=== PATIENT | male | born 1960 | race Caucasian/White ===

== ENCOUNTER → 2023-10-16 14:24 | Outpatient (REF) | payer MEDICARE, OTHER, SELFPAY ==
[2023-10-16 11:37] LABS: ALT (SGPT) 17 U/L (0-50); AST (SGOT) 19 U/L (17-59); Albumin 3.6 g/dl (3.5-5.0); Alkaline Phosphatase 103 U/L (38-126); Blood Urea Nitrogen 18 mg/dl (9-20); Calcium 9.1 mg/dl (8.4-10.2); Carbon Dioxide 21 mmol/L (22-30); Chloride 103 mmol/L (98-107); Glucose 325 mg/dl (70-99); Potassium 4.4 mmol/L (3.5-5.1); Sodium 135 mmol/L (135-145); Total Bilirubin 0.4 mg/dl (0.2-1.3); eGFR > 60.00
[2023-10-18 13:04] LABS: Beta-2-Microglobulin 4.6 mg/L (<=3.0)
[2023-10-19 18:59] LABS: Albumin 3.22 g/dL (3.75-5.01); Alpha 1 Globulin 0.31 g/dL (0.19-0.46); Alpha 2 Globulin 0.69 g/dL (0.48-1.05); Free Kappa Light Chains,Quant 7.86 mg/L (3.30-19.40); Free Lambda Light Chains,Quant 218.52 mg/L (5.71-26.30); IgA 5552 mg/dL (68-408); IgG 192 mg/dL (768-1632); IgM <10 mg/dL (35-263); Immunofixation Electrophoresis IFE Done; Kappa/Lambda Fr Light Ratio 0.04 (0.26-1.65); Monoclonal Protein 4.84 g/dL; Total Protein-Electrophoresis 9.7 g/dL (6.3-8.2)
== END ==
LOC: OIDL 14:24
PROVIDERS: ATTENDING PHYSICIAN Nurse Practitioner Adult Health
DX: C90.00 Multiple myeloma not having achieved remission (principal); N18.30 Chronic kidney disease, stage 3 unspecified
CPT/HCPCS: 80053; 82232; 82784; 83521; 84155; 84165; 86334

== ENCOUNTER → 2023-10-22 16:19 | Outpatient (REF) | payer MEDICARE, OTHER, SELFPAY ==
[2023-10-22 14:20] LABS: % Basophils 0.4 % (0-2); % Eosinophils 3.2 % (0-6); % Immature Granulocytes 0.1 % (0-0.5); % Lymphocytes 25.8 % (20.5-51.1); % Monocytes 8.5 % (1.7-9.3); Absolute Eosinophils 0.2 10^3/uL (0-0.7); Absolute Lymphocytes 1.9 10^3/uL (1.2-3.4); Absolute Monocytes 0.6 10^3/uL (0.1-0.6); Absolute Neutrophils 4.6 10^3/uL (1.4-6.5); Hematocrit 31.5 % (39.0-52.0); Mean Corp Hgb Conc. 31.7 g/dL (33.0-37.0); Mean Corpuscular Volume 84.9 fL (80.0-94.0); Mean Platelet Volume 9.9 fL (7.4-10.4); Platelet Count 250 10^3/uL (130-400); Red Blood Cell Count 3.71 10^6/uL (4.70-6.10); Red Cell Dist. Width 20.4 % (11.5-14.5); White Blood Cell Count 7.4 10^3/uL (4.8-10.8)
[2023-10-22 14:49] LABS: ALT (SGPT) 16 U/L (0-50); AST (SGOT) 19 U/L (17-59); Albumin 3.7 g/dl (3.5-5.0); Alkaline Phosphatase 97 U/L (38-126); Blood Urea Nitrogen 15 mg/dl (9-20); Calcium 9.5 mg/dl (8.4-10.2); Carbon Dioxide 23 mmol/L (22-30); Chloride 105 mmol/L (98-107); Glucose 195 mg/dl (70-99); Potassium 4.3 mmol/L (3.5-5.1); Sodium 137 mmol/L (135-145); Total Bilirubin 0.4 mg/dl (0.2-1.3); eGFR > 60.00
[2023-10-22 16:31] LABS: LDH 159 U/L (120-246)
== END ==
LOC: OIDL 16:19
PROVIDERS: ATTENDING PHYSICIAN Internal Medicine Hematology & Oncology
DX: C90.00 Multiple myeloma not having achieved remission (principal)
CPT/HCPCS: 80053; 83615; 85025

== ENCOUNTER → 2024-02-05 10:33 | Outpatient (REF) | payer MEDICARE, OTHER, SELFPAY | LOC: RAD 10:33 | PROVIDERS: ATTENDING PHYSICIAN Internal Medicine Hematology & Oncology; FAMILY PHYSICIAN Physician Assistant Medical | DX: C90.00 Multiple myeloma not having achieved remission (principal); M79.661 Pain in right lower leg | CPT/HCPCS: 93971 ==

== ENCOUNTER 2024-03-03 00:54 | Emergency (ER) | payer MEDICARE, OTHER, SELFPAY ==
[2024-03-03 00:56] VITALS: BP 139/81
[2024-03-03 00:58] VITALS: BP 139/81; BMI 36.5
[2024-03-03 01:20] LABS: Hematocrit 30.5 % (39.0-52.0); Hemoglobin 10.2 g/dL (13.0-18.0); Mean Corp Hgb Conc. 33.4 g/dL (33.0-37.0); Mean Corpuscular Hgb 29.7 pg (27.0-31.0); Mean Corpuscular Volume 88.9 fL (80.0-94.0); Mean Platelet Volume 11.4 fL (7.4-10.4); Platelet Count 163 10^3/uL (130-400); Red Blood Cell Count 3.43 10^6/uL (4.70-6.10); Red Cell Dist. Width 18.5 % (11.5-14.5); White Blood Cell Count 6.4 10^3/uL (4.8-10.8)
[2024-03-03 01:37] LABS: ALT (SGPT) 19 U/L (0-50); AST (SGOT) 17 U/L (17-59); Albumin 3.7 g/dl (3.5-5.0); Alkaline Phosphatase 125 U/L (38-126); Blood Urea Nitrogen 19 mg/dl (9-20); Carbon Dioxide 26 mmol/L (22-30); Chloride 101 mmol/L (98-107); Estimated Creatinine Clearance > 125 ml/min; Glucose 233 mg/dl (70-99); Potassium 3.9 mmol/L (3.5-5.1); Sodium 138 mmol/L (135-145); Total Bilirubin 0.4 mg/dl (0.2-1.3); Total Protein 7.4 g/dl (6.3-8.2); eGFR > 60.00
[2024-03-03 02:00] VITALS: BP 122/75
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
[2024-03-03 02:20] LABS: Absolute Neutrophils -Man Diff 3.9 10^3/uL (1.4-6.5); Atypical Lymphocytes 2 %; Band Neutrophils 4 % (0-3); Eosinophils 12 % (0-6); Lymphocytes 17 % (20-51); Monocytes 8 % (2-9); Platelets Checked Yes; Segmented Neutrophils 57 % (42-75)
[2024-03-03 02:23] LABS: Nucleated Red Blood Cells 1 (-)
[2024-03-03 02:24] LABS: Anisocytosis 1+; Microcytosis 1+; Normal RBC Morphology No
[2024-03-03 02:25] LABS: Rouleaux 1+; Total Cells Counted 100
[2024-03-03] MEDS: ROXICODONE 10 MG PO (02:47)
[2024-03-03] MEDS: OFIRMEV 100 IV (02:47)
[2024-03-03 03:00] VITALS: BP 118/69
== END 2024-03-03 05:21 ==
LOC: EMR 00:54
PROVIDERS: EMERGENCY PHYSICIAN Emergency Medicine; FAMILY PHYSICIAN Hospitalist
DX: I89.0 Lymphedema, not elsewhere classified (principal); G89.29 Other chronic pain; M79.604 Pain in right leg; M79.605 Pain in left leg; C90.00 Multiple myeloma not having achieved remission; D64.9 Anemia, unspecified; E11.9 Type 2 diabetes mellitus without complications; F11.20 Opioid dependence, uncomplicated; Z79.82 Long term (current) use of aspirin; Z79.899 Other long term (current) drug therapy; Z87.820 Personal history of traumatic brain injury; Z99.3 Dependence on wheelchair
CPT/HCPCS: 99284; 96374; 80053; 85025; 87040; 93970

== ENCOUNTER → 2024-07-21 12:56 | Outpatient (REF) | payer MEDICARE, OTHER, SELFPAY | LOC: OIDL 12:56 | PROVIDERS: ATTENDING PHYSICIAN Internal Medicine Hematology & Oncology | DX: C90.00 Multiple myeloma not having achieved remission (principal); N18.30 Chronic kidney disease, stage 3 unspecified; I89.0 Lymphedema, not elsewhere classified | CPT/HCPCS: 36415; 86850; 86870; 86900; 86901 ==

== ENCOUNTER 2024-07-25 03:01 | Inpatient (IN) | payer MEDICARE, OTHER, SELFPAY ==
[2024-07-24 23:30] VITALS: BP 136/54; BMI 41.1
[2024-07-24 23:32] VITALS: BP 136/54
--- NOTE | 2024-07-24 23:42 | ED.GENMED ---
History of Present Illness
General
Chief Complaint: Swelling
Source: patient
Exam Limitations: none
Time Seen by Provider: 07/24/24 23:29
History of Present Illness
History of Present Illness:
This is a 63 year old male that comes in by ambulance with c/o swelling. States that he had a blood transfusion on Thursday. States that he then started to swell. States that both legs are swollen and red, and the swelling is coming up into his abd.
States that he noticed this on Thursday. States that he has had chest discomfort, SOB, abd pain, and some dizziness. Denies any fever, chills, nausea, vomiting, diarrhea, headache, urinary burning.
Past History
Past History
ED Past Medical History: Cancer (Myelodysplastic Syndrome (MDS)), IDDM, Psychiatric (anxiety, Depression) and Other (TBI, Shingles)
ED Past Surgical History: Orthopedic (Right leg surgery, Left great toe and second toe amputation. Right great toe amputation, Back surgery, )
Social History
Tobacco: Former smoker
Alcohol: None
Personal:
Living: detention
Review of Systems
Review of Systems
All Other Systems: ROS reviewed and negative except as documented in HPI and ROS
Constitutional: Reports no symptoms; Denies fever or chills
EENT: Reports no symptoms
Respiratory: Reports trouble breathing; Denies cough
Cardiac: Reports chest pain
ABD/GI: Reports abdominal pain; Denies nausea, vomiting or diarrhea
: Reports no symptoms; Denies dysuria, frequency or urgency
Musculoskeletal: Reports edema (Both legs and abd)
Skin: Reports other (Redness of the lower legs)
Neurological: Reports dizzy; Denies headache
Psychiatric: Reports no symptoms
Phy Exam
General Physical Exam
General Presentation: mild distress
General age: appears stated age
General Skin: warm and dry
General Habitus: obese
General Mental: alert
General Hydration: dry mucous membranes
ENT Exam
ENT Exam: TM's normal, pharynx normal and neck supple
Eye Exam
Eye Exam: EOMI
Cardiovascular Exam
Cardiovascular Exam: normal peripheral pulses and tachycardia
Pulmonary Exam
Pulmonary Exam: lungs clear, no respiratory distress, no rales, chest non tender, no crackles, no rhonchi, no wheezing and no cough
Gastrointestinal Exam
Gastrointestinal Exam: normal bowel sounds, no pulsatile mass, tender (generalized tenderness all over with palpation. ) and other (abd is distended and tight with fluid, stool brown Hem negative)
Musculoskeletal Exam
Musculoskeletal Exam: edema (+2 pitting edema of the feet, legs into the thighs with +1 into the abd and skin is very tight. )
Skin Exam
Skin Exam: normal color, warm/dry and redness (Redness of the right lower leg with increased warmth. Left slightly red with increased warmth. )
Psychiatric Exam
Psychiatric Exam: normal mood/affect
Scores
Heart Failure Risk
Heart Failure Risk Score: Yes
History of Stroke or TIA: No
History of intubation for respiratory distress: No
Heart rate on ED arrival >/= 110: No
SaO2 <90% on arrival on room air: No
HR >/=110 during 3min walk test (or too ill to perform test): Yes
ECG has acute ischemic changes: No
Urea >/=12mmol/L (BUN 33.6mg/dL): No
Serum CO2>/=35mmol/L: No
Troponin I or T elevated to MS Level (0.4mg/dL): No
NT-proBNP >/=5,000ng/L (5,000pg/ml): No
HF Risk Score: 2
Admission Status: MEDIUM RISK 9.2% Consider observation or discharge to home with homecare & f/u visit to PCP/Recruiting Coordinator, or SNF for treatment
Course
Orders/Labs/Results
Orders:
Orders
07/24/24 23:41
Complete Blood Count/With Diff Urgent
Comprehensive Metabolic Panel Urgent
NT-proBNP Urgent
Troponin I Urgent
07/24/24 23:53
Electrocardiogram (*1) Urgent
Reason for Study: Shortness of Breath
EKG- Treatment ONCE
07/25/24 00:05
CR Chest - 2 Views Urgent
Reason For Exam: SOB, chest pain
07/25/24 00:28
Lactic Acid Urgent
07/25/24 01:07
Furosemide [Lasix] 80 mg IV NOW STA
07/25/24 01:14
Type And Crossmatch Urgent
07/25/24 01:30
Piperacillin/Tazo 3.375 Gram [Zosyn] 3.375 gram in 50 ml IV NOW
Abnormal Lab Results
07/25/24
00:28
WBC 4.0 L 10^3/uL
(4.8-10.8)
RBC 2.36 L 10^6/uL
(4.70-6.10)
Hgb 7.2 L g/dL
(13.0-18.0)
Hct 22.4 L %
(39.0-52.0)
MCV 94.9 H fL
(80.0-94.0)
MCHC 32.1 L g/dL
(33.0-37.0)
RDW 18.5 H %
(11.5-14.5)
MPV 11.4 H fL
(7.4-10.4)
Absolute Lymphs (auto) 0.8 L 10^3/uL
(1.2-3.4)
Absolute Monos (auto) 0.7 H 10^3/uL
(0.1-0.6)
Immature Gran % 0.7 H %
(0-0.5)
Lymphocytes % 19.8 L %
(20.5-51.1)
Monocytes % 16.3 H %
(1.7-9.3)
Eosinophils % 10.4 H %
(0-6)
Glucose 257 H mg/dl
(70-99)
Albumin 3.4 L g/dl
(3.5-5.0)
07/25/24 00:28
07/25/24 00:28
Leukopenia, H/H low, Hyperglycemia, Albumin slightly low. Troponin <0.012, Pro-BNP 266
Vital Signs
Initial and Last Documented VS:
Initial Vital Signs
Temp Pulse Resp BP Pulse Ox
97.8 F 104 18 136/54 97
07/24/24 23:30 07/24/24 23:30 07/24/24 23:30 07/24/24 23:30 07/24/24 23:30
Last Documented Vital Signs
Temp Pulse Resp BP Pulse Ox
97.8 F 102 19 129/61 91
07/24/24 23:30 07/25/24 01:15 07/25/24 01:15 07/25/24 01:14 07/25/24 00:53
MDM/Problems Addressed
Differential Diagnosis Includes:
CHF, Renal failure, Cellulitis
MDM/Problems Addressed:
This is a 63 year old male that comes in with c/o swelling in both legs and into his abd. States that he had a transfusion on Thursday and Thursday he started to swell.
will check labs, chest x-ray
Back into see patient. Explained that he has increased fluid also in the lungs. Also his Hgb is low at 7.2. Patient does not have any recent blood here to compare as he just had a Transfusion on Thursday. Blood consent signed and will Type and
Crossmatch. Patient to be admitted. Hospitalist notified.
Chronic conditions affecting care: Cancer
Acute Exacerbation and/or Progression of Chronic Illness: Cancer
*Radiology
Radiology exam reviewed: preliminary read by ED provider (Chest- increased vascular congestion, CHF)
*Pulse Oximetry
Patient hypoxic: no
*EKG
Interpreted by ED Provider?: Yes
Heart Rate: 99
Rate: normal
Rhythm: sinus
[place]: normal axis
Interval: normal interval
QRS Pattern: normal QRS
Ischemia: non-specific ST changes (V3, V4, Checked by Dr. Barry)
*[employer]er Interpretation
Rate: tachycardiac
Heart Rate: 107
Rhythm: sinus tachycardia
*Critical Care Note
Total Time (30-74mins, 75-104mins- exclusive of procedures): Not Applicable
ED Attending Note
-
Portions of this chart may have been created with voice recognition software.� Occasional wrong word or��sound alike� substitutions may have occurred due to the inherent limitations of voice recognition software.
Discharge Plan
Departure
Patient Disposition: Admit
Date of Disposition: 07/25/24
Time of Disposition: 01:33
Admit to: Telemetry
Presentation/result/management discussed w/ accepting MD/DO: Hospitalist
Patient with high blood pressure during this ER visit?: No
Condition: Good
Covid-19: Not Applicable
Discharge Problem:
Cellulitis of lower extremity, Increased vascular congestion, Bilateral edema of lower extremity, Low hemoglobin
Prescriptions:
No Action
atorvastatin [Lipitor] 40 mg Tablet
40 mg PO HS
acetaminophen [Tylenol] 325 mg Tablet
650 mg PO Q4HPRN PRN (Reason: mild pain)
amitriptyline 50 mg Tablet
50 mg PO HS
ferrous sulfate 325 mg (65 mg iron) Tablet
325 mg PO MOWEFR
Fleet Enema 19-7 gram/118 mL Enema
118 ml SC DAILYPRN PRN (Reason: if no bm aftr dulcolax)
fluticasone propionate 50 mcg/actuation [place],Suspension
2 spray INTRANASAL DAILY
bupropion HCl 300 mg Tablet Extended Release 24 Hr
150 mg PO DAILY
polyethylene glycol 3350 [Miralax] 17 gram Powder In Packet
17 g PO DAILY PRN (Reason: Constipation)
sennosides-docusate sodium [Senna Plus] 8.6-50 mg Tablet
2 tab-cap PO DAILY PRN (Reason: Constipation)
therapeutic multivitamin Tablet
1 tab PO DAILY
magnesium hydroxide 400 mg/5 mL Suspension
2,400 mg PO [id number] PRN (Reason: constipation)
olopatadine 0.1 % Drops
2 drp BOTH EYES BID
calcium carbonate [Tums] 200 mg calcium (500 mg) Tablet,Chewable
400 mg PO Q4HPRN PRN (Reason: gerd)
loratadine 10 mg Tablet
10 mg PO DAILY
venlafaxine 225 mg Tablet Extended Release 24hr
225 mg PO DAILY
furosemide [Lasix] 40 mg Tablet
40 mg PO DAILY
metformin 500 mg Tablet
1,000 mg PO BID
acyclovir 400 mg Tablet
400 mg PO .Q12H ON FRIDAYS
alprazolam 0.25 mg Tablet
0.25 mg PO HS
lorazepam [Ativan] 0.5 mg Tablet
0.5 mg PO .Q12H PRN (Reason: anxiety)
bisacodyl 10 mg Suppository
10 mg SC .Q24H PRN (Reason: constipation)
docusate sodium [Colace] 100 mg Capsule
100 mg PO DAILY
montelukast [Singulair] 10 mg Tablet
10 mg PO HS
Ventolin 90 mcg/actuation Aerosol
108 mcg INHALATION .Q4H PRN (Reason: shortness of breath)
lenalidomide 25 mg Capsule
25 mg PO HS
insulin glargine [Basaglar KwikPen U-100 Insulin] 100 unit/mL (3 mL) Insulin Pen
60 unit SC .Q12
insulin glargine [Basaglar KwikPen U-100 Insulin] 100 unit/mL (3 mL) Insulin Pen
66 unit SC .BID ON FRIDAYS
diclofenac sodium [Voltaren Arthritis Pain] 1 % Gel
1 ea TOPICAL .Q6H PRN (Reason: pain)
oxycodone 10 mg Tablet
10 mg PO .Q4H PRN (Reason: pain)
dapagliflozin propanediol [Farxiga] 10 mg Tablet
10 mg PO DAILY
aspirin 81 mg Capsule
81 mg PO DAILY
Ozempic 0.25 mg or 0.5 mg (2 mg/3 mL) Pen Injector
0.25 mg SC .
Robitussin Cold and Cough
10 ml PO .Q4H PRN (Reason: cough)
sodium chloride
1,000 mg PO TID
morphine [MS Contin] 15 mg tablet extended release
30 mg PO 12
insulin lispro 100 unit/mL insulin pen
47 unit SC AC
pregabalin [Lyrica] 200 mg capsule
200 mg PO .Q8
loperamide [Imodium A-D] 2 mg Tablet
2 mg PO Q6H PRN (Reason: Reduction Of Transepidermal Water Loss)
Referrals:
Daisy Gordon DO [Family Provider] -
Interventions
Interventions:
*Risk Screen - Suicide Last Done: 07/24/24 23:30
*General Assessment Last Done: 07/24/24 23:30
*Neglect/Abuse Screening Last Done: 07/24/24 23:30
ED- Fall Risk Assessment Last Done: 07/24/24 23:30
*ED COVID-19 Vaccine History Last Done: 07/24/24 23:30
ED- Cardiac Assessment Last Done: 07/24/24 23:42
ED- Pulmonary Assessment Last Done: 07/24/24 23:42
ED-Skin Assessment Last Done: 07/24/24 23:43
Discharge Date and Time
Print Language: KAZAKH
[2024-07-25] VITALS (12 sets, daily range): BP systolic 117–137; BP diastolic 55–86; PULSE 88–91; O2SAT 96; BMI 39.3
[2024-07-25 00:47] LABS: % Eosinophils 10.4 % (0-6); % Immature Granulocytes 0.7 % (0-0.5); % Lymphocytes 19.8 % (20.5-51.1); % Monocytes 16.3 % (1.7-9.3); % Neutrophils 51.8 % (42.2-75.2); Absolute Eosinophils 0.4 10^3/uL (0-0.7); Absolute Lymphocytes 0.8 10^3/uL (1.2-3.4); Absolute Monocytes 0.7 10^3/uL (0.1-0.6); Absolute Neutrophils 2.1 10^3/uL (1.4-6.5); Hematocrit 22.4 % (39.0-52.0); Hemoglobin 7.2 g/dL (13.0-18.0); Mean Corp Hgb Conc. 32.1 g/dL (33.0-37.0); Mean Corpuscular Hgb 30.5 pg (27.0-31.0); Mean Corpuscular Volume 94.9 fL (80.0-94.0); Mean Platelet Volume 11.4 fL (7.4-10.4); Nucleated Red Blood Cells % 0 % (-); Platelet Count 166 10^3/uL (130-400); Red Blood Cell Count 2.36 10^6/uL (4.70-6.10); Red Cell Dist. Width 18.5 % (11.5-14.5)
[2024-07-25 01:04] LABS: ALT (SGPT) 22 U/L (0-50); AST (SGOT) 20 U/L (17-59); Albumin 3.4 g/dl (3.5-5.0); Alkaline Phosphatase 103 U/L (38-126); Blood Urea Nitrogen 18 mg/dl (9-20); Calcium 8.8 mg/dl (8.4-10.2); Carbon Dioxide 24 mmol/L (22-30); Chloride 101 mmol/L (98-107); Estimated Creatinine Clearance 109 ml/min; Glucose 257 mg/dl (70-99); NT-proBNP 266 pg/ml; Potassium 3.8 mmol/L (3.5-5.1); Sodium 140 mmol/L (135-145); Total Bilirubin 0.2 mg/dl (0.2-1.3); Total Protein 7.4 g/dl (6.3-8.2); eGFR > 60.00
[2024-07-25 01:13] LABS: Troponin I < 0.012 ng/ml
[2024-07-25] MEDS: LASIX 80 MG IV (01:14)
[2024-07-25 01:20] LABS: Lactic Acid 1.5 mmol/L (0.7-2.0)
[2024-07-25] MEDS: ZOSYN 50 IV (01:33)
--- NOTE | 2024-07-25 02:52 | HPS.HSE ---
Family Physician
-
Family Physician: Daisy Gordon,
Chief Complaint
-
Swelling
History of Present Illness
Patient is a 63y M with PMH significant for HTN, DM-II, remote TBI and multiple myeloma who presents to ED complaining of swelling. Patient states that he had labs done on which showed low Hgb (he cannot recall the value). He received
a single unit [facility]. Patient states that he noted significant swelling on Thursday AM that has rapidly increased since that time.
Patient notes chronic swelling in the RLE - but he has also developed LLE swelling and edema now extending into the lower abdominal wall.
Patient notes discomfort due to swelling. He reports some sense of dyspnea.
He denies any chest pain. No fevers / chills. No cough, N/V/D, urinary complaints, etc.
Patient denies any new medications. No changes other than recent transfusion as noted.
Medical History
Past Medical History
Past Medical History: Reports Other
Additional Past Medical History:
Multiple Myeloma
Hypertension
Hyperlipidemia
Diabetes Mellitus, Type II - Insulin Dependent
Diabetic Neuropathy
Chronic Pain with Opioid Dependence secondary to Charcot Foot
Traumatic Brain Injury
Anxiety/Depression
Morbid Obesity
Past Surgical History: Reports Other
Additional Past Surgical History:
Bilateral Great Toe Amputations
Back Surgery
Right Leg Surgery
Social History
Tobacco: Former Smoker (Quit in April 2023)
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
Living: Detention
Family History
Family History: Other
Allergies / Home Medications
Allergies reflects when Allergies were last updated in [facility].
Home Medications with original date entered in [facility]
Allergy/Medication List:
Allergies
Allergy/AdvReac Type Severity Reaction Status Date / Time
buspirone [From BuSpar] Allergy Itching Verified 07/24/24 23:43
tramadol Allergy Unknown Verified 07/24/24 23:43
Home Medications
acetaminophen 325 mg tablet (Tylenol) 650 mg PO Q4HPRN PRN mild pain 08/30/23
amitriptyline 50 mg tablet 50 mg PO HS Depression 08/30/23
atorvastatin 40 mg tablet (Lipitor) 40 mg PO HS High Cholesterol 08/30/23
bupropion HCl 300 mg 24 hr tablet, extended release 150 mg PO DAILY Depression 08/30/23
calcium carbonate (Tums) 400 mg PO Q4HPRN PRN gerd 08/30/23
ferrous sulfate 325 mg (65 mg iron) tablet 325 mg PO MOWEFR Supplement 08/30/23
fluticasone propionate 50 mcg/actuation nasal spray,suspension 2 spray intranasal DAILY Congestion 08/30/23
loratadine 10 mg tablet 10 mg PO DAILY Allergies 08/30/23
magnesium hydroxide 400 mg/5 mL oral suspension 2,400 mg PO [id number] PRN constipation 08/30/23
olopatadine 0.1 % eye drops 2 drp BOTH EYES BID Eye Condition 08/30/23
polyethylene glycol 3350 17 gram oral powder packet (Miralax) 17 g PO DAILY PRN Constipation 08/30/23
sennosides 8.6 mg-docusate sodium 50 mg tablet (Senna Plus) 2 tab-cap PO DAILY PRN Constipation 08/30/23
sodium phosphates 19 gram-7 gram/118 mL enema (Fleet Enema) 118 ml MA DAILYPRN PRN if no bm aftr dulcolax 08/30/23
therapeutic multivitamin 1 tab PO DAILY Supplement 08/30/23
venlafaxine 225 mg tablet,extended release 24 hr 225 mg PO DAILY Depression 08/30/23
Robitussin Cold and Cough 10 ml PO .Q4H PRN cough 07/22/24
acyclovir 400 mg tablet 400 mg PO .Q12H ON Fridays07/22/24
albuterol 90 mcg/actuation aerosol inhaler 108 mcg inhalation .Q4H PRN shortness of breath 07/22/24
alprazolam 0.25 mg tablet 0.25 mg PO HS 07/22/24
aspirin 81 mg capsule 81 mg PO DAILY 07/22/24
bisacodyl 10 mg rectal suppository 10 mg MA .Q24H PRN constipation 07/22/24
dapagliflozin propanediol 10 mg tablet (Farxiga) 10 mg PO DAILY 07/22/24
diclofenac sodium 1 % topical gel (Voltaren Arthritis Pain) 1 ea topical .Q6H PRN pain 07/22/24
docusate sodium 100 mg capsule (Colace) 100 mg PO DAILY 07/22/24
furosemide 40 mg tablet (Lasix) 40 mg PO DAILY 07/22/24
insulin glargine 100 unit/mL (3 mL) subcutaneous pen (Basaglar KwikPen U-100 Insulin) 60 unit SC .Q12 07/22/24
insulin glargine 100 unit/mL (3 mL) subcutaneous pen (Basaglar KwikPen U-100 Insulin) 66 unit SC .BID ON Fridays07/22/24
insulin lispro 100 unit/mL subcutaneous pen 47 unit SC AC Diabetes 07/22/24
lenalidomide 25 mg capsule 25 mg PO HS 07/22/24
lorazepam 0.5 mg tablet (Ativan) 0.5 mg PO .Q12H PRN anxiety 07/22/24
metformin 500 mg tablet 1,000 mg PO BID 07/22/24
montelukast 10 mg tablet (Singulair) 10 mg PO HS 07/22/24
morphine 15 mg tablet,extended release (MS Contin) 30 mg PO 12 Pain 07/22/24
oxycodone 10 mg tablet 10 mg PO .Q4H PRN pain 07/22/24
pregabalin 200 mg capsule (Lyrica) 200 mg PO .Q8 Pain 07/22/24
semaglutide 0.25 mg or 0.5 mg (2 mg/3 mL) subcutaneous pen injector (Ozempic) 0.25 mg SC .QT07/22/24
sodium chloride 1,000 mg PO TID 07/22/24
loperamide 2 mg tablet (Imodium A-D) 2 mg PO Q6H PRN Reduction Of Transepidermal Water Loss 07/25/24
Review of Systems
-
History Source: Patient
A 12 point ROS was completed and negative except as noted: Yes
Constitutional: Reports Weight Gain and Fatigue; Denies Fever or Chills
EENT: Denies Sore Throat
Respiratory: Reports Trouble Breathing; Denies Cough
Cardiac: Denies Chest Pain or Palpitations
Abdomen/GI: Reports Abdominal Pain; Denies Nausea, Vomiting, Diarrhea, Constipated, Bloody Stools, Black Stools or Anorexia
: Denies Dysuria, Frequency or Flank Pain
Musculoskeletal: Reports Joint Pain, Joint Swelling and Edema
Neurological: Denies Dizzy or Headache
Psych: Denies Depression or Anxiety
Physical Exam
Vital Signs
Vital Signs
Temp Pulse Resp BP Pulse Ox
97.8 F 107 20 132/66 91
07/24/24 23:30 07/25/24 02:30 07/25/24 02:30 07/25/24 02:00 07/25/24 00:53
Physical Exam
General: Other (Morbidly obese 63y M in no acute distress.)
HEENT: Moist mucous membranes, PERRLA and Other (Thick neck.)
Respiratory: Other (Decreased at bases - otherwise clear.)
Cardiac: S1/S2 and Regular Rhythm; No Murmur
GI: Other (Obese, pos abdominal wall edema at least 1/2 up. No erythema / increased warmth / fluctuance / etc.)
Musculoskeletal: Other (Absent digits both feet s/p amputations. 4+ pitting edema bilaterally extending to the abdomen as noted above.)
Neuro: AO x 3
Laboratory Results
-
07/25/24 00:28
07/25/24 00:28
Laboratory Results
Lactic Acid 1.5 mmol/L (0.7-2.0) 07/25/24 00:28
Total Bilirubin 0.2 mg/dl (0.2-1.3) 07/25/24 00:28
AST 20 U/L (17-59) 07/25/24 00:28
ALT 22 U/L (0-50) 07/25/24 00:28
Alkaline Phosphatase 103 U/L (38-126) 07/25/24 00:28
Troponin I < 0.012 ng/ml 07/25/24 00:28
Impression/Plan
-
A/P: Patient is a 63y M with PMH significant for HTN, DM-II and multiple myeloma who presents to ED complaining of significant swelling over the past 48 hours.
Anasarca
- Admit for further evaluation and treatment.
- Symptoms began s/p PRBC transfusion on 07/22/24 - but seems unlikely that this degree of volume is wholly responsible.
- Prior h/o symptomatic anemia resulting in edema / CHF exacerbation in 08/2023.
- IV Lasix BID for now and follow for effective diuresis.
- Monitor for any evidence of renal impairment.
- Follow I/Os, daily weights, etc.
- Hold further PO salt supplementation for now.
- Update Echo - last done in 08/2023 was essentially unremarkable.
Multiple Myeloma
Acute on Chronic Anemia secondary to the above
- Patient is on lenalidomide for myeloma - last dose is scheduled for today before one week off. Will hold for now.
- s/p PRBCs x 1 unit on 07/22 as noted.
- Hematology evaluation for additional recommendations.
- Follow for changes in cell counts - Hgb may increase somewhat following effective diuresis.
DM-II
- Stable. Marked insulin resistance with high-doses of insulin.
- Continue basal : bolus insulin. Will decreases doses for now and adjust as needed for adequate glycemic control.
- Update A1C.
- Continue Farxiga. Hold other PO medications and Ozempic.
Benign Hypertension
- Stable. Patient is not currently on any antihypertensive medications.
- Follow for BP control.
Chronic Pain Syndrome
Chronic Opioid Dependence
Charcot Foot
- Stable. Continue current pain control med regimen without changes.
- Follow-up with Pain Management after discharge.
- PT / OT evaluations for mobility during stay.
- Patient notes that he has been wheelchair bound for > 1 year.
History of TBI
- No new neurologic complaints.
Morbid Obesity due to excess calories
- Affects all aspects of care.
- Encourage healthy diet. Patient extremely limited in mobility and suspect that significant weight reduction will not be feasible.
DVT Prophylaxis: Lovenox
Code Status: Full
[2024-07-25] MEDS: ROXICODONE 10 MG PO ×4 (03:30→21:49)
[2024-07-25] MEDS: LYRICA 200 MG PO ×3 (06:12→21:48)
[2024-07-25 07:43] LABS: Glucose - Point of Care 374 mg/dl (70-99)
[2024-07-25] MEDS: FARXIGA 10 MG PO (07:56)
[2024-07-25] MEDS: COLACE 100 MG PO ×2 (07:56→21:49)
[2024-07-25] MEDS: EFFEXOR XR 225 MG PO (07:56)
[2024-07-25] MEDS: LOW STRENGTH ASPIRIN 81 MG PO (07:57)
[2024-07-25] MEDS: NOVOLOG FLEXPEN 20 UNITS SC ×3 (08:00→16:37)
[2024-07-25] MEDS: NOVOLOG FLEXPEN-HIGH RESISTANCE 12 UNITS SC (08:01)
[2024-07-25] MEDS: LASIX 40 MG IV ×2 (08:02→15:37)
[2024-07-25] MEDS: LANTUS 0.4 UNITS SC (08:17)
[2024-07-25 09:00] LABS: Hematocrit 24.7 % (39.0-52.0); Hemoglobin 7.9 g/dL (13.0-18.0); Mean Corpuscular Hgb 31.3 pg (27.0-31.0); Mean Platelet Volume 11.9 fL (7.4-10.4); Platelet Count 160 10^3/uL (130-400); Red Blood Cell Count 2.52 10^6/uL (4.70-6.10); Red Cell Dist. Width 18.3 % (11.5-14.5); White Blood Cell Count 4.2 10^3/uL (4.8-10.8)
[2024-07-25] MEDS: WELLBUTRIN XL (24 hour extended release) 150 MG PO (09:01)
[2024-07-25 09:31] LABS: Glycohemoglobin (HgbA1c) 10.1 % (4.0-5.6)
--- NOTE | 2024-07-25 10:00 | CARDSERVLU ---
Echocardiogram with [facility] completed after protocol screening completed. Allergies verified.
Patent IV site: _R hand____
IV site flushed with 0.9% NaCl pre and post administration.
Diluted bolus method utilized to enhance visualization of ventricular ledezma.
Total volume given: __2.5__ mL
Patient tolerated all procedures well without complications.
[2024-07-25 10:16] LABS: Iron 73 ug/dl (49-181)
[2024-07-25 10:22] LABS: Blood Urea Nitrogen 20 mg/dl (9-20); Calcium 8.7 mg/dl (8.4-10.2); Carbon Dioxide 27 mmol/L (22-30); Chloride 98 mmol/L (98-107); Estimated Creatinine Clearance 97 ml/min; Glucose 238 mg/dl (70-99); Potassium 3.6 mmol/L (3.5-5.1); Sodium 141 mmol/L (135-145); eGFR > 60.00
[2024-07-25 10:25] LABS: Percent Saturation 25 % (20-50); Total Iron Binding Capacity 287 ug/dl (261-462)
[2024-07-25] MEDS: MS CONTIN (EXTENDED RELEASE) 30 MG PO (11:16)
[2024-07-25 11:19] LABS: Folate > 20.0 ng/ml (2.76-20); Vitamin B12 643 pg/ml (239-931)
[2024-07-25 12:29] LABS: Glucose - Point of Care 179 mg/dl (70-99)
--- NOTE | 2024-07-25 13:36 | W.PN.UPDATE ---
Update Note
Progress Note Update
Seen and examined independent of overnight physician. Nonbillable note. States of worsening of edema and abdominal distention. States recently received blood transfusion.
General: morbidly obese, in no acute distress
HEENT: Moist mucous membranes, and Other (Thick neck.)
Respiratory: dec bs
Cardiac: S1/S2 and Regular Rhythm; No Murmur
GI: Other (Obese, pos abdominal wall edema at least 1/2 up. No erythema / increased warmth / fluctuance / etc.)
Musculoskeletal: Other (Absent digits both feet s/p amputations. 4+ pitting edema bilaterally extending to the abdomen as noted above.)
Neuro: AO x 3
A/P: Patient is a 63y M with PMH significant for HTN, DM-II and multiple myeloma who presents to ED complaining of significant swelling over the past 48 hours.
Anasarca ? Worsened due to salt tablets
Pulmonary edema
- Symptoms began s/p PRBC transfusion on 07/22/24 - but seems unlikely that this degree of volume is wholly responsible.
- Prior h/o symptomatic anemia resulting in edema / CHF exacerbation in 08/2023.
- IV Lasix 40 BID for now and follow for effective diuresis.
- Monitor for any evidence of renal impairment.
- Follow I/Os, daily weights, etc.
- Hold further PO salt supplementation for now.
- Echo with normal left ventricular chamber size. Normal left ventricular systolic function. Normal regional wall motion. Ejection fraction 60 to 65%. No significant valvular disease.
Multiple Myeloma
Acute on Chronic Anemia secondary to the above
- Patient is on lenalidomide for myeloma - last dose is scheduled for today before one week off. Will hold for now.
- s/p PRBCs x 1 unit on 07/22 as noted.
- Hematology evaluation for additional recommendations.
- Follow for changes in cell counts - Hgb may increase somewhat following effective diuresis.
DM-II
- Stable. Marked insulin resistance with high-doses of insulin.
- Continue basal : bolus insulin. Will decreases doses for now and adjust as needed for adequate glycemic control.
- Update A1C.
- Continue Farxiga. Hold other PO medications and Ozempic.
Benign Hypertension
- Stable. Patient is not currently on any antihypertensive medications.
- Follow for BP control.
Chronic Pain Syndrome
Chronic Opioid Dependence
Charcot Foot
- Stable. Continue current pain control med regimen without changes.
- Follow-up with Pain Management after discharge.
- PT / OT evaluations for mobility during stay.
- Patient notes that he has been wheelchair bound for > 1 year.
History of TBI
- No new neurologic complaints.
Morbid Obesity due to excess calories
- Affects all aspects of care.
- Encourage healthy diet. Patient extremely limited in mobility and suspect that significant weight reduction will not be feasible.
DVT Prophylaxis: Lovenox
Code Status: Full
[2024-07-25] MEDS: NOVOLOG FLEXPEN-HIGH RESISTANCE 2 UNITS SC (13:57)
--- NOTE | 2024-07-25 15:16 | CM ---
Reviewed the chart notes and spoke with the patient at the bedside. Patient is a terminal carman resident of [facility]. [employer] confirmed half-way status. The patient self propels and requires some assistance with ADLs. CM
continues to be available to patient/family and is monitoring medical plan for needs at discharge.
Plan: Discharge back to [facility] when medically stable.
[2024-07-25 16:22] LABS: Glucose - Point of Care 262 mg/dl (70-99)
[2024-07-25] MEDS: NOVOLOG FLEXPEN-HIGH RESISTANCE 7 UNITS SC (16:38)
[2024-07-25] MEDS: LOVENOX 40 MG SC (17:12)
--- NOTE | 2024-07-25 20:25 | CON.ONC ---
Impression
Impression
Anasarca
Multiple myeloma, responding to current regimen
Traumatic brain injury
Anemia, recently progressive
Plan
Plan
Differential for anasarca includes increased salt intake and high output cardiac failure in setting of progressive anemia.
Unclear why patient's hemoglobin is so low when renal insufficiency is mild with creatinine of 1.14 as of July 18, and myeloma appears to be under good control.
He does not appear iron deficient with ferritin 323 and iron sat 19% as of July 18. His medication doses are unchanged.
Suggest aggressive diuresis.
Anemia workup ordered.
Await abd U/S, eval for ascites amenable to diagnostic/therapeutic tap.
Hold Revlimid during hospitalization.
Thank you for consult, will follow along with you.
Patient History
History of Present Illness
63 yo man well known to our group for history of myeloma, currently on treatment with Velcade, Darzalex, Revlimid 25 mg and weekly dexamethasone 40 mg. His last myeloma panel from 06/01/24 showed stable partial response. He is also on Aranesp,
currently on monthly schedule. His weights have been variable in our office, mostly in 290's. Since 07/01 his weight has increased from 297 to now 314. Pt came to ED with increased lower extremity swelling and increased abdominal girth. He was
transfused 1U PRBC's 07/21 but also reports that he has been taking two salt tablets per day for a few weeks now. ECHO performed today shows normal EF with mild concentric LVH. Albumin most recently 3.4 and lower extremity Dopplers are without
evidence of DVT. Pt appears uncomfortable, states belly has never been so big. U/A 1+ albumin.
Past-Medical/Surgical History
PMHx:
Multiple myeloma
Chronic renal insufficiency, stage III
Lymphedema
Type 2 diabetes
Hypertension
Hyperlipidemia
Charcot foot
Traumatic brain injury
Chronic pain with opioid dependence
History of alcohol abuse
Morbid obesity
PSHx:
Bilateral Great Toe Amputations
Back Surgery
Right Leg Surgery
Social History:
Tobacco: Former Smoker (Quit in April 2023)
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
Living: Alf
Family History:
Denies family history of cancer or blood disorders
Patient Medication
�Medication �Instructions �Recorded �Confirmed �Last Taken �Type
acetaminophen 325 mg tablet 650 mg PO Q4HPRN PRN mild pain 08/30/23 07/25/24 Unknown History
(Tylenol)
amitriptyline 50 mg tablet 50 mg PO HS Depression 08/30/23 07/25/24 07/21/24 History
atorvastatin 40 mg tablet (Lipitor) 40 mg PO HS High Cholesterol 08/30/23 07/25/24 07/21/24 History
bupropion HCl 300 mg 24 hr tablet, 150 mg PO DAILY Depression 08/30/23 07/25/24 07/22/24 History
extended release
calcium carbonate (Tums) 400 mg PO Q4HPRN PRN gerd 08/30/23 07/25/24 Unknown History
ferrous sulfate 325 mg (65 mg 325 mg PO MOWEFR Supplement 08/30/23 07/25/24 07/22/24 History
iron) tablet
fluticasone propionate 50 2 spray intranasal DAILY Congestion 08/30/23 07/25/24 07/22/24 History
mcg/actuation nasal
spray,suspension
loratadine 10 mg tablet 10 mg PO DAILY Allergies 08/30/23 07/25/24 07/22/24 History
magnesium hydroxide 400 mg/5 mL 2,400 mg PO [id number] PRN 08/30/23 07/25/24 Unknown History
oral suspension constipation
olopatadine 0.1 % eye drops 2 drp BOTH EYES BID Eye Condition 08/30/23 07/25/24 07/22/24 History
polyethylene glycol 3350 17 gram 17 g PO DAILY PRN Constipation 08/30/23 07/25/24 Unknown History
oral powder packet (Miralax)
sennosides 8.6 mg-docusate sodium 2 tab-cap PO DAILY PRN Constipation 08/30/23 07/25/24 07/22/24 History
50 mg tablet (Senna Plus)
sodium phosphates 19 gram-7 118 ml TN DAILYPRN PRN if no bm 08/30/23 07/25/24 Unknown History
gram/118 mL enema (Fleet Enema) aftr dulcolax
therapeutic multivitamin 1 tab PO DAILY Supplement 08/30/23 07/25/24 07/22/24 History
venlafaxine 225 mg tablet,extended 225 mg PO DAILY Depression 08/30/23 07/25/24 07/22/24 History
release 24 hr
Robitussin Cold and Cough 10 ml PO .Q4H PRN cough 07/22/24 07/25/24 Unknown History
acyclovir 400 mg tablet 400 mg PO .Q12H ON Fridays07/22/24 07/25/24 07/22/24 History
albuterol 90 mcg/actuation aerosol 108 mcg inhalation .Q4H PRN 07/22/24 07/25/24 Unknown History
inhaler shortness of breath
alprazolam 0.25 mg tablet 0.25 mg PO HS 07/22/24 07/25/24 07/21/24 History
aspirin 81 mg capsule 81 mg PO DAILY 07/22/24 07/25/24 07/22/24 History
bisacodyl 10 mg rectal suppository 10 mg TN .Q24H PRN constipation 07/22/24 07/25/24 Unknown History
dapagliflozin propanediol 10 mg 10 mg PO DAILY 07/22/24 07/25/24 07/22/24 History
tablet (Farxiga)
diclofenac sodium 1 % topical gel 1 ea topical .Q6H PRN pain 07/22/24 07/25/24 Unknown History
(Voltaren Arthritis Pain)
docusate sodium 100 mg capsule 100 mg PO DAILY 07/22/24 07/25/24 07/22/24 History
(Colace)
furosemide 40 mg tablet (Lasix) 40 mg PO DAILY 07/22/24 07/25/24 07/22/24 History
insulin glargine 100 unit/mL (3 60 unit SC .Q12 07/22/24 07/25/24 07/22/24 History
mL) subcutaneous pen (Basaglar
KwikPen U-100 Insulin)
insulin glargine 100 unit/mL (3 66 unit SC .BID ON Fridays07/22/24 07/25/24 07/22/24 History
mL) subcutaneous pen (Basaglar
KwikPen U-100 Insulin)
insulin lispro 100 unit/mL 47 unit SC AC Diabetes 07/22/24 07/25/24 07/22/24 History
subcutaneous pen
lenalidomide 25 mg capsule 25 mg PO HS 07/22/24 07/25/24 07/21/24 History
lorazepam 0.5 mg tablet (Ativan) 0.5 mg PO .Q12H PRN anxiety 07/22/24 07/25/24 Unknown History
metformin 500 mg tablet 1,000 mg PO BID 07/22/24 07/25/24 07/22/24 History
montelukast 10 mg tablet 10 mg PO HS 07/22/24 07/25/24 07/21/24 History
(Singulair)
morphine 15 mg tablet,extended 30 mg PO 12 Pain 07/22/24 07/25/24 07/21/24 History
release (MS Contin)
oxycodone 10 mg tablet 10 mg PO .Q4H PRN pain 07/22/24 07/25/24 Unknown History
pregabalin 200 mg capsule (Lyrica) 200 mg PO .Q8 Pain 07/22/24 07/25/24 07/22/24 History
semaglutide 0.25 mg or 0.5 mg (2 0.25 mg SC .QT07/22/24 07/25/24 07/19/24 History
mg/3 mL) subcutaneous pen injector
(Ozempic)
sodium chloride 1,000 mg PO TID 07/22/24 07/25/24 07/22/24 History
loperamide 2 mg tablet (Imodium 2 mg PO Q6H PRN Reduction Of 07/25/24 07/25/24 Unknown History
A-D) Transepidermal Water Loss
Active Medications
Generic Name Dose Route Start Last Admin
Trade Name Freq PRN Reason Stop Dose Admin
Acetaminophen 650 mg 07/25/24 03:50
Acetaminophen 325 Mg Tablet PO 08/22/24 03:49
Q4HPRN PRN
Mild Pain / Temp > 101
Acyclovir Sodium 400 mg 07/25/24 08:00
Acyclovir Sodium 200 Mg Capsule PO 08/04/24 07:59
.Q12H ON FRIDAYS TERESA
Albuterol Sulfate 2.5 mg 07/25/24 03:50
Albuterol Nebs 2.5 Mg/3 Ml Ampul INH
R Q4HPRN PRN
SOB
Protocol
Amitriptyline HCl 50 mg 07/25/24 22:00
Amitriptyline 50 Mg Tablet PO 08/22/24 21:59
HS TERESA
Aspirin 81 mg 07/25/24 08:00 07/25/24 07:57
Aspirin 81 Mg Chewable Tablet PO 08/22/24 07:59 81 mg
DAILY TERESA Administration
Atorvastatin Calcium 40 mg 07/25/24 22:00
Atorvastatin (Lipitor) 40 Mg Tablet PO 08/22/24 21:59
HS TERESA
Bupropion HCl 150 mg 07/25/24 08:00 07/25/24 09:01
Bupropion (24hr) Extended Release 150 Mg Tablet PO 08/22/24 07:59 150 mg
DAILY TERESA Administration
Dapagliflozin 10 mg 07/25/24 08:00 07/25/24 07:56
Dapagliflozin (Farxiga) 10 Mg Tablet PO 08/22/24 07:59 10 mg
DAILY TERESA Administration
Dextrose 12.5 grams 07/25/24 03:50
Dextrose 50% (0.5 Grams/Ml) 50 Ml Syringe IV 08/22/24 03:49
[id number] PRN
hypoglycemia
Protocol
Docusate Sodium 100 mg 07/25/24 08:00 07/25/24 07:56
Docusate Sodium 100 Mg Capsule PO 08/22/24 07:59 100 mg
BID TERESA Administration
Enoxaparin Sodium 40 mg 07/25/24 18:00 07/25/24 17:12
Enoxaparin Sodium 40 Mg/0.4 Ml Syringe SC 08/22/24 17:59 40 mg
QPM TERESA Administration
Furosemide 40 mg 07/25/24 08:00 07/25/24 15:37
Furosemide 40 Mg (10 Mg/Ml) 4 Ml Vial IV 08/22/24 07:59 40 mg
BID AT 0800,1600 TERESA Administration
Glucagon 1 mg 07/25/24 03:50
Glucagon 1 Mg Vial IM 08/22/24 03:49
PRN PRN
hypoglycemia
Protocol
Insulin Glargine 40 units/ 0.4 mls @ 0 mls/hr 07/25/24 08:00 07/25/24 08:17
Device SC 08/22/24 07:59 0.4 mls
Q12 TERESA Administration
As Directed
Insulin Aspart 20 units 07/25/24 07:30 07/25/24 16:37
Insulin Aspart (100 Units/Ml) 3 Ml Flexpen SC 08/22/24 07:29 20 units
AC TERESA Administration
Insulin Aspart 0 units 07/25/24 07:30 07/25/24 16:38
Insulin Aspart High Resistance 300 Units/3 Ml Pen.Injctr SC 08/22/24 07:29 7 units
AC TERESA Administration
Protocol
Lorazepam 0.5 mg 07/25/24 03:50
Lorazepam 0.5 Mg Tablet PO 08/22/24 03:49
.Q12H PRN
anxiety
Montelukast Sodium 10 mg 07/25/24 22:00
Montelukast Sodium 10 Mg Tablet PO 08/22/24 21:59
HS TERESA
Morphine Sulfate 30 mg 07/25/24 12:00 07/25/24 11:16
Morphine 15 Mg Extended Release Tablet PO 08/08/24 11:59 30 mg
12 TERESA Administration
Oxycodone HCl 10 mg 07/25/24 03:19 07/25/24 17:13
Oxycodone 10 Mg Regular Release Tablet PO 08/08/24 03:18 10 mg
.Q4H PRN Administration
severe pain
Polyethylene Glycol 17 grams 07/25/24 03:50
Polyethylene Glycol Powder 17 Grams Packet PO 08/22/24 03:49
DAILY PRN
Constipation
Pregabalin 200 mg 07/25/24 06:00 07/25/24 14:00
Pregabalin 100 Mg Capsule PO 08/22/24 05:59 200 mg
Q8H TERESA Administration
Sennosides 17.2 mg 07/25/24 22:00
Sennosides (Senokot) 8.6 Mg Tablet PO 08/22/24 21:59
HS TERESA
Sodium Chloride 0 flush 07/25/24 04:00
Sodium Chloride 0.9% (Flush) Syringe IV 08/22/24 03:59
PER PROTOCOL TERESA
Sodium Chloride 0 flush 07/25/24 05:00
Sodium Chloride 0.9% (Flush) Syringe IV 08/22/24 04:59
PER PROTOCOL TERESA
Venlafaxine HCl 225 mg 07/25/24 08:00 07/25/24 07:56
Venlafaxine 75 Mg Extended Release Capsule PO 08/22/24 07:59 225 mg
DAILY TERESA Administration
Review of Systems
-
History Source: Patient and Records
All Other Systems: Reviewed and Negative
Constitutional: Reports No Symptoms
EENT: Reports No Symptoms
Respiratory: Reports No Symptoms
Cardiac: Reports No Symptoms
GI: Reports No Symptoms
Breast: Reports No Symptoms
: Reports No Symptoms
Musculoskeletal: Reports Edema
Skin: Reports No Symptoms
Neuro: Reports No Symptoms
Endocrine: Reports No Symptoms
Hematologic/Lymphatic: Reports No Symptoms
Allergy / Immunology: Reports No Symptoms
Psych: Reports No Symptoms
Physical Exam
-
General: Well Developed, Well Nourished and No Apparent Distress
HEENT: Moist Mucous Membranes; Negative Jaundice
Cardiology: Normal Sinus Rhythm, S1 and S2
Pulmonary: Clear; Negative Wheezes or Rales
GI: Soft and Normal Bowel Sounds
Musculoskeletal: Edema, Right Lower Extrem, Edema, Left Lower Extrem and Other (Seated in wheelchair)
Extremities: Edema
Neurology: Non Focal
Skin: Warm and Dry
Hematologic / Lymphatic: No Petechiae
Psych: Calm and Intact Judgement/Insight
Labs
Lab Results
WBC 4.2 10^3/uL (4.8-10.8) L 07/25/24 08:42
RBC 2.52 10^6/uL (4.70-6.10) L 07/25/24 08:42
Hgb 7.9 g/dL (13.0-18.0) L 07/25/24 08:42
Hct 24.7 % (39.0-52.0) L 07/25/24 08:42
MCV 98.0 fL (80.0-94.0) H 07/25/24 08:42
MCH 31.3 pg (27.0-31.0) H 07/25/24 08:42
MCHC 32.0 g/dL (33.0-37.0) L 07/25/24 08:42
RDW 18.3 % (11.5-14.5) H 07/25/24 08:42
Plt Count 160 10^3/uL (130-400) 07/25/24 08:42
MPV 11.9 fL (7.4-10.4) H 07/25/24 08:42
Abs Immat Gran (auto) 0.0 10^3/uL (0-0.05) 07/25/24 00:28
Absolute Neuts (auto) 2.1 10^3/uL (1.4-6.5) 07/25/24 00:28
Absolute Lymphs (auto) 0.8 10^3/uL (1.2-3.4) L 07/25/24 00:28
Absolute Monos (auto) 0.7 10^3/uL (0.1-0.6) H 07/25/24 00:28
Absolute Eos (auto) 0.4 10^3/uL (0-0.7) 07/25/24 00:28
Absolute Basos (auto) 0.0 10^3/uL (0-0.2) 07/25/24 00:28
Immature Gran % 0.7 % (0-0.5) H 07/25/24 00:28
Neutrophils % 51.8 % (42.2-75.2) 07/25/24 00:28
Lymphocytes % 19.8 % (20.5-51.1) L 07/25/24 00:28
Monocytes % 16.3 % (1.7-9.3) H 07/25/24 00:28
Eosinophils % 10.4 % (0-6) H 07/25/24 00:28
Basophils % 1.0 % (0-2) 07/25/24 00:28
Creatinine 1.2 mg/dL (0.7-1.3) 07/25/24 08:42
Vital Signs
Vital Signs
Temp Pulse Resp BP Pulse Ox
97.9 F 93 18 129/86 97
07/25/24 19:00 07/25/24 19:00 07/25/24 19:00 07/25/24 19:00 07/25/24 19:00
[2024-07-25 21:15] LABS: Glucose - Point of Care 86 mg/dl (70-99)
[2024-07-25] MEDS: LIPITOR 40 MG PO (21:48)
[2024-07-25] MEDS: LANTUS SC (21:49)
[2024-07-25] MEDS: SENOKOT 17.2 MG PO (21:49)
[2024-07-25] MEDS: ELAVIL 50 MG PO (21:50)
[2024-07-25] MEDS: LANTUS 0.2 UNITS SC (21:50)
[2024-07-25] MEDS: SINGULAIR 10 MG PO (21:50)
[2024-07-26] MEDS: ROXICODONE 10 MG PO ×5 (02:04→21:26)
[2024-07-26 02:56] LABS: Glucose - Point of Care 98 mg/dl (70-99)
[2024-07-26 03:01] VITALS: BP 128/56
--- NOTE | 2024-07-26 03:01 | PTCARENOTE ---
Pt's HS accuchek 86, due for 40 units Lantus. D/w covering DOOR CLOSER, Lantus dose of 40 units placed on hold, 20 units of Lantus ordered and recheck accuchek due for 0300. Repeat accuchek 96.
[2024-07-26 06:00] VITALS: BMI 38.2
[2024-07-26] MEDS: LYRICA 200 MG PO ×3 (06:37→21:25)
[2024-07-26 07:15] VITALS: BP 129/57
[2024-07-26 07:22] LABS: Glucose - Point of Care 153 mg/dl (70-99)
[2024-07-26] MEDS: NOVOLOG FLEXPEN 20 UNITS SC ×3 (08:38→16:43)
[2024-07-26] MEDS: NOVOLOG FLEXPEN-HIGH RESISTANCE 2 UNITS SC (08:40)
[2024-07-26] MEDS: LOW STRENGTH ASPIRIN 81 MG PO (08:41)
[2024-07-26] MEDS: COLACE 100 MG PO ×2 (08:41→20:21)
[2024-07-26] MEDS: WELLBUTRIN XL (24 hour extended release) 150 MG PO (08:41)
[2024-07-26] MEDS: EFFEXOR XR 225 MG PO (08:41)
[2024-07-26] MEDS: LASIX 40 MG IV ×2 (08:42→16:42)
[2024-07-26] MEDS: FARXIGA 10 MG PO (08:42)
[2024-07-26 09:02] LABS: Hematocrit 24.7 % (39.0-52.0); Hemoglobin 7.8 g/dL (13.0-18.0); Mean Corp Hgb Conc. 31.6 g/dL (33.0-37.0); Mean Corpuscular Hgb 30.6 pg (27.0-31.0); Mean Corpuscular Volume 96.9 fL (80.0-94.0); Platelet Count 150 10^3/uL (130-400); Red Blood Cell Count 2.55 10^6/uL (4.70-6.10); White Blood Cell Count 3.3 10^3/uL (4.8-10.8)
[2024-07-26 09:27] LABS: Blood Urea Nitrogen 19 mg/dl (9-20); Calcium 8.8 mg/dl (8.4-10.2); Carbon Dioxide 30 mmol/L (22-30); Chloride 100 mmol/L (98-107); Estimated Creatinine Clearance 115 ml/min; Glucose 184 mg/dl (70-99); Potassium 3.6 mmol/L (3.5-5.1); Sodium 141 mmol/L (135-145); eGFR > 60.00
--- NOTE | 2024-07-26 10:14 | W.PN.HOSP.TC ---
Today's Communication/Plan
-
IV lasix
monitor Cr
Trend cbc
Assessment / Plan
Assessment / Plan
General: morbidly obese, in no acute distress
HEENT: Moist mucous membranes, and Other (Thick neck.)
Respiratory: dec bs
Cardiac: S1/S2 and Regular Rhythm; No Murmur
GI: Other (Obese, pos abdominal wall edema at least 1/2 up. No erythema / increased warmth / fluctuance / etc.)
Musculoskeletal: Other (Absent digits both feet s/p amputations. 4+ pitting edema bilaterally extending to the abdomen as noted above.)
Neuro: AO x 3
A/P: Patient is a 63y M with PMH significant for HTN, DM-II and multiple myeloma who presents to ED complaining of significant swelling over the past 48 hours.
Anasarca ? Worsened due to salt tablets
Pulmonary edema
- Symptoms began s/p PRBC transfusion on 07/22/24 -
- Prior h/o symptomatic anemia resulting in edema / CHF exacerbation in 08/2023.
- IV Lasix 40 BID for now and follow for effective diuresis. Losing weight. If wt accurate-lost 4kg
- Monitor for any evidence of renal impairment.
- Follow I/Os, daily weights, etc.
- DC further PO salt supplementation for now as Na stable.
- Check LE venous doppler -If negative start compression therapy with ALEM wraps
- Echo with normal left ventricular chamber size. Normal left ventricular systolic function. Normal regional wall motion. Ejection fraction 60 to 65%. No significant valvular disease.
Multiple Myeloma
Acute on Chronic Anemia secondary to the above
- Patient is on lenalidomide for myeloma - last dose is scheduled for today before one week off. Will hold for now.
- s/p PRBCs x 1 unit on 07/22 as noted.
- Hematology evaluation for additional recommendations.
- States next dose of chemo this thursday.
DM-II
- Stable. Marked insulin resistance with high-doses of insulin.
- Continue basal : bolus insulin. Will decreases doses for now and adjust as needed for adequate glycemic control.
- Update A1C at 10.1
- Continue Farxiga. Hold other PO medications and Ozempic. POC AM 153
Benign Hypertension
- Stable. Patient is not currently on any antihypertensive medications.
- Follow for BP control.
Chronic Pain Syndrome
Chronic Opioid Dependence
Charcot Foot
- Stable. Continue current pain control med regimen without changes.
- Follow-up with Pain Management after discharge.
- PT / OT evaluations for mobility during stay.
- Patient notes that he has been wheelchair bound for > 1 year.
History of TBI
- No new neurologic complaints.
Morbid Obesity due to excess calories
- Affects all aspects of care.
- Encourage healthy diet. Patient extremely limited in mobility and suspect that significant weight reduction will not be feasible.
DVT Prophylaxis: Lovenox
Code Status: Full
Anticipated Discharge: 24 - 48 hours
Subjective/Interval History
-
Date of Service: July 26, 2024
states improvement in Le edema
Objective Data
-
Labs:
Laboratory Results
07/26/24
08:38
WBC 3.3 L
Hgb 7.8 L
Hct 24.7 L
Plt Count 150
Sodium 141
Potassium 3.6
Chloride 100
Carbon Dioxide 30
BUN 19
Creatinine 1.0
Glucose 184 H
Calcium 8.8
Vital Signs:
Vital Signs
Temp Pulse Resp BP Pulse Ox
97.4 F 80 16 129/57 98
07/26/24 07:15 07/26/24 08:42 07/26/24 07:15 07/26/24 08:42 07/26/24 07:15
I&O
07/25/24 07/26/24 07/27/24
06:59 06:59 06:59
Intake Total 1380 / 1380
Output Total 190 / 1900
Balance -1900 / -1900 1380 / 1380
Data Reviewed
-
Total Time Spent with Patient (in minutes): 55
[2024-07-26 10:31] LABS: % Basophils 1.2 % (0-2); % Eosinophils 10.5 % (0-6); % Immature Granulocytes 0.3 % (0-0.5); % Lymphocytes 18.9 % (20.5-51.1); % Monocytes 13.8 % (1.7-9.3); % Neutrophils 55.3 % (42.2-75.2); Absolute Eosinophils 0.4 10^3/uL (0-0.7); Absolute Lymphocytes 0.6 10^3/uL (1.2-3.4); Absolute Monocytes 0.5 10^3/uL (0.1-0.6); Absolute Neutrophils 1.8 10^3/uL (1.4-6.5); Nucleated Red Blood Cells % 0 % (-)
[2024-07-26 11:10] VITALS: BP 116/61
--- NOTE | 2024-07-26 12:13 | W.PN.ONC ---
Today's Communication / Plan
-
Diuresis per primary team, salt tabs d/c'd
Will update myeloma studies, though normal total protein and recent myeloma labs looked good
Abdominal US reviewed, no significant ascites
Hold Revlimid during hospitalization.
Has outpatient appt w/ Dr. Hilliard on 07/28, if discharged tomorrow
Impression
Impression
Anasarca
Multiple myeloma, responding to current regimen
Traumatic brain injury
Anemia, recently progressive
Plan
Plan
Diuresis per primary team
Will update myeloma studies, though normal total protein and recent myeloma labs looked good
Abdominal US reviewed, no significant ascites
Hold Revlimid during hospitalization.
Has outpatient appt w/ Dr. Hilliard on 07/28, if discharged tomorrow
Subjective/Objective
Subjective/Objective
no complaints
Vital Signs:
Vital Signs
Temp Pulse Resp BP Pulse Ox
97.3 F 86 16 116/61 96
07/26/24 11:10 07/26/24 11:10 07/26/24 11:10 07/26/24 11:10 07/26/24 11:46
Lab Results:
Laboratory Data
WBC 3.3 10^3/uL (4.8-10.8) L 07/26/24 08:38
Hgb 7.8 g/dL (13.0-18.0) L 07/26/24 08:38
Plt Count 150 10^3/uL (130-400) 07/26/24 08:38
eGFR > 60.00 07/26/24 08:38
Orders
Orders
Orders From Last 24 Hours
07/26/24 12:06
Add On- LAB Routine
07/27/24 06:00
ANDREA/Immunoglobulins/FLC [Monoclonal Protein Qnt,IMM,FLC] [S] IN AM
[place]/Lambda FLC Quant [S] IN AM
[2024-07-26 12:24] LABS: Glucose - Point of Care 265 mg/dl (70-99)
[2024-07-26] MEDS: MS CONTIN (EXTENDED RELEASE) 30 MG PO (12:53)
--- NOTE | 2024-07-26 12:53 | CM ---
Reviewed the chart notes and spoke with admissions liaison Jemima at [facility]. Referral sent via [facility] for return to SNF. CM continues to be available to patient/family and is monitoring medical plan for needs at discharge.
Plan: Discharge back to [facility] SNF when medically stable.
Call report to: [phone] [facility]
Fax report to : [phone]
[2024-07-26] MEDS: NOVOLOG FLEXPEN-HIGH RESISTANCE 7 UNITS SC (12:55)
[2024-07-26 16:30] VITALS: BP 118/71
[2024-07-26 16:31] LABS: Glucose - Point of Care 200 mg/dl (70-99)
[2024-07-26] MEDS: NOVOLOG FLEXPEN-HIGH RESISTANCE 4 UNITS SC (16:44)
[2024-07-26] MEDS: LOVENOX 40 MG SC (17:02)
[2024-07-26 19:46] VITALS: BP 127/71
[2024-07-26] MEDS: MIRALAX 17 GRAMS PO (20:20)
[2024-07-26 21:23] LABS: Glucose - Point of Care 153 mg/dl (70-99)
[2024-07-26] MEDS: SINGULAIR 10 MG PO (21:25)
[2024-07-26] MEDS: SENOKOT 17.2 MG PO (21:26)
[2024-07-26] MEDS: LIPITOR 40 MG PO (21:27)
[2024-07-26] MEDS: ELAVIL 50 MG PO (21:27)
[2024-07-26] MEDS: ATIVAN 0.5 MG PO (21:50)
[2024-07-26 23:15] VITALS: BP 121/58
[2024-07-27] MEDS: ROXICODONE 10 MG PO ×4 (02:38→21:07)
[2024-07-27 03:23] VITALS: BP 123/58
[2024-07-27] MEDS: LYRICA 200 MG PO ×3 (06:05→21:06)
[2024-07-27 06:10] VITALS: BMI 37.8
[2024-07-27 07:20] VITALS: BP 121/57
[2024-07-27 07:32] LABS: Glucose - Point of Care 229 mg/dl (70-99)
[2024-07-27] MEDS: LANTUS 0.4 UNITS SC ×2 (08:08→21:17)
[2024-07-27] MEDS: NOVOLOG FLEXPEN-HIGH RESISTANCE 7 UNITS SC (08:08)
[2024-07-27] MEDS: LASIX 40 MG IV ×2 (08:12→16:59)
[2024-07-27] MEDS: WELLBUTRIN XL (24 hour extended release) 150 MG PO (08:12)
[2024-07-27] MEDS: FARXIGA 10 MG PO (08:13)
[2024-07-27] MEDS: COLACE 100 MG PO ×2 (08:13→20:53)
[2024-07-27] MEDS: EFFEXOR XR 225 MG PO (08:13)
[2024-07-27] MEDS: LOW STRENGTH ASPIRIN 81 MG PO (08:13)
[2024-07-27] MEDS: NOVOLOG FLEXPEN SC (08:14)
[2024-07-27] MEDS: NOVOLOG FLEXPEN 20 UNITS SC ×3 (08:27→16:29)
--- NOTE | 2024-07-27 10:42 | W.PN.HOSP.TC ---
Today's Communication/Plan
-
Zaroxyln
IV lasix
losing weight
onc recs
Assessment / Plan
Assessment / Plan
General: morbidly obese, in no acute distress
HEENT: Moist mucous membranes, and Other (Thick neck.)
Respiratory: dec bs
Cardiac: S1/S2 and Regular Rhythm; No Murmur
GI: Other (Obese, pos abdominal wall edema at least 1/2 up. No erythema / increased warmth / fluctuance / etc.)
Musculoskeletal: Other (Absent digits both feet s/p amputations. 4+ pitting edema bilaterally extending to the abdomen as noted above.-improved since admission
Neuro: AO x 3
A/P: Patient is a 63y M with PMH significant for HTN, DM-II and multiple myeloma who presents to ED complaining of significant swelling over the past 48 hours.
Anasarca ? Worsened due to salt tablets
Pulmonary edema
- Symptoms began s/p PRBC transfusion on 07/22/24 -
- Prior h/o symptomatic anemia resulting in edema / CHF exacerbation in 08/2023.
- IV Lasix 40 BID for now and follow for effective diuresis. Losing weight. one time dose of zaroxlyn 1530..
- Monitor for any evidence of renal impairment.
- Follow I/Os, daily weights, etc.
- DC further PO salt supplementation for now as Na stable.
- Check LE venous doppler -Negative. Compression wraps
- Echo with normal left ventricular chamber size. Normal left ventricular systolic function. Normal regional wall motion. Ejection fraction 60 to 65%. No significant valvular disease.
Multiple Myeloma
Acute on Chronic Anemia secondary to the above
- Patient is on lenalidomide for myeloma - last dose is scheduled for today before one week off. Will hold for now.
- s/p PRBCs x 1 unit on 07/22 as noted.
- Hematology evaluation for additional recommendations.
- States next dose of chemo this thursday.
DM-II
- Stable. Marked insulin resistance with high-doses of insulin.
- Continue basal : bolus insulin. Will decreases doses for now and adjust as needed for adequate glycemic control.
- Update A1C at 10.1
- Continue Farxiga. Hold other PO medications and Ozempic. POC AM 153
Benign Hypertension
- Stable. Patient is not currently on any antihypertensive medications.
- Follow for BP control.
Chronic Pain Syndrome
Chronic Opioid Dependence
Charcot Foot
- Stable. Continue current pain control med regimen without changes.
- Follow-up with Pain Management after discharge.
- PT / OT evaluations for mobility during stay.
- Patient notes that he has been wheelchair bound for > 1 year.
History of TBI
- No new neurologic complaints.
Morbid Obesity due to excess calories
- Affects all aspects of care.
- Encourage healthy diet. Patient extremely limited in mobility and suspect that significant weight reduction will not be feasible.
DVT Prophylaxis: Lovenox
Code Status: Full
Anticipated Discharge: 24 - 48 hours
Subjective/Interval History
-
Date of Service: July 27, 2024
improvement in edema
require straight cath x 1 earlier this morning
Objective Data
-
Labs:
Laboratory Results
07/27/24
10:34
WBC Pending
Hgb Pending
Hct Pending
Plt Count Pending
Sodium Pending
Potassium Pending
Chloride Pending
Carbon Dioxide Pending
BUN Pending
Creatinine Pending
Glucose Pending
Calcium Pending
Vital Signs:
Vital Signs
Temp Pulse Resp BP Pulse Ox
97.5 F 79 16 121/57 99
07/27/24 07:20 07/27/24 08:12 07/27/24 07:20 07/27/24 08:12 07/27/24 07:20
I&O
07/26/24 07/27/24 07/28/24
06:59 06:59 06:59
Intake Total 1380 / 1380 800 / 800
Output Total 500 / 500
Balance 1380 / 1380 300 / 300
Data Reviewed
-
Total Time Spent with Patient (in minutes): 52
[2024-07-27 11:09] LABS: Hematocrit 23.5 % (39.0-52.0); Hemoglobin 7.6 g/dL (13.0-18.0); Mean Corp Hgb Conc. 32.3 g/dL (33.0-37.0); Mean Corpuscular Hgb 31.8 pg (27.0-31.0); Mean Corpuscular Volume 98.3 fL (80.0-94.0); Mean Platelet Volume 11.4 fL (7.4-10.4); Platelet Count 128 10^3/uL (130-400); Red Blood Cell Count 2.39 10^6/uL (4.70-6.10); Red Cell Dist. Width 17.9 % (11.5-14.5); White Blood Cell Count 3.4 10^3/uL (4.8-10.8)
[2024-07-27 11:15] VITALS: BP 130/74
[2024-07-27 11:31] LABS: Glucose - Point of Care 245 mg/dl (70-99)
[2024-07-27 11:32] LABS: % Basophils 1.5 % (0-2); % Eosinophils 10.7 % (0-6); % Immature Granulocytes 0.3 % (0-0.5); % Lymphocytes 23.7 % (20.5-51.1); % Monocytes 11.5 % (1.7-9.3); % Neutrophils 52.3 % (42.2-75.2); Absolute Basophils 0.1 10^3/uL (0-0.2); Absolute Eosinophils 0.4 10^3/uL (0-0.7); Absolute Lymphocytes 0.8 10^3/uL (1.2-3.4); Absolute Monocytes 0.4 10^3/uL (0.1-0.6); Absolute Neutrophils 1.8 10^3/uL (1.4-6.5); Nucleated Red Blood Cells % 0 % (-)
--- NOTE | 2024-07-27 11:47 | PN.CDI ---
CDI
- -
CDI:
Physician Documentation Request
Admit Date: 07/25/24 03:01
Dear Doctor Tanya,
Progress note states 'Pulmonary edema, Symptoms began s/p PRBC transfusion on 07/22/24. Prior h/o symptomatic anemia resulting in edema / CHF exacerbation in 08/2023.IV Lasix 40 BID for now and follow for effective diuresis. Losing weight. one time
dose of zaroxlyn...'
08/30/2023 BNP 162 07/25/2024 BNP 266
Patient takes Lasix as outpatient.
07/25 Echo conclusion 'Left ventricular ejection fraction is 60-65%'
Could you please clarify the diagnosis :
Pulmonary edema - Please indicate acuity
Congestive heart failure - please indicate type and acuity
Other
Use of terms such as suspected, likely, concern for, or probable (associated with a specific diagnosis that is being evaluated, monitored, or treated as if it exists) are acceptable and can be coded in the inpatient setting, when documented at the
time of discharge.
Thank you,
Jackie Olivo RN, BSN
CDI Specialist
tiger text
Please use your independent medical judgment in providing your response.
[2024-07-27] MEDS: NOVOLOG FLEXPEN-HIGH RESISTANCE 4 UNITS SC (11:57)
[2024-07-27] MEDS: MS CONTIN (EXTENDED RELEASE) 30 MG PO (11:58)
[2024-07-27 12:20] LABS: Blood Urea Nitrogen 18 mg/dl (9-20); Calcium 8.7 mg/dl (8.4-10.2); Carbon Dioxide 29 mmol/L (22-30); Chloride 96 mmol/L (98-107); Estimated Creatinine Clearance 95 ml/min; Glucose 274 mg/dl (70-99); Potassium 3.3 mmol/L (3.5-5.1); Sodium 139 mmol/L (135-145); eGFR > 60.00
[2024-07-27] MEDS: KCL 40 MEQ PO (13:19)
--- NOTE | 2024-07-27 13:45 | CM ---
Patient seen at bedside.
IV Lasix
Patient is from [facility]
PLAN: Discharge when stable to [facility]
Call report to: [phone] [facility]
Fax report to : [phone]
[2024-07-27 15:20] VITALS: BP 133/72
[2024-07-27] MEDS: ZAROXOLYN 2.5 MG PO (15:59)
[2024-07-27 16:26] LABS: Glucose - Point of Care 185 mg/dl (70-99)
[2024-07-27] MEDS: NOVOLOG FLEXPEN-HIGH RESISTANCE 2 UNITS SC (16:29)
[2024-07-27] MEDS: KCL 20 MEQ PO (16:59)
[2024-07-27] MEDS: LOVENOX 40 MG SC (17:00)
[2024-07-27 19:12] VITALS: BP 107/70
[2024-07-27] MEDS: ELAVIL 50 MG PO (20:53)
[2024-07-27] MEDS: SINGULAIR 10 MG PO (20:53)
[2024-07-27] MEDS: LIPITOR 40 MG PO (20:54)
[2024-07-27] MEDS: SENOKOT 17.2 MG PO (20:54)
[2024-07-27] MEDS: ATIVAN 0.5 MG PO (21:07)
[2024-07-27 21:18] LABS: Glucose - Point of Care 223 mg/dl (70-99)
[2024-07-27 23:34] VITALS: BP 144/71
[2024-07-28] MEDS: ROXICODONE 10 MG PO ×4 (02:22→21:26)
[2024-07-28 04:45] VITALS: BMI 36.9
[2024-07-28] MEDS: LYRICA 200 MG PO ×3 (05:42→21:25)
[2024-07-28 07:20] VITALS: BP 136/64
[2024-07-28 07:28] LABS: Blood Urea Nitrogen 18 mg/dl (9-20); Carbon Dioxide 28 mmol/L (22-30); Chloride 96 mmol/L (98-107); Estimated Creatinine Clearance 94 ml/min; Glucose 254 mg/dl (70-99); Potassium 3.9 mmol/L (3.5-5.1); Sodium 139 mmol/L (135-145); eGFR > 60.00
[2024-07-28 07:34] LABS: Glucose - Point of Care 242 mg/dl (70-99)
[2024-07-28] MEDS: LANTUS 0.4 UNITS SC ×2 (07:40→21:26)
[2024-07-28] MEDS: LASIX 40 MG IV ×2 (07:43→16:22)
[2024-07-28] MEDS: LOW STRENGTH ASPIRIN 81 MG PO (07:44)
[2024-07-28] MEDS: FARXIGA 10 MG PO (07:44)
[2024-07-28] MEDS: COLACE 100 MG PO ×2 (07:44→21:25)
[2024-07-28] MEDS: KCL 20 MEQ PO ×2 (07:44→16:18)
[2024-07-28] MEDS: WELLBUTRIN XL (24 hour extended release) 150 MG PO (07:44)
[2024-07-28] MEDS: EFFEXOR XR 225 MG PO (07:45)
[2024-07-28] MEDS: NOVOLOG FLEXPEN 20 UNITS SC (07:46)
[2024-07-28] MEDS: NOVOLOG FLEXPEN-HIGH RESISTANCE 4 UNITS SC ×2 (07:46→12:23)
[2024-07-28 08:34] LABS: % Basophils 1.5 % (0-2); % Eosinophils 11.4 % (0-6); % Immature Granulocytes 0.3 % (0-0.5); % Lymphocytes 28.8 % (20.5-51.1); % Monocytes 10.2 % (1.7-9.3); % Neutrophils 47.8 % (42.2-75.2); Absolute Basophils 0.1 10^3/uL (0-0.2); Absolute Eosinophils 0.4 10^3/uL (0-0.7); Absolute Monocytes 0.3 10^3/uL (0.1-0.6); Absolute Neutrophils 1.6 10^3/uL (1.4-6.5); Hemoglobin 8.4 g/dL (13.0-18.0); Mean Corp Hgb Conc. 32.3 g/dL (33.0-37.0); Mean Corpuscular Hgb 31.6 pg (27.0-31.0); Mean Corpuscular Volume 97.7 fL (80.0-94.0); Mean Platelet Volume 11.3 fL (7.4-10.4); Nucleated Red Blood Cells % 0 % (-); Platelet Count 133 10^3/uL (130-400); Red Blood Cell Count 2.66 10^6/uL (4.70-6.10); Red Cell Dist. Width 17.6 % (11.5-14.5); White Blood Cell Count 3.3 10^3/uL (4.8-10.8)
--- NOTE | 2024-07-28 10:40 | W.PN.ONC ---
Today's Communication / Plan
-
K/L light chain ratio maximally suppressed
M protein pending
Free lambda continues to respond to 218.52
Anemia and leukopenia stable to improved hemoglobin 8.4 g/dL
Continue to hold Revlimid and diuresis
Impression
Impression
Anasarca
Multiple myeloma, responding to current regimen
Traumatic brain injury
Anemia, recently progressive
Severe hypogammaglobulinemia
Plan
Plan
Diuresis per primary team
Will update myeloma studies, though normal total protein and recent myeloma labs looked good
Abdominal US reviewed, no significant ascites
Hold Revlimid during hospitalization.
Has outpatient appt w/ Dr. Hilliard on 07/28, if discharged tomorrow
Subjective/Objective
Subjective/Objective
Patient sitting at the side of the bed without new complaints.
Vital Signs:
Vital Signs
Temp Pulse Resp BP Pulse Ox
97.9 F 86 16 136/64 99
07/28/24 07:20 07/28/24 07:43 07/28/24 07:20 07/28/24 07:43 07/28/24 07:20
Physical exam unchanged
Lab Results:
Laboratory Data
WBC 3.3 10^3/uL (4.8-10.8) L 07/28/24 06:51
Hgb 8.4 g/dL (13.0-18.0) L 07/28/24 06:51
Plt Count 133 10^3/uL (130-400) 07/28/24 06:51
eGFR > 60.00 07/28/24 06:51
--- NOTE | 2024-07-28 11:03 | W.PN.HOSP.TC ---
Today's Communication/Plan
-
IV lasix for 1 more day
Cr holding
losing weight
start dispo
Assessment / Plan
Assessment / Plan
General: morbidly obese, in no acute distress
HEENT: Moist mucous membranes, and Other (Thick neck.)
Respiratory: dec bs
Cardiac: S1/S2 and Regular Rhythm; No Murmur
GI: Other (Obese, pos abdominal wall edema at least 1/2 up. No erythema / increased warmth / fluctuance / etc.)
Musculoskeletal: Other (Absent digits both feet s/p amputations. 4+ pitting edema bilaterally extending to the abdomen as noted above.-improved since admission
Neuro: AO x 3
A/P: Patient is a 63y M with PMH significant for HTN, DM-II and multiple myeloma who presents to ED complaining of significant swelling over the past 48 hours.
Anasarca ? Worsened due to salt tablets
Acute Pulmonary edema
- Symptoms began s/p PRBC transfusion on 07/22/24 -
- Prior h/o symptomatic anemia resulting in edema / CHF exacerbation in 08/2023.
- IV Lasix 40 BID for now and follow for effective diuresis. Losing weight. s/p one time dose of zaroxlyn.
- Monitor for any evidence of renal impairment. If weight are accurate-lost significant amount.
- Follow I/Os, daily weights, etc.
- DC further PO salt supplementation for now as Na stable.
- Check LE venous doppler -Negative. Compression wraps
- Echo with normal left ventricular chamber size. Normal left ventricular systolic function. Normal regional wall motion. Ejection fraction 60 to 65%. No significant valvular disease.
Multiple Myeloma
Acute on Chronic Anemia secondary to the above
- Patient is on lenalidomide for myeloma - last dose is scheduled for today before one week off. Will hold for now.
- s/p PRBCs x 1 unit on 07/22 as noted.
- Hematology evaluation for additional recommendations.
- States next dose of chemo this thursday.
DM-II
- Stable. Marked insulin resistance with high-doses of insulin.
- Continue basal : bolus insulin. Increase bolus dose.
- Update A1C at 10.1
- Continue Farxiga. Hold other PO medications and Ozempic. POC AM 242
Benign Hypertension
- Stable. Patient is not currently on any antihypertensive medications.
- Follow for BP control.
Chronic Pain Syndrome
Chronic Opioid Dependence
Charcot Foot
- Stable. Continue current pain control med regimen without changes.
- Follow-up with Pain Management after discharge.
- PT / OT evaluations for mobility during stay.
- Patient notes that he has been wheelchair bound for > 1 year.
History of TBI
- No new neurologic complaints.
Morbid Obesity due to excess calories
- Affects all aspects of care.
- Encourage healthy diet. Patient extremely limited in mobility and suspect that significant weight reduction will not be feasible.
DVT Prophylaxis: Lovenox
Code Status: Full
Anticipated Discharge: Within 24 hours
Subjective/Interval History
-
Date of Service: July 28, 2024
States chemotherapy has been post poned
improvement in edema
Objective Data
-
Labs:
Laboratory Results
07/28/24
06:51
WBC 3.3 L
Hgb 8.4 L
Hct 26.0 L
Plt Count 133
Sodium 139
Potassium 3.9
Chloride 96 L
Carbon Dioxide 28
BUN 18
Creatinine 1.2
Glucose 254 H
Calcium 9.0
Vital Signs:
Vital Signs
Temp Pulse Resp BP Pulse Ox
97.9 F 86 16 136/64 99
07/28/24 07:20 07/28/24 07:43 07/28/24 07:20 07/28/24 07:43 07/28/24 10:42
I&O
07/27/24 07/28/24 07/29/24
06:59 06:59 06:59
Intake Total 800 / 800 1560 / 1560
Output Total 500 / 500 800 / 800
Balance 300 / 300 760 / 760
Data Reviewed
-
Total Time Spent with Patient (in minutes): 52
[2024-07-28 11:10] VITALS: BP 133/63
--- NOTE | 2024-07-28 11:21 | CM ---
Patient seen at bedside.
Called Jackie at [facility]. ([phone])
PLAN: [facility]
Transportation forms on chart
Sergey Lama
Report #: [phone]
Fax #: [phone]
[2024-07-28 11:28] LABS: Glucose - Point of Care 206 mg/dl (70-99)
[2024-07-28] MEDS: NOVOLOG FLEXPEN 24 UNITS SC ×2 (12:21→16:19)
[2024-07-28] MEDS: MS CONTIN (EXTENDED RELEASE) 30 MG PO (12:30)
[2024-07-28 15:20] VITALS: BP 141/75
[2024-07-28 16:21] LABS: Glucose - Point of Care 259 mg/dl (70-99)
[2024-07-28] MEDS: NOVOLOG FLEXPEN-HIGH RESISTANCE 7 UNITS SC (16:21)
[2024-07-28] MEDS: LOVENOX 40 MG SC (16:56)
[2024-07-28 21:09] LABS: Glucose - Point of Care 246 mg/dl (70-99)
[2024-07-28] MEDS: ELAVIL 50 MG PO (21:24)
[2024-07-28] MEDS: SENOKOT 17.2 MG PO (21:24)
[2024-07-28] MEDS: SINGULAIR 10 MG PO (21:24)
[2024-07-28] MEDS: LIPITOR 40 MG PO (21:25)
[2024-07-28] MEDS: ATIVAN 0.5 MG PO (22:35)
[2024-07-28 22:57] VITALS: BP 151/78
[2024-07-29] MEDS: ROXICODONE 10 MG PO ×3 (04:51→12:00)
[2024-07-29 05:13] VITALS: BMI 35.5
[2024-07-29] MEDS: LYRICA 200 MG PO (06:08)
[2024-07-29 07:23] LABS: Glucose - Point of Care 349 mg/dl (70-99)
[2024-07-29 07:30] VITALS: BP 158/64
[2024-07-29 07:35] LABS: Blood Urea Nitrogen 25 mg/dl (9-20); Calcium 9.2 mg/dl (8.4-10.2); Carbon Dioxide 26 mmol/L (22-30); Chloride 95 mmol/L (98-107); Estimated Creatinine Clearance 79 ml/min; Glucose 328 mg/dl (70-99); Sodium 139 mmol/L (135-145); eGFR 56.83
[2024-07-29] MEDS: KCL 20 MEQ PO (07:56)
[2024-07-29] MEDS: LOW STRENGTH ASPIRIN 81 MG PO (07:56)
[2024-07-29] MEDS: WELLBUTRIN XL (24 hour extended release) 150 MG PO (07:56)
[2024-07-29] MEDS: COLACE 100 MG PO (07:56)
[2024-07-29] MEDS: FARXIGA 10 MG PO (07:56)
[2024-07-29] MEDS: LASIX 40 MG IV (07:57)
[2024-07-29] MEDS: EFFEXOR XR 225 MG PO (07:57)
[2024-07-29] MEDS: NOVOLOG FLEXPEN 24 UNITS SC (07:59)
[2024-07-29] MEDS: NOVOLOG FLEXPEN-HIGH RESISTANCE 10 UNITS SC (08:00)
[2024-07-29] MEDS: LANTUS 0.4 UNITS SC (08:00)
--- NOTE | 2024-07-29 11:17 | W.PN.HOSP.TC ---
Today's Communication/Plan
-
dc back to [facility]
Assessment / Plan
Assessment / Plan
General: morbidly obese, in no acute distress
HEENT: Moist mucous membranes, and Other (Thick neck.)
Respiratory: dec bs
Cardiac: S1/S2 and Regular Rhythm; No Murmur
GI: obese, +bs, non tender
Musculoskeletal: Other (Absent digits both feet s/p amputations. significant improvement in LE edema/thigh since admission
Neuro: AO x 3
A/P: Patient is a 63y M with PMH significant for HTN, DM-II and multiple myeloma who presents to ED complaining of significant swelling over the past 48 hours.
Anasarca ? Worsened due to salt tablets
Acute Pulmonary edema
- Symptoms began s/p PRBC transfusion on 07/22/24 -
- Prior h/o symptomatic anemia resulting in edema / CHF exacerbation in 08/2023.
- s/p IV Lasix 40 BID. Losing weight. s/p one time dose of zaroxlyn. Switch back to po lasix.
- Monitor for any evidence of renal impairment. If weight are accurate-lost significant amount.
- Follow I/Os, daily weights, etc.
- DC further PO salt supplementation for now as Na stable.
- Check LE venous doppler -Negative. Compression wraps
- Echo with normal left ventricular chamber size. Normal left ventricular systolic function. Normal regional wall motion. Ejection fraction 60 to 65%. No significant valvular disease.
Elevated Cr likely 2/2 over diuresis
-stop IV lasix.
-hold po lasix
-OP repeat bmp.
Multiple Myeloma
Acute on Chronic Anemia secondary to the above
- Patient is on lenalidomide for myeloma -Per onc cont to hold.
- s/p PRBCs x 1 unit on 07/22 as noted.
- Hematology evaluation for additional recommendations.
- Free light chain and ANDREA pending-f/u with Dr. Hilliard as outpatient. Has op next week.
DM-II uncontrolled
- Stable. Marked insulin resistance with high-doses of insulin.
- Continue basal : bolus insulin. Increase bolus dose.
- Update A1C at 10.1
- Continue Farxiga. Hold other PO medications and Ozempic. POC AM 242
Benign Hypertension
- Stable. Patient is not currently on any antihypertensive medications.
- Follow for BP control.
Chronic Pain Syndrome
Chronic Opioid Dependence
Charcot Foot
- Stable. Continue current pain control med regimen without changes.
- Follow-up with Pain Management after discharge.
- PT / OT evaluations for mobility during stay.
- Patient notes that he has been wheelchair bound for > 1 year.
History of TBI
- No new neurologic complaints.
Morbid Obesity due to excess calories
- Affects all aspects of care.
- Encourage healthy diet. Patient extremely limited in mobility and suspect that significant weight reduction will not be feasible.
DVT Prophylaxis: Lovenox
Code Status: Full
More than 30 minutes spent in discharge including
Final examination of the patient
Summarizing hospital stay
Instructions for continuing care to all relevant caregivers
Preparation of discharge records, prescriptions, and referral forms
Total time spent (in minutes): 45
Anticipated Discharge: Today
Subjective/Interval History
-
Date of Service: July 29, 2024
States improvement in edema
Objective Data
-
Labs:
Laboratory Results
07/29/24
07:07
Sodium 139
Potassium 4.0
Chloride 95 L
Carbon Dioxide 26
BUN 25 H
Creatinine 1.4 H
Glucose 328 H
Calcium 9.2
Vital Signs:
Vital Signs
Temp Pulse Resp BP Pulse Ox
97.2 F 89 16 158/64 99
07/29/24 07:30 07/29/24 07:30 07/29/24 07:30 07/29/24 07:30 07/29/24 07:39
I&O
07/28/24 07/29/24 07/30/24
06:59 06:59 06:59
Intake Total 1560 / 1560 1440 / 1440
Output Total 800 / 800
Balance 760 / 760 1440 / 1440
--- NOTE | 2024-07-29 11:30 | W.DCSUMMARY ---
Discharge Summary
Discharge Data
Date of Admission: 07/25/24
Date of Discharge: 07/29/24
-
Pending Results: No
Hospital Course
63y M with PMH significant for HTN, DM-II, mood obesity to excess calories, chronic opiate dependent on daily basis, chronic lower extremity edema and multiple myeloma who presents to ED complaining of significant swelling over the past 48 hours.
It was found that patient was on sodium chloride tablet 1 g 3 times daily. Patient also received blood transfusion early on in the month. Patient was started on Lasix 40 mg twice daily. Patient continued to lose weight with diuresis. Lower
extremity venous ultrasound was negative for DVT. Underwent echocardiogram with normal left ventricular chamber size. Normal left ventricular systolic function. Normal regional wall motion. Ejection fraction 60 to 65%. No significant valvular
disease. Patient with significant weight loss and improvement in edema. IV Lasix discontinued with restart p.o. Lasix. Patient insulin regimen was also adjusted. Patient creatinine up trended and IV Lasix was discontinued. Recommend to hold
p.o. Lasix over the weekend and repeat BMP at halfway. Fluid restriction and discontinuation of sodium tablets should help with edema. Patient was also evaluated by oncology who recommended to continue to hold Revlimid and additonal blood
work was ordered. Patient will be followed up next week with his primary oncologist and we will further discuss next course of chemotherapy.
Discharge Plan
-
Patient Disposition: Prison/SNF
Discharge Diagnosis/Procedures: Anasarca likely secondary to sodium chloride tablets
Acute pulmonary edema
Elevated creatinine
Condition: Fair
Diet: 2 Gram Sodium, Diabetic, Carb Controlled and Restrict fluids to 48 oz
Activity: With assistance and As tolerated
Driving Restrictions: As prior to admission
Blood Work: BMP in 3-4 days via primary doctor.
Other Services: VN
Referrals:
Daisy Gordon, [Family Provider] - in less than 1 week
Keagan Hilliard MD [Active] - None
Prescriptions:
Continued
atorvastatin [Lipitor] 40 mg Tablet
40 mg PO HS
acetaminophen [Tylenol] 325 mg Tablet
650 mg PO Q4HPRN PRN (Reason: mild pain)
amitriptyline 50 mg Tablet
50 mg PO HS
ferrous sulfate 325 mg (65 mg iron) Tablet
325 mg PO MOWEFR
Fleet Enema 19-7 gram/118 mL Enema
118 ml SC DAILYPRN PRN (Reason: if no bm aftr dulcolax)
fluticasone propionate 50 mcg/actuation [place],Suspension
2 spray INTRANASAL DAILY
bupropion HCl 300 mg Tablet Extended Release 24 Hr
150 mg PO DAILY
polyethylene glycol 3350 [Miralax] 17 gram Powder In Packet
17 g PO DAILY PRN (Reason: Constipation)
sennosides-docusate sodium [Senna Plus] 8.6-50 mg Tablet
2 tab-cap PO DAILY PRN (Reason: Constipation)
therapeutic multivitamin Tablet
1 tab PO DAILY
magnesium hydroxide 400 mg/5 mL Suspension
2,400 mg PO [id number] PRN (Reason: constipation)
olopatadine 0.1 % Drops
2 drp BOTH EYES BID
calcium carbonate [Tums] 200 mg calcium (500 mg) Tablet,Chewable
400 mg PO Q4HPRN PRN (Reason: gerd)
loratadine 10 mg Tablet
10 mg PO DAILY
venlafaxine 225 mg Tablet Extended Release 24hr
225 mg PO DAILY
metformin 500 mg Tablet
1,000 mg PO BID
acyclovir 400 mg Tablet
400 mg PO .Q12H ON FRIDAYS
alprazolam 0.25 mg Tablet
0.25 mg PO HS
lorazepam [Ativan] 0.5 mg Tablet
0.5 mg PO .Q12H PRN (Reason: anxiety)
bisacodyl 10 mg Suppository
10 mg SC .Q24H PRN (Reason: constipation)
docusate sodium [Colace] 100 mg Capsule
100 mg PO DAILY
montelukast [Singulair] 10 mg Tablet
10 mg PO HS
albuterol 90 mcg/actuation Aerosol
108 mcg INHALATION .Q4H PRN (Reason: shortness of breath)
diclofenac sodium [Voltaren Arthritis Pain] 1 % Gel
1 ea TOPICAL .Q6H PRN (Reason: pain)
oxycodone 10 mg Tablet
10 mg PO .Q4H PRN (Reason: pain)
dapagliflozin propanediol [Farxiga] 10 mg Tablet
10 mg PO DAILY
aspirin 81 mg Capsule
81 mg PO DAILY
Ozempic 0.25 mg or 0.5 mg (2 mg/3 mL) Pen Injector
0.25 mg SC .QT
morphine [MS Contin] 15 mg tablet extended release
30 mg PO 12
pregabalin [Lyrica] 200 mg capsule
200 mg PO .Q8
loperamide [Imodium A-D] 2 mg Tablet
2 mg PO Q6H PRN (Reason: Reduction Of Transepidermal Water Loss)
Changed
insulin lispro 100 unit/mL insulin pen
30 unit SC AC Qty: 0 0RF
insulin glargine [Basaglar KwikPen U-100 Insulin] 100 unit/mL (3 mL) Insulin Pen
50 unit SC .Q12 Qty: 0 0RF
Held
furosemide [Lasix] 40 mg Tablet
40 mg PO DAILY
Hold Instructions: Resume on 08/01/24.
lenalidomide 25 mg Capsule
25 mg PO HS
Hold Instructions: Resume on 08/05/24. Hold till seen by your Oncologist.
Discontinued
insulin glargine [Basaglar KwikPen U-100 Insulin] 100 unit/mL (3 mL) Insulin Pen
66 unit SC .BID ON FRIDAYS
Robitussin Cold and Cough
10 ml PO .Q4H PRN (Reason: cough)
sodium chloride
1,000 mg PO TID
Discharge Orders:
Discharge Patient (As Directed); Ordered 07/29/24
Ordered By: Easton Martínez
Discharge Date and Time
Discharge Date/Time: 07/29/24 13:59
Print Language: ROMANIAN
[2024-07-29 11:37] LABS: Glucose - Point of Care 271 mg/dl (70-99)
--- NOTE | 2024-07-29 11:56 | CM ---
Addendum entered by Triny Burroughs 07/29/24 12:19:
2:30pm transport today to [facility]
Original Note:
Patient seen at bedside.
Resident of [facility]
Notified Jackie admissions that patient discharged back today.
She request after 2pm return to facility
PLAN: [facility]
Ambulance forms on chart-time TBD
[facility]
Call report to: [phone] [place] [address]
Fax report to : [phone]
[2024-07-29] MEDS: NOVOLOG FLEXPEN 30 UNITS SC (11:59)
[2024-07-29] MEDS: NOVOLOG FLEXPEN-HIGH RESISTANCE 7 UNITS SC (11:59)
[2024-07-29 12:00] VITALS: BP 141/78
[2024-07-29] MEDS: MS CONTIN (EXTENDED RELEASE) 30 MG PO (12:00)
--- NOTE | 2024-07-29 12:52 | PTCARENOTE ---
Report called to [facility], no RN able to answer phone, instructed to call back for report at ex. [phone] if need be.
[2024-07-30 10:16] LABS: Albumin 2.99 g/dL (3.75-5.01); Alpha 1 Globulin 0.36 g/dL (0.19-0.46); Alpha 2 Globulin 0.75 g/dL (0.48-1.05); Free Kappa Light Chains,Quant 12.63 mg/L (3.30-19.40); Free Lambda Light Chains,Quant 175.01 mg/L (5.71-26.30); IgA 2765 mg/dL (68-408); IgG 288 mg/dL (768-1632); IgM <10 mg/dL (35-263); Immunofixation Electrophoresis IFE Done; Kappa/Lambda Fr Light Ratio 0.07 (0.26-1.65); Monoclonal Protein 2.58 g/dL (<=0.00); Total Protein-Electrophoresis 7.6 g/dL (6.3-8.2)
== END 2024-07-29 13:59 | DRG 189 ==
LOC: 2 NORTH 03:01
PROVIDERS: Clinical Nurse Specialist Family Health; Internal Medicine Hematology & Oncology; ADMITTING PHYSICIAN Hospitalist; ATTENDING PHYSICIAN Hospitalist; EMERGENCY PHYSICIAN Emergency Medicine; FAMILY PHYSICIAN Hospitalist; OTHER PHYSICIAN Internal Medicine Hematology & Oncology
DX: J81.0 Acute pulmonary edema (principal); C90.00 Multiple myeloma not having achieved remission; F11.20 Opioid dependence, uncomplicated; D80.1 Nonfamilial hypogammaglobulinemia; M79.89 Other specified soft tissue disorders; E11.40 Type 2 diabetes mellitus with diabetic neuropathy, unspecified; F32.A Depression, unspecified; E11.65 Type 2 diabetes mellitus with hyperglycemia; F41.9 Anxiety disorder, unspecified; D46.9 Myelodysplastic syndrome, unspecified; E88.819 Insulin resistance, unspecified; E66.01 Morbid (severe) obesity due to excess calories; G89.4 Chronic pain syndrome; E11.610 Type 2 diabetes mellitus with diabetic neuropathic arthropathy; F10.21 Alcohol dependence, in remission; Z60.2 Problems related to living alone; Z87.820 Personal history of traumatic brain injury; Z87.891 Personal history of nicotine dependence; Z79.84 Long term (current) use of oral hypoglycemic drugs; Z79.4 Long term (current) use of insulin; Z88.5 Allergy status to narcotic agent; Z99.3 Dependence on wheelchair; Z68.35 Body mass index [BMI] 35.0-35.9, adult
CPT/HCPCS: 36430; 71046; 76705; 80048; 80053; 82607; 82728; 82746; 82784; 82962; 83036; 83521; 83540; 83550; 83605; 83880; 84155; 84165; 84484; 85025; 85027; 86334; 86850; 86870; 86900; 86901; 86920; 86922; 87070; 87147; 93005; 93306; 93970; 96365; 96375; 97116; 97163; 97167; 97530; 99285; 99406; P9058; Q9950

== ENCOUNTER 2024-08-09 06:31 | Inpatient (IN) | payer MEDICARE, OTHER, SELFPAY ==
[2024-08-09] VITALS (17 sets, daily range): BP systolic 112–147; BP diastolic 54–79; PULSE 68; BMI 39.6; BMI 37.7
[2024-08-09 01:41] LABS: % Basophils 1.2 % (0-2); % Eosinophils 8.4 % (0-6); % Immature Granulocytes 1.7 % (0-0.5); % Lymphocytes 30.5 % (20.5-51.1); % Monocytes 9.9 % (1.7-9.3); % Neutrophils 48.3 % (42.2-75.2); Absolute Eosinophils 0.3 10^3/uL (0-0.7); Absolute Immature Granulocytes 0.1 10^3/uL (0-0.05); Absolute Lymphocytes 1.1 10^3/uL (1.2-3.4); Absolute Monocytes 0.3 10^3/uL (0.1-0.6); Absolute Neutrophils 1.7 10^3/uL (1.4-6.5); Hematocrit 22.3 % (39.0-52.0); Hemoglobin 6.6 g/dL (13.0-18.0); Mean Corp Hgb Conc. 29.6 g/dL (33.0-37.0); Mean Corpuscular Hgb 30.4 pg (27.0-31.0); Mean Corpuscular Volume 102.8 fL (80.0-94.0); Mean Platelet Volume 11.2 fL (7.4-10.4); Nucleated Red Blood Cells % 0 % (-); Platelet Count 200 10^3/uL (130-400); Red Blood Cell Count 2.17 10^6/uL (4.70-6.10); Red Cell Dist. Width 19.1 % (11.5-14.5); White Blood Cell Count 3.4 10^3/uL (4.8-10.8)
--- NOTE | 2024-08-09 03:32 | ED.GENMED ---
History of Present Illness
General
Chief Complaint: Abnormal Lab Value
Source: patient, ambulance crew and [facility]
Exam Limitations: none
Time Seen by Provider: 08/09/24 01:31
Nursing documentation reviewed up to this point in time: agreed with
History of Present Illness
History of Present Illness:
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 Patient does report increased shortness of
breath with exertion recently. Denies chest pain. Denies fever or chills. Denies vomiting or diarrhea. Denies dizziness. Denies weakness.
Past History
Past History
ED Past Medical History: Cancer (Myelodysplastic Syndrome (MDS)), IDDM, Psychiatric (anxiety, Depression) and Other (TBI, Shingles)
ED Past Surgical History: Orthopedic (Right leg surgery, Left great toe and second toe amputation. Right great toe amputation, Back surgery, )
Social History
Tobacco: Former smoker
Alcohol: None
Personal:
Living: [facility]
Review of Systems
Review of Systems
Allergies reviewed?: Yes
All Other Systems: ROS reviewed and negative except as documented in HPI and ROS
Constitutional: Reports no symptoms
EENT: Reports no symptoms
Respiratory: Reports trouble breathing; Denies cough
Cardiac: Reports no symptoms
ABD/GI: Reports no symptoms
Musculoskeletal: Reports no symptoms
Skin: Reports no symptoms
Neurological: Reports no symptoms
Phy Exam
Physical Exam
Physical Exam:
Physical Exam
General: mild distress, not acutely ill. overweight. afebrile.
Head: nc/at. eomi
Neck: supple. normal range of motion.
Heart: s1/s2 regular rate and rhythm, no murmur. equal radial pulses.
Lungs: no acute respiratory distress. diminished breath sounds bilaterally
Abdomen: normal bowel sounds. not tender.
Neuro: alert and oriented. no focal neurological deficits
Skin: no rash
Psychiatric: well kept. interactive and cooperative
Extremities: LE b/l, pitting edema with erythema.
Course
Orders/Labs/Results
Orders:
Orders
08/09/24 01:11
Type+Screen Urgent
BBK Wristband Number:
Complete Blood Count/With Diff Urgent
NT-proBNP Urgent
Comment: ADD ON
08/09/24 03:19
Add On- LAB Urgent
Tests Added?: ProBNP
* Blood Bank Products Urgent
Blood Bank Products: *Packed RBC Leuko(PRBC's)
Quantity: 1
Transfuse Today: Yes
Reason: Anemia
IV Insert/Care/Rem.- Treatment PRN
08/09/24 03:20
CR Chest - 2 Views Urgent
Comment:
Reason For Exam: sob
08/09/24 05:32
Acetaminophen [Tylenol] 650 mg PO NOW STA
08/09/24 05:37
Oxycodone [Roxicodone] 10 mg PO NOW STA
08/09/24 Breakfast
2000 calorie (17 carb) Diabetic
At Your Request: Full Participation
Does patient need a safe tray?: No
Fluid Restriction: 1440 mL/day (48 oz)
08/09/24 06:18
Admit/Transfer Patient As Directed
Co-Sign Provider:
Level of Care: Inpatient admission
Assign to:: Telemetry
Physician / Group: Carlos
Diagnosis: Symptomatic Anemia, CHF
Reason for Telemetry: Acute Heart Failure
Date to Stop Telemetry: 08/12/24
Time to Stop Telemetry: 11:00
Reason for Hospitalization: Symptomatic Anemia, CHF
Expected length of stay greater than two midnights?: Yes
ELOS- Estimated Length of Stay in days: 3
I certify the patient meets the requirements for IP care: Yes
PRN Pain Medication Management As Directed
May give lesser potent ordered pain med per pt: Yes
preference::
Protocol:: Medication orders for pain may be administered in a
manner that supports deferring to patient preference
when the pt is:
- Requesting an ordered lesser potent pain medication.
Least to most potent pain medications are defined
as: acetaminophen < NSAID < tramadol < opioids
(morphine, oxycodone, hydromorphone).
- Requesting a lesser dose of the same medication IF
ORDERED.
- Requesting a less intrusive route of administration
if both routes are prescribed by the provider (PO <
IV).
08/09/24 06:21
Code Status As Directed
Resuscitation Status: Full Code
08/09/24 08:26
Dextrose 50%-Water [Dextrose 50% Syringe] 12.5 grams IV [id number] PRN
Docusate W/Senna [Senokot-S] 2 tablet PO [id number] PRN
Glucagon [GlucaGen] 1 mg IM PRN PRN
Insulin Aspart High Resistance [Novolog Flexpen-High Resistance] See Protocol SC AC
Lorazepam [Ativan] 0.5 mg PO [id number] PRN
Oxycodone [Roxicodone] 10 mg PO Q4HPRN PRN
Polyethylene Glycol Powder [Miralax] 17 grams PO DAILYPRN PRN
insulin glargine [Basaglar KwikPen U-100 Insulin] 50 unit SC .Q12
insulin lispro 30 unit SC AC
08/09/24 08:26
WOUND/OSTOMY CONSULT Routine
Reason for Consult: Foot / Toe Wounds
Activity As Directed
Activity Level: Ambulate
With Assistance
Bedside Glucose Monitoring As Directed
Frequency: AC&HS
Additional Instructions:: Change to q6h if pt on TPN, tube feeding or not eating
Bladder Scan As Directed
Follow Bladder Retention/Intermittent Cath Algorithm?: Yes
PRN if no void in __ hours: 6
Frequency: Per Retention Algorithm
If Bladder Scan Result >: 400
then:: Straight cath
I/O [Intake/ Output] As Directed
Frequency: Per unit guidelines
Pneumatic Compression Sleeves As Directed
Type: Knee high
Straight Cath As Directed
Frequency: Per Retention Algorithm
Additional Instructions: straight cath as needed per acute urinary retention algorithm for 24 hrs
Additional Instructions: for bladder scan greater than 400 mL
Vital Signs As Directed
Frequency: Per unit guidelines
Weight As Directed
Frequency: Daily
Oxygen Therapy [O2 Therapy] [RESP] Routine
Titrate/Wean O2 to maintain O2 sat greater than (%): 94
Ot Eval And Treat Routine
PT Consult [Pt Eval And Treat] Routine
Activity Level: Ambulate
With Assistance
DX Deep Vein Thrombosis Video Routine
08/09/24 08:30
Furosemide [Lasix] 40 mg IV BID AT 0800,1600
08/09/24 09:30
Acetaminophen [Tylenol] 650 mg PO Q4HPRN PRN
Aspirin Low Dose EC [Aspir Low (Enteric Coated)] 81 mg PO DAILY
Pregabalin [Lyrica] 200 mg PO Q8
08/09/24 10:00
Morphine Sulfate Extended Rel. [Ms Contin (Extended Release)] 30 mg PO Q12
08/09/24 10:30
Dapagliflozin [Farxiga] 10 mg PO DAILY
08/09/24 20:00
Ketotifen Fumarate [Zaditor] See Dose Instructions BOTH EYES BID PRN
08/09/24 22:00
Alprazolam [Xanax] 0.25 mg PO HS
Amitriptyline [Elavil] 50 mg PO HS
Atorvastatin [Lipitor] 40 mg PO HS
Montelukast Sodium [Singulair] 10 mg PO HS
Venlafaxine Extended Release [Effexor Xr] 150 mg PO HS
08/12/24 11:00
DC Protocol for Telemetry ONCE
Abnormal Lab Results
08/09/24
01:11
WBC 3.4 L 10^3/uL
(4.8-10.8)
RBC 2.17 L 10^6/uL
(4.70-6.10)
Hgb 6.6 L* g/dL
(13.0-18.0)
Hct 22.3 L %
(39.0-52.0)
MCV 102.8 H fL
(80.0-94.0)
MCHC 29.6 L g/dL
(33.0-37.0)
RDW 19.1 H %
(11.5-14.5)
MPV 11.2 H fL
(7.4-10.4)
Abs Immat Gran (auto) 0.1 H 10^3/uL
(0-0.05)
Absolute Lymphs (auto) 1.1 L 10^3/uL
(1.2-3.4)
Immature Gran % 1.7 H %
(0-0.5)
Monocytes % 9.9 H %
(1.7-9.3)
Eosinophils % 8.4 H %
(0-6)
Antibody Screen Positive A
(Negative)
MTS Gel Crossmatch See Detail
08/09/24 01:11
08/09/24 01:40
Vital Signs
Initial and Last Documented VS:
Initial Vital Signs
Temp
97.6 F
08/09/24 01:00
Last Documented Vital Signs
Temp Pulse Resp BP Pulse Ox
98.2 F 84 16 130/76 100
08/10/24 11:36 08/10/24 11:36 08/10/24 11:36 08/10/24 11:36 08/10/24 11:36
MDM/Problems Addressed
MDM/Problems Addressed:
H&H noted. In addition, patient with significant weight gain since being discharged from the hospital 2 weeks ago.
Blood transfusion consent on the chart. Will transfuse 1 unit PRBC. Patient will require IV diuresis during hospitalization.
*Critical Care Note
Total Time (30-74mins, 75-104mins- exclusive of procedures): Not Applicable
ED Attending Note
-
Portions of this chart may have been created with voice recognition software.� Occasional wrong word or��sound alike� substitutions may have occurred due to the inherent limitations of voice recognition software.
Discharge Plan
Departure
Patient Disposition: Admit
Date of Disposition: 08/09/24
Time of Disposition: 04:08
Admit to: Telemetry
Presentation/result/management discussed w/ accepting MD/DO: Hospitalist
Discharge Problem:
Anemia, Fluid overload
Interventions
Interventions:
*Risk Screen - Suicide Last Done: 08/09/24 01:00
*General Assessment Last Done: 08/09/24 01:00
*Neglect/Abuse Screening Last Done: 08/09/24 01:00
ED- Fall Risk Assessment Last Done: 08/09/24 15:55
*ED COVID-19 Vaccine History Last Done: 08/09/24 01:00
*Nursing Disposition Last Done: 08/09/24 15:55
Discharge Date and Time
Discharge Date/Time: 08/09/24 15:55
[2024-08-09 04:04] LABS: NT-proBNP 236 pg/ml
[2024-08-09] MEDS: ROXICODONE 10 MG PO ×4 (05:39→23:22)
--- NOTE | 2024-08-09 06:24 | HPS.HSE ---
Family Physician
-
Family Physician: Daisy Gordon DO
Chief Complaint
-
Abnormal Lab
History of Present Illness
Patient is a 63y M with PMH significant for HTN, DM-II, remote TBI and multiple myeloma who presents to ED for evaluation of abnormal labs. Patient has multiple myeloma / chronic anemia and states that he had labs done Thursday. His facility
was notified this evening that his Hgb was 6.1 g/dL and patient was sent to the ED for further evaluation and treatment. Patient complains of 'pain all over' which is chronic for him. He reports recent increase in fatigue and swelling.
Patient was admitted here 07/25 - 07/29 for anasarca / CHF. He was diuresed during that stay and discharged with weight of 128 kg.
His weight today is 142 kg and patient reports increased swelling in the legs and abdomen.
Medical History
Past Medical History
Past Medical History: Reports Other
Additional Past Medical History:
Multiple Myeloma
Hypertension
Hyperlipidemia
Diabetes Mellitus, Type II - Insulin Dependent
Diabetic Neuropathy
Chronic Pain with Opioid Dependence secondary to Charcot Foot
Traumatic Brain Injury
Anxiety/Depression
Morbid Obesity
Past Surgical History: Reports Other
Additional Past Surgical History:
Bilateral Great Toe Amputations
Back Surgery
Right Leg Surgery
Social History
Tobacco: Former Smoker (Quit in April 2023)
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
Living: [facility]
Family History
Family History: Other
Allergies / Home Medications
Allergies reflects when Allergies were last updated in [facility].
Home Medications with original date entered in [facility]
Allergy/Medication List:
Allergies
Allergy/AdvReac Type Severity Reaction Status Date / Time
buspirone [From BuSpar] Allergy Itching Verified 08/09/24 00:59
tramadol Allergy Unknown Verified 08/09/24 00:59
Home Medications
acetaminophen 325 mg tablet (Tylenol) 650 mg PO Q4HPRN PRN mild pain 08/30/23
amitriptyline 50 mg tablet 50 mg PO HS Depression 08/30/23
atorvastatin 40 mg tablet (Lipitor) 40 mg PO HS High Cholesterol 08/30/23
calcium carbonate (Tums) 400 mg PO Q4HPRN PRN gerd 08/30/23
fluticasone propionate 50 mcg/actuation nasal spray,suspension 2 spray intranasal DAILY Congestion 08/30/23
loratadine 10 mg tablet 10 mg PO DAILY Allergies 08/30/23
magnesium hydroxide 400 mg/5 mL oral suspension 2,400 mg PO [id number] PRN constipation 08/30/23
olopatadine 0.1 % eye drops 2 drp BOTH EYES BID Eye Condition 08/30/23
polyethylene glycol 3350 17 gram oral powder packet (Miralax) 17 g PO DAILY PRN Constipation 08/30/23
sennosides 8.6 mg-docusate sodium 50 mg tablet (Senna Plus) 2 tab-cap PO DAILY PRN Constipation 08/30/23
sodium phosphates 19 gram-7 gram/118 mL enema (Fleet Enema) 118 ml NE DAILYPRN PRN if no bm aftr dulcolax 08/30/23
therapeutic multivitamin 1 tab PO DAILY Supplement 08/30/23
venlafaxine 225 mg tablet,extended release 24 hr 225 mg PO HS Depression 08/30/23
acyclovir 400 mg tablet 400 mg PO .Q12H ON FRIDAYS ANTIVIRAL 07/22/24
albuterol 90 mcg/actuation aerosol inhaler 108 mcg inhalation .Q4H PRN shortness of breath 07/22/24
alprazolam 0.25 mg tablet 0.25 mg PO HS Mental Health/Anxiety 07/22/24
aspirin 81 mg capsule 81 mg PO DAILY Blood Clot Prevention/Tx 07/22/24
bisacodyl 10 mg rectal suppository 10 mg NE .Q24H PRN constipation 07/22/24
dapagliflozin propanediol 10 mg tablet (Farxiga) 10 mg PO DAILY Diabetes 07/22/24
docusate sodium 100 mg capsule (Colace) 100 mg PO DAILY STOOL SOFTENER 07/22/24
furosemide 40 mg tablet (Lasix) 40 mg PO DAILY Fluid Retention/Swelling 07/22/24
lenalidomide 25 mg capsule 25 mg PO HS Antineoplastic Agent 07/22/24
lorazepam 0.5 mg tablet (Ativan) 0.5 mg PO .Q12H PRN anxiety 07/22/24
metformin 500 mg tablet 1,000 mg PO BID Diabetes 07/22/24
montelukast 10 mg tablet (Singulair) 10 mg PO HS ASTHMA 07/22/24
morphine 15 mg tablet,extended release (MS Contin) 30 mg PO 12 Pain 07/22/24
oxycodone 10 mg tablet 10 mg PO .Q4H PRN pain 07/22/24
pregabalin 200 mg capsule (Lyrica) 200 mg PO .Q8 Pain 07/22/24
semaglutide 0.25 mg or 0.5 mg (2 mg/3 mL) subcutaneous pen injector (Ozempic) 0.25 mg SC .QMONDAY Diabetes 07/22/24
loperamide 2 mg tablet (Imodium A-D) 2 mg PO Q6H PRN Reduction Of Transepidermal Water Loss 07/25/24
insulin glargine 100 unit/mL (3 mL) subcutaneous pen (Basaglar KwikPen U-100 Insulin) 60 unit SC .Q12 Diabetes 08/09/24
insulin lispro 100 unit/mL subcutaneous pen 47 unit SC AC Diabetes 08/09/24
Review of Systems
-
History Source: Patient
A 12 point ROS was completed and negative except as noted: Yes
Constitutional: Reports Weight Gain and Fatigue; Denies Fever or Chills
EENT: Denies Sore Throat
Respiratory: Reports Trouble Breathing; Denies Cough
Cardiac: Denies Chest Pain or Palpitations
Abdomen/GI: Reports Abdominal Pain; Denies Nausea, Vomiting, Diarrhea, Constipated, Bloody Stools, Black Stools or Anorexia
: Denies Dysuria, Frequency or Flank Pain
Musculoskeletal: Reports Joint Pain, Joint Swelling and Edema
Neurological: Denies Dizzy or Headache
Psych: Denies Depression or Anxiety
Physical Exam
Vital Signs
Vital Signs
Temp Pulse Resp BP Pulse Ox
97.5 F 92 20 130/74 94
08/09/24 05:27 08/09/24 05:27 08/09/24 05:27 08/09/24 06:00 08/09/24 05:52
Physical Exam
General: Other (Morbidly obese 63y M in no acute distress.)
HEENT: Moist mucous membranes, PERRLA and Other (Thick neck.)
Respiratory: Other (Decreased at bases - otherwise clear.)
Cardiac: S1/S2 and Regular Rhythm; No Murmur
GI: Other (Obese, pos abdominal wall edema at least 1/2 up. No erythema / increased warmth / fluctuance / etc.)
Musculoskeletal: Other (Absent digits both feet s/p amputations. 3+ pitting edema bilaterally extending to the abdomen as noted above.)
Neuro: AO x 3
Laboratory Results
-
08/09/24 01:11
08/09/24 01:40
Laboratory Results
Total Bilirubin Cancelled 08/09/24 01:40
AST Cancelled 08/09/24 01:40
ALT Cancelled 08/09/24 01:40
Alkaline Phosphatase Cancelled 08/09/24 01:40
Impression/Plan
-
A/P: Patient is a 63y M with PMH significant for HTN, DM-II and multiple myeloma who presents to ED complaining of significant swelling over the past 48 hours.
Acute on Chronic Anemia
Multiple Myeloma
- Admit for further evaluation and treatment.
- PRBCs being transfuse in the ED.
- Follow H&H for improvement and transfuse additional units if needed.
- Suspect that Hgb will also improve with effective diuresis.
Anasarca
Acute on Chronic HFpEF
- Patient has regained much of the weight that was lost during his prior visit.
- Prior h/o symptomatic anemia resulting in edema / CHF exacerbation in 08/2023.
- IV Lasix BID for now and follow for effective diuresis.
- Monitor for any evidence of renal impairment.
- Follow I/Os, daily weights, etc.
- Echo done during recent admission and was unremarkable.
DM-II
- Stable. Marked insulin resistance with high-doses of insulin.
- Continue basal : bolus insulin.
- Update A1C.
- Continue Farxiga. Hold other PO medications and Ozempic.
Chronic Pain Syndrome
Chronic Opioid Dependence
Charcot Foot
- Stable. Continue current pain control med regimen without changes.
- Follow-up with Pain Management after discharge.
- Patient notes that he has been wheelchair bound for > 1 year.
History of TBI
- No new neurologic complaints.
Morbid Obesity due to excess calories
- Affects all aspects of care.
- Encourage healthy diet. Patient extremely limited in mobility and suspect that significant weight reduction will not be feasible.
DVT Prophylaxis: SCDs
Code Status: Full
[2024-08-09 09:09] LABS: Glucose - Point of Care 182 mg/dl (70-99)
[2024-08-09 09:15] LABS: Blood Urea Nitrogen 16 mg/dl (9-20); Calcium 8.8 mg/dl (8.4-10.2); Carbon Dioxide 26 mmol/L (22-30); Chloride 104 mmol/L (98-107); Estimated Creatinine Clearance > 125 ml/min; Glucose 176 mg/dl (70-99); Potassium 4.2 mmol/L (3.5-5.1); Sodium 142 mmol/L (135-145); eGFR > 60.00
[2024-08-09] MEDS: NOVOLOG FLEXPEN-HIGH RESISTANCE 2 UNITS SC (09:22)
[2024-08-09] MEDS: MS CONTIN (EXTENDED RELEASE) 30 MG PO ×2 (09:42→21:04)
[2024-08-09] MEDS: LYRICA 200 MG PO ×3 (09:42→23:23)
[2024-08-09] MEDS: ASPIR LOW (ENTERIC COATED) 81 MG PO (09:42)
--- NOTE | 2024-08-09 10:28 | CM ---
Patient is from [facility]. Per Jackie at [facility], patient is fairly non compliant. He has a BIPAP, 02, wheelchair and walker. He uses the walker and wheelchair, depending on how he feels. He is 1 assist. He is on fluid restrictions at
M.O., but is non compliant. No +SDOHs. Has an active PCP and pharmacy with [facility].
He is here for anemia and CHF. He is on Palliative care at [facility], but has been non compliant with visits.
ANTICIPATED DISCHARGE PLAN: Return to [facility] when medically cleared.
[2024-08-09] MEDS: TYLENOL 650 MG PO (11:27)
[2024-08-09] MEDS: WELLBUTRIN SR (12 hour sustained release) 150 MG PO (11:28)
[2024-08-09] MEDS: FARXIGA 10 MG PO (11:30)
[2024-08-09] MEDS: LASIX 40 MG IV ×2 (11:31→16:39)
--- NOTE | 2024-08-09 12:49 | W.PN.UPDATE ---
Update Note
Progress Note Update
Seen and examined independent of overnight physician. Received PRBC earlier. Patient states of lower extremity edema. States edema is uptrending to his thighs. States feeling fatigued. States that chemotherapy is on hold.
General: morbidly obese, in no acute distress
HEENT: Moist mucous membranes, and Other (Thick neck.)
Respiratory: dec bs
Cardiac: S1/S2 and Regular Rhythm; No Murmur
GI: obese, +bs, non tender
Musculoskeletal: Other (Absent digits both feet s/p amputations. Bilateral lower extremity edema with erythema.
Neuro: AO x 3
A/P: Patient is a 63y M with PMH significant for HTN, DM-II and multiple myeloma who presents to ED complaining of significant swelling over the past 48 hours.
Acute on Chronic Anemia
Multiple Myeloma
Acute on Chronic Anemia secondary to the above
- Patient is on lenalidomide for myeloma -hold with severe nameia
- PRBCs being transfuse in the ED. Ordered repeat h/h.
- Follow H&H for improvement and transfuse additional units if needed.
- Suspect that Hgb will also improve with effective diuresis.
Anasarca
Acute on Chronic HFpEF
- Patient has regained much of the weight that was lost during his prior visit.
- Prior h/o symptomatic anemia resulting in edema / CHF exacerbation in 08/2023.
- 40mg IV Lasix BID for now and follow for effective diuresis.
- Monitor for any evidence of renal impairment.
- Follow I/Os, daily weights, etc.
- Abd US negative for ascites
- Echo on 07/25 with normal left ventricular chamber size. Normal left ventricular systolic function. Normal regional wall motion. Ejection fraction 60 to 65%. No significant valvular disease.
- Will ask Cards for input
DM-II
- Stable. Marked insulin resistance with high-doses of insulin.
- Continue basal : bolus insulin. Will uptitrate insulin prn
- Update A1C.
- Continue Farxiga. Hold other PO medications and Ozempic.
Chronic Pain Syndrome
Chronic Opioid Dependence
Charcot Foot
- Stable. Continue current pain control med regimen without changes. Continue with MS Contin 30 every 12. Oxycodone 10 every 4hprn
- Follow-up with Pain Management after discharge.
- Patient notes that he has been wheelchair bound for > 1 year.
History of TBI
- No new neurologic complaints.
Morbid Obesity due to excess calories
- Affects all aspects of care.
- Encourage healthy diet. Patient extremely limited in mobility and suspect that significant weight reduction will not be feasible.
DVT Prophylaxis: SCDs
Code Status: Full
[2024-08-09 13:18] LABS: Glucose - Point of Care 263 mg/dl (70-99)
[2024-08-09] MEDS: NOVOLOG FLEXPEN-HIGH RESISTANCE 7 UNITS SC (13:20)
[2024-08-09] MEDS: NOVOLOG FLEXPEN 25 UNITS SC ×2 (13:21→18:21)
[2024-08-09 13:39] LABS: Hematocrit 23.5 % (39.0-52.0); Hemoglobin 7.3 g/dL (13.0-18.0)
--- NOTE | 2024-08-09 15:08 | PHANOTE ---
Contacted [facility] nursing [facility] to verify that patient is currently on the lenalidomide regimen. RN at facility stated that patient is receiving lenalidomide 25mg from 08/05 thru 08/19/24 and that medication supply is present at the
SNF. MD informed that medication is not currently prescribed and MD responded that lenalidomide is on hold due to severe anemia. Later in the day, RN dropped medication off at [facility]. Medication was identified, counted and inventoried
by pharmacist. Medication will be stroed in pharmacy until ordered or patient discharged.
--- NOTE | 2024-08-09 16:35 | CON.CAR ---
Addendum entered and electronically signed by Nilo Benson MD 08/09/24 18:16:
I saw and examined the patient.
The B2B Sales Manager's note was reviewed and I agree with the note.
Comment: Briefly, 63-year-old man past medical history of multiple myeloma and chronic anemia as well as hypertension and type 2 diabetes who presents with worsening peripheral edema and abdominal distention. Cardiology is consulted with concern
for decompensated heart failure.
Patient recently admitted earlier this month with edema and anasarca. Underwent IV diuresis with improvement in his volume status.
Echo at that time with normal biventricular function and no significant valvular pathology.
On this admission BNP was checked and again was within normal limits, 236
Despite abdominal distention, abdominal ultrasound here was unremarkable ascites
Consider checking hepatic function and urine protein/creatinine ratio as low oncotic pressure such as with cirrhosis or nephrotic syndrome could be the cause of his edema
Agree with gentle IV diuresis
Continue SGLT2
Recommend salt restriction - salt tablets were discontinued previously
Leg elevation and compression
No need to repeat echo at this time
Original Note:
Consultation
Consultation Request
Date/Time Consultation Requested: 08/09/2024
Date/Time Consultation Performed: 08/09/2024
Requesting Provider: Dr. Martínez
Performing Provider: Kacie Haskins PA-C for Dr. Benson
Reason for Consultation: Edema
Medical History
-
History of Present Illness:
Patient is a 63-year-old male with past medical history significant for hypertension, type 2 diabetes, morbid obesity, remote TBI, chronic pain with opioid dependence, multiple myeloma on Revlimid with chronic anemia and has received blood
transfusions in the past. Patient was recently admitted from 07/25/2024 to 07/29/2024 for concerns of edema/anasarca and shortness of breath. Patient reports he had been using salt tablets in the past and was never taken off his med list at the
correction. During that admission patient had an echocardiogram which showed normal ejection fraction with no significant valvular disease. He underwent significant weight loss and improvement of edema with IV diuresis. It was recommended he
discontinue salt tablets. He had outpatient blood work 08/08/2024 that showed hemoglobin of 6.1 g/dl and was referred to emergency department for evaluation and treatment. Patient reports to me that over the last 2 weeks he has gained back most of
the weight he had lost previously. He has had worsening shortness of breath, orthopnea and PND. He has some lower extremity edema which is worse on the right lower extremity than left.
Patient reports he is very sedentary. He has chronic pain syndrome and it hurts to do minimal activity. He reports he primarily gets around the correction in a wheelchair.
PMH:
Multiple Myeloma on Revlimid
Hypertension
Hyperlipidemia
Diabetes Mellitus, Type II - Insulin Dependent
Diabetic Neuropathy
Chronic Pain with Opioid Dependence secondary to Charcot Foot
Traumatic Brain Injury
Anxiety/Depression
Morbid Obesity
Past Medical History
Past Medical History: Other (See HPI)
Past Surgical History: Orthopedic (Multiple lumbar back surgeries, bilateral great toe amputation, right leg surgery)
Social History
Tobacco: Former Smoker (Quit April 2023)
Alcohol: Former
Drug: Narcotics (Opioid dependent for chronic pain)
Living: Intermediate
Family History
Family History: Cancer (Reports both patients of cancer)
Allergies / Home Medications
Allergy/AdvReac Type Severity Reaction Status Date / Time
buspirone [From BuSpar] Allergy Itching Verified 08/09/24 00:59
tramadol Allergy Unknown Verified 08/09/24 00:59
�Medication �Instructions �Recorded �Confirmed �Type
acetaminophen 325 mg tablet 650 mg PO Q4HPRN PRN mild 08/30/23 08/09/24 History
(Tylenol) pain/fever
amitriptyline 50 mg tablet 50 mg PO HS Depression 08/30/23 08/09/24 History
atorvastatin 40 mg tablet (Lipitor) 40 mg PO HS High Cholesterol 08/30/23 08/09/24 History
calcium carbonate (Tums) 400 mg PO Q4HPRN PRN indigestion 08/30/23 08/09/24 History
fluticasone propionate 50 2 spray intranasal DAILY allergies 08/30/23 08/09/24 History
mcg/actuation nasal
spray,suspension
loratadine 10 mg tablet 10 mg PO DAILY Allergies 08/30/23 08/09/24 History
magnesium hydroxide 400 mg/5 mL 2,400 mg PO [id number] PRN 08/30/23 08/09/24 History
oral suspension constipation
olopatadine 0.1 % eye drops 1 drp BOTH EYES BID Eye Condition 08/30/23 08/09/24 History
polyethylene glycol 3350 17 gram 17 g PO DAILY PRN Constipation 08/30/23 08/09/24 History
oral powder packet (Miralax)
sennosides 8.6 mg-docusate sodium 2 tab-cap PO [id number] PRN 08/30/23 08/09/24 History
50 mg tablet (Senna Plus) Constipation
sodium phosphates 19 gram-7 118 ml MI DAILYPRN PRN if no bm 08/30/23 08/09/24 History
gram/118 mL enema (Fleet Enema) aftr dulcolax
therapeutic multivitamin 1 tab PO DAILY Supplement 08/30/23 08/09/24 History
venlafaxine 225 mg tablet,extended 225 mg PO HS Depression 08/30/23 08/09/24 History
release 24 hr
acyclovir 400 mg tablet 400 mg PO FR@0800,1700 infection 07/22/24 08/09/24 History
prophylaxis
alprazolam 0.25 mg tablet 0.25 mg PO HS anxiety 07/22/24 08/09/24 History
bisacodyl 10 mg rectal suppository 10 mg MI DAILYPRN PRN if no bm 07/22/24 08/09/24 History
after MOM
dapagliflozin propanediol 10 mg 10 mg PO DAILY Diabetes 07/22/24 08/09/24 History
tablet (Farxiga)
docusate sodium 100 mg capsule 100 mg PO DAILY constipation 07/22/24 08/09/24 History
(Colace)
lorazepam 0.5 mg tablet (Ativan) 0.5 mg PO [id number] PRN anxiety 07/22/24 08/09/24 History
metformin 500 mg tablet 1,000 mg PO BID Diabetes 07/22/24 08/09/24 History
montelukast 10 mg tablet 10 mg PO THFRSA@2200 07/22/24 08/09/24 History
(Singulair) Lung/Breathing Issues
oxycodone 10 mg tablet 10 mg PO Q4H pain 07/22/24 08/09/24 History
pregabalin 200 mg capsule (Lyrica) 200 mg PO Q8H Pain 07/22/24 08/09/24 History
semaglutide 0.25 mg or 0.5 mg (2 0.25 mg SC MO Diabetes 07/22/24 08/09/24 History
mg/3 mL) subcutaneous pen injector
(Ozempic)
loperamide 2 mg tablet (Imodium 2 mg PO Q6H PRN diarrhea 07/25/24 08/09/24 History
A-D)
albuterol sulfate 90 mcg/actuation 2 puff inhalation R Q4HPRN PRN 08/09/24 08/09/24 History
aerosol inhaler (Ventolin HFA) wheezing/sob
aspirin 81 mg tablet,delayed 81 mg PO DAILY Blood Clot 08/09/24 08/09/24 History
release Prevention/Tx
bupropion HCl 150 mg tablet,12 hr 150 mg PO DAILY depression/anxiety 08/09/24 08/09/24 History
sustained-release (Wellbutrin SR)
furosemide 40 mg tablet 40 mg PO DAILY Fluid 08/09/24 08/09/24 History
Retention/Swelling
insulin glargine 100 unit/mL (3 60 unit SC SUMOTUWETHSA@08,17 08/09/24 08/09/24 History
mL) subcutaneous pen (Basaglar Diabetes
KwikPen U-100 Insulin)
insulin glargine 100 unit/mL (3 66 unit SC FR@0800,1700 Diabetes 08/09/24 08/09/24 History
mL) subcutaneous pen (Basaglar
KwikPen U-100 Insulin)
insulin lispro 100 unit/mL 47 unit SC AC Diabetes 08/09/24 08/09/24 History
subcutaneous pen
lenalidomide 25 mg capsule 25 mg PO Q14D@2200 Cancer 08/09/24 08/09/24 History
morphine 30 mg tablet,extended 30 mg PO Q12H pain 08/09/24 08/09/24 History
release
povidone-iodine 10 % topical 1 applic topical DAILY Skin Issues 08/09/24 08/09/24 History
liquid packet
povidone-iodine 10 % topical 1 applic topical DAILYPRN PRN 08/09/24 08/09/24 History
liquid packet 2nd,4th toe on right foot
Review of Systems
-
History Source: Patient
All other systems: Negative unless noted
Physical Exam
Vital Signs
Temp Pulse Resp BP Pulse Ox
97.8 F 93 20 123/69 95
08/09/24 16:12 08/09/24 16:12 08/09/24 16:12 08/09/24 16:12 08/09/24 16:12
GEN: No distress, awake, Ox3, morbidly obese
HEENT: supple, anicteric, mmm
LUNGS: Mildly decreased breath sound at bases otherwise CTA, no wheezes/rales
CV: Reg, S1/S2, no murmur, rub or gallop
ABD: Obese, firm, distended, nontender, BS+
EXT: +2 bilateral lower extremity edema, right greater than left; skin changes consistent with chronic venous stasis; right lower extremity with redness
NEURO: Gross non-focal
SKIN: No rash, warm, dry, pink
Lab Results
08/09/24 13:27
08/09/24 08:52
Fab-J-Dbbjdsftllx Pept 236 pg/ml 08/09/24 01:11
Impression / Plan
-
Family Physician: Daisy Gordon,
Global Climate Change Analyst: None prior to admission, initial consultation Dr. Benson
Impression:
Presents 08/09/2024 with abnormal outpatient labs, hemoglobin 6.1
Acute on chronic anemia
Status post 1 unit packed RBCs 10/09/2023
Orthopnea, PND
Lower extremity edema
Anasarca
Multiple Myeloma on Revlimid
Hypertension
Hyperlipidemia
Diabetes Mellitus, Type II - Insulin Dependent
Diabetic Neuropathy
Chronic Pain with Opioid Dependence secondary to Charcot Foot
Traumatic Brain Injury
Anxiety/Depression
Morbid Obesity
Echo 07/25/2024 (TDS, Lumason used): EF 60 to 65%. Normal LV size and function. No significant valvular disease.
Plan:
Presents 08/09/2024 with abnormal outpatient labs, hemoglobin 6.1, 6.6 in DH
-Acute on chronic anemia with multiple myeloma on Revlimid which is currently on hold
-Initial hemoglobin 6.6, status post 1 unit packed RBCs 10/09/2023 improved to 7.3
-Continue to monitor and trend hemoglobin
Concern for acute heart failure.
-Chest x-ray suggestive of pulmonary edema/heart failure. However proBNP only 236. proBNP could be low secondary to patient's morbid obesity.
-Patient is morbidly obese and is very sedentary with very large abdomen which could be accounting for his shortness of breath. Suspect multifactorial shortness of breath.
-Patient's weight is up at least 17 pounds compared to prior discharge. Suspect noncompliance with sodium at correction multiple weights with 10 pound discrepancy. Would obtain standing scale weights daily given they are most accurate
-Patient given 80 mg IV Lasix in emergency department. Continue to monitor and assess response. Agree with ongoing diuresis with IV Lasix 40 mg twice daily. Would give additional dose of Lasix posttransfusion if patient requires additional blood
transfusion.
-Monitor and trend renal function and electrolyte
-Abdominal ultrasound this admission without ascites
-Patient has preserved ejection fraction with no significant valvular disease on echo 07/25/2024. No need to repeat
-Patient had lower extremity venous Doppler 07/26/2024 which showed no evidence of DVT bilaterally. There was bilateral lower extremity subcutaneous edema more extensive on right. No need to repeat
-Check total protein, albumin, urine analysis with urine protein to creatinine ratio
HPI 08/09/2024:
Patient is a 63-year-old male with past medical history significant for hypertension, type 2 diabetes, morbid obesity, remote TBI, chronic pain with opioid dependence, multiple myeloma on Revlimid with chronic anemia and has received blood
transfusions in the past. Patient was recently admitted from 07/25/2024 to 07/29/2024 for concerns of edema/anasarca and shortness of breath. Patient reports he had been using salt tablets in the past and was never taken off his med list at the
correction. During that admission patient had an echocardiogram which showed normal ejection fraction with no significant valvular disease. He underwent significant weight loss and improvement of edema with IV diuresis. It was recommended he
discontinue salt tablets. He had outpatient blood work 08/08/2024 that showed hemoglobin of 6.1 g/dl and was referred to emergency department for evaluation and treatment. Patient reports to me that over the last 2 weeks he has gained back most of
the weight he had lost previously. He has had worsening shortness of breath, orthopnea and PND. He has some lower extremity edema which is worse on the right lower extremity than left.
Patient reports he is very sedentary. He has chronic pain syndrome and it hurts to do minimal activity. He reports he primarily gets around the correction in a wheelchair.
Data Reviewed
-
Radiology: Report Reviewed by me, Discussed with Physician, Discussed with Nurse and Discussed with Patient
Ultrasound: Report Reviewed by me, Discussed with Physician, Discussed with Nurse and Discussed with Patient
Labs: Labs Reviewed by me, Discussed with Physician, Discussed with Nurse and Discussed with Patient
Old Records: Reviewed
[2024-08-09 16:46] LABS: Albumin 3.3 g/dl (3.5-5.0)
[2024-08-09 17:44] LABS: Glucose - Point of Care 100 mg/dl (70-99)
[2024-08-09] MEDS: NOVOLOG FLEXPEN-HIGH RESISTANCE 1 UNITS SC (18:21)
[2024-08-09] MEDS: LOVENOX 40 MG SC (18:22)
[2024-08-09] MEDS: ELAVIL 50 MG PO (21:06)
[2024-08-09] MEDS: XANAX 0.25 MG PO (21:06)
[2024-08-09] MEDS: LIPITOR 40 MG PO (21:06)
[2024-08-09] MEDS: LANTUS 0.4 UNITS SC (21:07)
[2024-08-09] MEDS: EFFEXOR XR 150 MG PO (21:07)
[2024-08-09] MEDS: EFFEXOR XR 75 MG PO (21:07)
[2024-08-09 21:09] LABS: Glucose - Point of Care 110 mg/dl (70-99)
[2024-08-09 23:06] LABS: Urine Albumin Negative (Neg - Trace); Urine Bilirubin Negative (Negative); Urine Character Clear (Clear); Urine Color Straw; Urine Glucose 3+ (Negative); Urine Ketone Negative (Negative); Urine Leukocyte Negative (Negative); Urine Nitrite Negative (Negative); Urine Occult Blood Negative (Negative); Urine Specific Gravity 1.015 (<1.030); Urine Urobilinogen Negative (Neg - 1+)
[2024-08-09 23:26] LABS: Protein/creatinine Ratio 0.5; Urine Protein 23 mg/dl
[2024-08-10] MEDS: ROXICODONE 10 MG PO ×5 (03:28→22:47)
[2024-08-10 03:46] VITALS: BP 127/74
[2024-08-10 06:00] VITALS: BMI 36.9
[2024-08-10 06:27] LABS: % Basophils 1.5 % (0-2); % Eosinophils 8.1 % (0-6); % Immature Granulocytes 1.2 % (0-0.5); % Lymphocytes 30.3 % (20.5-51.1); % Monocytes 9.3 % (1.7-9.3); % Neutrophils 49.6 % (42.2-75.2); Absolute Basophils 0.1 10^3/uL (0-0.2); Absolute Eosinophils 0.3 10^3/uL (0-0.7); Absolute Monocytes 0.3 10^3/uL (0.1-0.6); Absolute Neutrophils 1.7 10^3/uL (1.4-6.5); Hematocrit 23.9 % (39.0-52.0); Hemoglobin 7.2 g/dL (13.0-18.0); Mean Corp Hgb Conc. 30.1 g/dL (33.0-37.0); Mean Corpuscular Hgb 30.5 pg (27.0-31.0); Mean Corpuscular Volume 101.3 fL (80.0-94.0); Mean Platelet Volume 10.8 fL (7.4-10.4); Nucleated Red Blood Cells % 0 % (-); Platelet Count 186 10^3/uL (130-400); Red Blood Cell Count 2.36 10^6/uL (4.70-6.10); Red Cell Dist. Width 19.2 % (11.5-14.5); White Blood Cell Count 3.3 10^3/uL (4.8-10.8)
[2024-08-10 06:48] LABS: Blood Urea Nitrogen 18 mg/dl (9-20); Calcium 8.8 mg/dl (8.4-10.2); Carbon Dioxide 26 mmol/L (22-30); Chloride 102 mmol/L (98-107); Estimated Creatinine Clearance 114 ml/min; Glucose 207 mg/dl (70-99); Potassium 4.1 mmol/L (3.5-5.1); Sodium 143 mmol/L (135-145); eGFR > 60.00
[2024-08-10] MEDS: WELLBUTRIN SR (12 hour sustained release) 150 MG PO (07:36)
[2024-08-10] MEDS: COLACE 100 MG PO (07:36)
[2024-08-10] MEDS: ASPIR LOW (ENTERIC COATED) 81 MG PO (07:36)
[2024-08-10] MEDS: CLARITIN 10 MG PO (07:36)
[2024-08-10] MEDS: LYRICA 200 MG PO ×2 (07:36→17:18)
[2024-08-10] MEDS: MS CONTIN (EXTENDED RELEASE) 30 MG PO ×2 (07:36→20:07)
[2024-08-10] MEDS: LASIX 40 MG IV ×2 (07:38→15:03)
[2024-08-10 07:39] VITALS: BP 128/69
[2024-08-10 08:04] LABS: Glucose - Point of Care 268 mg/dl (70-99)
[2024-08-10] MEDS: NOVOLOG FLEXPEN-HIGH RESISTANCE 7 UNITS SC (09:01)
[2024-08-10] MEDS: NOVOLOG FLEXPEN 25 UNITS SC ×3 (09:02→17:35)
[2024-08-10] MEDS: LANTUS 0.4 UNITS SC (09:12)
[2024-08-10] MEDS: FARXIGA 10 MG PO (10:10)
[2024-08-10 11:16] LABS: Glucose - Point of Care 197 mg/dl (70-99)
--- NOTE | 2024-08-10 11:34 | W.PN.HOSP.TC ---
Today's Communication/Plan
-
IV lasix
losing weight
trend cr
strict I&O.
Trend poc
Assessment / Plan
Assessment / Plan
General: morbidly obese, in no acute distress
HEENT: Moist mucous membranes, and Other (Thick neck.)
Respiratory: dec bs
Cardiac: S1/S2 and Regular Rhythm; No Murmur
GI: obese, +bs, non tender, non tender
Musculoskeletal: Other (Absent digits both feet s/p amputations with pressure wound. Bilateral lower extremity edema with erythema)
Neuro: AO x 3
A/P: Patient is a 63y M with PMH significant for HTN, DM-II and multiple myeloma who presents to ED complaining of significant swelling over the past 48 hours.
Acute on Chronic Anemia
Multiple Myeloma
Acute on Chronic Anemia secondary to the above
- Patient is on lenalidomide for myeloma -hold with severe anemia
- s/p 1u of PRBC so far. Hgb at 7.2
- Follow H&H for improvement and transfuse additional units if needed.
Anasarca
Acute on Chronic HFpEF
- Patient has regained much of the weight that was lost during his prior visit.
- Prior h/o symptomatic anemia resulting in edema / CHF exacerbation in 08/2023.
- 40mg IV Lasix BID for now and follow for effective diuresis.
- Monitor for any evidence of renal impairment.
- Follow I/Os, daily weights, etc. Losing weight
- Abd US negative for ascites
- Echo on 07/25 with normal left ventricular chamber size. Normal left ventricular systolic function. Normal regional wall motion. Ejection fraction 60 to 65%. No significant valvular disease.
- cards input
DM-II
- Stable. Marked insulin resistance with high-doses of insulin.
- Continue basal : bolus insulin. Will uptitrate insulin prn
- Update A1C at 10.1
- Continue Farxiga. Hold other PO medications and Ozempic.
Chronic Pain Syndrome
Chronic Opioid Dependence
Charcot Foot
- Stable. Continue current pain control med regimen without changes. Continue with MS Contin 30 every 12. Oxycodone 10 every 4hprn
- Follow-up with Pain Management after discharge.
- Patient notes that he has been wheelchair bound for > 1 year.
History of TBI
- No new neurologic complaints.
Morbid Obesity due to excess calories
- Affects all aspects of care.
- Encourage healthy diet. Patient extremely limited in mobility and suspect that significant weight reduction will not be feasible.
DVT Prophylaxis: lovenox
Code Status: Full
Anticipated Discharge: > 48 hours
Subjective/Interval History
-
Date of Service: August 10, 2024
Mild improvement in edema
states passing increasing amount of urine
Objective Data
-
Labs:
Laboratory Results
08/10/24
05:43
WBC 3.3 L
Hgb 7.2 L
Hct 23.9 L
Plt Count 186
Sodium 143
Potassium 4.1
Chloride 102
Carbon Dioxide 26
BUN 18
Creatinine 1.0
Glucose 207 H
Calcium 8.8
Vital Signs:
Vital Signs
Temp Pulse Resp BP Pulse Ox
98.1 F 80 18 128/69 100
08/10/24 07:39 08/10/24 07:39 08/10/24 07:39 08/10/24 07:39 08/10/24 07:39
I&O
08/09/24 08/10/24 08/11/24
06:59 06:59 06:59
Intake Total 0 / 0 730 / 730
Output Total 3000 / 3000
Balance 0 / 0 -2270 / -2270
Data Reviewed
-
Total Time Spent with Patient (in minutes): 51
[2024-08-10 11:36] VITALS: BP 130/76
[2024-08-10] MEDS: NOVOLOG FLEXPEN-HIGH RESISTANCE 2 UNITS SC (13:17)
--- NOTE | 2024-08-10 13:22 | WOUNDNOTE ---
RIGHT GREAT AMPUTATED TOE
--- NOTE | 2024-08-10 13:22 | WOUNDNOTE ---
RIGHT SECOND TOE
--- NOTE | 2024-08-10 13:24 | WOUNDNOTE ---
LEFT SECOND TOE
--- NOTE | 2024-08-10 13:31 | WOUNDNOTE ---
[facility] RN note: Patient admitted with abnormal labs
See H&P for complete history.
PMH: CHF, multiple myeloma, DM-2
Wound Location and type/assessment: Patient admitted with right toe amputation site, right and left second toe scabbed areas. Patient reports toe amputation in 2020. He follows with Licensing Representative at correction. Patient found to be wearing Tubi-acquisition associate
around ankles. Patient has dry legs with some scratches and venous stasis changes. + Audible pedal pulses with doppler. Heels are dry and a left heal fissure was noted during assessment. Sacrum is intact. Patient demonstrated ability to turn in
bed.
Appetite: Good
Pressure redistribution devices in place: Centrella Max Air, heels off-loaded with pillows or air cushion under calves.
Plan: Toe wounds cleaned and Betadine applied. Patient stated that Betadine has been his Licensing Representative plan of care and is appropriate at this time. TT Hospitalist to confirm order for compression and wound care. Size G tubi-acquisition associate applied from foot to
below knee bilaterally and patient stated comfort with compression. Applied no-sting barrier and adhesvie foam to heels. RN Robbie given update. Updated care plan and will follow as needed.
--- NOTE | 2024-08-10 14:19 | CM ---
Patient seen at bedside. Patient confirmed he is a LTC patient at [facility]. Patient plan is to return to SNF when medically appropriate. CM will continue to follow for discharge planning needs.
Plan; return to SNF
[2024-08-10] MEDS: MIRALAX 17 GRAMS PO (14:26)
[2024-08-10 15:29] VITALS: BP 127/72
--- NOTE | 2024-08-10 16:21 | W.PN.CARDCBS ---
Addendum entered and electronically signed by Reji Jewell DO 08/10/24 18:02:
I saw and examined the patient.
The Database Report Writer's note was reviewed and I agree with the note.
Comment:
Plan:
Cont IV diuresis as he continues to lose wt. Still 15 lbs up from recent discharge wt.
Evaluation ongoing for other sources of increased edema/volume
abd u/s without ascites
Cont to monitor H/H with hx of multiple myeloma s/p transfusion
Revlimid is on hold
Original Note:
Today's Communication / Plan
-
Added LFTs and urine protein/creatinine ratio labs
Impression / Plan
-
Family Physician: Daisy Gordon, DO
Bath Mix Operator: None prior to admission, initial consultation Dr. Benson
Impression:
Presents 08/09/2024 with abnormal outpatient labs, hemoglobin 6.1
Acute on chronic anemia
Status post 1 unit packed RBCs 10/09/2023
Orthopnea, PND
Lower extremity edema
Anasarca
Multiple Myeloma on Revlimid
Hypertension
Hyperlipidemia
Diabetes Mellitus, Type II - Insulin Dependent
Diabetic Neuropathy
Chronic Pain with Opioid Dependence secondary to Charcot Foot
Traumatic Brain Injury
Anxiety/Depression
Morbid Obesity
Echo 07/25/2024 (TDS, Lumason used): EF 60 to 65%. Normal LV size and function. No significant valvular disease.
Plan:
-Weight down 7 lbs overnight with Lasix 40 mg IV BID. Patient weighed 283 lbs on last d/c 07/29/24 and weight is 298 lbs on 08/10/24.
-Patient is being managed as acute HFpEF, but pro-BNP only 236. Albumin 3.3. EF 60-65%.
-Cont Lasix 40 mg IV BID. Patient was taking Lasix 40 mg PO daily prior to admission.
-Add on LFTs and check urine protein/creatinine ratio as low oncotic pressure such as with cirrhosis or nephrotic syndrome could be the cause of his edema
-Abdominal ultrasound this admission without ascites
-Acute on chronic anemia with multiple myeloma on Revlimid which is currently on hold. Initial hemoglobin 6.6, s/p 1 unit PRBCs and now improved and stable at 7.2
HPI 08/09/2024:
Patient is a 63-year-old male with past medical history significant for hypertension, type 2 diabetes, morbid obesity, remote TBI, chronic pain with opioid dependence, multiple myeloma on Revlimid with chronic anemia and has received blood
transfusions in the past. Patient was recently admitted from 07/25/2024 to 07/29/2024 for concerns of edema/anasarca and shortness of breath. Patient reports he had been using salt tablets in the past and was never taken off his med list at the
snf. During that admission patient had an echocardiogram which showed normal ejection fraction with no significant valvular disease. He underwent significant weight loss and improvement of edema with IV diuresis. It was recommended he
discontinue salt tablets. He had outpatient blood work 08/08/2024 that showed hemoglobin of 6.1 g/dl and was referred to emergency department for evaluation and treatment. Patient reports to me that over the last 2 weeks he has gained back most of
the weight he had lost previously. He has had worsening shortness of breath, orthopnea and PND. He has some lower extremity edema which is worse on the right lower extremity than left.
Patient reports he is very sedentary. He has chronic pain syndrome and it hurts to do minimal activity. He reports he primarily gets around the snf in a wheelchair.
Progress Note - Bath Mix Operator
Subjective
Date of Service: August 10, 2024
No chest pain
Objective
Labs:
08/10/24 05:43
08/10/24 05:43
Labs
Hgb 7.2 g/dL (13.0-18.0) L 08/10/24 05:43
Hct 23.9 % (39.0-52.0) L 08/10/24 05:43
Plt Count 186 10^3/uL (130-400) 08/10/24 05:43
Sodium 143 mmol/L (135-145) 08/10/24 05:43
Potassium 4.1 mmol/L (3.5-5.1) 08/10/24 05:43
BUN 18 mg/dl (9-20) 08/10/24 05:43
Creatinine 1.0 mg/dL (0.7-1.3) 08/10/24 05:43
Glucose 207 mg/dl (70-99) H 08/10/24 05:43
Vital Signs and I&O:
Vital Signs
Temp Pulse Resp BP Pulse Ox
98.3 F 84 16 127/72 99
08/10/24 15:29 08/10/24 15:29 08/10/24 15:29 08/10/24 15:29 08/10/24 15:29
Vital Signs
Temp Pulse Resp BP Pulse Ox
98.3 F 84 16 127/72 99
08/10/24 15:29 08/10/24 15:29 08/10/24 15:29 08/10/24 15:29 08/10/24 15:29
Intake & Output
08/08/24 08/09/24 08/10/24 08/11/24
06:59 06:59 06:59 06:59
Intake Total 0 / 0 730 / 730
Output Total 3000 / 3000
Balance 0 / 0 -2270 / -2270
Physical Exam
Physical Exam
GEN: AAO x3
HEENT: mmm
LUNGS: No audible wheeze
CV: SR on tele
ABD: ND
EXT: +2 B/L LE edema
NEURO: Gross non-focal
SKIN: No rashk
[2024-08-10 16:48] LABS: Glucose - Point of Care 113 mg/dl (70-99)
[2024-08-10 17:20] LABS: ALT (SGPT) 16 U/L (0-50); AST (SGOT) 19 U/L (17-59); Albumin 3.5 g/dl (3.5-5.0); Alkaline Phosphatase 116 U/L (38-126); Direct Bilirubin 0.1 mg/dl (0.0-0.4); Total Bilirubin 0.2 mg/dl (0.2-1.3); Total Protein 8.5 g/dl (6.3-8.2)
[2024-08-10] MEDS: NOVOLOG FLEXPEN-HIGH RESISTANCE 1 UNITS SC (17:35)
[2024-08-10] MEDS: LOVENOX 40 MG SC (17:35)
[2024-08-10 19:47] VITALS: BP 137/74
[2024-08-10] MEDS: LANTUS 0.45 UNITS SC (20:08)
[2024-08-10] MEDS: EFFEXOR XR 150 MG PO (21:29)
[2024-08-10] MEDS: XANAX 0.25 MG PO (21:29)
[2024-08-10] MEDS: LIPITOR 40 MG PO (21:29)
[2024-08-10] MEDS: EFFEXOR XR 75 MG PO (21:29)
[2024-08-10] MEDS: ELAVIL 50 MG PO (21:29)
[2024-08-10 21:32] LABS: Glucose - Point of Care 115 mg/dl (70-99)
[2024-08-10 23:17] VITALS: BP 110/64
[2024-08-11] MEDS: LYRICA 200 MG PO ×3 (00:04→15:39)
[2024-08-11] MEDS: ROXICODONE 10 MG PO ×4 (03:19→21:15)
[2024-08-11 03:45] VITALS: BP 137/82
[2024-08-11 05:39] LABS: % Basophils 1.1 % (0-2); % Eosinophils 7.4 % (0-6); % Immature Granulocytes 0.8 % (0-0.5); % Lymphocytes 29.2 % (20.5-51.1); % Monocytes 8.5 % (1.7-9.3); Absolute Eosinophils 0.3 10^3/uL (0-0.7); Absolute Lymphocytes 1.1 10^3/uL (1.2-3.4); Absolute Monocytes 0.3 10^3/uL (0.1-0.6); Absolute Neutrophils 1.9 10^3/uL (1.4-6.5); Hematocrit 24.2 % (39.0-52.0); Hemoglobin 7.4 g/dL (13.0-18.0); Mean Corp Hgb Conc. 30.6 g/dL (33.0-37.0); Mean Corpuscular Volume 101.3 fL (80.0-94.0); Mean Platelet Volume 11.2 fL (7.4-10.4); Nucleated Red Blood Cells % 0 % (-); Platelet Count 203 10^3/uL (130-400); Red Blood Cell Count 2.39 10^6/uL (4.70-6.10); Red Cell Dist. Width 18.9 % (11.5-14.5); White Blood Cell Count 3.7 10^3/uL (4.8-10.8)
[2024-08-11 06:00] VITALS: BMI 36.5
[2024-08-11 06:53] LABS: Blood Urea Nitrogen 20 mg/dl (9-20); Calcium 8.8 mg/dl (8.4-10.2); Carbon Dioxide 27 mmol/L (22-30); Chloride 100 mmol/L (98-107); Estimated Creatinine Clearance 104 ml/min; Glucose 169 mg/dl (70-99); Potassium 4.2 mmol/L (3.5-5.1); Sodium 143 mmol/L (135-145); eGFR > 60.00
[2024-08-11 07:16] VITALS: BP 136/65
[2024-08-11 07:52] LABS: Glucose - Point of Care 202 mg/dl (70-99)
[2024-08-11] MEDS: CLARITIN 10 MG PO (09:03)
[2024-08-11] MEDS: MS CONTIN (EXTENDED RELEASE) 30 MG PO ×2 (09:04→20:02)
[2024-08-11] MEDS: WELLBUTRIN SR (12 hour sustained release) 150 MG PO (09:04)
[2024-08-11] MEDS: ASPIR LOW (ENTERIC COATED) 81 MG PO (09:05)
[2024-08-11] MEDS: FARXIGA 10 MG PO (09:05)
--- NOTE | 2024-08-11 09:06 | W.PN.CARDCBS ---
Addendum entered and electronically signed by Nilo Benson MD 08/11/24 14:50:
I saw and examined the patient.
The Product Consultant's note was reviewed and I agree with the note.
Comment: Briefly, 63-year-old man past medical history of multiple myeloma, hypertension, hyperlipidemia, diabetes type 2 and TBI with recent admission for peripheral edema/anasarca who presents with anemia and was found to have severe peripheral
edema on exam. Cardiology is consulted for suspected heart failure.
Transthoracic echocardiogram from earlier this month was unremarkable, normal biventricular systolic function and no significant valvular pathology
proBNP has been consistently within normal limits here
Suspect heart failure with preserved ejection fraction given no clear alternative cause of his edema
Still appears significantly volume overloaded on exam continue IV Lasix twice daily and trial metolazone x 1 today
Continue daily weights and monitor renal function/electrolytes
Reviewed with patient salt and fluid restriction
Will need higher dose of Lasix at time of discharge, could also consider Bumex or torsemide
Rest per Jamigianni White
Original Note:
Today's Communication / Plan
-
Metolazone 2.5 mg with this afternoon's dose of Lasix 40 mg IV BID
51 min face to face and chart prep to review last admission, med list etc.
Impression / Plan
-
Family Physician: Daisy Gordon,
Special Forces Officer: None prior to admission, initial consultation Dr. Benson
Impression:
Presents 08/09/2024 with abnormal outpatient labs, hemoglobin 6.1
Acute on chronic anemia
s/p 1 unit packed RBCs 10/09/2023
Orthopnea, PND
Lower extremity edema
Anasarca
Multiple Myeloma on Revlimid
Hypertension
Hyperlipidemia
Diabetes Mellitus, Type II - Insulin Dependent
Diabetic Neuropathy
Chronic Pain with Opioid Dependence secondary to Charcot Foot
Traumatic Brain Injury
Anxiety/Depression
Morbid Obesity
Echo 07/25/2024 (TDS, Lumason used): EF 60 to 65%. Normal LV size and function. No significant valvular disease.
Plan:
-Weight is down another 2 lbs overnight for a total of 19 lbs diuresed so far this admission. Dry weight 283 lbs on last d/c 07/29/24 and weight is 296 lbs on 08/10/24.
-Details of last hospitalization for edema earlier this month reviewed by me on 08/11/24. Patient was given a dose of metolazone 2.5 mg x1 that admission and had tremendous diuresis without developing TITI or hypokalemia. Will try another dose of
metolazone 08/11/24 evening.
-Cont Lasix 40 mg IV BID.
-Patient is being managed as acute HFpEF, but pro-BNP only 236. Albumin 3.3. EF 60-65%. Abdominal ultrasound this admission without ascites
-Acute on chronic anemia with multiple myeloma on Revlimid which is currently on hold. Initial hemoglobin 6.6, s/p 1 unit PRBCs and now improved and stable at 7.2. Recommend maintaining a Hgb greater than at least 8 to optimize HF status
-Patient is a long-term resident of [facility] and there are no plans for him to return to living independently.
HPI 08/09/2024: Patient is a 63-year-old male with past medical history significant for hypertension, type 2 diabetes, morbid obesity, remote TBI, chronic pain with opioid dependence, multiple myeloma on Revlimid with chronic anemia and has received
blood transfusions in the past. Patient was recently admitted from 07/25/2024 to 07/29/2024 for concerns of edema/anasarca and shortness of breath. Patient reports he had been using salt tablets in the past and was never taken off his med list at
the [facility]. During that admission patient had an echocardiogram which showed normal ejection fraction with no significant valvular disease. He underwent significant weight loss and improvement of edema with IV diuresis. It was recommended
he discontinue salt tablets. He had outpatient blood work 08/08/2024 that showed hemoglobin of 6.1 g/dl and was referred to emergency department for evaluation and treatment. Patient reports to me that over the last 2 weeks he has gained back most
of the weight he had lost previously. He has had worsening shortness of breath, orthopnea and PND. He has some lower extremity edema which is worse on the right lower extremity than left.
Patient reports he is very sedentary. He has chronic pain syndrome and it hurts to do minimal activity. He reports he primarily gets around the [facility] in a wheelchair.
Progress Note - [employer] Officer
Subjective
Date of Service: August 11, 2024
Feeling better, but ongoing edema is distressing
Objective
Labs:
08/11/24 05:23
08/11/24 05:23
Labs
Hgb 7.4 g/dL (13.0-18.0) L 08/11/24 05:23
Hct 24.2 % (39.0-52.0) L 08/11/24 05:23
Plt Count 203 10^3/uL (130-400) 08/11/24 05:23
Sodium 143 mmol/L (135-145) 08/11/24 05:23
Potassium 4.2 mmol/L (3.5-5.1) 08/11/24 05:23
BUN 20 mg/dl (9-20) 08/11/24 05:23
Creatinine 1.1 mg/dL (0.7-1.3) 08/11/24 05:23
Glucose 169 mg/dl (70-99) H 08/11/24 05:23
Vital Signs and I&O:
Vital Signs
Temp Pulse Resp BP Pulse Ox
97.7 F 82 16 136/65 98
08/11/24 07:16 08/11/24 07:16 08/11/24 07:16 08/11/24 07:16 08/11/24 07:16
Vital Signs
Temp Pulse Resp BP Pulse Ox
97.7 F 82 16 136/65 98
08/11/24 07:16 08/11/24 07:16 08/11/24 07:16 08/11/24 07:16 08/11/24 07:16
Intake & Output
08/09/24 08/10/24 08/11/24 08/12/24
06:59 06:59 06:59 06:59
Intake Total 0 / 0 730 / 730 1700 / 1700
Output Total 3000 / 3000 1200 / 1200
Balance 0 / 0 -2270 / -2270 500 / 500
Physical Exam
Physical Exam
GEN: AAO x3
HEENT: mmm
LUNGS: No audible wheeze
CV: SR on tele
ABD: ND
EXT: +2-3 hard B/L LE edema
NEURO: Gross non-focal
SKIN: No rashk
[2024-08-11] MEDS: COLACE 100 MG PO (09:07)
[2024-08-11] MEDS: NOVOLOG FLEXPEN-HIGH RESISTANCE 4 UNITS SC (09:08)
[2024-08-11] MEDS: NOVOLOG FLEXPEN 25 UNITS SC ×3 (09:09→17:05)
[2024-08-11] MEDS: LASIX 40 MG IV ×2 (09:12→15:41)
[2024-08-11] MEDS: LANTUS 0.45 UNITS SC ×2 (09:22→20:02)
[2024-08-11 11:16] VITALS: BP 118/65
--- NOTE | 2024-08-11 11:32 | W.PN.HOSP.TC ---
Today's Communication/Plan
-
IV lasix
zaroxlyn
Trend cbc
OOB
Assessment / Plan
Assessment / Plan
General: morbidly obese, in no acute distress
HEENT: Moist mucous membranes, and Other (Thick neck.)
Respiratory: dec bs
Cardiac: S1/S2 and Regular Rhythm; No Murmur
GI: obese, +bs, non tender, non tender
Musculoskeletal: Other (Absent digits both feet s/p amputations with pressure wound. Bilateral lower extremity edema with erythema-mild improvement)
Neuro: AO x 3
A/P: Patient is a 63y M with PMH significant for HTN, DM-II and multiple myeloma who presents to ED complaining of significant swelling over the past 48 hours.
Acute on Chronic Anemia
Multiple Myeloma
Acute on Chronic Anemia secondary to the above
- Patient is on lenalidomide for myeloma -hold with severe anemia
- s/p 1u of PRBC so far. Hgb at 7.4. lenalidomide held with severe anemia and wait for clarification from onc. Pt with multiple questions regarding his chemotherapy too. Onc consulted. Follows with Dr. Hilliard
- Follow H&H for improvement and transfuse additional units if needed.
Anasarca
Acute on Chronic HFpEF
- Patient has regained much of the weight that was lost during his prior visit.
- Prior h/o symptomatic anemia resulting in edema / CHF exacerbation in 08/2023.
- 40mg IV Lasix BID for now and follow for effective diuresis. Agree with dose of zaroxlyn today.
- Monitor for any evidence of renal impairment.
- Follow I/Os, daily weights, etc. Losing weight
- Abd US negative for ascites
- Echo on 07/25 with normal left ventricular chamber size. Normal left ventricular systolic function. Normal regional wall motion. Ejection fraction 60 to 65%. No significant valvular disease.
- cards input
DM-II
- Stable. Marked insulin resistance with high-doses of insulin.
- Continue basal : bolus insulin. Will uptitrate insulin prn
- Update A1C at 10.1
- Continue Farxiga. Hold other PO medications and Ozempic.
Chronic Pain Syndrome
Chronic Opioid Dependence
Charcot Foot
- Stable. Continue current pain control med regimen without changes. Continue with MS Contin 30 every 12. Oxycodone 10 every 4hprn
- Follow-up with Pain Management after discharge.
- Patient notes that he has been wheelchair bound for > 1 year.
History of TBI
- No new neurologic complaints.
Morbid Obesity due to excess calories
- Affects all aspects of care.
- Encourage healthy diet. Patient extremely limited in mobility and suspect that significant weight reduction will not be feasible.
DVT Prophylaxis: lovenox
Code Status: Full
Anticipated Discharge: > 48 hours
Subjective/Interval History
-
Date of Service: August 11, 2024
states losing weight but also gaining all back
improvement in edema
Objective Data
-
Labs:
Laboratory Results
08/11/24
05:23
WBC 3.7 L
Hgb 7.4 L
Hct 24.2 L
Plt Count 203
Sodium 143
Potassium 4.2
Chloride 100
Carbon Dioxide 27
BUN 20
Creatinine 1.1
Glucose 169 H
Calcium 8.8
Vital Signs:
Vital Signs
Temp Pulse Resp BP Pulse Ox
97.7 F 86 16 118/65 95
08/11/24 11:16 08/11/24 11:16 08/11/24 11:16 08/11/24 11:16 08/11/24 11:16
I&O
08/10/24 08/11/24 08/12/24
06:59 06:59 06:59
Intake Total 730 / 730 1700 / 1700
Output Total 3000 / 3000 1200 / 1200
Balance -2270 / -2270 500 / 500
Data Reviewed
-
Total Time Spent with Patient (in minutes): 51
[2024-08-11 11:38] LABS: Protein/creatinine Ratio 0.9; Urine Protein 28 mg/dl
[2024-08-11 11:47] LABS: Glucose - Point of Care 193 mg/dl (70-99)
[2024-08-11] MEDS: NOVOLOG FLEXPEN-HIGH RESISTANCE 2 UNITS SC (12:06)
[2024-08-11 15:36] VITALS: BP 123/69
[2024-08-11] MEDS: ZAROXOLYN 2.5 MG PO (15:39)
[2024-08-11] MEDS: MIRALAX 17 GRAMS PO (15:50)
[2024-08-11 16:28] LABS: Glucose - Point of Care 107 mg/dl (70-99)
[2024-08-11] MEDS: NOVOLOG FLEXPEN-HIGH RESISTANCE 1 UNITS SC (17:05)
[2024-08-11] MEDS: LOVENOX 40 MG SC (17:06)
[2024-08-11 19:50] VITALS: BP 111/68
[2024-08-11 21:05] LABS: Glucose - Point of Care 127 mg/dl (70-99)
[2024-08-11] MEDS: XANAX 0.25 MG PO (21:15)
[2024-08-11] MEDS: ELAVIL 50 MG PO (21:15)
[2024-08-11] MEDS: EFFEXOR XR 75 MG PO (21:16)
[2024-08-11] MEDS: LIPITOR 40 MG PO (21:16)
[2024-08-11] MEDS: EFFEXOR XR 150 MG PO (21:16)
[2024-08-12] VITALS (7 sets, daily range): BP systolic 106–127; BP diastolic 69–86; BMI 35.8
[2024-08-12] MEDS: LYRICA 200 MG PO ×3 (00:40→15:30)
[2024-08-12] MEDS: ROXICODONE 10 MG PO ×5 (01:30→23:31)
[2024-08-12 07:57] LABS: Glucose - Point of Care 172 mg/dl (70-99)
[2024-08-12 08:52] LABS: % Basophils 1.4 % (0-2); % Eosinophils 5.8 % (0-6); % Immature Granulocytes 0.6 % (0-0.5); % Lymphocytes 28.5 % (20.5-51.1); % Neutrophils 55.7 % (42.2-75.2); Absolute Basophils 0.1 10^3/uL (0-0.2); Absolute Eosinophils 0.2 10^3/uL (0-0.7); Absolute Monocytes 0.3 10^3/uL (0.1-0.6); Hematocrit 26.7 % (39.0-52.0); Hemoglobin 7.9 g/dL (13.0-18.0); Mean Corp Hgb Conc. 29.6 g/dL (33.0-37.0); Mean Corpuscular Volume 101.5 fL (80.0-94.0); Mean Platelet Volume 10.9 fL (7.4-10.4); Nucleated Red Blood Cells % 0 % (-); Platelet Count 217 10^3/uL (130-400); Red Blood Cell Count 2.63 10^6/uL (4.70-6.10); Red Cell Dist. Width 18.8 % (11.5-14.5); White Blood Cell Count 3.6 10^3/uL (4.8-10.8)
[2024-08-12] MEDS: WELLBUTRIN SR (12 hour sustained release) 150 MG PO (08:53)
[2024-08-12] MEDS: MS CONTIN (EXTENDED RELEASE) 30 MG PO ×2 (08:53→20:43)
[2024-08-12] MEDS: FARXIGA 10 MG PO (08:53)
[2024-08-12] MEDS: CLARITIN 10 MG PO (08:53)
[2024-08-12] MEDS: LASIX 40 MG IV ×2 (08:54→15:30)
[2024-08-12] MEDS: LANTUS 0.45 UNITS SC (08:54)
[2024-08-12] MEDS: COLACE 100 MG PO (08:54)
[2024-08-12] MEDS: ASPIR LOW (ENTERIC COATED) 81 MG PO (08:54)
[2024-08-12] MEDS: NOVOLOG FLEXPEN-HIGH RESISTANCE 1 UNITS SC (08:55)
[2024-08-12] MEDS: NOVOLOG FLEXPEN 25 UNITS SC ×3 (08:56→17:32)
[2024-08-12] MEDS: ZOVIRAX 400 MG PO ×2 (09:06→17:27)
[2024-08-12 09:43] LABS: Blood Urea Nitrogen 24 mg/dl (9-20); Calcium 8.8 mg/dl (8.4-10.2); Carbon Dioxide 29 mmol/L (22-30); Chloride 96 mmol/L (98-107); Estimated Creatinine Clearance 95 ml/min; Glucose 167 mg/dl (70-99); Potassium 3.8 mmol/L (3.5-5.1); Sodium 141 mmol/L (135-145); eGFR > 60.00
--- NOTE | 2024-08-12 11:43 | W.PN.HOSP.TC ---
Addendum entered and electronically signed by Easton Martínez MD 08/12/24 13:52:
Patient BUN slowly uptrending with mild contraction alkalosis. Monitor diuresis closely with daily BMP
Original Note:
Today's Communication/Plan
-
Continue with aggressive diuresis
Trend weight daily
Creatinine holding
Assessment / Plan
Assessment / Plan
General: morbidly obese, in no acute distress
HEENT: Moist mucous membranes, and Other (Thick neck.)
Respiratory: dec bs
Cardiac: S1/S2 and Regular Rhythm; No Murmur
GI: obese, +bs, non tender, non tender
Musculoskeletal: Other (Absent digits both feet s/p amputations with pressure wound. Bilateral lower extremity edema with erythema-slow improvement
Neuro: AO x 3
A/P: Patient is a 63y M with PMH significant for HTN, DM-II and multiple myeloma who presents to ED complaining of significant swelling over the past 48 hours.
Acute on Chronic Anemia
Multiple Myeloma
Acute on Chronic Anemia secondary to the above
- Patient is on lenalidomide for myeloma -hold with severe anemia
- s/p 1u of PRBC so far. Hgb at 7.9. lenalidomide held during hospitalization and wait for clarification from onc. Pt with multiple questions regarding his chemotherapy too moving forward. Onc consulted. Follows with Dr. Hilliard
- Follow H&H for improvement and transfuse additional units if needed. The frequency of anemia requiring blood transfusion continues to increase.
Anasarca
Acute on Chronic HFpEF
- Patient has regained much of the weight that was lost during his prior visit.
- Prior h/o symptomatic anemia resulting in edema / CHF exacerbation in 08/2023.
- 40mg IV Lasix BID for now and follow for effective diuresis. Agree with dose of zaroxlyn prn
- Monitor for any evidence of renal impairment.
- Follow I/Os, daily weights, etc. Continues to lose weight.
- Abd US negative for ascites
- Echo on 07/25 with normal left ventricular chamber size. Normal left ventricular systolic function. Normal regional wall motion. Ejection fraction 60 to 65%. No significant valvular disease.
- cards input
DM-II
- Stable. Marked insulin resistance with high-doses of insulin.
- Continue basal : bolus insulin. Will uptitrate insulin prn
- Update A1C at 10.1
- Continue Farxiga. Hold other PO medications and Ozempic. POC 172.
Chronic Pain Syndrome
Chronic Opioid Dependence
Charcot Foot
- Stable. Continue current pain control med regimen without changes. Continue with MS Contin 30 every 12. Oxycodone 10 every 4hprn
- Follow-up with Pain Management after discharge.
- Patient notes that he has been wheelchair bound for > 1 year.
History of TBI
- No new neurologic complaints.
Morbid Obesity due to excess calories
- Affects all aspects of care.
- Encourage healthy diet. Patient extremely limited in mobility and suspect that significant weight reduction will not be feasible.
DVT Prophylaxis: lovenox
Code Status: Full
Anticipated Discharge: > 48 hours
Subjective/Interval History
-
Date of Service: August 12, 2024
states of mild improvement in edema
worried about his chemotherapy -waiting to talk to oncology
Objective Data
-
Labs:
Laboratory Results
08/12/24
07:44
WBC 3.6 L
Hgb 7.9 L
Hct 26.7 L
Plt Count 217
Sodium 141
Potassium 3.8
Chloride 96 L
Carbon Dioxide 29
BUN 24 H
Creatinine 1.2
Glucose 167 H
Calcium 8.8
Vital Signs:
Vital Signs
Temp Pulse Resp BP Pulse Ox
98.1 F 93 18 113/86 98
08/12/24 07:15 08/12/24 07:15 08/12/24 07:15 08/12/24 08:54 08/12/24 08:45
I&O
08/11/24 08/12/24 08/13/24
06:59 06:59 06:59
Intake Total 1700 / 1700 660 / 660
Output Total 1200 / 1200 1660 / 1660
Balance 500 / 500 -1000 / -1000
[2024-08-12 11:52] LABS: Glucose - Point of Care 168 mg/dl (70-99)
[2024-08-12] MEDS: NOVOLOG FLEXPEN-HIGH RESISTANCE 2 UNITS SC (12:44)
--- NOTE | 2024-08-12 13:39 | W.PN.CARDCBS ---
Addendum entered and electronically signed by Nilo Benson MD 08/12/24 18:06:
I saw and examined the patient.
The Night Time Nanny's note was reviewed and I agree with the note.
Comment: Briefly, 63-year-old man past medical history of multiple myeloma, hypertension, hyperlipidemia, diabetes type 2 and TBI with recent admission for peripheral edema/anasarca who presents with anemia and was found to have severe peripheral
edema on exam. Cardiology is consulted for suspected heart failure.
Transthoracic echocardiogram from earlier this month was unremarkable, normal biventricular systolic function and no significant valvular pathology
proBNP has been consistently within normal limits here
Suspect heart failure with preserved ejection fraction given no clear alternative cause of his edema
Still appears volume overloaded on exam continue IV Lasix twice daily and metolazone again today
Continue daily weights and monitor renal function/electrolytes
Salt and fluid restriction
Hopefully transition to oral diuretics in the next 24-48 hours
Original Note:
Today's Communication / Plan
-
Continue diuresis. For another dose of metolazone this afternoon
Replete K
Continue aspirin, lipitor, farxiga
Impression / Plan
-
Family Physician: Daisy Gordon,
Filter Tender Jelly: None prior to admission, initial consultation Dr. Benson
Impression:
Presented with abnormal outpatient labs, hemoglobin 6.1
Acute on chronic anemia
s/p 1 unit packed RBCs 10/09/2023
Orthopnea, PND
Lower extremity edema
Anasarca
Multiple Myeloma on Revlimid
Hypertension
Hyperlipidemia
Diabetes Mellitus, Type II - Insulin Dependent
Diabetic Neuropathy
Chronic Pain with Opioid Dependence secondary to Charcot Foot
Traumatic Brain Injury
Anxiety/Depression
Morbid Obesity
Echo 07/25/2024 (TDS, Lumason used): EF 60 to 65%. Normal LV size and function. No significant valvular disease.
Plan:
-Presented with abnormal lab work and worsening shortness of breath. Admitted with acute heart failure exacerbation.
-Diuresing with IV Lasix 40 mg twice daily. Given a dose of metolazone in PM 08/11/2024. For another dose of metolazone this afternoon.
-Weight down 6 pounds overnight, down to 290 pounds. Dry weight previously 283lbs.
-Creatinine stable at 1.2. Continue to follow daily weights, I&O's.
-Echo 07/25 with EF 60-65% as noted above. No need to repeat at this kiko.e
-Continue Farxiga 10 mg daily.
-K 3.8, will replete with ongoing diuresis.
-Initial hgb 6.6 s/p 1 unit PRBCs. Hgb stable at 7.9. Recommend maintaining hgb greater than at least 8 to optimize HF status.
-Continue aspirin, lipitor.
HPI 08/09/2024: Patient is a 63-year-old male with past medical history significant for hypertension, type 2 diabetes, morbid obesity, remote TBI, chronic pain with opioid dependence, multiple myeloma on Revlimid with chronic anemia and has received
blood transfusions in the past. Patient was recently admitted from 07/25/2024 to 07/29/2024 for concerns of edema/anasarca and shortness of breath. Patient reports he had been using salt tablets in the past and was [facility]. During that admission patient had an echocardiogram which showed normal ejection fraction with no significant valvular disease. He underwent significant weight loss and improvement of edema with IV diuresis. It was recommended
he discontinue salt tablets. He had outpatient blood work 08/08/2024 that showed hemoglobin of 6.1 g/dl and was referred to emergency department for evaluation and treatment. Patient reports to me that over the last 2 weeks he has gained back most
of the weight he had lost previously. He has had worsening shortness of breath, orthopnea and PND. He has some lower extremity edema which is worse on the right lower extremity than left.
Patient reports he is very sedentary. He has chronic pain syndrome and it hurts to do minimal activity. He reports he primarily gets around [facility] in a wheelchair.
Progress Note - Filter Tender Jelly
Subjective
Date of Service: August 12, 2024
Objective
Labs:
08/12/24 07:44
08/12/24 07:44
Labs
Hgb 7.9 g/dL (13.0-18.0) L 08/12/24 07:44
Hct 26.7 % (39.0-52.0) L 08/12/24 07:44
Plt Count 217 10^3/uL (130-400) 08/12/24 07:44
Sodium 141 mmol/L (135-145) 08/12/24 07:44
Potassium 3.8 mmol/L (3.5-5.1) 08/12/24 07:44
BUN 24 mg/dl (9-20) H 08/12/24 07:44
Creatinine 1.2 mg/dL (0.7-1.3) 08/12/24 07:44
Glucose 167 mg/dl (70-99) H 08/12/24 07:44
Vital Signs and I&O:
Vital Signs
Temp Pulse Resp BP Pulse Ox
98.3 F 94 18 114/70 94
08/12/24 11:00 08/12/24 11:00 08/12/24 11:00 08/12/24 11:00 08/12/24 11:00
Vital Signs
Temp Pulse Resp BP Pulse Ox
98.3 F 94 18 114/70 94
08/12/24 11:00 08/12/24 11:00 08/12/24 11:00 08/12/24 11:00 08/12/24 11:00
Intake & Output
08/10/24 08/11/24 08/12/24 08/13/24
06:59 06:59 06:59 06:59
Intake Total 730 / 730 1700 / 1700 660 / 660
Output Total 3000 / 3000 1200 / 1200 1660 / 1660
Balance -2270 / -2270 500 / 500 -1000 / -1000
Physical Exam
Physical Exam
GEN: AAO x3
HEENT: mmm
LUNGS: No audible wheeze
CV: Reg, no murmur
EXT: +2 B/L LE edema
NEURO: Gross non-focal
SKIN: No rash
--- NOTE | 2024-08-12 13:52 | CM ---
CM reviewed chart, patient LTC resident at [facility]. Discharge >48 hrs. CM will continue to follow for all discharge planning needs.
Plan; return to [facility] when stable.
[facility]:
Report: [phone]
[2024-08-12] MEDS: KCL 40 MEQ PO (14:18)
[2024-08-12] MEDS: ZAROXOLYN 2.5 MG PO (14:24)
--- NOTE | 2024-08-12 14:26 | CON.ONC ---
Documented by User: RONALD Sheldon 08/12/24 16:23
Impression
Impression
multiple myeloma responding to current therapy RVD -maribell
symptomatic anemia
leukopenia/lymphopenia
acute CHF, anasarca
chronic pain predated MM dx-opioid dependence
morbid obesity
hypogammaglobulinemia
Plan
Plan
hold lenolidomide during hospitalization. OP follow up will be arranged upon discharge
transfuse Hgb <8
OP COREY will be resumed upon discharge
monitor for bleeding
CHF per primary service
Patient History
History of Present Illness
63 yo M with multiple comorbidities and IgA Lambda multiple myeloma known to Dr. Hilliard presented with worsening peripheral edema, abdominal distention, and symptomatic anemia. His lower extremity venous Doppler 07/26/2024 which showed no evidence of
DVT bilaterally. His last received 1U PRBC 08/09 with improvement of Hgb from 6.6-> 7.3g/dL. He had no evidence of iron deficiency on June iron studies. CXR showed pulmonary edema. He reports a 35lb weight gain since February 2024. 2D echo
07/25/2024 showed an LVEF 60 to 65%. Normal LV size and function. No significant valvular disease. He has been started on diuresis by cardiology.
He was diagnosed with MM in August 2023 for which he was started on daratumumab, velcade, and revlimid. His MM panel shows a good response to therapy IgA lambda trending down from >7000 at diagnosis to 175 on most recent labs 08/01/2024. Initial
BMbx 70-80% plasma cells, congo red suggest component of amyloid. His Hgb at dx was 6.7g/dL. He has required 4 U PRBC since August 2023 and continues on COREY outpatient. He had no evidence of iron deficiency on June iron studies. No GI
evaluation since onset of anemia August 2023.
Clinically, reports fatigue and chronic pain. Denies chest pain, palpations, n/v/d/c or abdominal pain.
Pt daughterHeaven, on the phone during visit. Updates provided and questions answered.
Afebrile, no hypoxia or hypotension.
Past-Medical/Surgical History
PMH Type�2�diabetes�mellitus Hypertension Hyperlipidemia Charcot�foot Traumatic�brain�injury Neuropathy Osteoarthritis Chronic�pain�with�opioid�dependence History�of�alcohol�abuse Morbid�obesity,
Past Surgical History: multiple lumbar back surgeries, bilateral great toe amputation, right leg surgery
Social�History Former�Smoker.�Approximate�years�smoked�40. Former ETOH . Marital�Status:�Patient�is�single
Family mother and father with malignancy but unsure of type.
Patient Medication
�Medication �Instructions �Recorded �Confirmed �Last Taken �Type
acetaminophen 325 mg tablet 650 mg PO Q4HPRN PRN mild 08/30/23 08/09/24 Unknown History
(Tylenol) pain/fever
amitriptyline 50 mg tablet 50 mg PO HS Depression 08/30/23 08/09/24 07/21/24 History
atorvastatin 40 mg tablet (Lipitor) 40 mg PO HS High Cholesterol 08/30/23 08/09/24 07/21/24 History
calcium carbonate (Tums) 400 mg PO Q4HPRN PRN indigestion 08/30/23 08/09/24 Unknown History
fluticasone propionate 50 2 spray intranasal DAILY allergies 08/30/23 08/09/24 07/22/24 History
mcg/actuation nasal
spray,suspension
loratadine 10 mg tablet 10 mg PO DAILY Allergies 08/30/23 08/09/24 07/22/24 History
magnesium hydroxide 400 mg/5 mL 2,400 mg PO [id number] PRN 08/30/23 08/09/24 Unknown History
oral suspension constipation
olopatadine 0.1 % eye drops 1 drp BOTH EYES BID Eye Condition 08/30/23 08/09/24 07/22/24 History
polyethylene glycol 3350 17 gram 17 g PO DAILY PRN Constipation 08/30/23 08/09/24 Unknown History
oral powder packet (Miralax)
sennosides 8.6 mg-docusate sodium 2 tab-cap PO [id number] PRN 08/30/23 08/09/24 07/22/24 History
50 mg tablet (Senna Plus) Constipation
sodium phosphates 19 gram-7 118 ml GA DAILYPRN PRN if no bm 08/30/23 08/09/24 Unknown History
gram/118 mL enema (Fleet Enema) aftr dulcolax
therapeutic multivitamin 1 tab PO DAILY Supplement 08/30/23 08/09/24 07/22/24 History
venlafaxine 225 mg tablet,extended 225 mg PO HS Depression 08/30/23 08/09/24 07/22/24 History
release 24 hr
acyclovir 400 mg tablet 400 mg PO FR@0800,1700 infection 07/22/24 08/09/24 07/22/24 History
prophylaxis
alprazolam 0.25 mg tablet 0.25 mg PO HS anxiety 07/22/24 08/09/24 07/21/24 History
bisacodyl 10 mg rectal suppository 10 mg GA DAILYPRN PRN if no bm 07/22/24 08/09/24 Unknown History
after MOM
dapagliflozin propanediol 10 mg 10 mg PO DAILY Diabetes 07/22/24 08/09/24 07/22/24 History
tablet (Farxiga)
docusate sodium 100 mg capsule 100 mg PO DAILY constipation 07/22/24 08/09/24 07/22/24 History
(Colace)
lorazepam 0.5 mg tablet (Ativan) 0.5 mg PO [id number] PRN anxiety 07/22/24 08/09/24 Unknown History
metformin 500 mg tablet 1,000 mg PO BID Diabetes 07/22/24 08/09/24 07/22/24 History
montelukast 10 mg tablet 10 mg PO THFRSA@2200 07/22/24 08/09/24 07/21/24 History
(Singulair) Lung/Breathing Issues
oxycodone 10 mg tablet 10 mg PO Q4H pain 07/22/24 08/09/24 Unknown History
pregabalin 200 mg capsule (Lyrica) 200 mg PO Q8H Pain 07/22/24 08/09/24 07/22/24 History
semaglutide 0.25 mg or 0.5 mg (2 0.25 mg SC MO Diabetes 07/22/24 08/09/24 07/19/24 History
mg/3 mL) subcutaneous pen injector
(Ozempic)
loperamide 2 mg tablet (Imodium 2 mg PO Q6H PRN diarrhea 07/25/24 08/09/24 Unknown History
A-D)
albuterol sulfate 90 mcg/actuation 2 puff inhalation R Q4HPRN PRN 08/09/24 08/09/24 Unknown History
aerosol inhaler (Ventolin HFA) wheezing/sob
aspirin 81 mg tablet,delayed 81 mg PO DAILY Blood Clot 08/09/24 08/09/24 Unknown History
release Prevention/Tx
bupropion HCl 150 mg tablet,12 hr 150 mg PO DAILY depression/anxiety 08/09/24 08/09/24 Unknown History
sustained-release (Wellbutrin SR)
furosemide 40 mg tablet 40 mg PO DAILY Fluid 08/09/24 08/09/24 Unknown History
Retention/Swelling
insulin glargine 100 unit/mL (3 60 unit SC SUMOTUWETHSA@08,17 08/09/24 08/09/24 Unknown History
mL) subcutaneous pen (Basaglar Diabetes
KwikPen U-100 Insulin)
insulin glargine 100 unit/mL (3 66 unit SC FR@0800,1700 Diabetes 08/09/24 08/09/24 Unknown History
mL) subcutaneous pen (Basaglar
KwikPen U-100 Insulin)
insulin lispro 100 unit/mL 47 unit SC AC Diabetes 08/09/24 08/09/24 Unknown History
subcutaneous pen
lenalidomide 25 mg capsule 25 mg PO Q14D@2200 Cancer 08/09/24 08/09/24 Unknown History
morphine 30 mg tablet,extended 30 mg PO Q12H pain 08/09/24 08/09/24 Unknown History
release
povidone-iodine 10 % topical 1 applic topical DAILY Skin Issues 08/09/24 08/09/24 Unknown History
liquid packet
povidone-iodine 10 % topical 1 applic topical DAILYPRN PRN 08/09/24 08/09/24 Unknown History
liquid packet 2nd,4th toe on right foot
Active Medications
Generic Name Dose Route Start Last Admin
Trade Name Freq PRN Reason Stop Dose Admin
Acetaminophen 650 mg 08/09/24 09:30 08/09/24 11:27
Acetaminophen 325 Mg Tablet PO 09/06/24 09:29 650 mg
Q4HPRN PRN Administration
mild pain / temp > 101
Acyclovir Sodium 400 mg 08/12/24 08:00 08/12/24 09:06
Acyclovir Sodium 200 Mg Capsule PO 08/22/24 07:59 400 mg
FR@0800,1700 TERESA Administration
Alprazolam 0.25 mg 08/09/24 22:00 08/11/24 21:15
Alprazolam 0.25 Mg Tablet PO 09/06/24 21:59 0.25 mg
HS TERESA Administration
Amitriptyline HCl 50 mg 08/09/24 22:00 08/11/24 21:15
Amitriptyline 50 Mg Tablet PO 09/06/24 21:59 50 mg
HS TERESA Administration
Aspirin 81 mg 08/09/24 09:30 08/12/24 08:54
Aspirin 81 Mg (Enteric Coated) Tablet PO 09/06/24 09:29 81 mg
DAILY TERESA Administration
Atorvastatin Calcium 40 mg 08/09/24 22:00 08/11/24 21:16
Atorvastatin (Lipitor) 40 Mg Tablet PO 09/06/24 21:59 40 mg
HS TERESA Administration
Bupropion HCl 150 mg 08/09/24 11:00 08/12/24 08:53
Bupropion (12hr) Sustained Release 150 Mg Tablet PO 09/06/24 10:59 150 mg
DAILY TERESA Administration
Calcium Carbonate 400 mg 08/09/24 10:59
Calcium Antacid 200 Mg (Calcium Carbonate 500 Mg) Chew Tablet PO 09/06/24 10:58
Q4HPRN PRN
indigestion
Dapagliflozin 10 mg 08/09/24 10:30 08/12/24 08:53
Dapagliflozin (Farxiga) 10 Mg Tablet PO 09/06/24 10:29 10 mg
DAILY TERESA Administration
Dextrose 12.5 grams 08/09/24 08:26
Dextrose 50% (0.5 Grams/Ml) 50 Ml Syringe IV 09/06/24 08:25
[id number] PRN
hypoglycemia
Protocol
Docusate Sodium 100 mg 08/10/24 08:00 08/12/24 08:54
Docusate Sodium 100 Mg Capsule PO 09/07/24 07:59 100 mg
DAILY TERESA Administration
Enoxaparin Sodium 40 mg 08/09/24 18:00 08/11/24 17:06
Enoxaparin Sodium 40 Mg/0.4 Ml Syringe SC 09/06/24 17:59 40 mg
QPM TERESA Administration
Furosemide 40 mg 08/09/24 16:00 08/12/24 08:54
Furosemide 40 Mg (10 Mg/Ml) 4 Ml Vial IV 09/06/24 15:59 40 mg
BID AT 0800,1600 TERESA Administration
Glucagon 1 mg 08/09/24 08:26
Glucagon 1 Mg Vial IM 09/06/24 08:25
PRN PRN
hypoglycemia
Protocol
Insulin Glargine 45 units/ 0.45 mls @ 0 mls/hr 08/10/24 08:14 08/12/24 08:54
Device SC 09/06/24 19:59 0.45 mls
Q12 TERESA Administration
As Directed
Insulin Aspart 0 units 08/09/24 08:26 08/12/24 12:44
Insulin Aspart High Resistance 300 Units/3 Ml Pen.Injctr SC 09/06/24 08:25 2 units
AC TERESA Administration
Protocol
Insulin Aspart 25 units 08/09/24 11:30 08/12/24 12:43
Insulin Aspart (100 Units/Ml) 3 Ml Flexpen SC 09/06/24 11:29 25 units
AC TERESA Administration
Ketotifen Fumarate 0 drop 08/09/24 20:00
Ketotifen Fumarate (Ophthalmic Solution) Bottle BOTH EYES 09/06/24 19:59
BID PRN
ITCHY EYES
Loratadine 10 mg 08/10/24 08:00 08/12/24 08:53
Loratadine 10 Mg Tablet PO 09/07/24 07:59 10 mg
DAILY TERESA Administration
Lorazepam 0.5 mg 08/09/24 08:26
Lorazepam 0.5 Mg Tablet PO 09/06/24 08:25
[id number] PRN
anxiety
Metolazone 2.5 mg 08/12/24 15:30
Metolazone 2.5 Mg Tablet PO 08/12/24 15:31
ONCE@1530 ONE
Morphine Sulfate 30 mg 08/09/24 10:00 08/12/24 08:53
Morphine 30 Mg Extended Release Tablet PO 08/23/24 09:59 30 mg
Q12 TERESA Administration
Oxycodone HCl 10 mg 08/09/24 08:26 08/12/24 09:51
Oxycodone 10 Mg Regular Release Tablet PO 08/23/24 08:25 10 mg
Q4HPRN PRN Administration
moderate pain
Polyethylene Glycol 17 grams 08/09/24 08:26 08/11/24 15:50
Polyethylene Glycol Powder 17 Grams Packet PO 09/06/24 08:25 17 grams
DAILYPRN PRN Administration
Constipation
Pregabalin 200 mg 08/09/24 09:30 08/12/24 08:54
Pregabalin 100 Mg Capsule PO 09/06/24 09:29 200 mg
Q8 TERESA Administration
Senna/Docusate Sodium 2 tablet 08/09/24 08:26
Docusate W/Senna (Sofie-Colace) Tablet PO 09/06/24 08:25
[id number] PRN
Constipation
Sodium Chloride 0 flush 08/11/24 12:00
Sodium Chloride 0.9% (Flush) Syringe IV 09/08/24 11:59
PER PROTOCOL TERESA
Venlafaxine HCl 150 mg 08/09/24 22:00 08/11/24 21:16
Venlafaxine 150 Mg Extended Release Capsule PO 09/06/24 21:59 150 mg
HS TERESA Administration
Venlafaxine HCl 75 mg 08/09/24 22:00 08/11/24 21:16
Venlafaxine 75 Mg Extended Release Capsule PO 09/06/24 21:59 75 mg
HS TERESA Administration
Review of Systems
-
ROS notable for HPI, otherwise negative
Physical Exam
-
General: No Apparent Distress and Morbidly Obese
HEENT: Moist Mucous Membranes; Negative Jaundice
Cardiology: Normal Sinus Rhythm
Pulmonary: Clear
GI: Soft
Extremities: Edema (b/l LE)
Neurology: Non Focal
Skin: Warm and Other (stasis dermatitis b/l LE)
Labs
Lab Results
WBC 3.6 10^3/uL (4.8-10.8) L 08/12/24 07:44
RBC 2.63 10^6/uL (4.70-6.10) L 08/12/24 07:44
Hgb 7.9 g/dL (13.0-18.0) L 08/12/24 07:44
Hct 26.7 % (39.0-52.0) L 08/12/24 07:44
MCV 101.5 fL (80.0-94.0) H 08/12/24 07:44
MCH 30.0 pg (27.0-31.0) 08/12/24 07:44
MCHC 29.6 g/dL (33.0-37.0) L 08/12/24 07:44
RDW 18.8 % (11.5-14.5) H 08/12/24 07:44
Plt Count 217 10^3/uL (130-400) 08/12/24 07:44
MPV 10.9 fL (7.4-10.4) H 08/12/24 07:44
Abs Immat Gran (auto) 0.0 10^3/uL (0-0.05) 08/12/24 07:44
Absolute Neuts (auto) 2.0 10^3/uL (1.4-6.5) 08/12/24 07:44
Absolute Lymphs (auto) 1.0 10^3/uL (1.2-3.4) L 08/12/24 07:44
Absolute Monos (auto) 0.3 10^3/uL (0.1-0.6) 08/12/24 07:44
Absolute Eos (auto) 0.2 10^3/uL (0-0.7) 08/12/24 07:44
Absolute Basos (auto) 0.1 10^3/uL (0-0.2) 08/12/24 07:44
Immature Gran % 0.6 % (0-0.5) H 08/12/24 07:44
Neutrophils % 55.7 % (42.2-75.2) 08/12/24 07:44
Lymphocytes % 28.5 % (20.5-51.1) 08/12/24 07:44
Monocytes % 8.0 % (1.7-9.3) 08/12/24 07:44
Eosinophils % 5.8 % (0-6) 08/12/24 07:44
Basophils % 1.4 % (0-2) 08/12/24 07:44
Creatinine 1.2 mg/dL (0.7-1.3) 08/12/24 07:44
Vital Signs
Vital Signs
Temp Pulse Resp BP Pulse Ox
98.3 F 94 18 114/70 94
08/12/24 11:00 08/12/24 11:00 08/12/24 11:00 08/12/24 11:00 08/12/24 11:00

Documented by User: Kenneth Longo MD 08/12/24 16:50
Impression
Impression
multiple myeloma responding to current therapy RVD -maribell
symptomatic anemia
leukopenia/lymphopenia
acute CHF, anasarca
chronic pain predated MM dx-opioid dependence
morbid obesity
hypogammaglobulinemia
Oncology Addendum:
Patient seen and evaluated and agree w/ HANDICRAFT OR [employer] MANAGER note and plan as outlined
-mutliple myeloma - RVD - maribell w/ good response on most recent serum protein studies
-anemia
-CHF - diuresis ongoing
-cont supportive care
[2024-08-12 17:06] LABS: Glucose - Point of Care 110 mg/dl (70-99)
[2024-08-12] MEDS: LOVENOX 40 MG SC (17:27)
[2024-08-12] MEDS: NOVOLOG FLEXPEN-HIGH RESISTANCE SC (17:31)
--- NOTE | 2024-08-12 17:59 | VATNOTE ---
08/12 Patient left AC site 1.5inch x 1.5inch is red, 2/5 pain, IV insertion site is 1cm wide with yellow slough- no drainage RN aware and provider notified.
[2024-08-12 20:40] LABS: Glucose - Point of Care 80 mg/dl (70-99)
[2024-08-12] MEDS: LANTUS SC (20:43)
[2024-08-12] MEDS: EFFEXOR XR 150 MG PO (21:38)
[2024-08-12] MEDS: XANAX 0.25 MG PO (21:39)
[2024-08-12] MEDS: LIPITOR 40 MG PO (21:39)
[2024-08-12] MEDS: ELAVIL 50 MG PO (21:39)
[2024-08-12] MEDS: EFFEXOR XR 75 MG PO (21:39)
[2024-08-12 21:50] LABS: Glucose - Point of Care 85 mg/dl (70-99)
[2024-08-12 23:22] LABS: Glucose - Point of Care 124 mg/dl (70-99)
[2024-08-13] MEDS: LYRICA 200 MG PO ×4 (00:29→23:29)
[2024-08-13] MEDS: ATIVAN 0.5 MG PO (01:42)
[2024-08-13] MEDS: TYLENOL 650 MG PO ×2 (01:42→08:31)
[2024-08-13 02:58] LABS: Glucose - Point of Care 221 mg/dl (70-99)
[2024-08-13 03:56] VITALS: BP 126/72
[2024-08-13] MEDS: ROXICODONE 10 MG PO ×3 (04:05→17:56)
[2024-08-13 06:00] VITALS: BMI 36.2
[2024-08-13 07:13] LABS: % Basophils 1.3 % (0-2); % Eosinophils 4.1 % (0-6); % Immature Granulocytes 0.6 % (0-0.5); % Lymphocytes 29.6 % (20.5-51.1); % Neutrophils 55.4 % (42.2-75.2); Absolute Basophils 0.1 10^3/uL (0-0.2); Absolute Eosinophils 0.2 10^3/uL (0-0.7); Absolute Lymphocytes 1.4 10^3/uL (1.2-3.4); Absolute Monocytes 0.4 10^3/uL (0.1-0.6); Absolute Neutrophils 2.6 10^3/uL (1.4-6.5); Hematocrit 27.5 % (39.0-52.0); Hemoglobin 8.6 g/dL (13.0-18.0); Mean Corp Hgb Conc. 31.3 g/dL (33.0-37.0); Mean Corpuscular Hgb 31.3 pg (27.0-31.0); Mean Platelet Volume 11.5 fL (7.4-10.4); Nucleated Red Blood Cells % 0 % (-); Platelet Count 251 10^3/uL (130-400); Red Blood Cell Count 2.75 10^6/uL (4.70-6.10); Red Cell Dist. Width 18.6 % (11.5-14.5); White Blood Cell Count 4.7 10^3/uL (4.8-10.8)
[2024-08-13 07:52] LABS: Blood Urea Nitrogen 33 mg/dl (9-20); Calcium 8.7 mg/dl (8.4-10.2); Carbon Dioxide 27 mmol/L (22-30); Chloride 94 mmol/L (98-107); Estimated Creatinine Clearance 76 ml/min; Glucose 274 mg/dl (70-99); Potassium 4.1 mmol/L (3.5-5.1); Sodium 140 mmol/L (135-145); eGFR 52.31
[2024-08-13 08:23] LABS: Glucose - Point of Care 255 mg/dl (70-99)
[2024-08-13] MEDS: SENOKOT-S 2 TABLET PO (08:27)
[2024-08-13] MEDS: FARXIGA 10 MG PO (08:27)
[2024-08-13] MEDS: COLACE 100 MG PO (08:27)
[2024-08-13] MEDS: ASPIR LOW (ENTERIC COATED) 81 MG PO (08:27)
[2024-08-13] MEDS: CLARITIN 10 MG PO (08:28)
[2024-08-13] MEDS: WELLBUTRIN SR (12 hour sustained release) 150 MG PO (08:28)
[2024-08-13] MEDS: MS CONTIN (EXTENDED RELEASE) 30 MG PO ×2 (08:28→20:45)
[2024-08-13 08:34] VITALS: BP 126/57
[2024-08-13] MEDS: NOVOLOG FLEXPEN-HIGH RESISTANCE 7 UNITS SC ×2 (08:54→16:06)
[2024-08-13] MEDS: NOVOLOG FLEXPEN 25 UNITS SC (08:54)
--- NOTE | 2024-08-13 10:10 | W.PN.CARDCBS ---
Addendum entered and electronically signed by Reji Jewell DO 08/13/24 13:14:
I saw and examined the patient.
The [employer] Converter Utility Operator's note was reviewed and I agree with the note.
Comment:
Plan:
Appears euvolemic with cr starting to rise. Amirah from 1.2 to 1.5 Aug 13.
Transition to oral lasix 40 mg PO BID Aug 14.
Continue Farxiga.
Outpatient follow-up with Dr. Benson cardiology
Original Note:
Today's Communication / Plan
-
Transition to PO lasix 40mg BID
May need PRN metolazone at discharge
Continue farxiga
Follow up arranged
Impression / Plan
-
Family Physician: Daisy Gordon DO
Office Administrative Assistant: None prior to admission, initial consultation Dr. Benson
Impression:
Presented with abnormal outpatient labs, hemoglobin 6.1
Acute on chronic anemia
s/p 1 unit packed RBCs 10/09/2023
Orthopnea, PND
Lower extremity edema
Acute HFpEF
Anasarca
Multiple Myeloma on Revlimid
Hypertension
Hyperlipidemia
Diabetes Mellitus, Type II - Insulin Dependent
Diabetic Neuropathy
Chronic Pain with Opioid Dependence secondary to Charcot Foot
Traumatic Brain Injury
Anxiety/Depression
Morbid Obesity
Echo 07/25/2024 (TDS, Lumason used): EF 60 to 65%. Normal LV size and function. No significant valvular disease.
Plan:
-Admitted with acute heart failure exacerbation.
-Diuresed with IV lasix 40mg BID. Did get a dose of metolazone in PM 08/11 and 08/12.
-Weight down 23 lbs this admission. Overall flat overnight. Weight 08/13 293 lbs.
-Creat bumped to 1.5. Will transition to PO lasix 40mg BID. May need prn metolazone as OP.
-Echo 07/25 with EF 60-65% as noted above. No need to repeat at this time.
-Continue Farxiga 10 mg daily.
-K 4.1
-Initial hgb 6.6 s/p 1 unit PRBCs. Hgb continues to improve, up to 8.6 08/13. Recommend maintaining hgb greater than at least 8 to optimize HF status.
-Continue aspirin, lipitor.
-Will arrange cardiology follow up.
HPI 08/09/2024: Patient is a 63-year-old male with past medical history significant for hypertension, type 2 diabetes, morbid obesity, remote TBI, chronic pain with opioid dependence, multiple myeloma on Revlimid with chronic anemia and has received
blood transfusions in the past. Patient was recently admitted from 07/25/2024 to 07/29/2024 for concerns of edema/anasarca and shortness of breath. Patient reports he had been using salt tablets in the past and was never taken off his med list at
the senior living. During that admission patient had an echocardiogram which showed normal ejection fraction with no significant valvular disease. He underwent significant weight loss and improvement of edema with IV diuresis. It was recommended
he discontinue salt tablets. He had outpatient blood work 08/08/2024 that showed hemoglobin of 6.1 g/dl and was referred to emergency department for evaluation and treatment. Patient reports to me that over the last 2 weeks he has gained back most
of the weight he had lost previously. He has had worsening shortness of breath, orthopnea and PND. He has some lower extremity edema which is worse on the right lower extremity than left.
Patient reports he is very sedentary. He has chronic pain syndrome and it hurts to do minimal activity. He reports he primarily gets around the senior living in a wheelchair.
Progress Note - Office Administrative Assistant
Subjective
Date of Service: August 13, 2024
Offers no complaints. Denied SOB while getting dressed this AM. No SOB at rest.
Objective
Labs:
08/13/24 06:26
08/13/24 06:26
Labs
Hgb 8.6 g/dL (13.0-18.0) L 08/13/24 06:26
Hct 27.5 % (39.0-52.0) L 08/13/24 06:26
Plt Count 251 10^3/uL (130-400) 08/13/24 06:26
Sodium 140 mmol/L (135-145) 08/13/24 06:26
Potassium 4.1 mmol/L (3.5-5.1) 08/13/24 06:26
BUN 33 mg/dl (9-20) H 08/13/24 06:26
Creatinine 1.5 mg/dL (0.7-1.3) H 08/13/24 06:26
Glucose 274 mg/dl (70-99) H 08/13/24 06:26
Vital Signs and I&O:
Vital Signs
Temp Pulse Resp BP Pulse Ox
99.2 F 97 20 126/57 97
08/13/24 08:34 08/13/24 08:34 08/13/24 08:34 08/13/24 08:34 08/13/24 08:34
Vital Signs
Temp Pulse Resp BP Pulse Ox
99.2 F 97 20 126/57 97
08/13/24 08:34 08/13/24 08:34 08/13/24 08:34 08/13/24 08:34 08/13/24 08:34
Intake & Output
08/11/24 08/12/24 08/13/24 08/14/24
06:59 06:59 06:59 06:59
Intake Total 1700 / 1700 660 / 660 780 / 780
Output Total 1200 / 1200 1660 / 1660 850 / 850
Balance 500 / 500 -1000 / -1000 -70 / -70
Physical Exam
Physical Exam
GEN: awake, alert, oriented x 3, NAD
HEENT: mmm
LUNGS: CTA b/l, no wheezes/rales
CV: Reg, no murmur
EXT: +1 B/L LE edema
NEURO: Gross non-focal
SKIN: No rash
--- NOTE | 2024-08-13 10:33 | PTCARENOTE ---
Pt alert drowsey but sitting on side of bed. He is complaining of pain, medications given as per MD order. Temp 99.2, Left old AC IV site red warm with yellow at puncture site, MD aware. Creatinine was 1.5 today, md aware. fluid restrictions
mainatined. PT is currently sleeping
--- NOTE | 2024-08-13 11:31 | W.PN.HOSP.TC ---
Addendum entered and electronically signed by Easton Martínez MD 08/13/24 12:39:
Left antecubital site with erythema (previous IV site)-will start patient on antibiotics for cellulitis.
Original Note:
Today's Communication/Plan
-
Po lasix
trend bmp
IV diuretics-held
trend hgb -Hgb improving
Assessment / Plan
Assessment / Plan
General: morbidly obese, in no acute distress
HEENT: Moist mucous membranes, and Other (Thick neck.)
Respiratory: dec bs
Cardiac: S1/S2 and Regular Rhythm; No Murmur
GI: obese, +bs, non tender, non tender
Musculoskeletal: Other (Absent digits both feet s/p amputations with pressure wound. Bilateral lower extremity edema with erythema-slow improvement. Left AC with mild erythema
Neuro: AO x 3
A/P: Patient is a 63y M with PMH significant for HTN, DM-II and multiple myeloma who presents to ED complaining of significant swelling over the past 48 hours.
Acute on Chronic Anemia
Multiple Myeloma
Acute on Chronic Anemia secondary to the above
- Patient is on lenalidomide for myeloma -hold with severe anemia
- s/p 1u of PRBC so far. Hgb at 8.6 lenalidomide held during hospitalization and wait for clarification from onc. Pt with multiple questions regarding his chemotherapy too moving forward. Onc consulted. Follows with Dr. Hilliard
- Follow H&H for improvement and transfuse additional units if needed. The frequency of anemia requiring blood transfusion continues to increase.
Anasarca
Acute on Chronic HFpEF
- Patient has regained much of the weight that was lost during his prior visit.
- Prior h/o symptomatic anemia resulting in edema / CHF exacerbation in 08/2023.
- 40mg IV Lasix BID for now and follow for effective diuresis. Bump in Cr. IV diuretics held. Agree with dose of zaroxlyn prn
- Monitor for any evidence of renal impairment.
- Follow I/Os, daily weights, etc. Continues to lose weight.
- Abd US negative for ascites
- Echo on 07/25 with normal left ventricular chamber size. Normal left ventricular systolic function. Normal regional wall motion. Ejection fraction 60 to 65%. No significant valvular disease.
- cards input -Recs to transition to 40mg po lasix bid on dc.
DM-II
- Stable. Marked insulin resistance with high-doses of insulin.
- Continue basal : bolus insulin. Will uptitrate insulin prn
- Update A1C at 10.1
- Continue Farxiga. Hold other PO medications and Ozempic.
Chronic Pain Syndrome
Chronic Opioid Dependence
Charcot Foot
- Stable. Continue current pain control med regimen without changes. Continue with MS Contin 30 every 12. Oxycodone 10 every 4hprn
- Follow-up with Pain Management after discharge.
- Patient notes that he has been wheelchair bound for > 1 year.
History of TBI
- No new neurologic complaints.
Morbid Obesity due to excess calories
- Affects all aspects of care.
- Encourage healthy diet. Patient extremely limited in mobility and suspect that significant weight reduction will not be feasible.
DVT Prophylaxis: lovenox
Code Status: Full
Anticipated Discharge: Within 24 hours
Subjective/Interval History
-
Date of Service: August 13, 2024
Improvement in edema
Increase in cr
Objective Data
-
Labs:
Laboratory Results
08/13/24
06:26
WBC 4.7 L
Hgb 8.6 L
Hct 27.5 L
Plt Count 251
Sodium 140
Potassium 4.1
Chloride 94 L
Carbon Dioxide 27
BUN 33 H
Creatinine 1.5 H
Glucose 274 H
Calcium 8.7
Vital Signs:
Vital Signs
Temp Pulse Resp BP Pulse Ox
99.2 F 97 20 126/57 97
08/13/24 08:34 08/13/24 08:34 08/13/24 08:34 08/13/24 08:34 08/13/24 08:34
I&O
08/12/24 08/13/24 08/14/24
06:59 06:59 06:59
Intake Total 660 / 660 780 / 780
Output Total 1660 / 1660 850 / 850
Balance -1000 / -1000 -70 / -70
Data Reviewed
-
Total Time Spent with Patient (in minutes): 52
--- NOTE | 2024-08-13 11:38 | VATNOTE ---
Left antecubital fossa reassessed this am. Area of involvement now 6cm x 7cm. Reddened but No palpable cord. Tender to the touch. Client states that it is slightly worse today. 1/2cm yellowish slough again noted with no drainage. Area marked and
area cleaned with chloraprep. Primary care RN again made aware and recommended to point out to attending physician at time of rounds. VAT will continue to follow.
[2024-08-13] MEDS: MILK OF MAGNESIA 30 ML PO (12:35)
[2024-08-13 13:34] LABS: Glucose - Point of Care 109 mg/dl (70-99)
[2024-08-13] MEDS: NOVOLOG FLEXPEN SC ×2 (13:57→16:06)
[2024-08-13] MEDS: NOVOLOG FLEXPEN-HIGH RESISTANCE SC (13:57)
[2024-08-13] MEDS: KEFLEX 500 MG PO ×3 (13:57→22:20)
--- NOTE | 2024-08-13 14:00 | PTCARENOTE ---
PT oob and ambulated into hallway, unsteady confused trying to get into room 321 saying he had to go outside. I reoriented him, he was weak pale. assisted back to bed, checked sugar for 109 . [place] juice given within few minutes pt reoriented and
back to his baseline. food tray came at same time and he ate. I did hold his insulin at this time.
[2024-08-13 15:23] LABS: Glucose - Point of Care 291 mg/dl (70-99)
[2024-08-13] MEDS: DULCOLAX 10 MG PO (16:09)
[2024-08-13] MEDS: LOVENOX 40 MG SC (16:09)
[2024-08-13 16:34] VITALS: BP 114/64
[2024-08-13] MEDS: EFFEXOR XR 150 MG PO (20:45)
[2024-08-13] MEDS: EFFEXOR XR 75 MG PO (20:46)
[2024-08-13] MEDS: LIPITOR 40 MG PO (20:46)
[2024-08-13] MEDS: ELAVIL 50 MG PO (20:46)
--- NOTE | 2024-08-13 21:00 | PTCARENOTE ---
during rounding and med pass pt has been seen falling asleep while sitting up, slumping over, and spilling whatever is in his hand or in front of him all over himself and the floor. Pt is arousable, sometimes startles when waking. This is baseline
per dayshift report. Pt wants more liquid than FR will allow, but tastes he spills a lot so we should give him more. Explained to pt that he can have sips with meds, but there is no way to safely assume how much he spilled and give him more.
[2024-08-13 21:35] LABS: Glucose - Point of Care 312 mg/dl (70-99)
[2024-08-13] MEDS: XANAX 0.25 MG PO (22:20)
[2024-08-13] MEDS: NOVOLOG FLEXPEN 5 UNITS SC (23:30)
[2024-08-14 00:38] VITALS: BP 124/65
[2024-08-14] MEDS: ROXICODONE 10 MG PO ×5 (00:44→22:14)
[2024-08-14 01:45] LABS: Glucose - Point of Care 294 mg/dl (70-99)
[2024-08-14 06:25] LABS: % Eosinophils 4.1 % (0-6); % Immature Granulocytes 0.6 % (0-0.5); % Lymphocytes 26.6 % (20.5-51.1); % Monocytes 8.3 % (1.7-9.3); % Neutrophils 59.4 % (42.2-75.2); Absolute Basophils 0.1 10^3/uL (0-0.2); Absolute Eosinophils 0.2 10^3/uL (0-0.7); Absolute Lymphocytes 1.3 10^3/uL (1.2-3.4); Absolute Monocytes 0.4 10^3/uL (0.1-0.6); Absolute Neutrophils 2.9 10^3/uL (1.4-6.5); Hematocrit 25.4 % (39.0-52.0); Hemoglobin 7.5 g/dL (13.0-18.0); Mean Corp Hgb Conc. 29.5 g/dL (33.0-37.0); Mean Corpuscular Hgb 30.1 pg (27.0-31.0); Mean Platelet Volume 11.3 fL (7.4-10.4); Nucleated Red Blood Cells % 0 % (-); Platelet Count 207 10^3/uL (130-400); Red Blood Cell Count 2.49 10^6/uL (4.70-6.10); Red Cell Dist. Width 18.6 % (11.5-14.5); White Blood Cell Count 4.9 10^3/uL (4.8-10.8)
[2024-08-14 06:42] LABS: Blood Urea Nitrogen 36 mg/dl (9-20); Calcium 8.7 mg/dl (8.4-10.2); Carbon Dioxide 28 mmol/L (22-30); Chloride 96 mmol/L (98-107); Estimated Creatinine Clearance 81 ml/min; Glucose 267 mg/dl (70-99); Potassium 3.7 mmol/L (3.5-5.1); Sodium 139 mmol/L (135-145); eGFR 56.83
[2024-08-14 07:43] VITALS: BP 85/56
[2024-08-14] MEDS: NOVOLOG FLEXPEN SC ×2 (07:54→17:36)
[2024-08-14] MEDS: NOVOLOG FLEXPEN 25 UNITS SC ×3 (07:54→12:34)
[2024-08-14 08:04] LABS: Glucose - Point of Care 283 mg/dl (70-99)
[2024-08-14 09:01] VITALS: BP 124/84
[2024-08-14] MEDS: LASIX 40 MG PO ×2 (09:02→16:10)
[2024-08-14] MEDS: LYRICA 200 MG PO ×3 (09:03→23:57)
[2024-08-14] MEDS: MS CONTIN (EXTENDED RELEASE) 30 MG PO ×2 (09:03→19:53)
[2024-08-14] MEDS: ASPIR LOW (ENTERIC COATED) 81 MG PO (09:03)
[2024-08-14] MEDS: CLARITIN 10 MG PO (09:03)
[2024-08-14] MEDS: FARXIGA 10 MG PO (09:03)
[2024-08-14] MEDS: COLACE 100 MG PO (09:04)
[2024-08-14] MEDS: MIRALAX 17 GRAMS PO ×2 (09:04→12:36)
[2024-08-14] MEDS: WELLBUTRIN SR (12 hour sustained release) 150 MG PO (09:04)
[2024-08-14] MEDS: KEFLEX 500 MG PO ×4 (09:04→22:15)
[2024-08-14] MEDS: LANTUS 0.45 UNITS SC ×2 (09:04→20:01)
[2024-08-14] MEDS: NOVOLOG FLEXPEN-HIGH RESISTANCE 7 UNITS SC ×2 (09:05→12:34)
--- NOTE | 2024-08-14 11:22 | W.PN.HOSP.TC ---
Today's Communication/Plan
-
Bowel regimen/Enema
trend bmp
hold lasix
monitor poc
Assessment / Plan
Assessment / Plan
General: morbidly obese, in no acute distress
HEENT: Moist mucous membranes, and Other (Thick neck.)
Respiratory: dec bs
Cardiac: S1/S2 and Regular Rhythm; No Murmur
GI: obese, +bs, non tender, non distended-obesity noted
Musculoskeletal: Other (Absent digits both feet s/p amputations with pressure wound. Bilateral lower extremity edema with erythema-slow improvement. Left AC with mild erythema
Neuro: AO x 3
A/P: Patient is a 63y M with PMH significant for HTN, DM-II and multiple myeloma who presents to ED complaining of significant swelling over the past 48 hours.
Acute on Chronic Anemia
Multiple Myeloma
Acute on Chronic Anemia secondary to the above
- Patient is on lenalidomide for myeloma -hold with severe anemia
- s/p 1u of PRBC so far. Hgb at 7.5 lenalidomide held during hospitalization and wait for clarification from onc. Pt with multiple questions regarding his chemotherapy too moving forward. Onc consulted. Follows with Dr. Hilliard
- Follow H&H for improvement and transfuse additional units if needed. The frequency of anemia requiring blood transfusion continues to increase.
Anasarca
Acute on Chronic HFpEF
- Patient has regained much of the weight that was lost during his prior visit.
- Prior h/o symptomatic anemia resulting in edema / CHF exacerbation in 08/2023.
- 40mg IV Lasix BID for now and follow for effective diuresis. Bump in Cr. IV diuretics held. zaroxlyn prn may required on dc.
- Follow I/Os, daily weights, etc. Continues to lose weight.
- Abd US negative for ascites
- Echo on 07/25 with normal left ventricular chamber size. Normal left ventricular systolic function. Normal regional wall motion. Ejection fraction 60 to 65%. No significant valvular disease.
- cards input -Recs to transition to 40mg po lasix bid on dc.
Acute kidney injury likely secondary to overdiuresis
-Creat slowly improving. Monitor creatinine closely. Hold diuretics for 24 hours.
Mild TME likely 2/2 pain meds vs. hospital acrquire delirium vs. davidson
-Mentation seems to be improved
-No focal neurological deficit
-following all commands and talkative now
Severe constipation
-bowel regimen and ENEMA ordered. Repeat enema if no results
-If with nausea/vomiting check abdomen imaging
Left antecubital site with erythema (previous IV site) concern for cellulitis
-will start patient on keflex
DM-II
- Stable. Marked insulin resistance with high-doses of insulin.
- Continue basal : bolus insulin. Will uptitrate insulin prn
- Update A1C at 10.1
- Continue Farxiga. Hold other PO medications and Ozempic.
Chronic Pain Syndrome
Chronic Opioid Dependence
Charcot Foot
- Stable. Continue current pain control med regimen without changes. Continue with MS Contin 30 every 12. Oxycodone 10 every 4hprn
- Follow-up with Pain Management after discharge.
- Patient notes that he has been wheelchair bound for > 1 year.
History of TBI
- No new neurologic complaints.
Morbid Obesity due to excess calories
- Affects all aspects of care.
- Encourage healthy diet. Patient extremely limited in mobility and suspect that significant weight reduction will not be feasible.
DVT Prophylaxis: lovenox
Code Status: Full
Anticipated Discharge: Within 24 hours
Subjective/Interval History
-
Date of Service: August 14, 2024
Episodes of confusion noted yesterday
no bm x 5 days per patient
no nausea or vomiting
tolerating diet
Objective Data
-
Labs:
Laboratory Results
08/14/24
05:12
WBC 4.9
Hgb 7.5 L
Hct 25.4 L
Plt Count 207
Sodium 139
Potassium 3.7
Chloride 96 L
Carbon Dioxide 28
BUN 36 H
Creatinine 1.4 H
Glucose 267 H
Calcium 8.7
Vital Signs:
Vital Signs
Temp Pulse Resp BP Pulse Ox
97.5 F 78 20 124/84 98
08/14/24 07:43 08/14/24 07:43 08/14/24 07:43 08/14/24 09:01 08/14/24 07:43
I&O
08/13/24 08/14/24 08/15/24
06:59 06:59 06:59
Intake Total 780 / 780 960 / 960
Output Total 850 / 850
Balance -70 / -70 960 / 960
Data Reviewed
-
Total Time Spent with Patient (in minutes): 52
[2024-08-14 11:39] LABS: Glucose - Point of Care 255 mg/dl (70-99)
[2024-08-14] MEDS: FLEET MINERAL OIL ENEMA 133 ML RECTAL (14:58)
[2024-08-14 15:15] VITALS: BP 114/76
--- NOTE | 2024-08-14 16:18 | PTCARENOTE ---
PT unable to move bowels in last several days. Pt is on alot of narcs. abdomen large distended obese +flatus hypoacative no nausea no vomiting no abdominal tenderness. PT Given extra mirlax and fleets enema. PT had two large BM x2 and feels
better. ordered milk of molases and was discontinued. pt very steady on feet today. pt very awake today compared to yesterday. pt not sleeping or dozing off at all. Pt stated he feels good when compared to yesterday. pt sitting on side of bed
watching football game with remote in hand. fall risk maintained. PT verbalized an understanding and maintain fall precautions
[2024-08-14 17:08] LABS: Glucose - Point of Care 77 mg/dl (70-99)
[2024-08-14] MEDS: NOVOLOG FLEXPEN-HIGH RESISTANCE SC (17:37)
[2024-08-14] MEDS: LOVENOX 40 MG SC (17:38)
[2024-08-14] MEDS: SENOKOT-S 2 TABLET PO (19:53)
[2024-08-14 20:05] LABS: Glucose - Point of Care 177 mg/dl (70-99)
[2024-08-14 21:03] LABS: Glucose - Point of Care 175 mg/dl (70-99)
[2024-08-14] MEDS: ELAVIL 50 MG PO (22:15)
[2024-08-14] MEDS: LIPITOR 40 MG PO (22:15)
[2024-08-14] MEDS: EFFEXOR XR 150 MG PO (22:15)
[2024-08-14] MEDS: EFFEXOR XR 75 MG PO (22:15)
[2024-08-14] MEDS: XANAX 0.25 MG PO (22:15)
[2024-08-14 23:00] VITALS: BP 112/89
[2024-08-15] MEDS: ROXICODONE 10 MG PO ×4 (03:02→17:26)
[2024-08-15 06:00] VITALS: BMI 35.1
[2024-08-15 06:37] LABS: % Basophils 0.8 % (0-2); % Eosinophils 3.3 % (0-6); % Immature Granulocytes 0.6 % (0-0.5); % Lymphocytes 26.2 % (20.5-51.1); % Monocytes 10.7 % (1.7-9.3); % Neutrophils 58.4 % (42.2-75.2); Absolute Eosinophils 0.2 10^3/uL (0-0.7); Absolute Lymphocytes 1.3 10^3/uL (1.2-3.4); Absolute Monocytes 0.5 10^3/uL (0.1-0.6); Absolute Neutrophils 2.8 10^3/uL (1.4-6.5); Hematocrit 25.9 % (39.0-52.0); Hemoglobin 7.8 g/dL (13.0-18.0); Mean Corp Hgb Conc. 30.1 g/dL (33.0-37.0); Mean Corpuscular Hgb 30.5 pg (27.0-31.0); Mean Corpuscular Volume 101.2 fL (80.0-94.0); Mean Platelet Volume 10.9 fL (7.4-10.4); Nucleated Red Blood Cells % 0 % (-); Platelet Count 193 10^3/uL (130-400); Red Blood Cell Count 2.56 10^6/uL (4.70-6.10); Red Cell Dist. Width 18.3 % (11.5-14.5); White Blood Cell Count 4.9 10^3/uL (4.8-10.8)
[2024-08-15 06:54] LABS: Blood Urea Nitrogen 32 mg/dl (9-20); Calcium 8.9 mg/dl (8.4-10.2); Carbon Dioxide 31 mmol/L (22-30); Chloride 95 mmol/L (98-107); Estimated Creatinine Clearance 80 ml/min; Glucose 194 mg/dl (70-99); Potassium 3.2 mmol/L (3.5-5.1); Sodium 141 mmol/L (135-145); eGFR 56.83
[2024-08-15 07:20] VITALS: BP 151/85
[2024-08-15 08:17] LABS: Glucose - Point of Care 233 mg/dl (70-99)
[2024-08-15] MEDS: LASIX 40 MG PO (08:57)
[2024-08-15] MEDS: KEFLEX 500 MG PO ×4 (08:57→21:28)
[2024-08-15] MEDS: CLARITIN 10 MG PO (08:57)
[2024-08-15] MEDS: WELLBUTRIN SR (12 hour sustained release) 150 MG PO (08:57)
[2024-08-15] MEDS: MS CONTIN (EXTENDED RELEASE) 30 MG PO ×2 (08:57→20:31)
[2024-08-15] MEDS: FARXIGA 10 MG PO (08:57)
[2024-08-15] MEDS: SENOKOT-S 2 TABLET PO ×2 (08:57→20:31)
[2024-08-15] MEDS: LYRICA 200 MG PO ×3 (08:57→23:32)
[2024-08-15] MEDS: NOVOLOG FLEXPEN 25 UNITS SC ×2 (08:58→12:03)
[2024-08-15] MEDS: NOVOLOG FLEXPEN-HIGH RESISTANCE 4 UNITS SC ×2 (08:58→16:12)
[2024-08-15] MEDS: ASPIR LOW (ENTERIC COATED) 81 MG PO (08:59)
[2024-08-15] MEDS: MIRALAX 17 GRAMS PO (08:59)
[2024-08-15] MEDS: LANTUS 0.45 UNITS SC (09:04)
--- NOTE | 2024-08-15 09:14 | W.PN.CARDCBS ---
Today's Communication / Plan
-
Decide on furosemide dosing
Will discuss with hospitalist
Impression / Plan
-
Family Physician: Daisy Gordon, DO
Window Installation Subcontractor: None prior to admission, initial consultation Dr. Benson
Impression:
Presented with abnormal outpatient labs, hemoglobin 6.1
Acute on chronic anemia
s/p 1 unit packed RBCs 10/09/2023
Orthopnea, PND
Lower extremity edema
Acute HFpEF
Anasarca
Multiple Myeloma on Revlimid
Hypertension
Hyperlipidemia
Diabetes Mellitus, Type II - Insulin Dependent
Diabetic Neuropathy
Chronic Pain with Opioid Dependence secondary to Charcot Foot
Traumatic Brain Injury
Anxiety/Depression
Morbid Obesity
Echo 07/25/2024 (TDS, Lumason used): EF 60 to 65%. Normal LV size and function. No significant valvular disease.
Plan:
He looks reasonably well, and weight is down more than 20 pounds during this admission.
However he is still volume overloaded, with perhaps 10 pounds of edema in his lower extremities, may be more.
Creatinine has bumped to 1.4, from admission of 0.9. Was 1.4 at discharge last time. His weight is similar to his discharge weight last time.
Will discuss Lasix dosing with hospitalist.
He is on Farxiga.
He remains anemic with hemoglobin of 7.8.
Given bump in creatinine I am reluctant to add spironolactone.
He is on Revlimid which may be a major contributor to fluid retention and CHF. Unclear that there are good alternatives to Revlimid for his multiple myeloma.
HPI 08/09/2024: Patient is a 63-year-old male with past medical history significant for hypertension, type 2 diabetes, morbid obesity, remote TBI, chronic pain with opioid dependence, multiple myeloma on Revlimid with chronic anemia and has received
blood transfusions in the past. Patient was recently admitted from 07/25/2024 to 07/29/2024 for concerns of edema/anasarca and shortness of breath. Patient reports he had been using salt tablets in the past and was never taken off his med list at
the [facility]. During that admission patient had an echocardiogram which showed normal ejection fraction with no significant valvular disease. He underwent significant weight loss and improvement of edema with IV diuresis. It was recommended
he discontinue salt tablets. He had outpatient blood work 08/08/2024 that showed hemoglobin of 6.1 g/dl and was referred to emergency department for evaluation and treatment. Patient reports to me that over the last 2 weeks he has gained back most
of the weight he had lost previously. He has had worsening shortness of breath, orthopnea and PND. He has some lower extremity edema which is worse on the right lower extremity than left.
Patient reports he is very sedentary. He has chronic pain syndrome and it hurts to do minimal activity. He reports he primarily gets around the [facility] in a wheelchair.
Progress Note - Window Installation Subcontractor
Subjective
Date of Service: August 15, 2024:
63-year-old man with history of TBI who resides at [facility], now with multiple myeloma on Revlimid and hospital stay in early July for HFpEF with recurrent admission August 09, found to have hemoglobin of 6.1 on admission.
PMH: Acute on chronic anemia, multiple myeloma, HFpEF, hypertension, hyperlipidemia, type 2 diabetes, peripheral neuropathy, Charcot foot with opioid dependence, anxiety, depression, obesity
PSH: Multiple lumbar back procedures, great toe amputation, surgeries on right leg,
Allergies: BuSpar and tramadol
Outpatient meds: (Pertinent) amitriptyline, aspirin, atorvastatin 40 mg daily, dapagliflozin 10 mg a day, furosemide 40 daily, Revlimid, Ozempic venlafaxine SH: Resides at [facility]
Current meds Xanax, amitriptyline, aspirin 81 mg a day, atorvastatin, Farxiga 10 mg a day, morphine, Lyrica, Effexor, insulin, Wellbutrin, acyclovir, Claritin, Lovenox, furosemide 40 p.o. twice daily, Keflex
151/85, pulse 96, afebrile, weight is 128.9 kg, was 143.6 kg at admission and was 128.7 kg at discharge
Head neck exam unremarkable, lungs are clear, neck veins are flat, regular rate and rhythm, no obvious murmurs, still with 2+ edema, abdomen benign
Hemoglobin 7.8, white count 4.9, platelets 193, potassium 3.2, bicarbonate 31, BUN and creatinine 32 and 1.4. Creatinine was 0.9 at admission.
Objective
Labs:
08/15/24 05:38
08/15/24 05:38
Labs
Hgb 7.8 g/dL (13.0-18.0) L 08/15/24 05:38
Hct 25.9 % (39.0-52.0) L 08/15/24 05:38
Plt Count 193 10^3/uL (130-400) 08/15/24 05:38
Sodium 141 mmol/L (135-145) 08/15/24 05:38
Potassium 3.2 mmol/L (3.5-5.1) L 08/15/24 05:38
BUN 32 mg/dl (9-20) H 08/15/24 05:38
Creatinine 1.4 mg/dL (0.7-1.3) H 08/15/24 05:38
Glucose 194 mg/dl (70-99) H 08/15/24 05:38
Vital Signs and I&O:
Vital Signs
Temp Pulse Resp BP Pulse Ox
36.8 C 96 18 151/85 99
08/15/24 07:20 08/15/24 07:20 08/15/24 07:20 08/15/24 07:20 08/15/24 07:20
Vital Signs
Temp Pulse Resp BP Pulse Ox
36.8 C 96 18 151/85 99
08/15/24 07:20 08/15/24 07:20 08/15/24 07:20 08/15/24 07:20 08/15/24 07:20
Intake & Output
08/13/24 08/14/24 08/15/24 08/16/24
07:59 07:59 07:59 07:59
Intake Total 780 / 780 960 / 960 1440 / 1440
Output Total 850 / 850
Balance -70 / -70 960 / 960 1440 / 1440
Physical Exam
Physical Exam
See above
[2024-08-15 11:58] LABS: Glucose - Point of Care 323 mg/dl (70-99)
[2024-08-15] MEDS: KCL 40 MEQ PO (12:01)
[2024-08-15] MEDS: LASIX 40 MG IV ×2 (12:02→17:26)
[2024-08-15] MEDS: NOVOLOG FLEXPEN-HIGH RESISTANCE 10 UNITS SC (12:03)
--- NOTE | 2024-08-15 13:45 | W.PN.HOSP.TC ---
Today's Communication/Plan
-
CW IV diuresis
Follow Cr
Assessment / Plan
Assessment / Plan
A/P: Patient is a 63y M with PMH significant for HTN, DM-II and multiple myeloma who presents to ED complaining of significant swelling over the past 48 hours.
Acute on Chronic Anemia
Multiple Myeloma
Acute on Chronic Anemia secondary to the above
- Patient is on lenalidomide for myeloma -hold with severe anemia
- s/p 1u of PRBC so far. Hgb at 7.8 lenalidomide held during hospitalization . Onc following
- Follow H&H for improvement and transfuse additional units if needed.
Anasarca
Acute on Chronic HFpEF
- Patient has regained much of the weight that was lost during his prior visit.
- Prior h/o symptomatic anemia resulting in edema / CHF exacerbation in 08/2023.
- Follow I/Os, daily weights, etc. Continues to lose weight. Still lot of LE edema causing ambulatory dysfunction.
- CW diuretics per cards - discussed with Dr Wills today.
- Abd US negative for ascites
- Echo on 07/25 with normal left ventricular chamber size. Normal left ventricular systolic function. Normal regional wall motion. Ejection fraction 60 to 65%. No significant valvular disease.
Acute kidney injury likely secondary to overdiuresis
-Creat up but stable in last 24-48 hr. Monitor creatinine closely.
Mild TME likely 2/2 pain meds vs. hospital acrquire delirium vs. davidson
-Mentation seems to be improved
-No focal neurological deficit
-following all commands and talkative now
Severe constipation
-bowel regimen and ENEMA ordered. Repeat enema if no results
-If with nausea/vomiting check abdomen imaging
Left antecubital site with erythema (previous IV site) concern for cellulitis
-cw patient on keflex
DM-II
- Stable. Marked insulin resistance with high-doses of insulin.
- Continue basal : bolus insulin.
- Update A1C at 10.1
- Continue Farxiga. Hold other PO medications and Ozempic.
Chronic Pain Syndrome
Chronic Opioid Dependence
Charcot Foot
- Stable. Continue current pain control med regimen without changes. Continue with MS Contin 30 every 12. Oxycodone 10 every 4hprn
- Follow-up with Pain Management after discharge.
- Patient notes that he has been wheelchair bound for > 1 year.
History of TBI
- No new neurologic complaints.
Morbid Obesity due to excess calories
- Affects all aspects of care.
- Encourage healthy diet. Patient extremely limited in mobility and suspect that significant weight reduction will not be feasible.
DVT Prophylaxis: lovenox
Code Status: Full
Anticipated Discharge: 24 - 48 hours
Subjective/Interval History
-
Date of Service: August 15, 2024
Feels her lower extremity edema is improved but still substantial fluid retained causing difficulty ambulating.
Objective Data
-
Labs:
Laboratory Results
08/15/24
05:38
WBC 4.9
Hgb 7.8 L
Hct 25.9 L
Plt Count 193
Sodium 141
Potassium 3.2 L
Chloride 95 L
Carbon Dioxide 31 H
BUN 32 H
Creatinine 1.4 H
Glucose 194 H
Calcium 8.9
Vital Signs:
Vital Signs
Temp Pulse Resp BP Pulse Ox
98.2 F 96 18 151/85 99
08/15/24 07:20 08/15/24 07:20 08/15/24 07:20 08/15/24 07:20 08/15/24 07:20
I&O
08/14/24 08/15/24 08/16/24
06:59 06:59 06:59
Intake Total 960 / 960 1440 / 1440
Balance 960 / 960 1440 / 1440
Review of Systems
-
Respiratory: Denies Trouble Breathing
Cardiac: Denies Chest Pain
Abdomen/GI: Denies Abdominal Pain, Nausea or Vomiting
Neuro: Denies Dizzy
Physical Exam
-
General: Comfortable
Respiratory: Non Labored Respirations; Negative Accessory Resp Muscle Use
Cardiac: Regular Rhythm and S1/S2
GI: Soft
Musculoskeletal: Edema, Right Lower Extrem and Edema, Left Lower Extrem
Neuro: AO x 3
Psych: Calm
Data Reviewed
-
Labs: Labs Reviewed by me
[2024-08-15 15:10] VITALS: BP 138/69
[2024-08-15 15:24] VITALS: BP 138/69; PULSE 97; O2SAT 98
[2024-08-15 15:45] LABS: Glucose - Point of Care 237 mg/dl (70-99)
[2024-08-15] MEDS: NOVOLOG FLEXPEN 27 UNITS SC (16:12)
--- NOTE | 2024-08-15 16:12 | CM ---
CM reviewed chart- ADC 1-2 days
Updated clinicals sent to SNF via [facility]
Plan remains for SNF return on dc
Discharge Disposition-return [facility] for LTC
[2024-08-15] MEDS: LOVENOX 40 MG SC (17:24)
--- NOTE | 2024-08-15 20:11 | W.PN.ONC2 ---
Today's Communication / Plan
-
Patient has gained 43 lbs over the last 4 months and Hgb running lower in recent months despite improvement in myeloma parameters.
Denies rectal bleeding or other bleeding.
Has been diuresing but now with bump in Cr.
Question high-output failure. Management as per Cardiology.
Revlimid on hold for anemia.
Pt scheduled for next office follow up 08/19.
Impression
Impression
multiple myeloma responding to current therapy RVD -maribell
symptomatic anemia
leukopenia/lymphopenia
acute CHF, anasarca
chronic pain predated MM dx-opioid dependence
morbid obesity
hypogammaglobulinemia
Oncology Addendum:
Patient seen and evaluated and agree w/ RN DISEASE MANAGEMENT note and plan as outlined
-mutliple myeloma - RVD - maribell w/ good response on most recent serum protein studies
-anemia
-CHF - diuresis ongoing
-cont supportive care
Plan
Plan
hold lenolidomide during hospitalization. OP follow up will be arranged upon discharge
transfuse Hgb <8
OP COREY will be resumed upon discharge
monitor for bleeding
CHF per primary service
Subjective/Objective
Chief Complaint
Heme/Onc follow up of multiple myeloma, now with volume overload
Subjective
Denies new complaint. Still with lower extremity swelling.
Vital Signs:
Vital Signs
Temp Pulse Resp BP Pulse Ox
98.1 F 97 20 138/69 98
08/15/24 15:10 08/15/24 15:10 08/15/24 15:10 08/15/24 15:10 08/15/24 15:10
Lab Results:
Laboratory Data
WBC 4.9 10^3/uL (4.8-10.8) 08/15/24 05:38
Hgb 7.8 g/dL (13.0-18.0) L 08/15/24 05:38
Plt Count 193 10^3/uL (130-400) 08/15/24 05:38
eGFR 56.83 08/15/24 05:38
Physical Exam
HEENT: Moist Mucous Membranes; No Jaundice
Cardiology: Normal Sinus Rhythm, S1 and S2
Pulmonary: Clear; No Wheezes
GI: Soft and Normal Bowel Sounds
Extremities: Pulses Present; No Phlebitic Signs
Neuro: Non Focal and Other
Review of Systems
Review of Systems
Constitutional: Reports Fatigue; Denies Fever
Head: Denies Sore Throat or Hearing Loss
Respiratory: Reports Dyspnea; Denies Cough
Cardiovascular: Denies Chest Pain or Palpitations
Gastrointestinal: Denies Nausea/Vomiting or Diarrhea
Genitourinary: Denies Hematuria
Skin: Denies Rash or Pruritis
Neurological: Denies Headache or Numbness
Psychiatric: Denies Depression or Insomnia
Hem/Lymphatic: Denies Easy Bruising or Night Sweats
[2024-08-15 20:20] VITALS: BMI 35.1
[2024-08-15] MEDS: LANTUS SC (20:31)
[2024-08-15 20:33] LABS: Glucose - Point of Care 104 mg/dl (70-99)
[2024-08-15] MEDS: LANTUS 0.47 UNITS SC (20:38)
[2024-08-15] MEDS: EFFEXOR XR 150 MG PO (21:27)
[2024-08-15] MEDS: EFFEXOR XR 75 MG PO (21:27)
[2024-08-15] MEDS: XANAX 0.25 MG PO (21:28)
[2024-08-15] MEDS: KCL 20 MEQ PO (21:28)
[2024-08-15] MEDS: ELAVIL 50 MG PO (21:28)
[2024-08-15] MEDS: LIPITOR 40 MG PO (21:28)
[2024-08-15 22:34] LABS: Glucose - Point of Care 137 mg/dl (70-99)
[2024-08-15 23:00] VITALS: BP 112/65
[2024-08-16] MEDS: ROXICODONE 10 MG PO ×5 (01:06→21:49)
[2024-08-16 06:00] VITALS: BMI 34.8
[2024-08-16 07:01] LABS: Blood Urea Nitrogen 32 mg/dl (9-20); Carbon Dioxide 28 mmol/L (22-30); Chloride 97 mmol/L (98-107); Estimated Creatinine Clearance 79 ml/min; Glucose 167 mg/dl (70-99); Potassium 3.5 mmol/L (3.5-5.1); Sodium 142 mmol/L (135-145); eGFR 56.83
[2024-08-16 08:25] VITALS: BP 111/66
[2024-08-16] MEDS: MIRALAX 17 GRAMS PO (08:30)
[2024-08-16 08:31] LABS: Glucose - Point of Care 198 mg/dl (70-99)
[2024-08-16] MEDS: LYRICA 200 MG PO ×2 (08:31→17:08)
[2024-08-16] MEDS: MS CONTIN (EXTENDED RELEASE) 30 MG PO ×2 (08:31→19:55)
[2024-08-16] MEDS: ASPIR LOW (ENTERIC COATED) 81 MG PO (08:31)
[2024-08-16] MEDS: CLARITIN 10 MG PO (08:31)
[2024-08-16] MEDS: KCL 20 MEQ PO (08:31)
[2024-08-16] MEDS: WELLBUTRIN SR (12 hour sustained release) 150 MG PO (08:31)
[2024-08-16] MEDS: KEFLEX 500 MG PO ×4 (08:31→21:49)
[2024-08-16] MEDS: SENOKOT-S 2 TABLET PO (08:32)
[2024-08-16] MEDS: LASIX 40 MG IV ×2 (08:32→17:08)
[2024-08-16] MEDS: FARXIGA 10 MG PO (08:32)
[2024-08-16] MEDS: NOVOLOG FLEXPEN-HIGH RESISTANCE 2 UNITS SC (08:34)
[2024-08-16] MEDS: NOVOLOG FLEXPEN 27 UNITS SC ×3 (08:35→17:21)
[2024-08-16] MEDS: LANTUS 0.47 UNITS SC ×2 (08:38→21:48)
--- NOTE | 2024-08-16 10:16 | W.PN.ONC2 ---
Today's Communication / Plan
-
OP follow up upon discharge 08/19 at which time will consider revlimid resumption
daily CBC, would transfuse prbc for Hgb <7g/dL unless sxs or cardiology would like a goal Hgb higher in setting of CHF
Impression
Impression
multiple myeloma responding to current therapy RVD -maribell w/ good response on most recent serum protein studies
symptomatic anemia s/p 1unit prbc 08/09
leukopenia/lymphopenia -resolved
acute CHF, anasarca
chronic pain predated MM dx-opioid dependence
morbid obesity
hypogammaglobulinemia
Plan
Plan
hold lenolidomide during hospitalization. OP follow up will be arranged upon discharge
transfuse Hgb <8
OP COREY will be resumed upon discharge
monitor for bleeding
CHF per primary service
Subjective/Objective
Subjective
no new complaints
Vital Signs:
Vital Signs
Temp Pulse Resp BP Pulse Ox
97.5 F 83 18 111/66 99
08/16/24 08:25 08/16/24 08:25 08/16/24 08:25 08/16/24 08:25 08/16/24 08:25
Lab Results:
Laboratory Data
WBC 4.9 10^3/uL (4.8-10.8) 08/15/24 05:38
Hgb 7.8 g/dL (13.0-18.0) L 08/15/24 05:38
Plt Count 193 10^3/uL (130-400) 08/15/24 05:38
eGFR 56.83 08/16/24 05:42
Physical Exam
HEENT: Moist Mucous Membranes; No Jaundice
Pulmonary: Clear
GI: Soft
Extremities: Pulses Present and Edema
Neuro: Non Focal
[2024-08-16 12:17] LABS: Glucose - Point of Care 235 mg/dl (70-99)
--- NOTE | 2024-08-16 13:07 | W.PN.CARDCBS ---
Addendum entered and electronically signed by Kelin Villasenor DO 08/16/24 19:50:
I saw and examined the patient.
The Instrument Room Technician's note was reviewed and I agree with the note.
Comment: Patient seen and examined. Overall no significant Events overnight.Legs remain edematous however he states may be slightly improved. No chest pain or pressure
GEN: AAO x3
HEENT: mmm
LUNGS:Bronchovesicular breath sounds decreased at the bases.
CV: Normal sinus rhythm. Positive S1-S2.No murmurs or rubs
ABD: Distended, hard right flank area without ecchymosis or tenderness.Positive bowel sound
EXT: +1-2 hard B/L LE edema
Plan:
Heart failure with preserved ejection fraction, remains volume overloaded
-Continue IV Lasix; He had a dose of metolazone 2.5 mg on August 11, 2024
-Cre up to 1.5 on 08/13/24 and improving and stable at 1.4 on 08/16/24.
-Will likely need increased outpatient oral Lasix, previously taking Lasix 40 mg daily. Will increase at time of discharge to 40 mg twice daily
-Continue outpatient Farxiga 10 mg daily
Acute on chronic anemia with multiple myeloma
-Revlimid which may be a major contributor to fluid retention and CH; Currently held.
-Unclear that there are good alternatives to Revlimid for his multiple myeloma- Will defer to his oncologist
-Initial hemoglobin 6.6, s/p 1 unit PRBCs and now improved and stable at 7.8 on 08/16/24.
-Patient is a long-term resident of [facility] and there are no plans for him to return to living independently.
Original Note:
Today's Communication / Plan
-
Now below previous dry weight
Cont Lasix 40 mg IV BID, consider switching to PO soon
Impression / Plan
-
Family Physician: Daisy Gordon DO
[employer]: None prior to admission, initial consultation Dr. Benson
Impression:
Presented with abnormal outpatient labs, hemoglobin 6.1
Acute on chronic anemia
s/p 1 unit packed RBCs 10/09/2023
Orthopnea, PND
Lower extremity edema
Acute HFpEF
Anasarca
Multiple Myeloma on Revlimid
Hypertension
Hyperlipidemia
Diabetes Mellitus, Type II - Insulin Dependent
Diabetic Neuropathy
Chronic Pain with Opioid Dependence secondary to Charcot Foot
Traumatic Brain Injury
Anxiety/Depression
Morbid Obesity
Echo 07/25/2024 (TDS, Lumason used): EF 60 to 65%. Normal LV size and function. No significant valvular disease.
Plan:
-Weight is down another 2 lbs overnight for a total of 349 lbs diuresed so far this admission. Dry weight 283 lbs on last d/c 07/29/24 and so he is now diuresed below his previous dry weight.
-Diuresing primarily with Lasix 40 mg IV BID. Patient was taking Lasix 40 mg PO daily prior to admission.
-Seemed to diurese well after a dose of metolazone 2.5 mg x1 on 08/11/24
-Cre up to 1.5 on 08/13/24 and improving and stable at 1.4 on 08/16/24.
-EF 60-65% and outpatient dose of Farxiga 10 mg daily has been continued.
-Acute on chronic anemia with multiple myeloma on Revlimid which is currently on hold. Revlimid which may be a major contributor to fluid retention and CHF. Unclear that there are good alternatives to Revlimid for his multiple myeloma. Initial
hemoglobin 6.6, s/p 1 unit PRBCs and now improved and stable at 7.8 on 08/16/24.
-Patient is a long-term resident of [facility] and there are no plans for him to return to living independently.
HPI 08/09/2024: Patient is a 63-year-old male with past medical history significant for hypertension, type 2 diabetes, morbid obesity, remote TBI, chronic pain with opioid dependence, multiple myeloma on Revlimid with chronic anemia and has received
blood transfusions in the past. Patient was recently admitted from 07/25/2024 to 07/29/2024 for concerns of edema/anasarca and shortness of breath. Patient reports he had been using salt tablets in the past and was never taken off [facility] med list at
the [facility]. During that admission patient had an echocardiogram which showed normal ejection fraction with no significant valvular disease. He underwent significant weight loss and improvement of edema with IV diuresis. It was recommended
he discontinue salt tablets. He had outpatient blood work 08/08/2024 that showed hemoglobin of 6.1 g/dl and was referred to emergency department for evaluation and treatment. Patient reports to me that over the last 2 weeks he has gained back most
of the weight he had lost previously. He has had worsening shortness of breath, orthopnea and PND. He has some lower extremity edema which is worse on the right lower extremity than left.
Patient reports he is very sedentary. He has chronic pain syndrome and it hurts to do minimal activity. He reports he primarily gets around the [facility] in a wheelchair.
Progress Note - [employer]
Subjective
Date of Service: August 16, 2024
Less edematous, no SOB
Objective
Labs:
08/15/24 05:38
08/16/24 05:42
Labs
Hgb 7.8 g/dL (13.0-18.0) L 08/15/24 05:38
Hct 25.9 % (39.0-52.0) L 08/15/24 05:38
Plt Count 193 10^3/uL (130-400) 08/15/24 05:38
Sodium 142 mmol/L (135-145) 08/16/24 05:42
Potassium 3.5 mmol/L (3.5-5.1) 08/16/24 05:42
BUN 32 mg/dl (9-20) H 08/16/24 05:42
Creatinine 1.4 mg/dL (0.7-1.3) H 08/16/24 05:42
Glucose 167 mg/dl (70-99) H 08/16/24 05:42
Vital Signs and I&O:
Vital Signs
Temp Pulse Resp BP Pulse Ox
97.5 F 83 18 111/66 99
08/16/24 08:25 08/16/24 08:25 08/16/24 08:25 08/16/24 08:25 08/16/24 08:25
Vital Signs
Temp Pulse Resp BP Pulse Ox
97.5 F 83 18 111/66 99
08/16/24 08:25 08/16/24 08:25 08/16/24 08:25 08/16/24 08:25 08/16/24 08:25
Intake & Output
08/14/24 08/15/24 08/16/24 08/17/24
06:59 06:59 06:59 06:59
Intake Total 960 / 960 1440 / 1440 960 / 960
Output Total 240 / 240
Balance 960 / 960 1440 / 1440 720 / 720
Physical Exam
Physical Exam
GEN: AAO x3
HEENT: mmm
LUNGS: No audible wheeze
CV: SR on tele
ABD: ND
EXT: +1-2 hard B/L LE edema
NEURO: Gross non-focal
SKIN: No rash
[2024-08-16] MEDS: NOVOLOG FLEXPEN-HIGH RESISTANCE 4 UNITS SC (13:15)
--- NOTE | 2024-08-16 14:07 | W.PN.HOSP.TC ---
Today's Communication/Plan
-
cw IV lasix
CT A/P to eval RLQ tender mass.
Assessment / Plan
Assessment / Plan
A/P: Patient is a 63y M with PMH significant for HTN, DM-II and multiple myeloma who presents to ED complaining of significant swelling over the past 48 hours.
Acute on Chronic Anemia
Multiple Myeloma
Acute on Chronic Anemia secondary to the above
- Patient is on lenalidomide for myeloma -hold with severe anemia
- s/p 1u of PRBC so far. Hgb at 7.8 lenalidomide held during hospitalization . Onc following
- Follow H&H for improvement and transfuse additional units if needed.
Anasarca
Acute on Chronic HFpEF
- Patient has regained much of the weight that was lost during his prior visit.
- Prior h/o symptomatic anemia resulting in edema / CHF exacerbation in 08/2023.
- Follow I/Os, daily weights, etc. Continues to lose weight. Improving LE edema .
- CW diuretics per cards
- Abd US negative for ascites
- Echo on 07/25 with normal left ventricular chamber size. Normal left ventricular systolic function. Normal regional wall motion. Ejection fraction 60 to 65%. No significant valvular disease.
RLQ tender palpable mass - suspect abdominal wall hematoma -no trauma . Will obtain a CT A/P without contrast first to eval.
Acute kidney injury likely secondary to overdiuresis
-Creat up but stable in last 24-48 hr. Monitor creatinine closely. Remains stable at 1.4
Mild TME likely 2/2 pain meds vs. hospital acrquire delirium vs. davidson
-Mentation seems to be improved
-No focal neurological deficit
-following all commands and talkative now
Severe constipation
-bowel regimen and ENEMA ordered. Repeat enema if no results
-If with nausea/vomiting check abdomen imaging
Left antecubital site with erythema (previous IV site) concern for cellulitis
-cw patient on keflex
DM-II
- Stable. Marked insulin resistance with high-doses of insulin.
- Continue basal : bolus insulin.
- Update A1C at 10.1
- Continue Farxiga. Hold other PO medications and Ozempic.
Chronic Pain Syndrome
Chronic Opioid Dependence
Charcot Foot
- Stable. Continue current pain control med regimen without changes. Continue with MS Contin 30 every 12. Oxycodone 10 every 4hprn
- Follow-up with Pain Management after discharge.
- Patient notes that he has been wheelchair bound for > 1 year.
History of TBI
- No new neurologic complaints.
Morbid Obesity due to excess calories
- Affects all aspects of care.
- Encourage healthy diet. Patient extremely limited in mobility and suspect that significant weight reduction will not be feasible.
DVT Prophylaxis: lovenox
Code Status: Full
Anticipated Discharge: Within 24 hours
Subjective/Interval History
-
Date of Service: August 16, 2024
Improving lower extremity edema.
He has been noticing right lower quadrant pain and tenderness for the last 2 weeks and despite all the fluid loss in the legs and the abdomen he still feeling a lump in the right lower quadrant. No trauma.
Objective Data
-
Labs:
Laboratory Results
08/16/24
05:42
Sodium 142
Potassium 3.5
Chloride 97 L
Carbon Dioxide 28
BUN 32 H
Creatinine 1.4 H
Glucose 167 H
Calcium 9.0
Vital Signs:
Vital Signs
Temp Pulse Resp BP Pulse Ox
97.5 F 83 18 111/66 99
08/16/24 08:25 08/16/24 08:25 08/16/24 08:25 08/16/24 08:25 08/16/24 08:25
I&O
08/15/24 08/16/24 08/17/24
06:59 06:59 06:59
Intake Total 1440 / 1440 960 / 960
Output Total 240 / 240
Balance 1440 / 1440 720 / 720
Review of Systems
-
Respiratory: Denies Trouble Breathing
Cardiac: Denies Chest Pain
Abdomen/GI: Denies Abdominal Pain, Nausea or Vomiting
Neuro: Denies Dizzy
Physical Exam
-
General: No Apparent Distress
Respiratory: Non Labored Respirations; Negative Accessory Resp Muscle Use
Cardiac: Regular Rhythm and S1/S2
GI: Soft, Normal Bowel Sounds, Tender (RLQ with a tender lump in superficial planes of abdomen;no superimposed bruising.) and Other (obese;tympanic)
Neuro: AO x 3
Data Reviewed
-
Labs: Labs Reviewed by me
[2024-08-16 14:25] VITALS: BP 105/86; PULSE 101; O2SAT 98
[2024-08-16 15:05] VITALS: BP 124/73
[2024-08-16 16:13] LABS: Glucose - Point of Care 88 mg/dl (70-99)
[2024-08-16] MEDS: NOVOLOG FLEXPEN-HIGH RESISTANCE SC (16:23)
[2024-08-16] MEDS: LOVENOX 40 MG SC (17:08)
[2024-08-16] MEDS: NOVOLOG FLEXPEN SC (17:09)
[2024-08-16] MEDS: ATIVAN 0.5 MG PO (17:17)
[2024-08-16 20:01] LABS: Glucose - Point of Care 75 mg/dl (70-99)
[2024-08-16] MEDS: SENOKOT-S PO (20:04)
[2024-08-16 21:28] LABS: Glucose - Point of Care 119 mg/dl (70-99)
[2024-08-16 21:49] VITALS: BMI 34.8
[2024-08-16] MEDS: EFFEXOR XR 75 MG PO (21:49)
[2024-08-16] MEDS: LIPITOR 40 MG PO (21:49)
[2024-08-16] MEDS: ELAVIL 50 MG PO (21:49)
[2024-08-16] MEDS: EFFEXOR XR 150 MG PO (21:49)
[2024-08-16] MEDS: XANAX 0.25 MG PO (21:49)
[2024-08-16 23:10] VITALS: BP 130/72
[2024-08-17] MEDS: LYRICA 200 MG PO ×4 (00:14→23:09)
[2024-08-17 05:47] VITALS: BMI 35.2
[2024-08-17 07:00] VITALS: BP 145/86
--- NOTE | 2024-08-17 07:11 | W.PN.ONC2 ---
Today's Communication / Plan
-
counts stable. Will sign off and see again as needed.
Impression
Impression
multiple myeloma responding to current therapy RVD -maribell w/ good response on most recent serum protein studies
symptomatic anemia s/p 1unit prbc 08/09
leukopenia/lymphopenia -resolved
acute CHF, anasarca
chronic pain predated MM dx-opioid dependence
morbid obesity
hypogammaglobulinemia
Plan
Plan
hold lenolidomide during hospitalization. OP follow up will be arranged upon discharge
transfuse Hgb <8
OP COREY will be resumed upon discharge
monitor for bleeding
CHF per primary service
Subjective/Objective
Chief Complaint
ACS Heme Onc
Subjective
Sleeping in chair. Says he feels the same/no better. 'I am in congestive heart failure'
Vital Signs:
Vital Signs
Temp Pulse Resp BP Pulse Ox
100.0 F 99 18 130/72 93
08/16/24 23:10 08/16/24 23:10 08/16/24 23:10 08/16/24 23:10 08/16/24 23:10
Lab Results:
Laboratory Data
WBC 4.9 10^3/uL (4.8-10.8) 08/15/24 05:38
Hgb 7.8 g/dL (13.0-18.0) L 08/15/24 05:38
Plt Count 193 10^3/uL (130-400) 08/15/24 05:38
eGFR 56.83 08/16/24 05:42
[2024-08-17 07:20] LABS: Glucose - Point of Care 174 mg/dl (70-99)
[2024-08-17] MEDS: CLARITIN 10 MG PO (09:04)
[2024-08-17] MEDS: MIRALAX 17 GRAMS PO (09:04)
[2024-08-17] MEDS: KEFLEX 500 MG PO ×4 (09:05→21:59)
[2024-08-17] MEDS: SENOKOT-S 2 TABLET PO (09:05)
[2024-08-17] MEDS: LASIX 40 MG IV (09:05)
[2024-08-17] MEDS: ASPIR LOW (ENTERIC COATED) 81 MG PO (09:05)
[2024-08-17] MEDS: FARXIGA 10 MG PO (09:05)
[2024-08-17] MEDS: KCL 20 MEQ PO (09:05)
[2024-08-17] MEDS: NOVOLOG FLEXPEN-HIGH RESISTANCE 2 UNITS SC (09:16)
[2024-08-17] MEDS: NOVOLOG FLEXPEN 27 UNITS SC ×3 (09:17→17:00)
[2024-08-17] MEDS: LANTUS 0.47 UNITS SC ×2 (09:19→20:18)
[2024-08-17] MEDS: MS CONTIN (EXTENDED RELEASE) 30 MG PO ×2 (09:21→20:16)
[2024-08-17] MEDS: WELLBUTRIN SR (12 hour sustained release) 150 MG PO (09:21)
[2024-08-17] MEDS: ROXICODONE 10 MG PO ×2 (09:24→15:44)
[2024-08-17 09:33] LABS: Blood Urea Nitrogen 32 mg/dl (9-20); Calcium 8.9 mg/dl (8.4-10.2); Carbon Dioxide 25 mmol/L (22-30); Chloride 97 mmol/L (98-107); Estimated Creatinine Clearance 86 ml/min; Glucose 197 mg/dl (70-99); Potassium 3.7 mmol/L (3.5-5.1); Sodium 140 mmol/L (135-145); eGFR > 60.00
--- NOTE | 2024-08-17 11:11 | W.PN.CARDCBS ---
Today's Communication / Plan
-
IV Lasix 80 mg twice daily
Metolazone x 1
Supplement potassium
Consider spironolactone
Impression / Plan
-
Family Physician: Daisy Gordon DO
Floral Associate: None prior to admission, initial consultation Dr. Benson
Impression:
Presented with abnormal outpatient labs, hemoglobin 6.1
Acute on chronic anemia
s/p 1 unit packed RBCs 10/09/2023
Orthopnea, PND
Lower extremity edema
Acute HFpEF
Anasarca
Multiple Myeloma on Revlimid
Hypertension
Hyperlipidemia
Diabetes Mellitus, Type II - Insulin Dependent
Diabetic Neuropathy
Chronic Pain with Opioid Dependence secondary to Charcot Foot
Traumatic Brain Injury
Anxiety/Depression
Morbid Obesity
Echo 07/25/2024 (TDS, Lumason used): EF 60 to 65%. Normal LV size and function. No significant valvular disease.
Plan:
He is clearly improved but still volume overloaded.
Creatinine is better, 1.3. Furosemide is 40 mg IV twice daily.
We will double furosemide to 80 mg IV twice daily. Will give metolazone 2.5 mg today.
Supplement potassium, total of 80 mill equivalents today.
Hemoglobin is relatively stable, may need to consider additional blood if drops further.
HPI 08/09/2024: Patient is a 63-year-old male with past medical history significant for hypertension, type 2 diabetes, morbid obesity, remote TBI, chronic pain with opioid dependence, multiple myeloma on Revlimid with chronic anemia and has received
blood transfusions in the past. Patient was recently admitted from 07/25/2024 to 07/29/2024 for concerns of edema/anasarca and shortness of breath. Patient reports he had been using salt tablets in the past and was never taken off his med list at
the skilled nursing. During that admission patient had an echocardiogram which showed normal ejection fraction with no significant valvular disease. He underwent significant weight loss and improvement of edema with IV diuresis. It was recommended
he discontinue salt tablets. He had outpatient blood work 08/08/2024 that showed hemoglobin of 6.1 g/dl and was referred to emergency department for evaluation and treatment. Patient reports to me that over the last 2 weeks he has gained back most
of the weight he had lost previously. He has had worsening shortness of breath, orthopnea and PND. He has some lower extremity edema which is worse on the right lower extremity than left.
Patient reports he is very sedentary. He has chronic pain syndrome and it hurts to do minimal activity. He reports he primarily gets around the skilled nursing in a wheelchair.
Progress Note - Floral Associate
Subjective
Date of Service: August 17, 2024:
63-year-old man with history of TBI who resides at [facility], now with multiple myeloma on Revlimid and hospital stay in early July for HFpEF with recurrent admission August 09, found to have hemoglobin of 6.1 on admission.
PMH: Acute on chronic anemia, multiple myeloma, HFpEF, hypertension, hyperlipidemia, type 2 diabetes, peripheral neuropathy, Charcot foot with opioid dependence, anxiety, depression, obesity
PSH: Multiple lumbar back procedures, great toe amputation, surgeries on right leg,
Allergies: BuSpar and tramadol
Outpatient meds: (Pertinent) amitriptyline, aspirin, atorvastatin 40 mg daily, dapagliflozin 10 mg a day, furosemide 40 daily, Revlimid, Ozempic venlafaxine
SH: Resides at skilled nursing
Current meds: Xanax, amitriptyline, aspirin 81 mg a day, atorvastatin 40 mg at bedtime, dapagliflozin 10 mg daily, MS Contin 30 mg every 12, Lyrica, Effexor, insulin, Wellbutrin, acyclovir, Claritin, Lovenox, Keflex, potassium 20 mill equivalents
daily, furosemide 40 mg twice daily, insulin. Revlimid currently on hold.
145/86, pulse 86, respirate 18, afebrile, sats 95%, weight is 129.4 kg, if accurate up 1.4 kg, lungs are fairly clear, JVD probably okay still with 3+ edema, regular rate and rhythm, telemetry okay,
Objective
Labs:
08/15/24 05:38
08/17/24 09:14
Labs
Hgb 7.8 g/dL (13.0-18.0) L 08/15/24 05:38
Hct 25.9 % (39.0-52.0) L 08/15/24 05:38
Plt Count 193 10^3/uL (130-400) 08/15/24 05:38
Sodium 140 mmol/L (135-145) 08/17/24 09:14
Potassium 3.7 mmol/L (3.5-5.1) 08/17/24 09:14
BUN 32 mg/dl (9-20) H 08/17/24 09:14
Creatinine 1.3 mg/dL (0.7-1.3) 08/17/24 09:14
Glucose 197 mg/dl (70-99) H 08/17/24 09:14
Vital Signs and I&O:
Vital Signs
Temp Pulse Resp BP Pulse Ox
36.8 C 86 18 145/86 95
08/17/24 07:00 08/17/24 09:05 08/17/24 07:00 08/17/24 09:05 08/17/24 07:00
Vital Signs
Temp Pulse Resp BP Pulse Ox
36.8 C 86 18 145/86 95
08/17/24 07:00 08/17/24 09:05 08/17/24 07:00 08/17/24 09:05 08/17/24 07:00
Intake & Output
08/15/24 08/16/24 08/17/24 08/18/24
07:59 07:59 07:59 07:59
Intake Total 1440 / 1440 960 / 960 1320 / 1320
Output Total 240 / 240
Balance 1440 / 1440 720 / 720 1320 / 1320
Physical Exam
Physical Exam
See above
[2024-08-17 12:05] LABS: Glucose - Point of Care 227 mg/dl (70-99)
[2024-08-17] MEDS: KCL 40 MEQ PO ×2 (12:07→21:59)
[2024-08-17] MEDS: NOVOLOG FLEXPEN-HIGH RESISTANCE 4 UNITS SC (12:21)
--- NOTE | 2024-08-17 12:43 | CM ---
CM reviewed pt with Dr Couch- initially anticipated for dc today but not being cleared by cardio
Update to admissions/Jemima
Update to pt bedside
IMM verbally completed- copy provided
Transport forms on chart
Discharge Disposition- return [facility] via BLS
Phone- [phone] 4th floor Fax- [phone]
Chemo meds from SNF need to be sent back with patient
--- NOTE | 2024-08-17 12:50 | W.PN.HOSP.TC ---
Today's Communication/Plan
-
CW IV diuresis
Assessment / Plan
Assessment / Plan
A/P: Patient is a 63y M with PMH significant for HTN, DM-II and multiple myeloma who presents to ED complaining of significant swelling over the past 48 hours.
Acute on Chronic Anemia
Multiple Myeloma
Acute on Chronic Anemia secondary to the above
- Patient is on lenalidomide for myeloma -hold with severe anemia
- s/p 1u of PRBC so far. Hgb at 7.8 lenalidomide held during hospitalization . Onc following
- Follow H&H for improvement and transfuse additional units if needed.
Anasarca
Acute on Chronic HFpEF
- Patient has regained much of the weight that was lost during his prior visit.
- Prior h/o symptomatic anemia resulting in edema / CHF exacerbation in 08/2023.
- Follow I/Os, daily weights, etc. Continues to lose weight. Improving LE edema .
- CW diuretics per cards -still needing IV diuresis
- Abd US negative for ascites
- Echo on 07/25 with normal left ventricular chamber size. Normal left ventricular systolic function. Normal regional wall motion. Ejection fraction 60 to 65%. No significant valvular disease.
RLQ tender palpable mass - suspect abdominal wall hematoma -no trauma . CT A/P without contrast shows right lower quadrant abdominal wall thickening with suspicious for contusion. No superficial signs of cellulitis.Tx syptomatically.
Acute kidney injury likely secondary to overdiuresis
-Creat up but stable in last 24-48 hr. Monitor creatinine closely -improving 1.3
Mild TME likely 2/2 pain meds vs. hospital acrquire delirium vs. davidson
-Mentation seems to be improved
-No focal neurological deficit
-following all commands and talkative now
Severe constipation
-bowel regimen and ENEMA ordered. Repeat enema if no results
-If with nausea/vomiting check abdomen imaging
Left antecubital site with erythema (previous IV site) concern for cellulitis
-cw patient on keflex day 01/23
DM-II
- Stable. Marked insulin resistance with high-doses of insulin.
- Continue basal : bolus insulin.
- Update A1C at 10.1
- Continue Farxiga.
Chronic Pain Syndrome
Chronic Opioid Dependence
Charcot Foot
- Stable. Continue current pain control med regimen without changes. Continue with MS Contin 30 every 12. Oxycodone 10 every 4hprn
- Follow-up with Pain Management after discharge.
- Patient notes that he has been wheelchair bound for > 1 year.
History of TBI
- No new neurologic complaints.
Morbid Obesity due to excess calories
- Affects all aspects of care.
- Encourage healthy diet. Patient extremely limited in mobility and suspect that significant weight reduction will not be feasible.
DVT Prophylaxis: lovenox
Code Status: Full
Anticipated Discharge: Within 24 hours
Subjective/Interval History
-
Date of Service: August 17, 2024
Slow improvement in lower extremity edema. Right lower upper quadrant abdominal wall pain as before no worsening.
Tolerating diet without nausea vomiting.
No fever chills.
Objective Data
-
Labs:
Laboratory Results
08/17/24
09:14
Sodium 140
Potassium 3.7
Chloride 97 L
Carbon Dioxide 25
BUN 32 H
Creatinine 1.3
Glucose 197 H
Calcium 8.9
Vital Signs:
Vital Signs
Temp Pulse Resp BP Pulse Ox
98.2 F 86 18 145/86 95
08/17/24 07:00 08/17/24 09:05 08/17/24 07:00 08/17/24 09:05 08/17/24 07:00
I&O
08/16/24 08/17/24 08/18/24
06:59 06:59 06:59
Intake Total 960 / 960 1320 / 1320
Output Total 240 / 240
Balance 720 / 720 1319 / 1319
Review of Systems
-
Constitutional: Denies Fever or Chills
Respiratory: Denies Cough
Cardiac: Denies Chest Pain
Neuro: Denies Dizzy
Physical Exam
-
General: No Apparent Distress
HEENT: Moist Mucous Membranes
Respiratory: Clear to Auscultation
Cardiac: Regular Rhythm and S1/S2
GI: Soft, Nondistended, Normal Bowel Sounds and Tender (RLQ abdo wall area as yesterday . No clinical signs of cellulitis)
Musculoskeletal: Edema, Right Lower Extrem and Edema, Left Lower Extrem
Neuro: AO x 3
Psych: Calm; Negative Confused
Data Reviewed
-
CT Scan: Report Reviewed by me (CT A/P)
Labs: Labs Reviewed by me
[2024-08-17 15:00] VITALS: BP 135/75
[2024-08-17] MEDS: LASIX 80 MG IV (15:49)
[2024-08-17] MEDS: ZAROXOLYN 5 MG PO (16:17)
[2024-08-17 16:48] LABS: Glucose - Point of Care 313 mg/dl (70-99)
[2024-08-17] MEDS: LOVENOX 40 MG SC (17:00)
[2024-08-17] MEDS: NOVOLOG FLEXPEN-HIGH RESISTANCE 10 UNITS SC (17:00)
[2024-08-17 20:19] LABS: Glucose - Point of Care 140 mg/dl (70-99)
[2024-08-17 20:59] VITALS: BMI 35.2
[2024-08-17] MEDS: SENOKOT-S PO (21:02)
[2024-08-17 21:07] LABS: Glucose - Point of Care 134 mg/dl (70-99)
[2024-08-17] MEDS: XANAX 0.25 MG PO (21:59)
[2024-08-17] MEDS: LIPITOR 40 MG PO (21:59)
[2024-08-17] MEDS: ELAVIL 50 MG PO (21:59)
[2024-08-17] MEDS: EFFEXOR XR 75 MG PO (22:00)
[2024-08-17] MEDS: EFFEXOR XR 150 MG PO (22:00)
[2024-08-17 23:50] VITALS: BP 125/80
[2024-08-18] MEDS: ROXICODONE 10 MG PO ×5 (04:36→22:00)
[2024-08-18 06:00] VITALS: BMI 34.7
[2024-08-18 07:10] LABS: Glucose - Point of Care 164 mg/dl (70-99)
[2024-08-18 08:00] VITALS: BP 132/79
[2024-08-18] MEDS: NOVOLOG FLEXPEN 27 UNITS SC ×3 (08:14→16:16)
[2024-08-18] MEDS: NOVOLOG FLEXPEN-HIGH RESISTANCE 2 UNITS SC (08:14)
[2024-08-18] MEDS: LANTUS 0.47 UNITS SC ×2 (08:15→20:46)
[2024-08-18 08:19] LABS: Blood Urea Nitrogen 32 mg/dl (9-20); Calcium 8.9 mg/dl (8.4-10.2); Carbon Dioxide 29 mmol/L (22-30); Chloride 96 mmol/L (98-107); Estimated Creatinine Clearance 85 ml/min; Glucose 171 mg/dl (70-99); Potassium 3.9 mmol/L (3.5-5.1); Sodium 142 mmol/L (135-145); eGFR > 60.00
[2024-08-18] MEDS: KCL 40 MEQ PO ×2 (08:19→16:16)
[2024-08-18] MEDS: WELLBUTRIN SR (12 hour sustained release) 150 MG PO (08:20)
[2024-08-18] MEDS: MS CONTIN (EXTENDED RELEASE) 30 MG PO ×2 (08:20→20:45)
[2024-08-18] MEDS: KEFLEX 500 MG PO ×4 (08:20→20:46)
[2024-08-18] MEDS: ASPIR LOW (ENTERIC COATED) 81 MG PO (08:20)
[2024-08-18] MEDS: LYRICA 200 MG PO ×3 (08:20→23:01)
[2024-08-18] MEDS: FARXIGA 10 MG PO (08:20)
[2024-08-18] MEDS: CLARITIN 10 MG PO (08:20)
[2024-08-18] MEDS: SENOKOT-S 2 TABLET PO ×2 (08:21→20:46)
[2024-08-18] MEDS: MIRALAX 17 GRAMS PO (08:21)
[2024-08-18] MEDS: LASIX 80 MG IV ×2 (08:21→15:26)
--- NOTE | 2024-08-18 08:28 | W.PN.HOSP.TC ---
Today's Communication/Plan
-
Continue IV Diuresis
Metolazone
Assessment / Plan
Assessment / Plan
Physical Exam
General: No Apparent Distress
HEENT: Moist Mucous Membranes
Respiratory: Clear to Auscultation
Cardiac: Regular Rhythm and S1/S2
GI: Soft, Nondistended, Normal Bowel Sounds and Nontender.
Musculoskeletal: Edema, Right Lower Extrem and Edema, Left Lower Extrem
Neuro: AO x 3
Psych: Calm; Negative Confused
Assessment/Plan
Patient is a 63 y/o male with past medical history significant for HTN, DM-II and multiple myeloma who presented to the ED complaining of significant swelling over the 48 hours prior to presentation.
Acute on Chronic Anemia
Multiple Myeloma
Acute on Chronic Anemia secondary to the above
- Patient is on lenalidomide for myeloma - hold with severe anemia
- s/p 1u of PRBC so far. Hgb at 7.8 lenalidomide held during hospitalization . Onc following
- Follow H&H for improvement and transfuse additional units if needed.
Anasarca
Acute on Chronic HFpEF
- Patient has regained much of the weight that was lost during his prior visit.
- Prior h/o symptomatic anemia resulting in edema / CHF exacerbation in 08/2023.
- Follow I/Os, daily weights, etc. Continues to lose weight. Improving LE edema .
- CW diuretics per cards -still needing IV diuresis
- Metolazone
- Abd US negative for ascites
- Echo on 07/25 with normal left ventricular chamber size. Normal left ventricular systolic function. Normal regional wall motion. Ejection fraction 60 to 65%. No significant valvular disease.
RLQ tender palpable mass - suspect abdominal wall hematoma -no trauma . CT A/P without contrast shows right lower quadrant abdominal wall thickening with suspicious for contusion. No superficial signs of cellulitis.Tx syptomatically.
Acute kidney injury likely secondary to overdiuresis
-Creat up but stable in last 24-48 hr. Monitor creatinine closely -improving 1.3
Mild TME likely 2/2 pain meds vs. hospital acrquire delirium vs. davidson
-Mentation seems to be improved
-No focal neurological deficit
-following all commands and talkative now
Severe constipation
-bowel regimen and ENEMA ordered. Repeat enema if no results
-If with nausea/vomiting check abdomen imaging
Left antecubital site with erythema (previous IV site) concern for cellulitis
-cw patient on keflex day 01/23
DM-II
- Stable. Marked insulin resistance with high-doses of insulin.
- Continue basal : bolus insulin.
- Update A1C at 10.1
- Continue Farxiga.
Chronic Pain Syndrome
Chronic Opioid Dependence
Charcot Foot
- Stable. Continue current pain control med regimen without changes. Continue with MS Contin 30 every 12. Oxycodone 10 every 4hprn
- Follow-up with Pain Management after discharge.
- Patient notes that he has been wheelchair bound for > 1 year.
History of TBI
- No new neurologic complaints.
Morbid Obesity due to excess calories
- Affects all aspects of care.
- Encourage healthy diet. Patient extremely limited in mobility and suspect that significant weight reduction will not be feasible.
DVT Prophylaxis: lovenox
Code Status: Full
Anticipated Discharge: > 48 hours
Subjective/Interval History
-
Date of Service: August 18, 2024
Patient was seen and examined. He denied any chest pain or SOB.
Objective Data
-
Labs:
Laboratory Results
08/18/24
07:24
Sodium 142
Potassium 3.9
Chloride 96 L
Carbon Dioxide 29
BUN 32 H
Creatinine 1.3
Glucose 171 H
Calcium 8.9
Vital Signs:
Vital Signs
Temp Pulse Resp BP Pulse Ox
98.4 F 87 18 125/80 95
08/17/24 23:50 08/17/24 23:50 08/17/24 23:50 08/17/24 23:50 08/17/24 23:50
I&O
08/17/24 08/18/24 08/19/24
06:59 06:59 06:59
Intake Total 1320 / 1320 240 / 240
Output Total 240 / 240
Balance 1320 / 1320 0 / 0
[2024-08-18 09:12] LABS: Magnesium 2.1 mg/dl (1.6-2.3)
[2024-08-18] MEDS: TYLENOL 650 MG PO (10:44)
[2024-08-18 10:50] LABS: Glucose - Point of Care 208 mg/dl (70-99)
[2024-08-18] MEDS: NOVOLOG FLEXPEN-HIGH RESISTANCE 4 UNITS SC (11:40)
[2024-08-18 15:07] LABS: Glucose - Point of Care 54 mg/dl (70-99)
[2024-08-18 15:24] LABS: Glucose - Point of Care 115 mg/dl (70-99)
--- NOTE | 2024-08-18 15:29 | W.PN.CARDCBS ---
Today's Communication / Plan
-
Continue furosemide 80 mg IV twice daily
Dose metolazone 5 mg as needed, has received August 17 and August 18
Supplement potassium
Revlimid per oncology -unclear that there are alternative
Impression / Plan
-
Family Physician: Daisy Gordon,
District Fire Management Officer: None prior to admission, initial consultation Dr. Benson
Impression:
Presented with abnormal outpatient labs, hemoglobin 6.1
Acute on chronic anemia
s/p 1 unit packed RBCs 10/09/2023
Orthopnea, PND
Lower extremity edema
Acute HFpEF
Anasarca
Multiple Myeloma on Revlimid
Hypertension
Hyperlipidemia
Diabetes Mellitus, Type II - Insulin Dependent
Diabetic Neuropathy
Chronic Pain with Opioid Dependence secondary to Charcot Foot
Traumatic Brain Injury
Anxiety/Depression
Morbid Obesity
Echo 07/25/2024 (TDS, Lumason used): EF 60 to 65%. Normal LV size and function. No significant valvular disease.
Plan:
Volume status is improved with doubling of furosemide to 80 mg IV twice daily and addition of metolazone 5 mg x 1 yesterday.
Despite increase in diuretics, creatinine is somewhat improved.
He reports he is due for chemotherapy. Unclear that there are alternatives to Revlimid in his case. Defer to oncology.
Will continue to furosemide 80 mg IV twice daily. He received metolazone 5 mg prior to afternoon dose. Extra potassium today.
Continue Farxiga, continue to hold spironolactone.
Still with evidence of volume overload, right leg more edematous than left. Suspect he is still 10 to 15 pounds above dry weight at least.
It is desirable to optimize volume status prior to discharge to reduce likelihood of readmission.
Monitor hemoglobin, last was 7.8.
HPI 08/09/2024: Patient is a 63-year-old male with past medical history significant for hypertension, type 2 diabetes, morbid obesity, remote TBI, chronic pain with opioid dependence, multiple myeloma on Revlimid with chronic anemia and has received
blood transfusions in the past. Patient was recently admitted from 07/25/2024 to 07/29/2024 for concerns of edema/anasarca and shortness of breath. Patient reports he had been using salt tablets in the past and was [facility]. During that admission patient had an echocardiogram which showed normal ejection fraction with no significant valvular disease. He underwent significant weight loss and improvement of edema with IV diuresis. It was recommended
he discontinue salt tablets. He had outpatient blood work 08/08/2024 that showed hemoglobin of 6.1 g/dl and was referred to emergency department for evaluation and treatment. Patient reports to me that over the last 2 weeks he has gained back most
of the weight he had lost previously. He has had worsening shortness of breath, orthopnea and PND. He has some lower extremity edema which is worse on the right lower extremity than left.
Patient reports he is very sedentary. He has chronic pain syndrome and it hurts to do minimal activity. He reports he primarily gets around the retirement in a wheelchair.
Progress Note - District Fire Management Officer
Subjective
Date of Service: August 18, 2024:
Current medications: Xanax, amitriptyline, aspirin 81 mg, atorvastatin 40 mg, Farxiga, morphine 30 every 12, Lyrica, Effexor, Wellbutrin, Lovenox, Keflex, MiraLAX, insulin, furosemide 80 IV twice daily, potassium 40 meq daily
132/79, pulse 86, respirate 20, afebrile, weight is 127.5 kg, down 1.9 kg, head neck exam unremarkable, lungs are clear, no obvious murmurs, JVD hard to assess, still with 3-4+ edema right, 3+ left
Potassium 3.9, sodium 142, BUN/creatinine 32 and 1.3
Objective
Labs:
08/15/24 05:38
08/18/24 07:24
Labs
Hgb 7.8 g/dL (13.0-18.0) L 08/15/24 05:38
Hct 25.9 % (39.0-52.0) L 08/15/24 05:38
Plt Count 193 10^3/uL (130-400) 08/15/24 05:38
Sodium 142 mmol/L (135-145) 08/18/24 07:24
Potassium 3.9 mmol/L (3.5-5.1) 08/18/24 07:24
BUN 32 mg/dl (9-20) H 08/18/24 07:24
Creatinine 1.3 mg/dL (0.7-1.3) 08/18/24 07:24
Glucose 171 mg/dl (70-99) H 08/18/24 07:24
Vital Signs and I&O:
Vital Signs
Temp Pulse Resp BP Pulse Ox
36.6 C 86 20 132/79 94
08/18/24 08:00 08/18/24 08:00 08/18/24 08:00 08/18/24 08:00 08/18/24 08:00
Vital Signs
Temp Pulse Resp BP Pulse Ox
36.6 C 86 20 132/79 94
08/18/24 08:00 08/18/24 08:00 08/18/24 08:00 08/18/24 08:00 08/18/24 08:00
Intake & Output
08/16/24 08/17/24 08/18/24 08/19/24
07:59 07:59 07:59 07:59
Intake Total 960 / 960 1320 / 1320 240 / 240
Output Total 240 / 240 240 / 240
Balance 720 / 720 1320 / 1320 0 / 0
[2024-08-18 16:16] LABS: Glucose - Point of Care 108 mg/dl (70-99)
[2024-08-18] MEDS: NOVOLOG FLEXPEN-HIGH RESISTANCE SC (16:16)
[2024-08-18] MEDS: ZAROXOLYN 5 MG PO (16:16)
[2024-08-18] MEDS: LOVENOX 40 MG SC (17:04)
[2024-08-18 17:53] VITALS: BP 126/71
[2024-08-18 20:45] LABS: Glucose - Point of Care 129 mg/dl (70-99)
[2024-08-18] MEDS: LIPITOR 40 MG PO (20:45)
[2024-08-18] MEDS: EFFEXOR XR 75 MG PO (20:46)
[2024-08-18] MEDS: EFFEXOR XR 150 MG PO (20:46)
[2024-08-18] MEDS: ELAVIL 50 MG PO (20:46)
[2024-08-18] MEDS: XANAX 0.25 MG PO (23:01)
[2024-08-18 23:47] VITALS: BP 157/75
[2024-08-19] MEDS: ROXICODONE 10 MG PO ×2 (02:55→08:44)
[2024-08-19 03:17] LABS: Glucose - Point of Care 217 mg/dl (70-99)
[2024-08-19 06:00] VITALS: BMI 34.1
[2024-08-19 07:51] VITALS: BP 124/68
[2024-08-19 08:00] LABS: Glucose - Point of Care 230 mg/dl (70-99)
[2024-08-19] MEDS: SENOKOT-S 2 TABLET PO ×2 (08:19→21:06)
[2024-08-19] MEDS: ASPIR LOW (ENTERIC COATED) 81 MG PO (08:19)
[2024-08-19] MEDS: FARXIGA 10 MG PO (08:19)
[2024-08-19] MEDS: MS CONTIN (EXTENDED RELEASE) 30 MG PO ×2 (08:20→21:06)
[2024-08-19] MEDS: WELLBUTRIN SR (12 hour sustained release) 150 MG PO (08:20)
[2024-08-19] MEDS: KEFLEX 500 MG PO ×4 (08:20→21:05)
[2024-08-19] MEDS: KCL 40 MEQ PO ×3 (08:20→21:05)
[2024-08-19] MEDS: LYRICA 200 MG PO ×3 (08:20→23:28)
[2024-08-19] MEDS: CLARITIN 10 MG PO (08:21)
[2024-08-19] MEDS: NOVOLOG FLEXPEN 27 UNITS SC ×2 (08:21→11:35)
[2024-08-19] MEDS: NOVOLOG FLEXPEN-HIGH RESISTANCE 4 UNITS SC (08:22)
[2024-08-19] MEDS: LASIX 80 MG IV (08:22)
[2024-08-19] MEDS: ZOVIRAX 400 MG PO ×2 (08:37→18:28)
[2024-08-19] MEDS: LANTUS 0.47 UNITS SC (08:37)
[2024-08-19 08:39] LABS: Blood Urea Nitrogen 35 mg/dl (9-20); Carbon Dioxide 29 mmol/L (22-30); Chloride 93 mmol/L (98-107); Estimated Creatinine Clearance 69 ml/min; Glucose 231 mg/dl (70-99); Potassium 3.2 mmol/L (3.5-5.1); Sodium 139 mmol/L (135-145); eGFR 48.41
--- NOTE | 2024-08-19 09:06 | W.PN.CARDCBS ---
Addendum entered and electronically signed by Feroz Wills MD 08/19/24 16:00:
Patient sleeping, did not awaken during exam, I did not attempt to rounds
63-year-old man with multiple myeloma on Revlimid, admitted in early July with anasarca and edema. Readmitted August 09 with hemoglobin of 6.1 and anasarca. Has been receiving IV diuretics with slow response. Over the last 2 days furosemide
has been doubled to 80 mg twice daily with metolazone.
PMH: In addition to above, hypertension, hyperlipidemia, type 2 diabetes, diabetic neuropathy, traumatic brain injury, Charcot foot with opioid dependence, morbid obesity and anxiety/depression, HFpEF in the past, last EF 60-65%
Current meds: Xanax, amitriptyline, aspirin 81 mg a day, atorvastatin 40 mg a day, Farxiga 10 mg a day, MS Contin 30 every 12, Lyrica, Effexor, Wellbutrin, acyclovir, Lovenox, Keflex, MiraLAX, Senokot, insulin, Lasix IV 80 mg twice daily, metoprolol
ER 12.5 daily, potassium 40 meq twice daily, 20 meq earlier today, metformin
124/68, pulse 85, respirate 99, weight is 125.4 kg, down 2 kg from yesterday, weight on admission was 143.6 kg, limited exam for lungs clear, regular rate and rhythm, 2+ edema left, 4+ edema right, neck veins okay, abdomen obese, sleeping comfortably
creatinine this morning was 1.6, at 1:30 PM 1.7, bicarbonate is 31, potassium is 3.1.
Plan:
Volume status is improved, but still volume overloaded and creatinine has now bumped to 1.7. Will hold IV furosemide tonight and in a.m. Continue to supplement potassium but then hold after AM dose of potassium.
Reassess volume status in a.m. based upon creatinine. We may not be able to push diuretics any further.
Will discuss with oncology whether there are alternatives to Revlimid.
Original Note:
Today's Communication / Plan
-
continue attempts at diuresis for gross volume overload although likely multifactorial
follow Cr
replete K
repeat BMP @1400
Impression / Plan
-
Family Physician: Daisy Gordon, DO
Dispatcher Refinery: None prior to admission, initial consultation Dr. Benson
Impression:
Presented with abnormal outpatient labs, hemoglobin 6.1
Acute on chronic anemia
s/p 1 unit packed RBCs 10/09/2023
Orthopnea, PND
Lower extremity edema
Acute HFpEF
Anasarca
Multiple Myeloma on Revlimid
Hypertension
Hyperlipidemia
Diabetes Mellitus, Type II - Insulin Dependent
Diabetic Neuropathy
Chronic Pain with Opioid Dependence secondary to Charcot Foot
Traumatic Brain Injury
Anxiety/Depression
Morbid Obesity
Echo 07/25/2024 (TDS, Lumason used): EF 60 to 65%. Normal LV size and function. No significant valvular disease.
Plan:
-Weight trending down if accurate on IV Lasix 80 mg twice daily and metolazone 5 mg daily, however remains with significant edema on examination
-Creatinine uptrending, 1.6 on 08/19
-Potassium repletion ordered by me
-Will continue IV Lasix and repeat BMP at 2 PM today to reevaluate creatinine and potassium levels. If creatinine continues to uptrend, suspicion that patient intravascularly dry and remaining edema secondary to chemotherapy agent, Revlimid.
Oncology has signed off. Unclear that there are alternative chemotherapy options
-Continue Farxiga. would add low dose BB with hold parameters
-last hgb 7.8.
-CHF education
HPI 08/09/2024: Patient is a 63-year-old male with past medical history significant for hypertension, type 2 diabetes, morbid obesity, remote TBI, chronic pain with opioid dependence, multiple myeloma on Revlimid with chronic anemia and has received
blood transfusions in the past. Patient was recently admitted from 07/25/2024 to 07/29/2024 for concerns of edema/anasarca and shortness of breath. Patient reports he had been using salt tablets in the past and was never taken off his med list at
the shelter. During that admission patient had an echocardiogram which showed normal ejection fraction with no significant valvular disease. He underwent significant weight loss and improvement of edema with IV diuresis. It was recommended
he discontinue salt tablets. He had outpatient blood work 08/08/2024 that showed hemoglobin of 6.1 g/dl and was referred to emergency department for evaluation and treatment. Patient reports to me that over the last 2 weeks he has gained back most
of the weight he had lost previously. He has had worsening shortness of breath, orthopnea and PND. He has some lower extremity edema which is worse on the right lower extremity than left.
Patient reports he is very sedentary. He has chronic pain syndrome and it hurts to do minimal activity. He reports he primarily gets around the shelter in a wheelchair.
Progress Note - Dispatcher Refinery
Subjective
Date of Service: August 19, 2024
Reports he remains with significant bloating
Objective
Labs:
08/15/24 05:38
08/19/24 07:15
Labs
Hgb 7.8 g/dL (13.0-18.0) L 08/15/24 05:38
Hct 25.9 % (39.0-52.0) L 08/15/24 05:38
Plt Count 193 10^3/uL (130-400) 08/15/24 05:38
Sodium 139 mmol/L (135-145) 08/19/24 07:15
Potassium 3.2 mmol/L (3.5-5.1) L 08/19/24 07:15
BUN 35 mg/dl (9-20) H 08/19/24 07:15
Creatinine 1.6 mg/dL (0.7-1.3) H 08/19/24 07:15
Glucose 231 mg/dl (70-99) H 08/19/24 07:15
Vital Signs and I&O:
Vital Signs
Temp Pulse Resp BP Pulse Ox
98.4 F 85 16 124/68 99
08/19/24 07:51 08/19/24 07:51 08/19/24 07:51 08/19/24 07:51 08/19/24 07:51
Vital Signs
Temp Pulse Resp BP Pulse Ox
98.4 F 85 16 124/68 99
08/19/24 07:51 08/19/24 07:51 08/19/24 07:51 08/19/24 07:51 08/19/24 07:51
Intake & Output
08/17/24 08/18/24 08/19/24 08/20/24
07:59 07:59 07:59 07:59
Intake Total 1320 / 1320 240 / 240 1040 / 1040
Output Total 240 / 240
Balance 1320 / 1320 0 / 0 1040 / 1040
Physical Exam
Physical Exam
GEN: No distress, awake, alert, oriented x3. sitting in chair
HEENT: supple, anicteric, mmm, eomi
LUNGS: CTA B/L, no wheezes
CV: Reg, S1/S2, no murmur
ABD: soft, BS+, NT, distended
EXT: No cyanosis, clubbing. 4+ edema of RLE>LLE. multiple toe amps/partial amps
NEURO: Gross non-focal
SKIN: Warm, pink, dry. No rash
[2024-08-19] MEDS: MIRALAX 17 GRAMS PO (09:58)
--- NOTE | 2024-08-19 11:33 | CM ---
Plan: Return to [facility] when stable
If discharged over the weekend, Per Jemima (#[phone]), [facility] will accept him
[2024-08-19] MEDS: TOPROL XL 12.5 MG PO (11:35)
[2024-08-19] MEDS: NOVOLOG FLEXPEN-HIGH RESISTANCE 2 UNITS SC (11:36)
[2024-08-19 11:40] LABS: Glucose - Point of Care 157 mg/dl (70-99)
--- NOTE | 2024-08-19 12:10 | W.PN.HOSP.TC ---
Today's Communication/Plan
-
Continue diuresis and beta martine as per cardiology
Assessment / Plan
Assessment / Plan
Physical Exam
General: No Apparent Distress
HEENT: Moist Mucous Membranes
Respiratory: Clear to Auscultation Bilaterally
Cardiac: Regular Rhythm and S1/S2
GI: Soft, Nondistended, Normal Bowel Sounds and Nontender.
Musculoskeletal: Edema, Right Lower Extrem and Edema, Left Lower Extrem
Neuro: AO x 3
Psych: Calm; Negative Confused
Assessment/Plan
Patient is a 63 y/o male with past medical history significant for HTN, DM-II and multiple myeloma who presented to the ED complaining of significant swelling over the 48 hours prior to presentation.
Acute on Chronic Anemia
Multiple Myeloma
Acute on Chronic Anemia secondary to the above
- Patient is on lenalidomide for myeloma - hold with severe anemia
- s/p 1u of PRBC so far. Hgb at 7.8 lenalidomide held during hospitalization. Hem/Onc following
- Follow H&H for improvement and transfuse additional units if needed.
Anasarca
Acute on Chronic HFpEF
- Patient has regained much of the weight that was lost during his prior visit.
- Prior h/o symptomatic anemia resulting in edema / CHF exacerbation in 08/2023.
- Follow I/Os, daily weights, etc. Continues to lose weight. Improving LE edema .
- CW diuretics per cards -still needing IV diuresis
- Metolazone as per cardiology
- Continue Toprol XL 12.5 mg daily
- Abd US negative for ascites
- Echo on 07/25 with normal left ventricular chamber size. Normal left ventricular systolic function. Normal regional wall motion. Ejection fraction 60 to 65%. No significant valvular disease.
RLQ tender palpable mass - suspect abdominal wall hematoma -no trauma . CT A/P without contrast shows right lower quadrant abdominal wall thickening with suspicious for contusion. No superficial signs of cellulitis.Tx syptomatically.
Acute kidney injury likely secondary to overdiuresis
-Creat up but stable in last 24-48 hr. Monitor creatinine closely -- improved to 1.3, now up to 1.6
Mild TME likely 2/2 pain meds vs. hospital acrquire delirium vs. davidson
-Mentation seems to be improved
-No focal neurological deficit
-following all commands and talkative currently
Severe constipation
-bowel regimen and ENEMA ordered earlier this hospitalization
-Patient now reporting formed bowel movements, and denied any constipation
-If with nausea/vomiting check abdomen imaging
Left antecubital site with erythema (previous IV site) concern for cellulitis
-Completed Keflex 08/13 to 08/19
DM-II
- Stable. Marked insulin resistance with high-doses of insulin.
- Continue basal : bolus insulin.
- Update A1C at 10.1
- Continue Farxiga.
- Consulted Diabetes ROOFING LABORER, appreciate their evaluation and recommendations
Chronic Pain Syndrome
Chronic Opioid Dependence
Charcot Foot
- Stable. Continue current pain control med regimen without changes. Continue with MS Contin 30 every 12. Oxycodone 10 every 4hprn
- Follow-up with Pain Management after discharge.
- Patient notes that he has been wheelchair bound for > 1 year.
History of TBI
- No new neurologic complaints.
Morbid Obesity due to excess calories
- Affects all aspects of care.
- Encourage healthy diet. Patient extremely limited in mobility and suspect that significant weight reduction will not be feasible.
DVT Prophylaxis: Lovenox
Code Status: Full
Anticipated Discharge: > 48 hours
Subjective/Interval History
-
Date of Service: August 19, 2024
Patient was seen and examined. He denied any chest pain or shortness of breath.
Objective Data
-
Labs:
Laboratory Results
08/19/24 08/19/24
07:15 14:00
Sodium 139 Pending
Potassium 3.2 L Pending
Chloride 93 L Pending
Carbon Dioxide 29 Pending
BUN 35 H Pending
Creatinine 1.6 H Pending
Glucose 231 H Pending
Calcium 9.0 Pending
Vital Signs:
Vital Signs
Temp Pulse Resp BP Pulse Ox
98.4 F 85 16 124/68 99
08/19/24 07:51 08/19/24 07:51 08/19/24 07:51 08/19/24 07:51 08/19/24 07:51
I&O
08/18/24 08/19/24 08/20/24
06:59 06:59 06:59
Intake Total 240 / 240 1040 / 1040
Output Total 240 / 240
Balance 0 / 0 1040 / 1040
[2024-08-19 14:11] LABS: Blood Urea Nitrogen 36 mg/dl (9-20); Calcium 9.1 mg/dl (8.4-10.2); Carbon Dioxide 31 mmol/L (22-30); Chloride 93 mmol/L (98-107); Estimated Creatinine Clearance 65 ml/min; Glucose 122 mg/dl (70-99); Potassium 3.1 mmol/L (3.5-5.1); Sodium 141 mmol/L (135-145); eGFR 45.02
--- NOTE | 2024-08-19 14:21 | PN.DE.MGMTRT ---
Insulin Management
- -
08/19/2024: Diabetes Management Consult
63 year old male admitted on 08/09 for Acute on Chronic HFpEF, diabetes consult requested on 08/19
PMH: HTN, DM-II and multiple myeloma. He is noted for insulin resistance with high-doses of insulin, was taking Lispro 47 units AC, Lantus 60 units Sat- Thur 60 units BID and 66 units BID on Fridays, Metformin 1000 mg PO BID and Farxiga 10 mg daily.
Ozempic 0.25 mg Q Tuesdays. Recent A1C 10.1% on 07/25/24. Cr 1.7, eGFR 45.02.
Pt was leaving the floor for testing at time of my visit, unable to interview.
Current diabetes regimen includes: NovoLog 27 units AC, Lantus 47 units BID, Farxiga 10mg daily and High corrective with meals
Glucose has remained suboptimal, Premeal yesterday was 54 to 208, No hypoglycemic episode today.
Will cont current regimen that was initiated by the hospitalist. will add Metformin 1000 mg PO BID and change corrective to moderate.
Will cont to follow and adjust insulin dose if needed
Diabetes History
- -
Type of Diabetes: 2 requiring insulin
Pre-Admission Diabetes Regimen
08/19/24 08/19/24
07:15 13:31
Creatinine 1.6 H 1.7 H
Insulin Pump Settings
IP Diabetes Regimen
08/18/24 08/18/24 08/18/24
15:04 15:22 16:15
Glucose
POC Glucose 54 L* 115 H 108 H
08/18/24 08/19/24 08/19/24
20:43 03:15 07:15
Glucose 231 H
POC Glucose 129 H 217 H
08/19/24 08/19/24 08/19/24
07:59 11:33 13:31
Glucose 122 H
POC Glucose 230 H 157 H
Patient Education
[2024-08-19 15:06] VITALS: BP 108/66
[2024-08-19 15:21] LABS: Glucose - Point of Care 55 mg/dl (70-99)
[2024-08-19] MEDS: KCL 20 MEQ PO (15:34)
[2024-08-19 15:47] LABS: Glucose - Point of Care 54 mg/dl (70-99)
[2024-08-19 16:07] LABS: Glucose - Point of Care 64 mg/dl (70-99)
[2024-08-19] MEDS: DEXTROSE 50% SYRINGE 12.5 GRAMS IV (16:10)
[2024-08-19 16:35] LABS: Glucose - Point of Care 122 mg/dl (70-99)
[2024-08-19] MEDS: LOVENOX 40 MG SC (18:25)
[2024-08-19 18:27] LABS: Glucose - Point of Care 243 mg/dl (70-99)
[2024-08-19] MEDS: GLUCOPHAGE 1000 MG PO (18:29)
[2024-08-19 19:25] VITALS: BP 113/60
[2024-08-19] MEDS: LIPITOR 40 MG PO (21:05)
[2024-08-19] MEDS: ELAVIL 50 MG PO (21:05)
[2024-08-19] MEDS: EFFEXOR XR 75 MG PO (21:06)
[2024-08-19] MEDS: EFFEXOR XR 150 MG PO (21:06)
[2024-08-19 21:13] LABS: Glucose - Point of Care 167 mg/dl (70-99)
[2024-08-19] MEDS: XANAX 0.25 MG PO (21:50)
[2024-08-19] MEDS: LANTUS 0.03 UNITS SC (21:50)
[2024-08-19 22:29] LABS: Blood Urea Nitrogen 38 mg/dl (9-20); Calcium 8.8 mg/dl (8.4-10.2); Carbon Dioxide 32 mmol/L (22-30); Chloride 92 mmol/L (98-107); Estimated Creatinine Clearance 79 ml/min; Glucose 192 mg/dl (70-99); Potassium 3.3 mmol/L (3.5-5.1); Sodium 136 mmol/L (135-145); eGFR 56.83
[2024-08-19 23:34] LABS: Glucose - Point of Care 188 mg/dl (70-99)
[2024-08-19 23:40] VITALS: BP 129/66
[2024-08-20 01:23] LABS: Glucose - Point of Care 189 mg/dl (70-99)
--- NOTE | 2024-08-20 01:43 | PTCARENOTE ---
Per I/O documentation, pt had not peed during day shift or during the night thus far. Bladder scan showed >1050mL urine in bladder. Pt sat on toilet and attempted to pee but nothing came out. I told him that if nothing came out, we would have to
straight cath him. When I went back in to tell him about the straight cath, the pt refused and became very agitated. 'Why are you waking me up in the middle of the night for this? I didn't wake you up, why are you waking me up? I'll pee when I wake
up in the morning.'
[2024-08-20] MEDS: FLOMAX 0.4 MG PO (02:36)
[2024-08-20 04:00] VITALS: BP 102/68
[2024-08-20 04:07] LABS: Glucose - Point of Care 184 mg/dl (70-99)
--- NOTE | 2024-08-20 04:08 | PTCARENOTE ---
Order for flomax received from house provider. Flomax given to pt. Pt stated 'what am I doing wrong?' and 'if I had my pain medicine back, I'd be fine.' Still awaiting void.
[2024-08-20 05:13] VITALS: BMI 34.0
--- NOTE | 2024-08-20 05:53 | W.PN.UPDATE ---
Update Note
Progress Note Update
RN reported patient hadn't voided all day and BS >1050 and refusing straight or Felipe catheter and notably agitated at that time. Stable VS, Will order Flomax 0.5mg PO now, advised RN to maintain Fall precaution to preven falls.
At [address] Felipe in, will place order for Felipe and UA.
[2024-08-20 06:29] LABS: Glucose - Point of Care 188 mg/dl (70-99)
--- NOTE | 2024-08-20 06:30 | PTCARENOTE ---
Pt agreeable to pop catheter. 16 fr catheter placed with 850mL clear urine output. UA sent.
[2024-08-20 06:44] LABS: Urine Albumin Trace (Neg - Trace); Urine Bilirubin Negative (Negative); Urine Character Clear (Clear); Urine Color Yellow; Urine Glucose 3+ (Negative); Urine Ketone Negative (Negative); Urine Leukocyte Negative (Negative); Urine Nitrite Negative (Negative); Urine Occult Blood Negative (Negative); Urine Urobilinogen Negative (Neg - 1+); Urine pH 6.5 (5.0-9.0)
[2024-08-20 07:00] VITALS: BP 107/65
[2024-08-20 08:02] LABS: Hematocrit 24.8 % (39.0-52.0); Mean Corp Hgb Conc. 32.3 g/dL (33.0-37.0); Mean Corpuscular Hgb 31.5 pg (27.0-31.0); Mean Corpuscular Volume 97.6 fL (80.0-94.0); Mean Platelet Volume 10.9 fL (7.4-10.4); Platelet Count 144 10^3/uL (130-400); Red Blood Cell Count 2.54 10^6/uL (4.70-6.10); Red Cell Dist. Width 18.6 % (11.5-14.5); White Blood Cell Count 3.6 10^3/uL (4.8-10.8)
[2024-08-20] MEDS: KCL 40 MEQ PO (08:51)
[2024-08-20] MEDS: MS CONTIN (EXTENDED RELEASE) 30 MG PO ×2 (08:51→20:45)
[2024-08-20] MEDS: MIRALAX 17 GRAMS PO (08:51)
[2024-08-20] MEDS: ASPIR LOW (ENTERIC COATED) 81 MG PO (08:52)
[2024-08-20] MEDS: KEFLEX 500 MG PO ×3 (08:52→16:36)
[2024-08-20] MEDS: GLUCOPHAGE 1000 MG PO ×2 (08:52→16:36)
[2024-08-20] MEDS: CLARITIN 10 MG PO (08:52)
[2024-08-20] MEDS: FARXIGA 10 MG PO (08:52)
[2024-08-20] MEDS: TOPROL XL 12.5 MG PO (08:52)
[2024-08-20] MEDS: LYRICA 200 MG PO ×3 (08:52→23:55)
[2024-08-20] MEDS: WELLBUTRIN SR (12 hour sustained release) 150 MG PO (08:52)
[2024-08-20] MEDS: SENOKOT-S 2 TABLET PO ×2 (08:52→21:21)
[2024-08-20 08:54] LABS: Glucose - Point of Care 292 mg/dl (70-99)
[2024-08-20 09:28] LABS: Blood Urea Nitrogen 36 mg/dl (9-20); Calcium 8.9 mg/dl (8.4-10.2); Carbon Dioxide 29 mmol/L (22-30); Chloride 93 mmol/L (98-107); Estimated Creatinine Clearance 78 ml/min; Glucose 271 mg/dl (70-99); Potassium 3.5 mmol/L (3.5-5.1); Sodium 139 mmol/L (135-145); eGFR 56.83
[2024-08-20] MEDS: ROXICODONE 10 MG PO ×3 (10:13→21:25)
[2024-08-20 11:00] VITALS: BP 97/60
[2024-08-20 11:06] LABS: Glucose - Point of Care 308 mg/dl (70-99)
[2024-08-20] MEDS: KCL ELIXIR 40 MEQ PO (12:34)
[2024-08-20 12:49] LABS: Glucose - Point of Care 354 mg/dl (70-99)
--- NOTE | 2024-08-20 14:26 | W.PN.CARDCBS ---
Today's Communication / Plan
-
Continue diuresis with possible transition to oral Lasix in the next 24-48 hours
Impression / Plan
-
Family Physician: Daisy Gordon, DO
Dietetics Teacher: None prior to admission, initial consultation Dr. Benson
Impression:
Presented with abnormal outpatient labs, hemoglobin 6.1
Acute on chronic anemia
s/p 1 unit packed RBCs 10/09/2023
Orthopnea, PND
Lower extremity edema
Acute HFpEF
Anasarca
Multiple Myeloma on Revlimid
Hypertension
Hyperlipidemia
Diabetes Mellitus, Type II - Insulin Dependent
Diabetic Neuropathy
Chronic Pain with Opioid Dependence secondary to Charcot Foot
Traumatic Brain Injury
Anxiety/Depression
Morbid Obesity
Echo 07/25/2024 (TDS, Lumason used): EF 60 to 65%. Normal LV size and function. No significant valvular disease.
Plan:
Heart failure with preserved ejection fraction
-Volume status is slowly improving although remains volume overloaded. With IV diuresis augmented by several doses of Zaroxolyn he has lost approximately 40 pounds this admission
-Acute urinary retention overnight requiring Felipe catheter placement�will defer to primary
-Renal function relatively stable, creatinine 1.4 today
-Would continue IV Lasix 80 mg twice daily another 24-48 hours and then transition to oral Lasix
-Keep K greater than 4, mag greater than 2
-Initiation of goal-directed medical therapy limited by renal insufficiency and hypotension: Continue Toprol XL 12.5 mg daily, continue Farxiga 10 mg daily.
-Heart failure education
Acute on chronic anemia status post transfusion
-Monitor hemoglobin/platelets closely with plan for transfusion for hemoglobin under 8 per oncology
Multiple myeloma- hold lenolidomide during hospitalization. OP follow up will be arranged upon discharge
HPI 08/09/2024: Patient is a 63-year-old male with past medical history significant for hypertension, type 2 diabetes, morbid obesity, remote TBI, chronic pain with opioid dependence, multiple myeloma on Revlimid with chronic anemia and has received
blood transfusions in the past. Patient was recently admitted from 07/25/2024 to 07/29/2024 for concerns of edema/anasarca and shortness of breath. Patient reports he had been using salt tablets in the past and was never taken off his med list at
the half-way. During that admission patient had an echocardiogram which showed normal ejection fraction with no significant valvular disease. He underwent significant weight loss and improvement of edema with IV diuresis. It was recommended
he discontinue salt tablets. He had outpatient blood work 08/08/2024 that showed hemoglobin of 6.1 g/dl and was referred to emergency department for evaluation and treatment. Patient reports to me that over the last 2 weeks he has gained back most
of the weight he had lost previously. He has had worsening shortness of breath, orthopnea and PND. He has some lower extremity edema which is worse on the right lower extremity than left.
Patient reports he is very sedentary. He has chronic pain syndrome and it hurts to do minimal activity. He reports he primarily gets around the half-way in a wheelchair.
Progress Note - Dietetics Teacher
Subjective
Date of Service: August 20, 2024
Seen and examined sitting out of bed to chair. Major complaint is the placement of new Felipe catheter. Overall reports improved shortness of breath and edema.
Objective
Labs:
08/20/24 07:30
08/20/24 08:56
Labs
Hgb 8.0 g/dL (13.0-18.0) L 08/20/24 07:30
Hct 24.8 % (39.0-52.0) L 08/20/24 07:30
Plt Count 144 10^3/uL (130-400) D 08/20/24 07:30
Sodium 139 mmol/L (135-145) 08/20/24 08:56
Potassium 3.5 mmol/L (3.5-5.1) 08/20/24 08:56
BUN 36 mg/dl (9-20) H 08/20/24 08:56
Creatinine 1.4 mg/dL (0.7-1.3) H 08/20/24 08:56
Glucose 271 mg/dl (70-99) H 08/20/24 08:56
Vital Signs and I&O:
Vital Signs
Temp Pulse Resp BP Pulse Ox
98.6 F 85 16 97/60 96
08/20/24 11:00 08/20/24 11:00 08/20/24 11:00 08/20/24 11:00 08/20/24 11:00
Vital Signs
Temp Pulse Resp BP Pulse Ox
98.6 F 85 16 97/60 96
08/20/24 11:00 08/20/24 11:00 08/20/24 11:00 08/20/24 11:00 08/20/24 11:00
Intake & Output
08/18/24 08/19/24 08/20/24 08/21/24
06:59 06:59 06:59 06:59
Intake Total 240 / 240 1040 / 1040 840 / 840 960 / 960
Output Total 240 / 240 850 / 850
Balance 0 / 0 1040 / 1040 840 / 840 110 / 110
Physical Exam
Physical Exam
GEN: No distress, awake, alert, oriented x3. sitting in chair
HEENT: mmm
LUNGS:Bronchovesicular breath sounds, decreased at bases but clear
CV: Reg, S1/S2, no murmur
ABD: soft, BS+, NT, distended
EXT: ++ edema of RLE>LLE. multiple toe amps/partial amps
[2024-08-20 15:00] VITALS: BP 123/64
[2024-08-20] MEDS: NOVOLOG FLEXPEN-MODERATE RESISTANCE 9 UNITS SC (15:05)
[2024-08-20 16:34] LABS: Glucose - Point of Care 233 mg/dl (70-99)
[2024-08-20] MEDS: LOVENOX 40 MG SC (16:36)
[2024-08-20] MEDS: NOVOLOG FLEXPEN-MODERATE RESISTANCE 3 UNITS SC (16:37)
--- NOTE | 2024-08-20 17:40 | W.PN.HOSP.TC ---
Today's Communication/Plan
-
Gradually resume lower doses of Insulin and assess patient's response
Continue IV Diuresis
Felipe for acute urinary retention
Assessment / Plan
Assessment / Plan
Physical Exam
General: No Apparent Distress
HEENT: Moist Mucous Membranes
Respiratory: Clear to Auscultation Bilaterally
Cardiac: Regular Rhythm and S1/S2
GI: Soft, Nondistended, Normal Bowel Sounds and Nontender.
Musculoskeletal: Edema, Right Lower Extrem and Edema, Left Lower Extrem
Neuro: AO x 3
Psych: Calm; Negative Confused
Assessment/Plan
Patient is a 63 y/o male with past medical history significant for HTN, DM-II and multiple myeloma who presented to the ED complaining of significant swelling over the 48 hours prior to presentation.
Acute on Chronic Anemia
Multiple Myeloma
Acute on Chronic Anemia secondary to the above
- Patient is on lenalidomide for myeloma - hold with severe anemia
- s/p 1u of PRBC so far. Hgb at 7.8 lenalidomide held during hospitalization. Hem/Onc following
- Follow H&H for improvement and transfuse additional units if needed.
Anasarca
Acute on Chronic HFpEF
- Patient has regained much of the weight that was lost during his prior visit.
- Prior h/o symptomatic anemia resulting in edema / CHF exacerbation in 08/2023.
- Follow I/Os, daily weights, etc. Continues to lose weight. Improving LE edema .
- CW diuretics per cards - continue IV Lasix 80 mg BID
- Metolazone as per cardiology
- Continue Toprol XL 12.5 mg daily
- Continue Farxiga 10 mg daily
- Keep potassium > 4, mag > 2
- Abdominal ultrasound negative for ascites
- Echo on 07/25 with normal left ventricular chamber size. Normal left ventricular systolic function. Normal regional wall motion. Ejection fraction 60 to 65%. No significant valvular disease.
Urinary Retention
-Noted overnight 08/19/24 to 08/20/24
-Felipe catheter placed on 08/20/24 AM
-Voiding trial inpatient vs. outpatient with urology
RLQ tender palpable mass - suspect abdominal wall hematoma -no trauma . CT A/P without contrast shows right lower quadrant abdominal wall thickening with suspicious for contusion. No superficial signs of cellulitis.Tx syptomatically.
Acute kidney injury likely secondary to overdiuresis
-Creat up but stable in last 24-48 hr. Monitor creatinine closely -- improved to 1.3, now up to 1.6
Mild TME likely 2/2 pain meds vs. hospital acrquire delirium vs. davidson
-Mentation seems to be improved
-No focal neurological deficit
-following all commands and talkative currently
Severe constipation
-bowel regimen and ENEMA ordered earlier this hospitalization
-Patient now reporting formed bowel movements, and denied any constipation
-If with nausea/vomiting check abdomen imaging
Left antecubital site with erythema (previous IV site) concern for cellulitis
-Completed Keflex 08/13 to 08/19
DM-II
Symptomatic Hypoglycemia
- Stable. Marked insulin resistance with high-doses of insulin.
- Stopped original basal : bolus insulin regimen
- Update A1C at 10.1
- Continue Farxiga.
- Consulted Diabetes MAP MAKER, appreciate their evaluation and recommendations
- Symptomatic hypoglycemia seems to be in the afternoons
- Reduced Lantus to 5 units BID for now, and after initially holding, resumed Sliding Scale Insulin -- monitor on this regimen
Chronic Pain Syndrome
Chronic Opioid Dependence
Charcot Foot
- Stable. Continue current pain control med regimen without changes. Continue with MS Contin 30 every 12. Oxycodone 10 every 4hprn
- Follow-up with Pain Management after discharge.
- Patient notes that he has been wheelchair bound for > 1 year.
History of TBI
- No new neurologic complaints.
Morbid Obesity due to excess calories
- Affects all aspects of care.
- Encourage healthy diet. Patient extremely limited in mobility and suspect that significant weight reduction will not be feasible.
DVT Prophylaxis: Lovenox
Code Status: Full
Anticipated Discharge: > 48 hours
Subjective/Interval History
-
Date of Service: August 20, 2024
Patient was seen and examined. He denied any new complaints.
Objective Data
-
Labs:
Laboratory Results
08/20/24 08/20/24
07:30 08:56
WBC 3.6 L
Hgb 8.0 L
Hct 24.8 L
Plt Count 144 D
Sodium Cancelled 139
Potassium Cancelled 3.5
Chloride Cancelled 93 L
Carbon Dioxide Cancelled 29
BUN Cancelled 36 H
Creatinine Cancelled 1.4 H
Glucose Cancelled 271 H
Calcium Cancelled 8.9
Vital Signs:
Vital Signs
Temp Pulse Resp BP Pulse Ox
98.6 F 82 17 123/64 96
08/20/24 15:00 08/20/24 15:00 08/20/24 15:00 08/20/24 15:00 08/20/24 15:00
I&O
08/19/24 08/20/24 08/21/24
06:59 06:59 06:59
Intake Total 1040 / 1040 840 / 840 960 / 960
Output Total 1800 / 1800
Balance 1040 / 1040 840 / 840 -840 / -840
[2024-08-20 19:00] VITALS: BP 98/61
[2024-08-20] MEDS: LASIX 80 MG IV (20:44)
[2024-08-20] MEDS: LANTUS 0.05 UNITS SC (21:26)
[2024-08-20 21:49] LABS: Glucose - Point of Care 194 mg/dl (70-99)
[2024-08-20] MEDS: EFFEXOR XR 150 MG PO (21:49)
[2024-08-20] MEDS: XANAX 0.25 MG PO (21:49)
[2024-08-20] MEDS: LIPITOR 40 MG PO (21:49)
[2024-08-20] MEDS: EFFEXOR XR 75 MG PO (21:49)
[2024-08-20] MEDS: ELAVIL 50 MG PO (21:49)
[2024-08-20 23:00] VITALS: BP 114/60
[2024-08-21 03:00] VITALS: BP 120/60
[2024-08-21 06:00] VITALS: BMI 33.4
[2024-08-21] MEDS: ROXICODONE 10 MG PO ×4 (06:25→21:47)
--- NOTE | 2024-08-21 07:27 | W.PN.HOSP.TC ---
Today's Communication/Plan
-
-Lasix PO now
-Will monitor sugars to make sure no more symptomatic hypoglycemia -- Insulin regimen has been significantly scaled back
-Blood in pop/urine, consulted urology, monitor for now
-Tamsulosin 0.4 mg daily
-Discontinue Pop Catheter at ~6 AM tomorrow for voiding trial
Assessment / Plan
Assessment / Plan
Physical Exam
General: No Apparent Distress
HEENT: Moist Mucous Membranes
Respiratory: Clear to Auscultation Bilaterally
Cardiac: Regular Rhythm and S1/S2
GI: Soft, Nondistended, Normal Bowel Sounds and Nontender.
Musculoskeletal: Edema, Right Lower Extrem and Edema, Left Lower Extrem
Neuro: AO x 3
Psych: Calm; Negative Confused
Assessment/Plan
Patient is a 63 y/o male with past medical history significant for HTN, DM-II and multiple myeloma who presented to the ED complaining of significant swelling over the 48 hours prior to presentation.
Acute on Chronic Anemia
Multiple Myeloma
Acute on Chronic Anemia secondary to the above
- Patient is on lenalidomide for myeloma - hold with severe anemia
- s/p 1u of PRBC so far. Hgb at 7.8 lenalidomide held during hospitalization. Hem/Onc following
- Follow H&H for improvement and transfuse additional units if needed.
Anasarca
Acute on Chronic HFpEF
- Patient has regained much of the weight that was lost during his prior visit.
- Prior h/o symptomatic anemia resulting in edema / CHF exacerbation in 08/2023.
- Follow I/Os, daily weights, etc. Continues to lose weight. Improving LE edema .
- CW diuretics per cards - status IV Lasix 80 mg BID, now on PO Lasix 80 mg BID
- Metolazone as per cardiology
- Continue Toprol XL 12.5 mg daily
- Continue Farxiga 10 mg daily
- Keep potassium > 4, mag > 2
- Abdominal ultrasound negative for ascites
- Echo on 07/25 with normal left ventricular chamber size. Normal left ventricular systolic function. Normal regional wall motion. Ejection fraction 60 to 65%. No significant valvular disease.
Urinary Retention
Small red intermittent fibrous material in the Pop catheter/Pop bag on 08/20/24 to 08/21/24 - likely small clots from catheter placement
Severe Pain at the Penis Area
-Noted overnight 08/19/24 to 08/20/24
-Pop catheter placed on 08/20/24 AM
-Consult urology, appreciate their evaluation and recommendations
-Check bladder scan to make sure Pop draining well
-If patient has joselyn blood with no urine output, then would be concerning for malpositioned cath or urethral trauma
-Lidocaine jelly at meatus as needed, as per urology recommendations
-Tamsulosin 0.4 mg daily
-Discontinue Pop Catheter at ~6 AM tomorrow for voiding trial
RLQ tender palpable mass - suspect abdominal wall hematoma -no trauma . CT A/P without contrast shows right lower quadrant abdominal wall thickening with suspicious for contusion. No superficial signs of cellulitis.Tx syptomatically.
Acute kidney injury likely secondary to overdiuresis
-Creat up but stable in last 24-48 hr. Monitor creatinine closely -- improved to 1.3, now up to 1.6, now back down to 1.4
Mild TME likely 2/2 pain meds vs. hospital acrquire delirium vs. davidson
-Mentation seems to be improved
-No focal neurological deficit
-following all commands and talkative currently
Severe constipation
-bowel regimen and ENEMA ordered earlier this hospitalization
-Patient now reporting formed bowel movements, and denied any constipation
-If with nausea/vomiting check abdomen imaging
Left antecubital site with erythema (previous IV site) concern for cellulitis
-Completed Keflex 08/13 to 08/19
DM-II
Symptomatic Hypoglycemia
- Stable. Marked insulin resistance with high-doses of insulin.
- Stopped original basal : bolus insulin regimen
- Update A1C at 10.1
- Continue Farxiga.
- Consulted Diabetes RN CLINICIAN, appreciate their evaluation and recommendations
- Symptomatic hypoglycemia seems to be in the afternoons
- Reduced Lantus to 5 units BID as of 08/20/24, and after initially holding, resumed Sliding Scale Insulin -- monitor on this regimen for now, will increase further depending on patient's glucose trends
Chronic Pain Syndrome
Chronic Opioid Dependence
Charcot Foot
- Stable. Continue current pain control med regimen without changes. Continue with MS Contin 30 every 12. Oxycodone 10 every 4hprn
- Follow-up with Pain Management after discharge.
- Patient notes that he has been wheelchair bound for > 1 year.
History of TBI
- No new neurologic complaints.
Morbid Obesity due to excess calories
- Affects all aspects of care.
- Encourage healthy diet. Patient extremely limited in mobility and suspect that significant weight reduction will not be feasible.
DVT Prophylaxis: Lovenox
Code Status: Full Code
Anticipated Discharge: Within 24 hours
Subjective/Interval History
-
Date of Service: August 21, 2024
Patient was seen and examined. He denied any chest pain, SOB or any other complaints.
Objective Data
-
Labs:
Laboratory Results
08/21/24
06:00
Sodium Pending
Potassium Pending
Chloride Pending
Carbon Dioxide Pending
BUN Pending
Creatinine Pending
Glucose Pending
Calcium Pending
Vital Signs:
Vital Signs
Temp Pulse Resp BP Pulse Ox
97.2 F 87 18 120/60 96
08/21/24 03:00 08/21/24 03:00 08/21/24 03:00 08/21/24 03:00 08/21/24 03:00
I&O
08/20/24 08/21/24 08/22/24
06:59 06:59 06:59
Intake Total 840 / 840 2560 / 2560
Output Total 3150 / 3150
Balance 840 / 840 -590 / -590
[2024-08-21 07:55] VITALS: BP 108/58
[2024-08-21] MEDS: MS CONTIN (EXTENDED RELEASE) 30 MG PO ×2 (07:57→19:46)
[2024-08-21 08:21] LABS: Glucose - Point of Care 221 mg/dl (70-99)
[2024-08-21 08:31] LABS: NT-proBNP 56.5 pg/ml
[2024-08-21 08:36] LABS: Blood Urea Nitrogen 39 mg/dl (9-20); Calcium 9.1 mg/dl (8.4-10.2); Carbon Dioxide 27 mmol/L (22-30); Chloride 96 mmol/L (98-107); Estimated Creatinine Clearance 78 ml/min; Glucose 223 mg/dl (70-99); Magnesium 2.6 mg/dl (1.6-2.3); Potassium 3.5 mmol/L (3.5-5.1); Sodium 141 mmol/L (135-145); eGFR 56.83
[2024-08-21] MEDS: LYRICA 200 MG PO ×3 (09:16→23:45)
[2024-08-21] MEDS: TOPROL XL 12.5 MG PO (09:16)
[2024-08-21] MEDS: WELLBUTRIN SR (12 hour sustained release) 150 MG PO (09:16)
[2024-08-21] MEDS: FARXIGA 10 MG PO (09:17)
[2024-08-21] MEDS: GLUCOPHAGE 1000 MG PO ×2 (09:17→16:23)
[2024-08-21] MEDS: ASPIR LOW (ENTERIC COATED) 81 MG PO (09:17)
[2024-08-21] MEDS: CLARITIN 10 MG PO (09:17)
[2024-08-21] MEDS: NOVOLOG FLEXPEN-MODERATE RESISTANCE 3 UNITS SC (09:17)
[2024-08-21] MEDS: MIRALAX PO (09:19)
[2024-08-21] MEDS: LANTUS 0.05 UNITS SC ×2 (09:19→21:42)
[2024-08-21] MEDS: SENOKOT-S PO ×2 (09:19→21:13)
[2024-08-21 11:30] VITALS: BP 123/63; BMI 33.4
--- NOTE | 2024-08-21 11:32 | PTCARENOTE ---
Pt alert able to make needs known pt co pain. I gave scheduled meds as prescribed. PT ate breakfast BS 221 and received insulin as per MD ORDER. Pt had labs but they were not resulted yet. PT co of irritation of penis with pop. MD made aware
and urology ordered. I did notice small intermitted bloody fibrous material otherwise urine is clear yellow urine. PT resting in chair. he is on fall risk PT verbalized an understanding and agreed to call me if he wants to get up. bed and chair
alarm on.
[2024-08-21 11:35] LABS: Glucose - Point of Care 303 mg/dl (70-99)
[2024-08-21] MEDS: FLOMAX 0.4 MG PO (12:43)
[2024-08-21] MEDS: NOVOLOG FLEXPEN-MODERATE RESISTANCE 7 UNITS SC (12:43)
[2024-08-21] MEDS: LIDOCAINE URO-JET 2% 1 SYRINGE TOPICAL ×2 (12:47→19:47)
[2024-08-21 15:10] VITALS: BP 125/75
[2024-08-21] MEDS: LOVENOX 40 MG SC (16:23)
[2024-08-21] MEDS: LASIX 80 MG PO (16:23)
[2024-08-21] MEDS: NOVOLOG FLEXPEN-MODERATE RESISTANCE 9 UNITS SC (16:24)
[2024-08-21 16:25] LABS: Glucose - Point of Care 388 mg/dl (70-99)
--- NOTE | 2024-08-21 16:52 | W.PN.CARDCBS ---
Today's Communication / Plan
-
Transition IV to oral Lasix
Optimize goal-directed medical therapy as able
Heart failure education
Acute urinary retention requiring Pop catheter with trial of void planned tomorrow
Outpatient cardiac follow-up to be arranged
Impression / Plan
-
Family Physician: Daisy Gordon, DO
Motorcycle Fabricator: None prior to admission, initial consultation Dr. Benson
Impression:
Presented with abnormal outpatient labs, hemoglobin 6.1
Acute on chronic anemia
s/p 1 unit packed RBCs 10/09/2023
Orthopnea, PND
Lower extremity edema
Acute HFpEF
Anasarca
Multiple Myeloma on Revlimid
Hypertension
Hyperlipidemia
Diabetes Mellitus, Type II - Insulin Dependent
Diabetic Neuropathy
Chronic Pain with Opioid Dependence secondary to Charcot Foot
Traumatic Brain Injury
Anxiety/Depression
Morbid Obesity
Echo 07/25/2024 (TDS, Lumason used): EF 60 to 65%. Normal LV size and function. No significant valvular disease.
Plan:
Heart failure with preserved ejection fraction
-Volume status is slowly improving although remains volume overloaded IV diuresis augmented by several doses of Zaroxolyn he has lost >40 pounds this admission
-Acute urinary retention overnight requiring Pop catheter placement�will defer to primary w pending consult to urology. Flomax initiated. Per primary, voiding trial tomorrow
-Will Transition to oral Lasix 80 mg twice daily
-Renal function relatively stable, creatinine 1.4 today
-Keep K greater than 4, mag greater than 2
-Initiation of goal-directed medical therapy limited by renal insufficiency and hypotension: Continue Toprol XL 12.5 mg daily, continue Farxiga 10 mg daily.
-Heart failure education
Acute on chronic anemia status post transfusion
-Monitor hemoglobin/platelets closely with plan for transfusion for hemoglobin under 8 per oncology
Multiple myeloma- hold lenolidomide during hospitalization. OP follow up will be arranged upon discharge
Discharge planning
Will arrange cardiac follow-up at time of discharge
HPI 08/09/2024: Patient is a 63-year-old male with past medical history significant for hypertension, type 2 diabetes, morbid obesity, remote TBI, chronic pain with opioid dependence, multiple myeloma on Revlimid with chronic anemia and has received
blood transfusions in the past. Patient was recently admitted from 07/25/2024 to 07/29/2024 for concerns of edema/anasarca and shortness of breath. Patient reports he had been using salt tablets in the past and was never taken off his med list at
the care home. During that admission patient had an echocardiogram which showed normal ejection fraction with no significant valvular disease. He underwent significant weight loss and improvement of edema with IV diuresis. It was recommended
he discontinue salt tablets. He had outpatient blood work 08/08/2024 that showed hemoglobin of 6.1 g/dl and was referred to emergency department for evaluation and treatment. Patient reports to me that over the last 2 weeks he has gained back most
of the weight he had lost previously. He has had worsening shortness of breath, orthopnea and PND. He has some lower extremity edema which is worse on the right lower extremity than left.
Patient reports he is very sedentary. He has chronic pain syndrome and it hurts to do minimal activity. He reports he primarily gets around the care home in a wheelchair.
Progress Note - Motorcycle Fabricator
Subjective
Date of Service: August 21, 2024
Patient seen and examined sitting out of bed to chair and overall states shortness of breath/edema has improved
Objective
Labs:
08/20/24 07:30
08/21/24 07:54
Labs
Hgb 8.0 g/dL (13.0-18.0) L 08/20/24 07:30
Hct 24.8 % (39.0-52.0) L 08/20/24 07:30
Plt Count 144 10^3/uL (130-400) D 08/20/24 07:30
Sodium 141 mmol/L (135-145) 08/21/24 07:54
Potassium 3.5 mmol/L (3.5-5.1) 08/21/24 07:54
BUN 39 mg/dl (9-20) H 08/21/24 07:54
Creatinine 1.4 mg/dL (0.7-1.3) H 08/21/24 07:54
Glucose 223 mg/dl (70-99) H 08/21/24 07:54
Vital Signs and I&O:
Vital Signs
Temp Pulse Resp BP Pulse Ox
98.1 F 81 18 125/75 98
08/21/24 15:10 08/21/24 15:10 08/21/24 15:10 08/21/24 15:10 08/21/24 15:10
Vital Signs
Temp Pulse Resp BP Pulse Ox
98.1 F 81 18 125/75 98
08/21/24 15:10 08/21/24 15:10 08/21/24 15:10 08/21/24 15:10 08/21/24 15:10
Intake & Output
08/19/24 08/20/24 08/21/24 08/22/24
06:59 06:59 06:59 06:59
Intake Total 1040 / 1040 840 / 840 2560 / 2560
Output Total 3150 / 3150 950 / 950
Balance 1040 / 1040 840 / 840 -590 / -590 -950 / -950
Physical Exam
Physical Exam
GEN: No distress, awake, alert, oriented x3. sitting in chair
HEENT: mmm
LUNGS:Bronchovesicular breath sounds, decreased at bases but clear
CV: Reg, S1/S2, no murmur
ABD: soft, BS+, NT, distended
EXT: + edema of RLE>LLE. multiple toe amps/partial amps
: pop
[2024-08-21 21:24] LABS: Glucose - Point of Care 219 mg/dl (70-99)
[2024-08-21] MEDS: EFFEXOR XR 75 MG PO (21:43)
[2024-08-21] MEDS: LIPITOR 40 MG PO (21:44)
[2024-08-21] MEDS: XANAX 0.25 MG PO (21:44)
[2024-08-21] MEDS: EFFEXOR XR 150 MG PO (21:44)
[2024-08-21] MEDS: ELAVIL 50 MG PO (21:44)
[2024-08-21 23:36] VITALS: BP 126/66
[2024-08-22 03:05] VITALS: BP 132/65
[2024-08-22] MEDS: ROXICODONE 10 MG PO ×3 (05:41→14:31)
[2024-08-22] MEDS: LIDOCAINE URO-JET 2% 1 SYRINGE TOPICAL (05:43)
[2024-08-22 06:00] VITALS: BMI 33.0
--- NOTE | 2024-08-22 06:24 | PTCARENOTE ---
D/C'd patient's pop as per MD note. Pt due to void by 12:00. Urinal at bedside, pt instructed to use urinal for accurate output.
[2024-08-22 07:05] VITALS: BP 120/62
[2024-08-22 07:14] LABS: Glucose - Point of Care 282 mg/dl (70-99)
[2024-08-22] MEDS: MIRALAX 17 GRAMS PO (07:49)
[2024-08-22] MEDS: CLARITIN 10 MG PO (07:49)
[2024-08-22] MEDS: TOPROL XL 12.5 MG PO (07:49)
[2024-08-22] MEDS: FARXIGA 10 MG PO (07:51)
[2024-08-22] MEDS: LYRICA 200 MG PO ×2 (07:51→15:35)
[2024-08-22] MEDS: WELLBUTRIN SR (12 hour sustained release) 150 MG PO (07:52)
[2024-08-22] MEDS: GLUCOPHAGE 1000 MG PO ×2 (07:52→16:51)
[2024-08-22] MEDS: ASPIR LOW (ENTERIC COATED) 81 MG PO (07:52)
[2024-08-22] MEDS: SENOKOT-S 2 TABLET PO (07:52)
[2024-08-22] MEDS: MS CONTIN (EXTENDED RELEASE) 30 MG PO (07:53)
[2024-08-22] MEDS: NOVOLOG FLEXPEN-MODERATE RESISTANCE 5 UNITS SC ×2 (07:53→12:36)
[2024-08-22] MEDS: LASIX 80 MG PO ×2 (07:53→15:35)
[2024-08-22] MEDS: FLOMAX 0.4 MG PO (07:53)
[2024-08-22] MEDS: LANTUS 0.08 UNITS SC (07:54)
--- NOTE | 2024-08-22 08:09 | PN.DE.MGMTRT ---
Insulin Management
- -
08/22/2024: Diabetes Management F/U:
63 year old male admitted on 08/09 for Acute on Chronic HFpEF, diabetes consult requested on 08/19
PMH: HTN, DM-II and multiple myeloma. He is noted for insulin resistance with high-doses of insulin, was taking Lispro 47 units AC, Lantus 60 units Sat- Thur 60 units BID and 66 units BID on Fridays, Metformin 1000 mg PO BID, Farxiga 10 mg daily and
Ozempic 0.25 mg Q Tuesdays.
Recent A1C 10.1% on 07/25/24. Cr 1.7, eGFR 45.02.
Pt awake, alert, sitting up @edge of bed, offers no complaints, able to discuss diabetes mgt.
Pt had 2 episodes of Hypoglycemia on 08/18 and 08/19 as low as 54, boht improved after treatment
Dr. Lehman reduced Lantus from 47 units to 5 units BID and stopped AC NovoLog all together, pt remained on moderate corrective insulin with meals only.
08/20 and 08/21 pt with Hyperglycemia, premeal range of 221 to 388, requiring 5-9 units of insulin with meals
08/21, Pt received Lantus 5 units, FBG 273(V), 282 POC.
Will increase Lantus to 15 units BID and NovoLog to 12 units AC. Cont Metformin 1000 mg PO BID and Farxiga 10mg daily with moderate corrective insulin.
Will cont to follow and adjust insulin dose if needed.
Pt may resume Ozempic upon return to the facility.
Diabetes History
- -
Type of Diabetes: 2 requiring insulin
Pre-Admission Diabetes Regimen
08/21/24
07:54
Creatinine 1.4 H
Insulin Pump Settings
IP Diabetes Regimen
08/21/24 08/21/24 08/21/24
07:54 08:17 11:35
Glucose 223 H
POC Glucose 221 H 303 H
08/21/24 08/21/24 08/22/24
16:24 21:22 07:13
Glucose
POC Glucose 388 H 219 H 282 H
Patient Education
[2024-08-22 08:48] LABS: Hematocrit 24.6 % (39.0-52.0); Hemoglobin 7.7 g/dL (13.0-18.0); Mean Corp Hgb Conc. 31.3 g/dL (33.0-37.0); Mean Corpuscular Hgb 30.8 pg (27.0-31.0); Mean Corpuscular Volume 98.4 fL (80.0-94.0); Mean Platelet Volume 11.6 fL (7.4-10.4); Platelet Count 113 10^3/uL (130-400); Red Cell Dist. Width 18.6 % (11.5-14.5); White Blood Cell Count 4.4 10^3/uL (4.8-10.8)
[2024-08-22] MEDS: LANTUS 0.07 UNITS SC (09:07)
[2024-08-22] MEDS: NOVOLOG FLEXPEN 7 UNITS SC (09:07)
[2024-08-22 09:28] LABS: Blood Urea Nitrogen 34 mg/dl (9-20); Calcium 8.9 mg/dl (8.4-10.2); Carbon Dioxide 29 mmol/L (22-30); Chloride 97 mmol/L (98-107); Estimated Creatinine Clearance 83 ml/min; Glucose 273 mg/dl (70-99); Magnesium 2.4 mg/dl (1.6-2.3); Potassium 3.6 mmol/L (3.5-5.1); Sodium 142 mmol/L (135-145); eGFR > 60.00
--- NOTE | 2024-08-22 10:32 | W.PN.HOSP.TC ---
Today's Communication/Plan
-
Discharge today
Assessment / Plan
Assessment / Plan
Physical Exam
General: No Apparent Distress
HEENT: Moist Mucous Membranes
Respiratory: Clear to Auscultation Bilaterally
Cardiac: Regular Rhythm and S1/S2
GI: Soft, Nondistended, Normal Bowel Sounds and Nontender.
Musculoskeletal: Edema, Right Lower Extrem and Edema, Left Lower Extrem
Neuro: AO x 3
Psych: Calm; Negative Confused
Assessment/Plan
Patient is a 63 y/o male with past medical history significant for HTN, DM-II and multiple myeloma who presented to the ED complaining of significant swelling over the 48 hours prior to presentation.
Acute on Chronic Anemia
Multiple Myeloma
Acute on Chronic Anemia secondary to the above
- Patient is on lenalidomide for myeloma - hold with severe anemia -- per hem/onc, hold during this hospitalization, and follow-up closely with hem/onc after discharge
- Outpatient COREY will be resumed upon discharge
- s/p 1u of PRBC so far. Hgb at 7.8 lenalidomide held during hospitalization. Hem/Onc following
- Follow H&H for improvement and transfuse additional units if needed.
Anasarca
Acute on Chronic HFpEF
- Patient has regained much of the weight that was lost during his prior visit.
- Prior h/o symptomatic anemia resulting in edema / CHF exacerbation in 08/2023.
- Follow I/Os, daily weights, etc. Continues to lose weight. Improving LE edema .
- CW diuretics per cards - status IV Lasix 80 mg BID, now on PO Lasix 80 mg BID
- Metolazone was given this hospitalization
- Continue Toprol XL 12.5 mg daily
- Continue Farxiga 10 mg daily
- Keep potassium > 4, mag > 2
- Abdominal ultrasound negative for ascites
- Echo on 07/25 with normal left ventricular chamber size. Normal left ventricular systolic function. Normal regional wall motion. Ejection fraction 60 to 65%. No significant valvular disease.
- Recheck BMP outpatient: keep K greater than 4, mag greater than 2
Urinary Retention
Small red intermittent fibrous material in the Felipe catheter/Felipe bag on 08/20/24 to 08/21/24 - likely small clots from catheter placement
Severe Pain at the Penis Area
-Noted overnight 08/19/24 to 08/20/24
-Felipe catheter placed on 08/20/24 AM
-Consult urology, appreciate their evaluation and recommendations
-Check bladder scan to make sure Felipe draining well
-If patient has joselyn blood with no urine output, then would be concerning for malpositioned cath or urethral trauma
-Lidocaine jelly at meatus as needed, as per urology recommendations
-Tamsulosin 0.4 mg daily
-Voiding trial today: if patient is voiding with post-void bladder scans <250-300 cc, patient is okay to go home -- will need at least 6 hours for voiding trial
-Follow-up with Dr. Wang (urologist) outpatient
RLQ tender palpable mass - suspect abdominal wall hematoma -no trauma . CT A/P without contrast shows right lower quadrant abdominal wall thickening with suspicious for contusion. No superficial signs of cellulitis. Tx syptomatically.
Acute kidney injury likely secondary to overdiuresis
-Creat up but stable in last 24-48 hr. Monitor creatinine closely -- improved to 1.3, now up to 1.6, now back down to 1.4-->1.3
Mild TME likely 2/2 pain meds vs. hospital acrquire delirium vs. davidson
-Mentation seems to be improved
-No focal neurological deficit
-following all commands and talkative currently
Severe constipation
-bowel regimen and ENEMA ordered earlier this hospitalization
-Patient now reporting formed bowel movements, and denied any constipation
-If with nausea/vomiting check abdomen imaging
Left antecubital site with erythema (previous IV site) concern for cellulitis
-Completed Keflex 08/13 to 08/19
DM-II
Symptomatic Hypoglycemia
- Stable. Marked insulin resistance with high-doses of insulin.
- Stopped original basal : bolus insulin regimen
- Update A1C at 10.1
- Continue Farxiga.
- Consulted Diabetes DIGITAL CONTENT COORDINATOR, appreciate their evaluation and recommendations
- I spoke with Diabetes DIGITAL CONTENT COORDINATOR today, and patient can be discharged on Lantus 15 units BID, Novolog 12 units AC, Farxiga 10 daily, Metformin 1000 mg BID, and he can resume Ozempic
upon return to the facility
Chronic Pain Syndrome
Chronic Opioid Dependence
Charcot Foot
- Stable. Continue current pain control med regimen without changes. Continue with MS Contin 30 every 12. Oxycodone 10 every 4hprn
- Follow-up with Pain Management after discharge.
- Patient notes that he has been wheelchair bound for > 1 year.
History of TBI
- No new neurologic complaints.
Morbid Obesity due to excess calories
- Affects all aspects of care.
- Encourage healthy diet. Patient extremely limited in mobility and suspect that significant weight reduction will not be feasible.
DVT Prophylaxis: Lovenox
Code Status: Full Code
More than 30 minutes spent in discharge including
Final examination of the patient
Summarizing hospital stay
Instructions for continuing care to all relevant caregivers
Preparation of discharge records, prescriptions, and referral forms
Total time spent (in minutes): 40
Anticipated Discharge: Today
Subjective/Interval History
-
Date of Service: August 22, 2024
Objective Data
-
Labs:
Laboratory Results
08/22/24
08:20
WBC 4.4 L
Hgb 7.7 L
Hct 24.6 L
Plt Count 113 L D
Sodium 142
Potassium 3.6
Chloride 97 L
Carbon Dioxide 29
BUN 34 H
Creatinine 1.3
Glucose 273 H
Calcium 8.9
Vital Signs:
Vital Signs
Temp Pulse Resp BP Pulse Ox
97.4 F 85 18 120/62 98
08/22/24 07:05 08/22/24 07:05 08/22/24 07:05 08/22/24 07:05 08/22/24 07:05
I&O
08/21/24 08/22/24 08/23/24
06:59 06:59 06:59
Intake Total 2560 / 2560 950 / 950 480 / 480
Output Total 3150 / 3150 1650 / 1650 1825 / 1825
Balance -590 / -590 -700 / -700 -1345 / -1345
--- NOTE | 2024-08-22 11:30 | WOUNDNOTE ---
[facility] RN note: Patient seen for HAPI report for stage 2 'left penis' pressure injury. Patient has distal penis meatal irritation suspect from previous Felipe catheter. Lidocaine gel being used. Patient's L lateral heel skin fissure smaller compared to
previous photo. R great toe dry black callus appears same as last photo. Bilateral dorsal 2nd toe abrasions dry and scabbed. Sacral skin intact. Patient moves himself. He has a flat surgical shoe for R foot and sneaker for R foot. He ambulates with
a walker. Appetite is good. Betadine applied to R great toe and bilateral 2nd toe scabs. Bilateral knee high Tubigrip applied. Instructed patient heel relief measures. Discussed with FERNY Barrios.
--- NOTE | 2024-08-22 11:31 | WOUNDNOTE ---
R 2ND TOE (DORSAL)
--- NOTE | 2024-08-22 11:31 | WOUNDNOTE ---
R GREAT TOE AMP
--- NOTE | 2024-08-22 11:33 | WOUNDNOTE ---
L 2ND TOE (DORSAL)
--- NOTE | 2024-08-22 11:34 | WOUNDNOTE ---
L ANKLE (ANTERIOR MEDIAL)
[2024-08-22 11:35] VITALS: BP 138/75
[2024-08-22 11:40] LABS: Glucose - Point of Care 270 mg/dl (70-99)
--- NOTE | 2024-08-22 11:40 | WOUNDNOTE ---
[facility] RN note: Patient seen for HAPI report for stage 2 'left penis' pressure injury. Patient has distal penis meatal irritation suspect from previous Felipe catheter.
--- NOTE | 2024-08-22 11:58 | W.PN.UPDATE ---
Update Note
Progress Note Update
Weight is down 49 lbs this admission. Lasix transitioned to 80 mg PO BID starting yesterday. He is a long-term resident at [facility]. Cardiology f/u arranged. Will sign off.
[2024-08-22] MEDS: NOVOLOG FLEXPEN 12 UNITS SC ×2 (12:41→16:51)
--- NOTE | 2024-08-22 13:21 | W.PN.ONC2 ---
Today's Communication / Plan
-
ok for discharge. I will arrange weekly labs at discharge
Impression
Impression
multiple myeloma responding to current therapy RVD -maribell w/ good response on most recent serum protein studies
symptomatic anemia s/p 1unit prbc 08/09
leukopenia/lymphopenia -resolved
acute CHF, anasarca
chronic pain predated MM dx-opioid dependence
morbid obesity
hypogammaglobulinemia
Plan
Plan
hold lenolidomide during hospitalization. OP follow up will be arranged upon discharge
transfuse Hgb <8
OP COREY will be resumed upon discharge
monitor for bleeding
CHF per primary service
Subjective/Objective
Subjective
no new complaints
Vital Signs:
Vital Signs
Temp Pulse Resp BP Pulse Ox
97.7 F 83 18 138/75 95
08/22/24 11:35 08/22/24 11:35 08/22/24 11:35 08/22/24 11:35 08/22/24 11:35
Lab Results:
Laboratory Data
WBC 4.4 10^3/uL (4.8-10.8) L 08/22/24 08:20
Hgb 7.7 g/dL (13.0-18.0) L 08/22/24 08:20
Plt Count 113 10^3/uL (130-400) L D 08/22/24 08:20
eGFR > 60.00 08/22/24 08:20
[2024-08-22 15:34] VITALS: BP 112/66
--- NOTE | 2024-08-22 15:41 | CM ---
CM reviewed pt with Dr Lehman
Update to SNF admissions/Jackie
Update to pt bedside
IMM verbally completed- copy provided
Transport forms on chart
Discharge Disposition- return [facility] via BLS
Phone- [phone] 4th floor Fax- [phone]
Chemo meds from SNF need to be sent back with patient
[2024-08-22 16:47] LABS: Glucose - Point of Care 230 mg/dl (70-99)
[2024-08-22] MEDS: NOVOLOG FLEXPEN-MODERATE RESISTANCE 3 UNITS SC (16:51)
[2024-08-22] MEDS: LOVENOX 40 MG SC (17:19)
--- NOTE | 2024-08-23 11:14 | W.HF.CON ---
Heart Failure
- LV Function
Left ventricular function study result: LV Ejection fraction >/= 50% (ECHO 07/25/24)
Ejection Fraction Percentage: 60-65
- ARNI
Patient already on ARNI: No
Heart Failure ARNI Not Indicated: LV Ejection Fraction >/= 40%
- ACEI/ARB
Patient already on ACEI/ARB: No
Heart Failure ACEI/ARB Not Indicated: LV Ejection Fraction > 40%
- Beta Yanet
Patient already on Evidence Based Beta Yanet: Yes
- Mineralocorticord Receptor Antagonist
Patient already on MRA: No
Heart Failure MRA Not Indicated: LV Ejection Fraction > 40%
- SGLT-2 Inhibitor
Patient already on SGLT-2 Inhibitor: Yes
- NYHA CHF Classification
NYHA CHF Classification Level: Class III - Symptoms w/ min exertion, interferes w/ nml daily activity
- ACC/AHA Stage
ACC/AHA Stage: Stage C: Symptomatic Heart Failure
== END 2024-08-22 18:44 | DRG 840 ==
LOC: 3 WEST ACU 06:31
PROVIDERS: Hospitalist; Internal Medicine Cardiovascular Disease; Nurse Practitioner Gerontology; Physician Assistant; ADMITTING PHYSICIAN Hospitalist; ATTENDING PHYSICIAN Hospitalist; EMERGENCY PHYSICIAN Emergency Medicine; FAMILY PHYSICIAN Hospitalist; OTHER PHYSICIAN Internal Medicine Cardiovascular Disease; OTHER PHYSICIAN Internal Medicine Hematology & Oncology
PROC: 30233N1 Transfusion of Nonautologous Red Blood Cells into Peripheral Vein, Percutaneous Approach (ICD-10-PCS; 2024-08-09)
DX: C90.00 Multiple myeloma not having achieved remission (principal); G92.8 Other toxic encephalopathy; I50.33 Acute on chronic diastolic (congestive) heart failure; F11.20 Opioid dependence, uncomplicated; D80.1 Nonfamilial hypogammaglobulinemia; E87.3 Alkalosis; N17.9 Acute kidney failure, unspecified; S36.92XA Contusion of unspecified intra-abdominal organ, initial encounter; I11.0 Hypertensive heart disease with heart failure; E11.40 Type 2 diabetes mellitus with diabetic neuropathy, unspecified; E66.01 Morbid (severe) obesity due to excess calories; E11.610 Type 2 diabetes mellitus with diabetic neuropathic arthropathy; R14.0 Abdominal distension (gaseous); R53.83 Other fatigue; E78.00 Pure hypercholesterolemia, unspecified; M19.90 Unspecified osteoarthritis, unspecified site; D46.9 Myelodysplastic syndrome, unspecified; E88.819 Insulin resistance, unspecified; E11.649 Type 2 diabetes mellitus with hypoglycemia without coma; G89.4 Chronic pain syndrome; F32.A Depression, unspecified; K59.00 Constipation, unspecified; R33.9 Retention of urine, unspecified; X58.XXXA Exposure to other specified factors, initial encounter; F41.9 Anxiety disorder, unspecified; Z79.4 Long term (current) use of insulin; Z87.891 Personal history of nicotine dependence; Z87.820 Personal history of traumatic brain injury; Z89.412 Acquired absence of left great toe; Z89.411 Acquired absence of right great toe; Z89.422 Acquired absence of other left toe(s); Z68.33 Body mass index [BMI] 33.0-33.9, adult; Z88.5 Allergy status to narcotic agent; Z79.82 Long term (current) use of aspirin; Z79.84 Long term (current) use of oral hypoglycemic drugs; Z79.85 Long-term (current) use of injectable non-insulin antidiabetic drugs; Z79.51 Long term (current) use of inhaled steroids; Z99.3 Dependence on wheelchair
CPT/HCPCS: 70450; 71046; 74176; 76705; 80048; 80053; 81003; 82040; 82248; 82570; 82962; 83735; 83880; 84155; 84156; 85014; 85018; 85025; 85027; 86850; 86870; 86900; 86901; 86920; 86922; 87070; 87147; 97116; 97535; 99285; P9016

== ENCOUNTER 2024-08-29 18:17 | Emergency (ER) | payer MEDICARE, OTHER, SELFPAY ==
[2024-08-29] VITALS (10 sets, daily range): BP systolic 110–151; BP diastolic 54–68; BMI 35.8
[2024-08-29 18:52] LABS: ALT (SGPT) 16 U/L (0-50); AST (SGOT) 21 U/L (17-59); Albumin 3.7 g/dl (3.5-5.0); Alkaline Phosphatase 104 U/L (38-126); Blood Urea Nitrogen 36 mg/dl (9-20); Carbon Dioxide 24 mmol/L (22-30); Chloride 97 mmol/L (98-107); Estimated Creatinine Clearance 93 ml/min; Glucose 309 mg/dl (70-99); Sodium 138 mmol/L (135-145); Total Bilirubin 0.3 mg/dl (0.2-1.3); Total Protein 9.5 g/dl (6.3-8.2); eGFR > 60.00
[2024-08-29 18:54] LABS: Hematocrit 20.3 % (39.0-52.0); Hemoglobin 6.3 g/dL (13.0-18.0); Mean Corpuscular Hgb 31.5 pg (27.0-31.0); Mean Corpuscular Volume 101.5 fL (80.0-94.0); Mean Platelet Volume 11.8 fL (7.4-10.4); Platelet Count 161 10^3/uL (130-400); Red Cell Dist. Width 18.8 % (11.5-14.5)
[2024-08-29 19:06] LABS: % Basophils 0.4 % (0-2); % Eosinophils 5.6 % (0-6); % Immature Granulocytes 1.4 % (0-0.5); % Lymphocytes 32.3 % (20.5-51.1); % Neutrophils 52.3 % (42.2-75.2); Absolute Eosinophils 0.3 10^3/uL (0-0.7); Absolute Immature Granulocytes 0.1 10^3/uL (0-0.05); Absolute Lymphocytes 1.6 10^3/uL (1.2-3.4); Absolute Monocytes 0.4 10^3/uL (0.1-0.6); Absolute Neutrophils 2.6 10^3/uL (1.4-6.5); Nucleated Red Blood Cells % 0 % (-)
--- NOTE | 2024-08-29 19:25 | ED.GENMED ---
History of Present Illness
General
Chief Complaint: Abnormal Lab Value
Source: patient
Exam Limitations: none
Time Seen by Provider: 08/29/24 18:58
History of Present Illness
History of Present Illness:
See MDM
Past History
Past History
ED Past Medical History: Cancer (Myelodysplastic Syndrome (MDS)), IDDM, Psychiatric (anxiety, Depression) and Other (TBI, Shingles)
ED Past Surgical History: Orthopedic (Right leg surgery, Left great toe and second toe amputation. Right great toe amputation, Back surgery, )
Social History
Tobacco: Former smoker
Alcohol: None
Personal:
Living: longterm
Phy Exam
Physical Exam
Physical Exam:
See MDM
Course
Orders/Labs/Results
Orders:
Orders
08/29/24 18:25
Type+Screen Urgent
Complete Blood Count/With Diff Urgent
Comprehensive Metabolic Panel Urgent
08/29/24 19:24
Blood Bank Products [* Blood Bank Products] Urgent
's Orders: Jono Loera DO
Blood Bank Products: *Packed RBC Leuko(PRBC's)
Quantity: 1
Transfuse Today: Yes
Reason: Anemia
Furosemide [Lasix] 80 mg IV NOW STA
Insulin Aspart [NOVOLOG vial] 10 units SC NOW STA
Abnormal Lab Results
08/29/24
18:25
RBC 2.00 L 10^6/uL
(4.70-6.10)
Hgb 6.3 L* g/dL
(13.0-18.0)
Hct 20.3 L* %
(39.0-52.0)
MCV 101.5 H fL
(80.0-94.0)
MCH 31.5 H pg
(27.0-31.0)
MCHC 31.0 L g/dL
(33.0-37.0)
RDW 18.8 H %
(11.5-14.5)
MPV 11.8 H fL
(7.4-10.4)
Abs Immat Gran (auto) 0.1 H 10^3/uL
(0-0.05)
Immature Gran % 1.4 H %
(0-0.5)
Chloride 97 L mmol/L
(98-107)
BUN 36 H mg/dl
(9-20)
Glucose 309 H mg/dl
(70-99)
Total Protein 9.5 H g/dl
(6.3-8.2)
08/29/24 18:25
08/29/24 18:25
Vital Signs
Initial and Last Documented VS:
Initial Vital Signs
Temp Pulse Resp BP Pulse Ox
98 F 100 15 140/68 99
08/29/24 18:18 08/29/24 18:18 08/29/24 18:18 08/29/24 18:18 08/29/24 18:18
Last Documented Vital Signs
Temp Pulse Resp BP Pulse Ox
98 F 94 22 113/54 94
08/29/24 18:18 08/29/24 19:00 08/29/24 19:00 08/29/24 19:00 08/29/24 19:00
MDM/Problems Addressed
Differential Diagnosis Includes:
HPI and MDM Narrative:
63-year-old male presenting for evaluation of low hemoglobin. Patient has a history of multiple myeloma and has received blood transfusions in the past. He was recently admitted for the same thing. Outpatient blood work showed a hemoglobin of 6.5
so he came to the emergency department. Patient offers no complaints. He denies black or red stools and denies being on blood thinners. On exam, he is nontoxic-appearing. Patient signed consent for blood transfusion. Given his history of
congestive heart failure, will give dose of Lasix during. Patient also has a history of poorly controlled diabetes. Will give insulin for elevated blood
Physical exam
General: Nontoxic appearing, lying in bed comfortably
HEENT: protecting airway
Neck: appears supple
CV: No evidence of cyanosis
Resp: No accessory muscle use
Abd: Non-distended
Extremities: No deformities
Neuro: alert
Psych: Normal affect
Skin: Intact
Problems Addressed including Acute and Chronic Conditions affecting care:
1. Anemia
Acuity: acute on chronic
Prognosis: stable
Details: Patient signed consent for blood transfusion
2. Hyperglycemia
Acuity: acute
Prognosis: stable
Details: Will give dose of insulin. No evidence of DKA
Differential Diagnosis (but not limited to): GI bleeding, symptomatic anemia, cancer related anemia
Testing considered: Stool sample
Drug therapy (if applicable): OTC meds, please see d/c instruction regarding Rx drugs
Amount and/or Complexity of Data Reviewed
Clinical info obtained from: Patient
External data reviewed: Recent admission for similar issue where he was transfused and had CT abdomen/pelvis which was negative for acute bleeding
Labs I independently reviewed (but not limited to): Anemia
Radiology: N/A
Pulse Ox: not hypoxic
EKG independently reviewed: N/A
Vice President Quality Improvement: N/A
Critical Care: N/A
Risk of Complication:
Social Determinants of health: Good social support
Discussed with other providers: N/A
Escalation of Care includes Admit/Obs: After being observed in the Emergency Department, pt stable for discharge.
Occasional wrong word or 'sound a like' substitutions may have occurred due to the inherent limitations of voice recognition software. Read the chart carefully and recognize, using context, where substitutions have occurred.
*Critical Care Note
Total Time (30-74mins, 75-104mins- exclusive of procedures): Not Applicable
ED Attending Note
-
Portions of this chart may have been created with voice recognition software.� Occasional wrong word or��sound alike� substitutions may have occurred due to the inherent limitations of voice recognition software.
Discharge Plan
Departure
Patient Disposition: Other
Date of Disposition: 08/29/24
Time of Disposition: 19:29
Patient with high blood pressure during this ER visit?: No
Discharge Problem:
Anemia
Prescriptions:
No Action
atorvastatin [Lipitor] 40 mg Tablet
40 mg PO HS
acetaminophen [Tylenol] 325 mg Tablet
650 mg PO Q4HPRN PRN (Reason: mild pain/fever)
amitriptyline 50 mg Tablet
50 mg PO HS
fluticasone propionate 50 mcg/actuation [place],Suspension
2 spray INTRANASAL DAILY
polyethylene glycol 3350 [Miralax] 17 gram Powder In Packet
17 g PO DAILY PRN (Reason: Constipation)
sennosides-docusate sodium [Senna Plus] 8.6-50 mg Tablet
2 tab-cap PO [id number] PRN (Reason: Constipation)
therapeutic multivitamin Tablet
1 tab PO DAILY
magnesium hydroxide 400 mg/5 mL Suspension
2,400 mg PO [id number] PRN (Reason: constipation)
olopatadine 0.1 % Drops
1 drp BOTH EYES BID
calcium carbonate [Tums] 200 mg calcium (500 mg) Tablet,Chewable
400 mg PO Q4HPRN PRN (Reason: indigestion )
loratadine 10 mg Tablet
10 mg PO DAILY
venlafaxine 225 mg Tablet Extended Release 24hr
225 mg PO HS
metformin 500 mg Tablet
1,000 mg PO BID
acyclovir 400 mg Tablet
400 mg PO FR@0800,1700
bisacodyl 10 mg Suppository
10 mg [place] DAILYPRN PRN (Reason: if no bm after MOM)
docusate sodium [Colace] 100 mg Capsule
100 mg PO DAILY
montelukast [Singulair] 10 mg Tablet
10 mg PO THFRSA@2199
dapagliflozin propanediol [Farxiga] 10 mg Tablet
10 mg PO DAILY
Ozempic 0.25 mg or 0.5 mg (2 mg/3 mL) Pen Injector
0.25 mg SC MO
loperamide [Imodium A-D] 2 mg Tablet
2 mg PO Q6H PRN (Reason: diarrhea)
aspirin 81 mg Tablet,Delayed Release (Dr/Ec)
81 mg PO DAILY
povidone-iodine 10 % Liquid In Packet
1 applic TOPICAL DAILYPRN PRN (Reason: 2nd,4th toe on right foot)
povidone-iodine 10 % Liquid In Packet
1 applic TOPICAL DAILY
Rx Instructions:
right 2nd and 4th toe
lenalidomide 25 mg Capsule
25 mg PO Q14D@2199
Rx Instructions:
start on 08/05/24 - end on 08/19/24
bupropion HCl [Wellbutrin SR] 150 mg Tablet Sustained-Release 12 Hr
150 mg PO DAILY
albuterol sulfate [Ventolin HFA] 90 mcg/actuation Hfa Aerosol Inhaler
2 puff INHALATION R Q4HPRN PRN (Reason: wheezing/sob)
tamsulosin 0.4 mg Capsule
0.4 mg PO DAILY Qty: 30 1RF
insulin aspart U-100 100 unit/mL (3 mL) Insulin Pen
12 unit SC AC Qty: 15 1RF
furosemide 80 mg Tablet
80 mg PO BID@0800,1600 Qty: 60 1RF
Insulin Glargine Lantus [Lantus] 15 UNITS
Subcutaneous Insulin Syringe [Syringe-Insulin] 0 UNIT
As Directed mls/hr SC BID@0800,2200
Ordered By: Prabhjot Lehman MD
Last Taken: Unknown
metoprolol succinate 25 mg Tablet Extended Release 24 Hr
12.5 mg PO DAILY Qty: 30 1RF
morphine 30 mg Tablet Extended Release
30 mg PO Q12H Qty: 3 0RF
alprazolam 0.25 mg Tablet
0.25 mg PO HS Qty: 2 0RF
pregabalin [Lyrica] 200 mg capsule
200 mg PO Q8H Qty: 5 0RF
oxycodone 10 mg Tablet
10 mg PO Q6HPRN PRN (Reason: severe pain) Qty: 6 0RF
Referrals:
Daisy Gordon DO [Family Provider] -
Activity Restrictions/Additional Instructions:
Please return for any worsening symptoms.
You may return at any time if you have further concerns.
Please follow up with your doctor at the first available appointment, preferably this week.
Thank you for choosing [facility].
Interventions
Interventions:
*Risk Screen - Suicide Last Done: 08/29/24 18:22
*General Assessment Last Done: 08/29/24 18:22
*Neglect/Abuse Screening Last Done: 08/29/24 18:22
*ED COVID-19 Vaccine History Last Done: 08/29/24 18:22
Discharge Date and Time
Print Language: PALESTINIAN
[2024-08-29] MEDS: LASIX 80 MG IV (19:36)
[2024-08-29 19:37] LABS: Glucose - Point of Care 301 mg/dl (70-99)
[2024-08-29] MEDS: NOVOLOG vial 10 UNITS SC (19:38)
[2024-08-30] VITALS: BP 105/51
[2024-08-30 00:40] VITALS: BP 130/65
[2024-08-30 00:42] VITALS: BP 130/65
[2024-08-30 01:00] VITALS: BP 136/69
== END 2024-08-30 01:52 ==
LOC: EMR 18:17
PROVIDERS: EMERGENCY PHYSICIAN Student in an Organized Health Care Education/Training Program; FAMILY PHYSICIAN Hospitalist
DX: D64.9 Anemia, unspecified (principal); E11.65 Type 2 diabetes mellitus with hyperglycemia; I50.9 Heart failure, unspecified; Z79.4 Long term (current) use of insulin; Z87.891 Personal history of nicotine dependence; Z85.79 Personal history of other malignant neoplasms of lymphoid, hematopoietic and related tissues
CPT/HCPCS: 36430; 96374; 96372; 99285; 80053; 82962; 85025; 86850; 86900; 86901; 86920; 86922; P9016

== ENCOUNTER → 2024-08-31 10:01 | Outpatient (REF) | payer MEDICARE, OTHER, SELFPAY ==
[2024-08-31 10:46] LABS: % Basophils 0.6 % (0-2); % Eosinophils 3.4 % (0-6); % Immature Granulocytes 1.1 % (0-0.5); % Lymphocytes 31.1 % (20.5-51.1); % Monocytes 8.7 % (1.7-9.3); % Neutrophils 55.1 % (42.2-75.2); Absolute Eosinophils 0.2 10^3/uL (0-0.7); Absolute Immature Granulocytes 0.1 10^3/uL (0-0.05); Absolute Lymphocytes 1.5 10^3/uL (1.2-3.4); Absolute Monocytes 0.4 10^3/uL (0.1-0.6); Absolute Neutrophils 2.6 10^3/uL (1.4-6.5); Hematocrit 21.7 % (39.0-52.0); Mean Corp Hgb Conc. 32.3 g/dL (33.0-37.0); Mean Corpuscular Hgb 31.5 pg (27.0-31.0); Mean Corpuscular Volume 97.7 fL (80.0-94.0); Mean Platelet Volume 10.6 fL (7.4-10.4); Platelet Count 172 10^3/uL (130-400); Red Blood Cell Count 2.22 10^6/uL (4.70-6.10); Red Cell Dist. Width 18.9 % (11.5-14.5); White Blood Cell Count 4.7 10^3/uL (4.8-10.8)
[2024-08-31 13:53] LABS: ALT (SGPT) 18 U/L (0-50); AST (SGOT) 21 U/L (17-59); Albumin 3.8 g/dl (3.5-5.0); Alkaline Phosphatase 103 U/L (38-126); Blood Urea Nitrogen 28 mg/dl (9-20); Calcium 9.2 mg/dl (8.4-10.2); Carbon Dioxide 26 mmol/L (22-30); Chloride 96 mmol/L (98-107); Glucose 282 mg/dl (70-99); Iron 109 ug/dl (49-181); Percent Saturation 39 % (20-50); Sodium 139 mmol/L (135-145); Total Bilirubin 0.3 mg/dl (0.2-1.3); Total Iron Binding Capacity 279 ug/dl (261-462); Total Protein 10.1 g/dl (6.3-8.2); eGFR > 60.00
[2024-09-03 00:30] LABS: Beta-2-Microglobulin 5.5 mg/L (<=3.0)
== END ==
LOC: OIDL 10:01
PROVIDERS: ATTENDING PHYSICIAN Nurse Practitioner Primary Care
DX: C90.00 Multiple myeloma not having achieved remission (principal)
CPT/HCPCS: 36415; 80053; 82232; 82728; 82784; 83521; 83540; 83550; 84155; 84165; 85025; 86334

== ENCOUNTER 2024-09-02 15:01 | Outpatient (RCR) | payer MEDICARE, OTHER, SELFPAY | END 2024-09-20 23:59 | disposition home or self-care (01) | LOC: OID 15:01 | PROVIDERS: ATTENDING PHYSICIAN Internal Medicine Hematology & Oncology | DX: C90.00 Multiple myeloma not having achieved remission (principal); N18.30 Chronic kidney disease, stage 3 unspecified; I89.0 Lymphedema, not elsewhere classified; R06.00 Dyspnea, unspecified | CPT/HCPCS: 36415; 86850; 86900; 86901; 86920; 86922 ==

== ENCOUNTER 2024-09-03 03:16 | Inpatient (IN) | payer MEDICARE, OTHER, SELFPAY ==
[2024-09-02 21:17] VITALS: BP 136/66
[2024-09-02 21:22] VITALS: BMI 34.4
[2024-09-02 21:46] LABS: % Basophils 0.2 % (0-2); % Eosinophils 0.4 % (0-6); % Immature Granulocytes 1.8 % (0-0.5); % Lymphocytes 13.3 % (20.5-51.1); % Monocytes 2.2 % (1.7-9.3); % Neutrophils 82.1 % (42.2-75.2); Absolute Immature Granulocytes 0.1 10^3/uL (0-0.05); Absolute Lymphocytes 0.7 10^3/uL (1.2-3.4); Absolute Monocytes 0.1 10^3/uL (0.1-0.6); Absolute Neutrophils 4.1 10^3/uL (1.4-6.5); Hematocrit 22.4 % (39.0-52.0); Hemoglobin 6.9 g/dL (13.0-18.0); Mean Corp Hgb Conc. 30.8 g/dL (33.0-37.0); Mean Corpuscular Hgb 31.1 pg (27.0-31.0); Mean Corpuscular Volume 100.9 fL (80.0-94.0); Mean Platelet Volume 11.4 fL (7.4-10.4); Nucleated Red Blood Cells % 0 % (-); Platelet Count 162 10^3/uL (130-400); Red Blood Cell Count 2.22 10^6/uL (4.70-6.10)
[2024-09-02 21:55] LABS: ALT (SGPT) 20 U/L (0-50); AST (SGOT) 24 U/L (17-59); Albumin 3.8 g/dl (3.5-5.0); Alkaline Phosphatase 119 U/L (38-126); Blood Urea Nitrogen 32 mg/dl (9-20); Calcium 8.9 mg/dl (8.4-10.2); Carbon Dioxide 25 mmol/L (22-30); Chloride 95 mmol/L (98-107); Estimated Creatinine Clearance 78 ml/min; Potassium 4.3 mmol/L (3.5-5.1); Sodium 137 mmol/L (135-145); Total Bilirubin 0.3 mg/dl (0.2-1.3); Total Protein 10.1 g/dl (6.3-8.2); eGFR 56.83
[2024-09-02 22:00] VITALS: BP 129/62
[2024-09-02 22:00] LABS: NT-proBNP 309 pg/ml
[2024-09-02 22:08] LABS: Glucose 646 mg/dl (70-99)
[2024-09-02 22:09] LABS: Troponin I < 0.012 ng/ml
[2024-09-02] MEDS: NSS 500 IV (22:27)
[2024-09-02] MEDS: NOVOLIN R 13 UNITS IV (22:28)
[2024-09-02] MEDS: ROXICODONE 10 MG PO (22:45)
--- NOTE | 2024-09-02 22:56 | ED.GENMED ---
History of Present Illness
General
Chief Complaint: Breathing Problem
Source: patient and ambulance crew
Exam Limitations: none
Time Seen by Provider: 09/02/24 21:24
Nursing documentation reviewed up to this point in time: agreed with
History of Present Illness
History of Present Illness:
63-year-old male past medical history of CHF, MDS, diabetes presenting to the emergency department today with concerns of shortness of breath weakness fatigue worsening over the past few days. Unable to ambulate today secondary to weakness. Denies
specific bleeding no chest pain. No recent fevers or illness
Past History
Past History
ED Past Medical History: Cancer (Myelodysplastic Syndrome (MDS)), IDDM, Psychiatric (anxiety, Depression) and Other (TBI, Shingles)
ED Past Surgical History: Orthopedic (Right leg surgery, Left great toe and second toe amputation. Right great toe amputation, Back surgery, )
Social History
Tobacco: Former smoker
Alcohol: None
Personal:
Living: custodial
Review of Systems
Review of Systems
Allergies reviewed?: Yes
All Other Systems: ROS reviewed and negative except as documented in HPI and ROS
Phy Exam
Physical Exam
Physical Exam:
GENERAL: Alert , in no apparent distress
EYE: pupils equal and reactive
NECK: Supple, no significant adenopathy.
ENT: o/p clr, mmm.
CARDIAC: Regular rate and rhythm .
LUNGS: Clear breath sounds bilaterally, no acute respiratory distress, no wheezes/rales/rhonchi
ABDOMEN: Soft, without focal tenderness, no r/g, no cvat
NEUROLOGICAL: Alert and oriented, no focal neuro deficits
SKIN: Warm and dry, skin intact.
MUSCULOSKELETAL: No edema, well perfused.
PSYCH: Normal and appropriate interaction.
Scores
Heart Failure Risk
Heart Failure Risk Score: Not Applicable
Course
Orders/Labs/Results
Orders:
Orders
09/02/24 21:25
Electrocardiogram (*1) Urgent
Reason for Study: Shortness of Breath
EKG- Treatment ONCE
09/02/24 21:28
Complete Blood Count/With Diff Urgent
Comprehensive Metabolic Panel Urgent
Pro-BNP [NT-proBNP] Urgent
Troponin I Urgent
Comment: ADD ON
09/02/24 21:41
Add On- LAB Urgent
Tests Added?: troponin
Chest [CR Chest - 2 Views ] Urgent
Comment:
Reason For Exam: sob
09/02/24 21:47
Type+Screen Urgent
BBK Wristband Number:
09/02/24 22:11
0.9% Sodium Chloride 500 ml [Nss] 500 ml IV BOLUS
Insulin Human Regular [Novolin R] 13 units IV NOW STA
09/02/24 22:34
* Blood Bank Products Urgent
Blood Bank Products: *Packed RBC Leuko(PRBC's)
Quantity: 1
Transfuse Today: Yes
Reason: Anemia
Oxycodone [Roxicodone] 10 mg PO NOW STA
09/02/24 22:49
Venous Blood Gas Urgent
%Oxygen/Room Air: 99
09/02/24 22:50
Add On- LAB Urgent
Tests Added?: bhb
09/02/24 23:27
B-Hydroxybutyrate Urgent
Glucose Stat
Abnormal Lab Results
09/02/24 09/02/24
21:28 23:25
RBC 2.22 L 10^6/uL
(4.70-6.10)
Hgb 6.9 L* g/dL
(13.0-18.0)
Hct 22.4 L %
(39.0-52.0)
MCV 100.9 H fL
(80.0-94.0)
MCH 31.1 H pg
(27.0-31.0)
MCHC 30.8 L g/dL
(33.0-37.0)
RDW 19.0 H %
(11.5-14.5)
MPV 11.4 H fL
(7.4-10.4)
Abs Immat Gran (auto) 0.1 H 10^3/uL
(0-0.05)
Absolute Lymphs (auto) 0.7 L 10^3/uL
(1.2-3.4)
Immature Gran % 1.8 H %
(0-0.5)
Neutrophils % 82.1 H %
(42.2-75.2)
Lymphocytes % 13.3 L %
(20.5-51.1)
Chloride 95 L mmol/L
(98-107)
BUN 32 H mg/dl
(9-20)
Creatinine 1.4 H mg/dL
(0.7-1.3)
Glucose 646 H* mg/dl
(70-99)
Total Protein 10.1 H g/dl
(6.3-8.2)
POC Glucose 508 H* mg/dl
(70-99)
09/02/24 21:28
Vital Signs
Initial and Last Documented VS:
Initial Vital Signs
Temp Pulse Resp BP Pulse Ox
98.0 F 93 14 136/66 97
09/02/24 21:17 09/02/24 21:17 09/02/24 21:17 09/02/24 21:17 09/02/24 21:17
Last Documented Vital Signs
Temp Pulse Resp BP Pulse Ox
98.0 F 91 12 118/67 96
09/02/24 21:17 09/02/24 23:30 09/02/24 23:30 09/02/24 23:00 09/02/24 23:00
MDM/Problems Addressed
MDM/Problems Addressed:
63-year-old male presenting for weakness fatigue shortness of breath worsening over the past few days. Difficulty ambulating secondary to symptoms today. Hemoglobin here 6.9 plan to give a unit of blood. This was ordered but blood bank claiming
that this will take a day or so considering he had chemo earlier today. Additionally sugar was found to be very high elevated in the 600s. Not consistent with DKA with normal pH and beta hydroxybutyrate. He was given fluids though he was given a
slowly secondary to history of heart failure and also given a dose of insulin. Plan to admit for further monitoring pending transfusion.
*Critical Care Note
Total Time (30-74mins, 75-104mins- exclusive of procedures): Not Applicable
ED Attending Note
-
Portions of this chart may have been created with voice recognition software.� Occasional wrong word or��sound alike� substitutions may have occurred due to the inherent limitations of voice recognition software.
Discharge Plan
Departure
Patient Disposition: Admit
Date of Disposition: 09/03/24
Time of Disposition: 00:02
Admit to: Telemetry
Admit to doctor: Carlos
Presentation/result/management discussed w/ accepting MD/DO: Hospitalist
Patient with high blood pressure during this ER visit?: No
Condition: Good
Covid-19: Not Applicable
Discharge Problem:
Anemia, Acute hyperglycemia
Prescriptions:
No Action
atorvastatin [Lipitor] 40 mg Tablet
40 mg PO HS
acetaminophen [Tylenol] 325 mg Tablet
650 mg PO Q4HPRN PRN (Reason: mild pain/fever)
amitriptyline 50 mg Tablet
50 mg PO HS
fluticasone propionate 50 mcg/actuation [place],Suspension
2 spray INTRANASAL DAILY
polyethylene glycol 3350 [Miralax] 17 gram Powder In Packet
17 g PO DAILYPRN PRN (Reason: Constipation)
sennosides-docusate sodium [Senna Plus] 8.6-50 mg Tablet
2 tab-cap PO [id number] PRN (Reason: Constipation)
therapeutic multivitamin Tablet
1 tab PO DAILY
magnesium hydroxide 400 mg/5 mL Suspension
2,400 mg PO [id number] PRN (Reason: no bm after 3 days)
olopatadine 0.1 % Drops
1 drp BOTH EYES BID
calcium carbonate [Tums] 200 mg calcium (500 mg) Tablet,Chewable
400 mg PO Q4HPRN PRN (Reason: indigestion )
loratadine 10 mg Tablet
10 mg PO DAILY
venlafaxine 225 mg Tablet Extended Release 24hr
225 mg PO HS
metformin 500 mg Tablet
1,000 mg PO BID
acyclovir 400 mg Tablet
400 mg PO FR@0800,2000
bisacodyl 10 mg Suppository
10 mg TN DAILYPRN PRN (Reason: if no bm after MOM)
docusate sodium [Colace] 100 mg Capsule
100 mg PO DAILY
montelukast [Singulair] 10 mg Tablet
10 mg PO THFRSA@2200
dapagliflozin propanediol [Farxiga] 10 mg Tablet
10 mg PO DAILY
Ozempic 0.25 mg or 0.5 mg (2 mg/3 mL) Pen Injector
0.5 mg SC MO
loperamide [Imodium A-D] 2 mg Tablet
2 mg PO Q6HPRN PRN (Reason: diarrhea)
aspirin 81 mg Tablet,Delayed Release (Dr/Ec)
81 mg PO DAILY
povidone-iodine 10 % Liquid In Packet
1 applic TOPICAL DAILYPRN PRN (Reason: r foot wound+2nd toe, L 3rd toe)
povidone-iodine 10 % Liquid In Packet
1 applic TOPICAL DAILY
Rx Instructions:
right 2nd toe and right foot wound
lenalidomide 25 mg Capsule
25 mg PO HS
Patient Comments:
09/02/24: to take from 08/26/24-09/09/24, per [place] paperwork
bupropion HCl [Wellbutrin SR] 150 mg Tablet Sustained-Release 12 Hr
150 mg PO DAILY
albuterol sulfate [Ventolin HFA] 90 mcg/actuation Hfa Aerosol Inhaler
2 puff INHALATION R Q4HPRN PRN (Reason: wheezing/sob)
tamsulosin 0.4 mg Capsule
0.4 mg PO DAILY Qty: 30 1RF
metoprolol succinate 25 mg Tablet Extended Release 24 Hr
12.5 mg PO DAILY Qty: 30 1RF
morphine 30 mg Tablet Extended Release
30 mg PO Q12H Qty: 3 0RF
alprazolam 0.25 mg Tablet
0.25 mg PO HS Qty: 2 0RF
pregabalin [Lyrica] 200 mg capsule
200 mg PO Q8H Qty: 5 0RF
insulin glargine 100 unit/mL Solution
20 unit SC BID
lorazepam 0.5 mg Tablet
0.5 mg PO BIDPRN PRN (Reason: anxiety)
Fleet Enema 19-7 gram/118 mL Enema
118 ml TN DAILYPRN PRN (Reason: no bm 24 hours after bisacodyl)
povidone-iodine [Betadine] 10 % Solution
1 applic TOPICAL HS
Rx Instructions:
right 2nd toe and left 3rd toe
Fiasp U-100 Insulin 100 unit/mL Solution
1 sliding scale dose SC MEALS
Rx Instructions:
151-200=2u,201-250=4u,251-300=6u,351-400=9u,401-450=10u,451-500=12u
furosemide 80 mg tablet
80 mg PO BID
insulin aspart U-100 100 unit/mL (3 mL) insulin pen
1 sliding scale dose SC AC
Rx Instructions:
151-200=2u,201-250=4u,251-300=6u,301-350=8u,351-400=10u,401-450=12u
oxycodone 10 mg tablet
10 mg PO Q4H
Referrals:
Daisy Gordon, [Family Provider] -
Interventions
Interventions:
*Risk Screen - Suicide Last Done: 09/02/24 21:23
*General Assessment Last Done: 09/02/24 21:23
*Neglect/Abuse Screening Last Done: 09/02/24 21:23
ED- Fall Risk Assessment Last Done: 09/02/24 21:23
*ED COVID-19 Vaccine History Last Done: 09/02/24 21:17
ED- Cardiac Assessment Last Done: 09/02/24 22:11
ED- Pulmonary Assessment Last Done: 09/02/24 21:23
Discharge Date and Time
Print Language: CROAT[place]
[2024-09-02 22:59] LABS: Venous Blood Gas B.E. 1.8 mmol/L (-4 to +4); Venous Blood Gas HCO3 26.6 mmol/L (22-27); Venous Blood Gas O2 Sat % 74.5 %; Venous Blood Gas pCO2 42 mmHg (35-48); Venous Blood Gas pH 7.41 (7.32-7.43); Venous Blood Gas pO2 42 mmHg (30-50)
[2024-09-02 23:00] VITALS: BP 118/67
[2024-09-02 23:26] LABS: Glucose - Point of Care 508 mg/dl (70-99)
[2024-09-02 23:52] LABS: B-Hydroxybutyrate 0.15 mmol/L (0.02-0.27)
[2024-09-02 23:59] LABS: Glucose 548 mg/dl (70-99)
[2024-09-03 00:37] LABS: Glucose - Point of Care 460 mg/dl (70-99)
[2024-09-03 01:28] LABS: Glucose 486 mg/dl (70-99)
[2024-09-03 02:01] LABS: Glucose - Point of Care 417 mg/dl (70-99)
[2024-09-03 02:12] VITALS: BP 153/91
[2024-09-03 02:30] LABS: Glucose 425 mg/dl (70-99)
--- NOTE | 2024-09-03 02:56 | HPS.HSE ---
Family Physician
-
Family Physician: Daisy Gordon, DO
Chief Complaint
-
Fatigue / Weakness
History of Present Illness
Patient is a 63y M with PMH significant for HTN, DM-II, remote TBI and multiple myeloma who presents to ED for evaluation of weakness and fatigue. Patient states that he has been becoming progressively more weak and today was unable to stand or
ambulate. He denies any chest pain, dyspnea, lightheadedness, etc.
Patient is currently being treated for multiple myeloma. He just restarted his lenalidomide with his first dose on 09/02 following his previous hospitalization in July for anemia and CHF.
Patient was seen for anemia by hematology today and marcello done for planned transfusion on Thursday.
Unfortunately his fatigue progressed and he presented to the ED this evening for evaluation.
At the time of my examination patient is resting comfortably with no complaints.
Medical History
Past Medical History
Past Medical History: Reports Other
Additional Past Medical History:
Multiple Myeloma
Hypertension
Hyperlipidemia
Diabetes Mellitus, Type II - Insulin Dependent
Diabetic Neuropathy
Chronic Pain with Opioid Dependence secondary to Charcot Foot
Traumatic Brain Injury
Anxiety/Depression
Morbid Obesity
Past Surgical History: Reports Other
Additional Past Surgical History:
Bilateral Great Toe Amputations
Back Surgery
Right Leg Surgery
Social History
Tobacco: Former Smoker (Quit in April 2023)
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
Living: Alf
Family History
Family History: Other
Allergies / Home Medications
Allergies reflects when Allergies were last updated in [facility].
Home Medications with original date entered in [facility]
Allergy/Medication List:
Allergies
Allergy/AdvReac Type Severity Reaction Status Date / Time
buspirone [From BuSpar] Allergy Itching Verified 09/02/24 21:17
tramadol Allergy Unknown Verified 09/02/24 21:17
Home Medications
acetaminophen 325 mg tablet (Tylenol) 650 mg PO Q4HPRN PRN mild pain/fever 08/30/23
amitriptyline 50 mg tablet 50 mg PO HS Depression 08/30/23
atorvastatin 40 mg tablet (Lipitor) 40 mg PO HS High Cholesterol 08/30/23
calcium carbonate (Tums) 400 mg PO Q4HPRN PRN indigestion 08/30/23
fluticasone propionate 50 mcg/actuation nasal spray,suspension 2 spray intranasal DAILY allergies 08/30/23
loratadine 10 mg tablet 10 mg PO DAILY Allergies 08/30/23
magnesium hydroxide 400 mg/5 mL oral suspension 2,400 mg PO [id number] PRN no bm after 3 days 08/30/23
olopatadine 0.1 % eye drops 1 drp BOTH EYES BID Eye Condition 08/30/23
polyethylene glycol 3350 17 gram oral powder packet (Miralax) 17 g PO DAILYPRN PRN Constipation 08/30/23
sennosides 8.6 mg-docusate sodium 50 mg tablet (Senna Plus) 2 tab-cap PO [id number] PRN Constipation 08/30/23
therapeutic multivitamin 1 tab PO DAILY Supplement 08/30/23
venlafaxine 225 mg tablet,extended release 24 hr 225 mg PO HS Depression 08/30/23
acyclovir 400 mg tablet 400 mg PO FR@0800,2000 infection prophylaxis 07/22/24
bisacodyl 10 mg rectal suppository 10 mg KS DAILYPRN PRN if no bm after MOM 07/22/24
dapagliflozin propanediol 10 mg tablet (Farxiga) 10 mg PO DAILY Diabetes 07/22/24
docusate sodium 100 mg capsule (Colace) 100 mg PO DAILY constipation 07/22/24
metformin 500 mg tablet 1,000 mg PO BID Diabetes 07/22/24
montelukast 10 mg tablet (Singulair) 10 mg PO THFRSA@2200 Lung/Breathing Issues 07/22/24
semaglutide 0.25 mg or 0.5 mg (2 mg/3 mL) subcutaneous pen injector (Ozempic) 0.5 mg SC MO Diabetes 07/22/24
loperamide 2 mg tablet (Imodium A-D) 2 mg PO Q6HPRN PRN diarrhea 07/25/24
albuterol sulfate 90 mcg/actuation aerosol inhaler (Ventolin HFA) 2 puff inhalation R Q4HPRN PRN wheezing/sob 08/09/24
aspirin 81 mg tablet,delayed release 81 mg PO DAILY Blood Clot Prevention/Tx 08/09/24
bupropion HCl 150 mg tablet,12 hr sustained-release (Wellbutrin SR) 150 mg PO DAILY depression/anxiety 08/09/24
lenalidomide 25 mg capsule 25 mg PO HS Cancer 08/09/24
povidone-iodine 10 % topical liquid packet 1 applic topical DAILY Skin Issues 08/09/24
povidone-iodine 10 % topical liquid packet 1 applic topical DAILYPRN PRN r foot wound+2nd toe, L 3rd toe 08/09/24
alprazolam 0.25 mg tablet 0.25 mg PO HS anxiety #2 tabs 08/22/24
metoprolol succinate 25 mg tablet,extended release 24 hr 12.5 mg (1/2 x 25 mg) PO DAILY #30 tabs 08/22/24
morphine 30 mg tablet,extended release 30 mg PO Q12H pain #3 tabs 08/22/24
pregabalin 200 mg capsule (Lyrica) 200 mg PO Q8H Pain #5 caps 08/22/24
tamsulosin 0.4 mg capsule 0.4 mg PO DAILY #30 caps 08/22/24
furosemide 80 mg tablet 80 mg PO BID 09/02/24
insulin aspart (niacinamide) (U-100) 100 unit/mL subcutaneous solution (Fiasp U-100 Insulin) 1 sliding scale dose SC MEALS 09/02/24
insulin aspart U-100 100 unit/mL (3 mL) subcutaneous pen 1 sliding scale dose SC AC 09/02/24
insulin glargine 100 unit/mL subcutaneous solution 20 unit SC BID 09/02/24
lorazepam 0.5 mg tablet 0.5 mg PO BIDPRN PRN anxiety 09/02/24
oxycodone 10 mg tablet 10 mg PO Q4H 09/02/24
povidone-iodine 10 % topical solution (Betadine) 1 applic topical HS 09/02/24
sodium phosphates 19 gram-7 gram/118 mL enema (Fleet Enema) 118 ml KS DAILYPRN PRN no bm 24 hours after bisacodyl 09/02/24
Review of Systems
-
History Source: Patient
A 12 point ROS was completed and negative except as noted: Yes
Constitutional: Reports Fatigue; Denies Fever or Chills
Respiratory: Denies Cough or Trouble Breathing
Cardiac: Denies Chest Pain or Palpitations
Abdomen/GI: Denies Abdominal Pain, Nausea, Vomiting or Diarrhea
: Denies Dysuria or Frequency
Musculoskeletal: Denies Joint Pain or Edema
Neurological: Denies Dizzy or Headache
Psych: Denies Depression or Anxiety
Physical Exam
Vital Signs
Vital Signs
Temp Pulse Resp BP Pulse Ox
98.0 F 77 17 153/91 93
09/02/24 21:17 09/03/24 02:15 09/03/24 02:15 09/03/24 02:12 09/03/24 02:15
Physical Exam
General: Other (63y M sleeping comfortably / in no distress.)
HEENT: Moist mucous membranes, PERRLA and Other (Thick neck.)
Respiratory: Clear; No Wheezes, Rales or Rhonchi
Cardiac: S1/S2 and Regular Rhythm; No Murmur
GI: Soft, Non Tender, Non Distended, Normal Bowel Sounds and Other (Obese)
Musculoskeletal: No Clubbing, No Cyanosis and Other (Trace edema bilateral LEs.)
Neuro: AO x 3
Laboratory Results
-
09/02/24 21:28
09/03/24 12:46
Laboratory Results
Total Bilirubin 0.3 mg/dl (0.2-1.3) 09/02/24 21:28
AST 24 U/L (17-59) 09/02/24 21:28
ALT 20 U/L (0-50) 09/02/24 21:28
Alkaline Phosphatase 119 U/L (38-126) 09/02/24 21:28
Troponin I < 0.012 ng/ml 09/02/24 21:28
Impression/Plan
-
A/P: Patient is a 63y M with PMH significant for HTN, DM-II and multiple myeloma who presents to ED complaining of weakness and fatigue.
Acute on Chronic Anemia
Multiple Myeloma
- Admit for further evaluation and treatment.
- PRBCs ordered - but will be delayed given positive antibodies and receipt of chemo treatment earlier today (09/02).
- Follow H&H for improvement and transfuse additional units if needed.
- Heme / Onc evaluation for additional recommendations.
- Hold lenalidomide acutely (again).
- Follow for clinical improvement.
Chronic HFpEF
- No significant volume overload on exam.
- Weight similar to prior discharge.
- Continue current Lasix dosing.
- Follow I/Os, daily weights, etc.
- Echo done during recent admission and was unremarkable.
DM-II
- Uncontrolled. Hyperglycemia with normal B-OH on admission.
- Patient reports that glucose is typically quite high when he is on chemo.
- I do not see that he receives dexamethasone routinely with chemo (which would certainly explain this).
- I do note however that his insulin regimen was significantly decreased during recent hospital stay - while chemo was on hold.
- Continue basal : bolus insulin and adjust dosing as needed.
- Continue Farxiga. Hold other PO medications and Ozempic.
- A1C last month was 10.1%.
CKD III
- SCr is at / near known baseline.
- Follow for any changes.
Chronic Pain Syndrome
Chronic Opioid Dependence
Charcot Foot
- Stable. Continue current pain control med regimen.
- MS Contin standing - but oxycodone should be PRN.
- Follow-up with Pain Management after discharge.
- Patient notes that he has been wheelchair bound for > 1 year.
History of TBI
- No new neurologic complaints.
Morbid Obesity due to excess calories
- Affects all aspects of care.
- Encourage healthy diet. Patient extremely limited in mobility and suspect that significant weight reduction will not be feasible.
DVT Prophylaxis: SCDs
Code Status: Full
[2024-09-03 03:00] VITALS: BP 130/62
[2024-09-03 03:16] VITALS: BMI 33.3
[2024-09-03] MEDS: LANTUS 0.2 UNITS SC ×3 (03:19→22:12)
[2024-09-03] MEDS: MS CONTIN (EXTENDED RELEASE) 30 MG PO ×2 (05:00→16:10)
[2024-09-03] MEDS: LYRICA 200 MG PO ×3 (05:00→20:01)
[2024-09-03 05:38] LABS: Blood Urea Nitrogen 33 mg/dl (9-20); Calcium 9.1 mg/dl (8.4-10.2); Carbon Dioxide 25 mmol/L (22-30); Chloride 102 mmol/L (98-107); Estimated Creatinine Clearance 91 ml/min; Glucose 337 mg/dl (70-99); Potassium 3.9 mmol/L (3.5-5.1); Sodium 141 mmol/L (135-145); eGFR > 60.00
[2024-09-03 05:46] LABS: Hematocrit 21.8 % (39.0-52.0); Hemoglobin 6.8 g/dL (13.0-18.0); Mean Corp Hgb Conc. 31.2 g/dL (33.0-37.0); Mean Corpuscular Hgb 30.9 pg (27.0-31.0); Mean Corpuscular Volume 99.1 fL (80.0-94.0); Mean Platelet Volume 11.6 fL (7.4-10.4); Platelet Count 179 10^3/uL (130-400); Red Cell Dist. Width 18.9 % (11.5-14.5); White Blood Cell Count 5.1 10^3/uL (4.8-10.8)
[2024-09-03] MEDS: TOPROL XL 12.5 MG PO (07:46)
[2024-09-03] MEDS: ASPIR LOW (ENTERIC COATED) 81 MG PO (07:46)
[2024-09-03] MEDS: COLACE 100 MG PO (07:46)
[2024-09-03] MEDS: LASIX 80 MG PO ×2 (07:47→20:01)
[2024-09-03] MEDS: FLOMAX 0.4 MG PO (07:47)
[2024-09-03] MEDS: ROXICODONE 10 MG PO ×4 (07:48→21:05)
[2024-09-03 07:49] VITALS: BP 113/65
[2024-09-03 08:49] LABS: Glucose - Point of Care 307 mg/dl (70-99)
[2024-09-03] MEDS: NOVOLOG FLEXPEN-MODERATE RESISTANCE 7 UNITS SC (08:49)
[2024-09-03] MEDS: WELLBUTRIN SR (12 hour sustained release) 150 MG PO (08:50)
[2024-09-03] MEDS: CLARITIN 10 MG PO (08:50)
[2024-09-03] MEDS: ZADITOR 1 DROP BOTH EYES ×2 (08:51→20:01)
[2024-09-03] MEDS: FARXIGA 10 MG PO (08:51)
--- NOTE | 2024-09-03 10:26 | CON.ONC ---
Impression
Impression
- Symptomatic anemia
- IgA kappa MM
- + T+S due to erika
- CHF
Plan
Plan
- pt readmitted with worsening [place], fatigue in the setting of recurrent severe anemia with hgb < 6.8 g/dl, suspect element of mild acute CHF exacerbation.
- 1 unit pRBCs ordered, discussed with blood bank, testing [facility] due to erika interference. hoping to have resulted by end of today. pt stable.
- on last admission revlimid thought to be contributing to anemia, held since then and planning for low dose however not started yet. check iron studies, B12, folate, retic, stool.
- started aranesp every 3 weeks in office, due next week.
- follows with [facility], received last dose of Erika/Velcade on 09/02. These medications are not commonly associated with severe anemia. suspect his anemia is multifactorial.
- IV diuresis.
Patient History
History of Present Illness
Kenneth is a 63y M with PMH significant for HTN, DM-II, remote TBI and multiple myeloma receiving revlimid/velcade/dex/erika who presented to ED for evaluation of weakness and fatigue in the setting of recurrent severe anemia.He has been having
ongoing issues with symptomatic anemia and was admitted last month for CHF in setting of hgb< 7.0. His Revlimid has been held since his last admission, plan to start reduced dose however not received yet. He was also started on Aranesp 500 mcg every
3 weeks last month, s/p 2 doses. he received velcade/erika on 09/02 as well. Office had sent T&S with plan for outpt transfusion on Thursday however due to worsening symptoms he presented to ED. based on last MM panel in july he appears to be
responding to current therapy. Repeat 08/31 pending. WBC, plts within normal range. He notes worsening SOB. Denies cough, CP, fevers, LE swelling out of his ordinary. 1 unit pRBCs ordered however due to erika interference with compatibility testing
T+S sent out for DTT treatment at [facility]. Pt hemodynamically stable. denies melena, BRBPR
Patient Medication
�Medication �Instructions �Recorded �Confirmed �Last Taken �Type
acetaminophen 325 mg tablet 650 mg PO Q4HPRN PRN mild 08/30/23 09/02/24 Unknown History
(Tylenol) pain/fever
amitriptyline 50 mg tablet 50 mg PO HS Depression 08/30/23 09/02/24 07/21/24 History
atorvastatin 40 mg tablet (Lipitor) 40 mg PO HS High Cholesterol 08/30/23 09/02/24 07/21/24 History
calcium carbonate (Tums) 400 mg PO Q4HPRN PRN indigestion 08/30/23 09/02/24 Unknown History
fluticasone propionate 50 2 spray intranasal DAILY allergies 08/30/23 09/02/24 07/22/24 History
mcg/actuation nasal
spray,suspension
loratadine 10 mg tablet 10 mg PO DAILY Allergies 08/30/23 09/02/24 07/22/24 History
magnesium hydroxide 400 mg/5 mL 2,400 mg PO [id number] PRN no bm 08/30/23 09/02/24 Unknown History
oral suspension after 3 days
olopatadine 0.1 % eye drops 1 drp BOTH EYES BID Eye Condition 08/30/23 09/02/24 07/22/24 History
polyethylene glycol 3350 17 gram 17 g PO DAILYPRN PRN Constipation 08/30/23 09/02/24 Unknown History
oral powder packet (Miralax)
sennosides 8.6 mg-docusate sodium 2 tab-cap PO [id number] PRN 08/30/23 09/02/24 07/22/24 History
50 mg tablet (Senna Plus) Constipation
therapeutic multivitamin 1 tab PO DAILY Supplement 08/30/23 09/02/24 07/22/24 History
venlafaxine 225 mg tablet,extended 225 mg PO HS Depression 08/30/23 09/02/24 07/22/24 History
release 24 hr
acyclovir 400 mg tablet 400 mg PO FR@0800,2000 infection 07/22/24 09/02/24 07/22/24 History
prophylaxis
bisacodyl 10 mg rectal suppository 10 mg ID DAILYPRN PRN if no bm 07/22/24 09/02/24 Unknown History
after MOM
dapagliflozin propanediol 10 mg 10 mg PO DAILY Diabetes 07/22/24 09/02/24 07/22/24 History
tablet (Farxiga)
docusate sodium 100 mg capsule 100 mg PO DAILY constipation 07/22/24 09/02/24 07/22/24 History
(Colace)
metformin 500 mg tablet 1,000 mg PO BID Diabetes 07/22/24 09/02/24 07/22/24 History
montelukast 10 mg tablet 10 mg PO THFRSA@2200 07/22/24 09/02/24 07/21/24 History
(Singulair) Lung/Breathing Issues
semaglutide 0.25 mg or 0.5 mg (2 0.5 mg SC MO Diabetes 07/22/24 09/02/24 07/19/24 History
mg/3 mL) subcutaneous pen injector
(Ozempic)
loperamide 2 mg tablet (Imodium 2 mg PO Q6HPRN PRN diarrhea 07/25/24 09/02/24 Unknown History
A-D)
albuterol sulfate 90 mcg/actuation 2 puff inhalation R Q4HPRN PRN 08/09/24 09/02/24 Unknown History
aerosol inhaler (Ventolin HFA) wheezing/sob
aspirin 81 mg tablet,delayed 81 mg PO DAILY Blood Clot 08/09/24 09/02/24 Unknown History
release Prevention/Tx
bupropion HCl 150 mg tablet,12 hr 150 mg PO DAILY depression/anxiety 08/09/24 09/02/24 Unknown History
sustained-release (Wellbutrin SR)
lenalidomide 25 mg capsule 25 mg PO HS Cancer 08/09/24 09/02/24 Unknown History
povidone-iodine 10 % topical 1 applic topical DAILY Skin Issues 08/09/24 09/02/24 Unknown History
liquid packet
povidone-iodine 10 % topical 1 applic topical DAILYPRN PRN r 08/09/24 09/02/24 Unknown History
liquid packet foot wound+2nd toe, L 3rd toe
alprazolam 0.25 mg tablet 0.25 mg PO HS anxiety #2 tabs 08/22/24 09/02/24 Unknown Rx
metoprolol succinate 25 mg 12.5 mg (1/2 x 25 mg) PO DAILY #30 08/22/24 09/02/24 Unknown Rx
tablet,extended release 24 hr tabs
morphine 30 mg tablet,extended 30 mg PO Q12H pain #3 tabs 08/22/24 09/02/24 Unknown Rx
release
pregabalin 200 mg capsule (Lyrica) 200 mg PO Q8H Pain #5 caps 08/22/24 09/02/24 Unknown Rx
tamsulosin 0.4 mg capsule 0.4 mg PO DAILY #30 caps 08/22/24 09/02/24 Unknown Rx
furosemide 80 mg tablet 80 mg PO BID 09/02/24 09/02/24 Unknown History
insulin aspart (niacinamide) 1 sliding scale dose SC MEALS 09/02/24 09/02/24 Unknown History
(U-100) 100 unit/mL subcutaneous
solution (Fiasp U-100 Insulin)
insulin aspart U-100 100 unit/mL 1 sliding scale dose SC AC 09/02/24 09/02/24 Unknown History
(3 mL) subcutaneous pen
insulin glargine 100 unit/mL 20 unit SC BID 09/02/24 09/02/24 Unknown History
subcutaneous solution
lorazepam 0.5 mg tablet 0.5 mg PO BIDPRN PRN anxiety 09/02/24 09/02/24 Unknown History
oxycodone 10 mg tablet 10 mg PO Q4H 09/02/24 09/02/24 Unknown History
povidone-iodine 10 % topical 1 applic topical HS 09/02/24 09/02/24 Unknown History
solution (Betadine)
sodium phosphates 19 gram-7 118 ml ID DAILYPRN PRN no bm 24 09/02/24 09/02/24 Unknown History
gram/118 mL enema (Fleet Enema) hours after bisacodyl
Active Medications
Generic Name Dose Route Start Last Admin
Trade Name Freq PRN Reason Stop Dose Admin
Acetaminophen 650 mg 09/03/24 03:37
Acetaminophen 325 Mg Tablet PO 10/01/24 03:36
Q4HPRN PRN
mild pain/fever
Acyclovir Sodium 400 mg 09/09/24 08:00
Acyclovir Sodium 200 Mg Capsule PO 09/19/24 07:59
FR@0800,2000 TERESA
Albuterol 2 puff 09/03/24 03:37
Albuterol Hfa [90 Mcg/Dose] Inhaler INH
R Q4HPRN PRN
wheezing/sob
Protocol
Alprazolam 0.25 mg 09/03/24 22:00
Alprazolam 0.25 Mg Tablet PO 10/01/24 21:59
HS TERESA
Amitriptyline HCl 50 mg 09/03/24 22:00
Amitriptyline 50 Mg Tablet PO 10/01/24 21:59
HS TERESA
Aspirin 81 mg 09/03/24 08:00 09/03/24 07:46
Aspirin 81 Mg (Enteric Coated) Tablet PO 10/01/24 07:59 81 mg
DAILY TERESA Administration
Atorvastatin Calcium 40 mg 09/03/24 22:00
Atorvastatin (Lipitor) 40 Mg Tablet PO 10/01/24 21:59
HS TERESA
Bupropion HCl 150 mg 09/03/24 08:00 09/03/24 08:50
Bupropion (12hr) Sustained Release 150 Mg Tablet PO 10/01/24 07:59 150 mg
DAILY TERESA Administration
Dapagliflozin 10 mg 09/03/24 08:00 09/03/24 08:51
Dapagliflozin (Farxiga) 10 Mg Tablet PO 10/01/24 07:59 10 mg
DAILY TERESA Administration
Dextrose 12.5 grams 09/03/24 03:37
Dextrose 50% (0.5 Grams/Ml) 50 Ml Syringe IV 10/01/24 03:36
[id number] PRN
hypoglycemia
Protocol
Docusate Sodium 100 mg 09/03/24 08:00 09/03/24 07:46
Docusate Sodium 100 Mg Capsule PO 10/01/24 07:59 100 mg
DAILY TERESA Administration
Furosemide 80 mg 09/03/24 08:00 09/03/24 07:47
Furosemide 80 Mg Tablet PO 10/01/24 07:59 80 mg
BID TERESA Administration
Glucagon 1 mg 09/03/24 03:37
Glucagon 1 Mg Vial IM 10/01/24 03:36
PRN PRN
hypoglycemia
Protocol
Insulin Glargine 20 units/ 0.2 mls @ 0 mls/hr 09/03/24 08:00 09/03/24 08:50
Device SC 10/01/24 07:59 0.2 mls
BID TERESA Administration
As Directed
Insulin Aspart 0 units 09/03/24 07:30 09/03/24 08:49
Insulin Aspart Moderate Resistance 300 Units/3 Ml Pen.Injctr SC 10/01/24 07:29 7 units
AC TERESA Administration
Protocol
Ketotifen Fumarate 1 drop 09/03/24 08:00 09/03/24 08:51
Ketotifen Fumarate (Ophthalmic Solution) Bottle BOTH EYES 10/01/24 07:59 1 drop
BID TERESA Administration
Loratadine 10 mg 09/03/24 08:00 09/03/24 08:50
Loratadine 10 Mg Tablet PO 10/01/24 07:59 10 mg
DAILY TERESA Administration
Metoprolol Succinate 12.5 mg 09/03/24 08:00 09/03/24 07:46
Metoprolol 25 Mg Extended Release Tablet PO 10/01/24 07:59 12.5 mg
DAILY TERESA Administration
Montelukast Sodium 10 mg 09/03/24 22:00
Montelukast Sodium 10 Mg Tablet PO 10/01/24 21:59
THFRSA@2200 TERESA
Morphine Sulfate 30 mg 09/03/24 03:37 09/03/24 05:00
Morphine 30 Mg Extended Release Tablet PO 09/17/24 03:36 30 mg
Q12H TERESA Administration
Oxycodone HCl 10 mg 09/03/24 03:37 09/03/24 07:48
Oxycodone 10 Mg Regular Release Tablet PO 09/17/24 03:36 10 mg
Q4H PRN Administration
Moderate - Severe Pain
Polyethylene Glycol 17 grams 09/03/24 03:37
Polyethylene Glycol Powder 17 Grams Packet PO 10/01/24 03:36
DAILYPRN PRN
Constipation
Pregabalin 200 mg 09/03/24 04:45 09/03/24 05:00
Pregabalin 100 Mg Capsule PO 10/01/24 04:44 200 mg
Q8H TERESA Administration
Sodium Chloride 0 flush 09/03/24 05:00
Sodium Chloride 0.9% (Flush) Syringe IV 10/01/24 04:59
PER PROTOCOL TERESA
Tamsulosin HCl 0.4 mg 09/03/24 08:00 09/03/24 07:47
Tamsulosin 0.4 Mg Capsule PO 10/01/24 07:59 0.4 mg
DAILY TERESA Administration
Venlafaxine HCl 225 mg 09/03/24 22:00
Venlafaxine 75 Mg Extended Release Capsule PO 10/01/24 21:59
HS TERESA
Review of Systems
-
History Source: Patient
Constitutional: Reports Weight Gain and Fatigue; Denies Fever
Respiratory: Reports Trouble Breathing; Denies Cough
Cardiac: Denies Chest Pain
GI: Denies Abdominal Pain, Nausea, Diarrhea, Bloody Stools or Black Stools
Musculoskeletal: Denies Joint Pain
Neuro: Reports Weakness; Denies Dizzy
Physical Exam
-
General: Well Developed, Well Nourished, No Apparent Distress and Obese
HEENT: Negative Jaundice
Cardiology: Normal Sinus Rhythm
Pulmonary: Clear; Negative Wheezes
GI: Soft; Negative Distended
Musculoskeletal: Edema, Right Lower Extrem (trace) and Edema, Left Lower Extrem (trace)
Neurology: Non Focal
Psych: Calm; Negative Confused
Labs
Lab Results
WBC 5.1 10^3/uL (4.8-10.8) 09/03/24 05:07
RBC 2.20 10^6/uL (4.70-6.10) L 09/03/24 05:07
Hgb 6.8 g/dL (13.0-18.0) L* 09/03/24 05:07
Hct 21.8 % (39.0-52.0) L 09/03/24 05:07
MCV 99.1 fL (80.0-94.0) H 09/03/24 05:07
MCH 30.9 pg (27.0-31.0) 09/03/24 05:07
MCHC 31.2 g/dL (33.0-37.0) L 09/03/24 05:07
RDW 18.9 % (11.5-14.5) H 09/03/24 05:07
Plt Count 179 10^3/uL (130-400) 09/03/24 05:07
MPV 11.6 fL (7.4-10.4) H 09/03/24 05:07
Abs Immat Gran (auto) 0.1 10^3/uL (0-0.05) H 09/02/24 21:28
Absolute Neuts (auto) 4.1 10^3/uL (1.4-6.5) 09/02/24 21:28
Absolute Lymphs (auto) 0.7 10^3/uL (1.2-3.4) L 09/02/24 21:28
Absolute Monos (auto) 0.1 10^3/uL (0.1-0.6) 09/02/24 21:
Absolute Eos (auto) 0.0 10^3/uL (0-0.7) 09/02/24 21:28
Absolute Basos (auto) 0.0 10^3/uL (0-0.2) 09/02/24 21:
Immature Gran % 1.8 % (0-0.5) H 09/02/24 21:
Neutrophils % 82.1 % (42.2-75.2) H 09/02/24:
Lymphocytes % 13.3 % (20.5-51.1) L 09/02/24 21:
Monocytes % 2.2 % (1.7-9.3) 09/02/24 21:
Eosinophils % 0.4 % (0-6) 09/02/24:
Basophils % 0.2 % (0-2) 09/02/24 21:
Creatinine 1.2 mg/dL (0.7-1.3) 09/03/24 05:07
Vital Signs
Vital Signs
Temp Pulse Resp BP Pulse Ox
98.0 F 79 14 113/65 96
09/02/24 21:17 09/03/24 07:49 09/03/24 07:49 09/03/24 07:49 09/03/24 07:49
[2024-09-03 12:25] LABS: Glucose - Point of Care 445 mg/dl (70-99)
[2024-09-03] MEDS: NOVOLOG FLEXPEN-MODERATE RESISTANCE 11 UNITS SC (12:33)
[2024-09-03 12:59] LABS: Reticulocyte Count 2.9 % (0.4-2.8)
[2024-09-03 13:07] LABS: Glucose 447 mg/dl (70-99); Iron 115 ug/dl (49-181)
[2024-09-03 13:16] LABS: Percent Saturation 43 % (20-50); Total Iron Binding Capacity 266 ug/dl (261-462)
[2024-09-03 15:41] VITALS: BP 105/69
[2024-09-03 16:49] LABS: Glucose - Point of Care 404 mg/dl (70-99)
[2024-09-03 17:20] LABS: Glucose 365 mg/dl (70-99)
[2024-09-03] MEDS: NOVOLOG FLEXPEN-MODERATE RESISTANCE 9 UNITS SC (18:18)
--- NOTE | 2024-09-03 19:11 | EDRN ---
@1820 this RN called blood bank to inquire about blood. per blood bank staff they have not heard back from [facility], they state that it typically takes about 24 hours to get blood. pt aware, oncoming RN aware. attempted to make 3W RN aware however
no answer.
--- NOTE | 2024-09-03 20:09 | EDRN ---
Pt sleeping when this RN entered room to administer 2000 medications. ED does not have lantus insulin. This RN called floor to advise pt coming to room now and why lantus insulin was not given yet. They will call pharmacy.
[2024-09-03 20:44] VITALS: BP 125/66
[2024-09-03 20:45] VITALS: BMI 33.9
[2024-09-03] MEDS: EFFEXOR XR 225 MG PO (21:04)
[2024-09-03] MEDS: XANAX 0.25 MG PO (21:05)
[2024-09-03] MEDS: LIPITOR 40 MG PO (21:06)
[2024-09-03] MEDS: ELAVIL 50 MG PO (21:06)
[2024-09-03 21:23] VITALS: BMI 33.9
[2024-09-03 21:27] LABS: Glucose - Point of Care 370 mg/dl (70-99)
[2024-09-03] MEDS: NOVOLOG FLEXPEN 10 UNITS SC (22:13)
[2024-09-03] MEDS: SINGULAIR 10 MG PO (22:13)
[2024-09-03 23:45] VITALS: BP 123/59
[2024-09-04] MEDS: ROXICODONE 10 MG PO ×5 (01:10→22:21)
[2024-09-04] MEDS: MS CONTIN (EXTENDED RELEASE) 30 MG PO ×2 (04:56→16:33)
[2024-09-04] MEDS: LYRICA 200 MG PO ×3 (04:56→20:52)
[2024-09-04 05:57] VITALS: BP 133/71
[2024-09-04 06:13] VITALS: BP 111/54
[2024-09-04 06:19] VITALS: BMI 33.7
[2024-09-04] MEDS: ROXICODONE PO (06:22)
[2024-09-04 07:25] VITALS: BP 119/62
[2024-09-04 07:39] LABS: Glucose - Point of Care 307 mg/dl (70-99)
[2024-09-04] MEDS: ASPIR LOW (ENTERIC COATED) 81 MG PO (08:34)
[2024-09-04] MEDS: FARXIGA 10 MG PO (08:34)
[2024-09-04] MEDS: FLOMAX 0.4 MG PO (08:35)
[2024-09-04] MEDS: COLACE 100 MG PO (08:35)
[2024-09-04] MEDS: CLARITIN 10 MG PO (08:35)
[2024-09-04] MEDS: TOPROL XL 12.5 MG PO (08:35)
[2024-09-04] MEDS: WELLBUTRIN SR (12 hour sustained release) 150 MG PO (08:35)
[2024-09-04] MEDS: ZADITOR 1 DROP BOTH EYES ×2 (08:36→20:48)
[2024-09-04] MEDS: NOVOLOG FLEXPEN-MODERATE RESISTANCE 7 UNITS SC (08:40)
[2024-09-04] MEDS: LANTUS 0.2 UNITS SC ×2 (08:46→21:10)
[2024-09-04 08:51] VITALS: BP 116/67
[2024-09-04 10:45] LABS: Hematocrit 24.1 % (39.0-52.0); Hemoglobin 7.4 g/dL (13.0-18.0); Mean Corp Hgb Conc. 30.7 g/dL (33.0-37.0); Mean Corpuscular Hgb 30.2 pg (27.0-31.0); Mean Corpuscular Volume 98.4 fL (80.0-94.0); Mean Platelet Volume 11.1 fL (7.4-10.4); Platelet Count 148 10^3/uL (130-400); Red Blood Cell Count 2.45 10^6/uL (4.70-6.10); Red Cell Dist. Width 20.2 % (11.5-14.5); White Blood Cell Count 4.5 10^3/uL (4.8-10.8)
[2024-09-04 10:57] LABS: Blood Urea Nitrogen 37 mg/dl (9-20); Carbon Dioxide 24 mmol/L (22-30); Chloride 100 mmol/L (98-107); Estimated Creatinine Clearance 90 ml/min; Glucose 335 mg/dl (70-99); Potassium 3.9 mmol/L (3.5-5.1); Sodium 140 mmol/L (135-145); eGFR > 60.00
[2024-09-04] MEDS: LASIX PO (11:09)
[2024-09-04 11:31] LABS: Glucose - Point of Care 294 mg/dl (70-99)
[2024-09-04] MEDS: NOVOLOG FLEXPEN-MODERATE RESISTANCE 5 UNITS SC (12:02)
--- NOTE | 2024-09-04 14:34 | W.PN.HOSP.TC ---
Today's Communication/Plan
-
Assessment / Plan
Assessment / Plan
[place] on chronic anemia
-likely secondary to MM
-hgb improved after 1u prbc
-will give lasix iv
-hem/onc fo.llowing
-repeat cbc in the AM
-if stable dc home
chronic hfpef
-lle edema, 1+ no jvd nor crackles
-continue po diuretics for now
-give iv diuretics if recieve blood transfusion
dmII
-accuchehcks
ssi
-long and short acting insulin
chronic pain sundrome
continue opiod chronically
Anticipated Discharge: Within 24 hours
Subjective/Interval History
-
Date of Service: September 04, 2024
seen and examined
no new comaplitns
no acute ovenright events
Objective Data
-
Labs:
Laboratory Results
09/04/24
10:37
WBC 4.5 L
Hgb 7.4 L
Hct 24.1 L
Plt Count 148
Sodium 140
Potassium 3.9
Chloride 100
Carbon Dioxide 24
BUN 37 H
Creatinine 1.2
Glucose 335 H
Calcium 9.0
Vital Signs:
Vital Signs
Temp Pulse Resp BP Pulse Ox
97.9 F 84 20 116/67 100
09/04/24 08:51 09/04/24 08:51 09/04/24 08:51 09/04/24 08:51 09/04/24 08:51
I&O
09/03/24 09/04/24 09/05/24
06:59 06:59 06:59
Intake Total 240 / 240 250 / 250
Output Total 2099 / 2099
Balance -2099 / -2099 240 / 240 250 / 250
[2024-09-04 15:00] VITALS: BP 106/55
[2024-09-04] MEDS: LASIX 80 MG IV (16:33)
[2024-09-04 16:42] LABS: Glucose - Point of Care 355 mg/dl (70-99)
[2024-09-04] MEDS: NOVOLOG FLEXPEN-MODERATE RESISTANCE 9 UNITS SC (16:46)
[2024-09-04] MEDS: LASIX 80 MG PO (20:53)
[2024-09-04 21:01] LABS: Glucose - Point of Care 349 mg/dl (70-99)
[2024-09-04] MEDS: ELAVIL 50 MG PO (21:01)
[2024-09-04] MEDS: XANAX 0.25 MG PO (21:01)
[2024-09-04] MEDS: EFFEXOR XR 225 MG PO (21:01)
[2024-09-04] MEDS: LIPITOR 40 MG PO (21:01)
[2024-09-04 23:40] VITALS: BP 108/69
[2024-09-05] MEDS: LYRICA 200 MG PO ×2 (05:05→12:54)
[2024-09-05] MEDS: MS CONTIN (EXTENDED RELEASE) 30 MG PO ×2 (05:05→15:56)
[2024-09-05 05:33] VITALS: BMI 33.4
[2024-09-05 05:58] LABS: Hematocrit 25.1 % (39.0-52.0); Hemoglobin 7.8 g/dL (13.0-18.0); Mean Corp Hgb Conc. 31.1 g/dL (33.0-37.0); Mean Corpuscular Hgb 30.6 pg (27.0-31.0); Mean Corpuscular Volume 98.4 fL (80.0-94.0); Mean Platelet Volume 11.5 fL (7.4-10.4); Platelet Count 143 10^3/uL (130-400); Red Blood Cell Count 2.55 10^6/uL (4.70-6.10); Red Cell Dist. Width 20.5 % (11.5-14.5)
[2024-09-05 06:26] LABS: ALT (SGPT) 18 U/L (0-50); AST (SGOT) 21 U/L (17-59); Albumin 3.9 g/dl (3.5-5.0); Alkaline Phosphatase 116 U/L (38-126); Blood Urea Nitrogen 38 mg/dl (9-20); Calcium 9.1 mg/dl (8.4-10.2); Carbon Dioxide 28 mmol/L (22-30); Chloride 100 mmol/L (98-107); Estimated Creatinine Clearance 72 ml/min; Glucose 312 mg/dl (70-99); Potassium 3.8 mmol/L (3.5-5.1); Sodium 142 mmol/L (135-145); Total Bilirubin 0.4 mg/dl (0.2-1.3); Total Protein 10.4 g/dl (6.3-8.2); eGFR 52.31
[2024-09-05 07:30] VITALS: BP 112/59
[2024-09-05 08:18] LABS: Glucose - Point of Care 300 mg/dl (70-99)
[2024-09-05] MEDS: TOPROL XL 12.5 MG PO (08:58)
[2024-09-05] MEDS: FLOMAX 0.4 MG PO (08:58)
[2024-09-05] MEDS: CLARITIN 10 MG PO (08:59)
[2024-09-05] MEDS: ASPIR LOW (ENTERIC COATED) 81 MG PO (08:59)
[2024-09-05] MEDS: WELLBUTRIN SR (12 hour sustained release) 150 MG PO (08:59)
[2024-09-05] MEDS: FARXIGA 10 MG PO (08:59)
[2024-09-05] MEDS: LASIX 80 MG PO (08:59)
[2024-09-05] MEDS: ROXICODONE 10 MG PO ×2 (09:00→13:00)
[2024-09-05] MEDS: NOVOLOG FLEXPEN-MODERATE RESISTANCE 7 UNITS SC (09:01)
[2024-09-05] MEDS: ZADITOR 1 DROP BOTH EYES (09:01)
[2024-09-05] MEDS: COLACE PO (09:02)
[2024-09-05] MEDS: LANTUS 0.2 UNITS SC (09:06)
[2024-09-05 12:00] VITALS: BP 131/54; BP 133/56; PULSE 72
[2024-09-05 12:03] LABS: Glucose - Point of Care 374 mg/dl (70-99)
[2024-09-05 12:06] VITALS: BP 115/60; PULSE 90; O2SAT 98
--- NOTE | 2024-09-05 12:51 | W.PN.HOSP.TC ---
Addendum entered and electronically signed by Frandy Menchaca MD 09/05/24 12:54:
More than 30 minutes spent in discharge including
Final examination of the patient
Summarizing hospital stay
Instructions for continuing care to all relevant caregivers
Preparation of discharge records, prescriptions, and referral forms
Total time spent (in minutes): 33mi
Original Note:
Today's Communication/Plan
-
dc home
Assessment / Plan
Assessment / Plan
Acute on chronic anemia
-likely secondary to MM
- s/p 1u prbc and iv lasix
-hgb 7.8 and stable
-improvement in symptoms as well (fatigue and weakness)
chronic hfpef
-lle edema, 1+ no jvd nor crackles
-continue po diuretics for now
dmII
-accuchehcks
ssi
-long and short acting insulin
chronic pain sundrome
continue opiod chronically
dc home
Anticipated Discharge: Today
Subjective/Interval History
-
Date of Service: September 05, 2024
seen and examined
feeling better
ready to go home
Objective Data
-
Labs:
Laboratory Results
09/05/24
05:44
WBC 4.0 L
Hgb 7.8 L
Hct 25.1 L
Plt Count 143
Sodium 142
Potassium 3.8
Chloride 100
Carbon Dioxide 28
BUN 38 H
Creatinine 1.5 H
Glucose 312 H
Calcium 9.1
Total Bilirubin 0.4
AST 21
ALT 18
Alkaline Phosphatase 116
Vital Signs:
Vital Signs
Temp Pulse Resp BP Pulse Ox
97.8 F 77 18 112/59 99
09/05/24 07:30 09/05/24 07:30 12/16/24 07:30 09/05/24 07:30 09/05/24 07:30
I&O
09/04/24 09/05/24 09/06/24
06:59 06:59 06:59
Intake Total 240 / 240 2170 / 2170
Balance 240 / 240 2170 / 2170
Physical Exam
-
General: Well Developed, Well Nourished and No Apparent Distress
HEENT: Normocephalic, Atraumatic and Moist Mucous Membranes
Respiratory: Clear to Auscultation
Cardiac: Regular Rhythm and S1/S2
GI: Soft, Nontender, Nondistended and Normal Bowel Sounds
Musculoskeletal: Edema, Right Lower Extrem and Edema, Left Lower Extrem
Skin: Warm
Neuro: Awake, Alert, Oriented and AO x 3
Psych: Calm
--- NOTE | 2024-09-05 12:53 | W.DCSUMMARY ---
Discharge Summary
Discharge Data
Date of Admission: 09/03/24
Date of Discharge: 09/05/24
-
Pending Results: No
Hospital Course
63y M with PMH significant for HTN, DM-II, remote TBI and multiple myeloma
Presented with complaints of weakness and fatigue that had been progressively getting worse. Was scheduled for outpatient blood transfusion on 09/05/2024 however symptomatology continued to worsen and presented to the hospital. Found to have a
hemoglobin of 6.8. Received 1 unit PRBC followed by IV Lasix. Improved blood counts to 7.8. Outpatient hematology/oncology follow-up. Repeat CBC in 1 week with PCP.
Discharge Plan
-
Patient Disposition: Home (Routine Discharge)
Discharge Diagnosis/Procedures: Symptomatic anemia
Condition: Good
Diet: As tolerated
Activity: As tolerated
Blood Work: CBC in 1 week
Activity Restrictions/Additional Instructions:
Presented with complaints of weakness and fatigue that had been progressively getting worse. Was scheduled for outpatient blood transfusion on 09/05/2024 however symptomatology continued to worsen and presented to the hospital. Found to have a
hemoglobin of 6.8. Received 1 unit PRBC followed by IV Lasix. Improved blood counts to 7.8. Outpatient hematology/oncology follow-up. Repeat CBC in 1 week with PCP.
Referrals:
Daisy Gordon DO [Family Provider] -
Prescriptions:
Continued
atorvastatin [Lipitor] 40 mg Tablet
40 mg PO HS
acetaminophen [Tylenol] 325 mg Tablet
650 mg PO Q4HPRN PRN (Reason: mild pain/fever)
amitriptyline 50 mg Tablet
50 mg PO HS
fluticasone propionate 50 mcg/actuation [place],Suspension
2 spray INTRANASAL DAILY
polyethylene glycol 3350 [Miralax] 17 gram Powder In Packet
17 g PO DAILYPRN PRN (Reason: Constipation)
sennosides-docusate sodium [Senna Plus] 8.6-50 mg Tablet
2 tab-cap PO [id number] PRN (Reason: Constipation)
therapeutic multivitamin Tablet
1 tab PO DAILY
magnesium hydroxide 400 mg/5 mL Suspension
2,400 mg PO [id number] PRN (Reason: no bm after 3 days)
olopatadine 0.1 % Drops
1 drp BOTH EYES BID
calcium carbonate [Tums] 200 mg calcium (500 mg) Tablet,Chewable
400 mg PO Q4HPRN PRN (Reason: indigestion )
loratadine 10 mg Tablet
10 mg PO DAILY
venlafaxine 225 mg Tablet Extended Release 24hr
225 mg PO HS
metformin 500 mg Tablet
1,000 mg PO BID
acyclovir 400 mg Tablet
400 mg PO FR@0800,2000
bisacodyl 10 mg Suppository
10 mg [place] DAILYPRN PRN (Reason: if no bm after MOM)
docusate sodium [Colace] 100 mg Capsule
100 mg PO DAILY
montelukast [Singulair] 10 mg Tablet
10 mg PO THFRSA@2200
dapagliflozin propanediol [Farxiga] 10 mg Tablet
10 mg PO DAILY
Ozempic 0.25 mg or 0.5 mg (2 mg/3 mL) Pen Injector
0.5 mg SC MO
loperamide [Imodium A-D] 2 mg Tablet
2 mg PO Q6HPRN PRN (Reason: diarrhea)
aspirin 81 mg Tablet,Delayed Release (Dr/Ec)
81 mg PO DAILY
povidone-iodine 10 % Liquid In Packet
1 applic TOPICAL DAILYPRN PRN (Reason: r foot wound+2nd toe, L 3rd toe)
povidone-iodine 10 % Liquid In Packet
1 applic TOPICAL DAILY
Rx Instructions:
right 2nd toe and right foot wound
lenalidomide 25 mg Capsule
25 mg PO HS
Patient Comments:
12/13/24: to take from 08/26/24-09/09/24, per [place] paperwork
bupropion HCl [Wellbutrin SR] 150 mg Tablet Sustained-Release 12 Hr
150 mg PO DAILY
albuterol sulfate [Ventolin HFA] 90 mcg/actuation Hfa Aerosol Inhaler
2 puff INHALATION R Q4HPRN PRN (Reason: wheezing/sob)
tamsulosin 0.4 mg Capsule
0.4 mg PO DAILY Qty: 30 1RF
metoprolol succinate 25 mg Tablet Extended Release 24 Hr
12.5 mg PO DAILY Qty: 30 1RF
morphine 30 mg Tablet Extended Release
30 mg PO Q12H Qty: 3 0RF
alprazolam 0.25 mg Tablet
0.25 mg PO HS Qty: 2 0RF
pregabalin [Lyrica] 200 mg capsule
200 mg PO Q8H Qty: 5 0RF
insulin glargine 100 unit/mL Solution
20 unit SC BID
lorazepam 0.5 mg Tablet
0.5 mg PO BIDPRN PRN (Reason: anxiety)
Fleet Enema 19-7 gram/118 mL Enema
118 ml MI DAILYPRN PRN (Reason: no bm 24 hours after bisacodyl)
povidone-iodine [Betadine] 10 % Solution
1 applic TOPICAL HS
Rx Instructions:
right 2nd toe and left 3rd toe
Fiasp U-100 Insulin 100 unit/mL Solution
1 sliding scale dose SC MEALS
Rx Instructions:
151-200=2u,201-250=4u,251-300=6u,351-400=9u,401-450=10u,451-500=12u
furosemide 80 mg tablet
80 mg PO BID
insulin aspart U-100 100 unit/mL (3 mL) insulin pen
1 sliding scale dose SC AC
Rx Instructions:
151-200=2u,201-250=4u,251-300=6u,301-350=8u,351-400=10u,401-450=12u
oxycodone 10 mg tablet
10 mg PO Q4H
Discharge Orders:
Discharge Patient (As Directed); Ordered 09/05/24
Ordered By: Frandy Menchaca
Discharge Date and Time
Print Language: FRENCH
[2024-09-05] MEDS: NOVOLOG FLEXPEN-MODERATE RESISTANCE 9 UNITS SC (12:55)
[2024-09-05 15:30] VITALS: BP 111/62
--- NOTE | 2024-09-05 15:37 | CM ---
Patient medically cleared for discharge. Called [facility] and spoke with Jackie who confirmed ability to take back. [phone] and [phone]
Medical necessity and transfer sheet completed for transfer back.
Patient signed IMM.
Plan: Case management will continue to follow and assist with discharge planning. Back to [facility].
== END 2024-09-05 17:13 | disposition home or self-care (01) | DRG 841 ==
LOC: 3 WEST ACU 03:16
PROVIDERS: Physician Assistant; ADMITTING PHYSICIAN Hospitalist; ATTENDING PHYSICIAN Hospitalist; CONSULT PHYSICIAN Internal Medicine Hematology & Oncology; EMERGENCY PHYSICIAN Student in an Organized Health Care Education/Training Program; FAMILY PHYSICIAN Hospitalist
PROC: 30233N1 Transfusion of Nonautologous Red Blood Cells into Peripheral Vein, Percutaneous Approach (ICD-10-PCS; 2024-09-04)
DX: C90.00 Multiple myeloma not having achieved remission (principal); F11.20 Opioid dependence, uncomplicated; I50.32 Chronic diastolic (congestive) heart failure; I13.0 Hypertensive heart and chronic kidney disease with heart failure and stage 1 through stage 4 chronic kidney disease, or unspecified chronic kidney disease; D46.9 Myelodysplastic syndrome, unspecified; Z87.820 Personal history of traumatic brain injury; N18.30 Chronic kidney disease, stage 3 unspecified; E11.40 Type 2 diabetes mellitus with diabetic neuropathy, unspecified; K59.00 Constipation, unspecified; Z79.82 Long term (current) use of aspirin; E11.22 Type 2 diabetes mellitus with diabetic chronic kidney disease; Z79.899 Other long term (current) drug therapy; Z79.84 Long term (current) use of oral hypoglycemic drugs; Z79.4 Long term (current) use of insulin; Z87.891 Personal history of nicotine dependence; Z99.3 Dependence on wheelchair; Z79.85 Long-term (current) use of injectable non-insulin antidiabetic drugs; E66.01 Morbid (severe) obesity due to excess calories; Z68.33 Body mass index [BMI] 33.0-33.9, adult; E11.65 Type 2 diabetes mellitus with hyperglycemia; E11.610 Type 2 diabetes mellitus with diabetic neuropathic arthropathy; E78.00 Pure hypercholesterolemia, unspecified; F32.A Depression, unspecified; F41.9 Anxiety disorder, unspecified; G89.4 Chronic pain syndrome; D63.0 Anemia in neoplastic disease
CPT/HCPCS: 71046; 80048; 80053; 82010; 82607; 82728; 82746; 82805; 82947; 82962; 83036; 83540; 83550; 83880; 84484; 85025; 85027; 85045; 86850; 86870; 86900; 86901; 86920; 86922; 93005; 96374; 97162; 97166; 99285; 99406; P9016

== ENCOUNTER 2024-09-13 12:33 | Emergency (ER) | payer MEDICARE, OTHER, SELFPAY ==
[2024-09-13 12:46] VITALS: BP 123/69
[2024-09-13 13:19] LABS: Hematocrit 23.7 % (39.0-52.0); Hemoglobin 7.4 g/dL (13.0-18.0); Mean Corp Hgb Conc. 31.2 g/dL (33.0-37.0); Mean Corpuscular Hgb 29.7 pg (27.0-31.0); Mean Corpuscular Volume 95.2 fL (80.0-94.0); Mean Platelet Volume 11.8 fL (7.4-10.4); Platelet Count 129 10^3/uL (130-400); Red Blood Cell Count 2.49 10^6/uL (4.70-6.10); Red Cell Dist. Width 19.4 % (11.5-14.5); White Blood Cell Count 4.9 10^3/uL (4.8-10.8)
[2024-09-13 13:20] LABS: ALT (SGPT) 19 U/L (0-50); AST (SGOT) 20 U/L (17-59); Albumin 3.9 g/dl (3.5-5.0); Alkaline Phosphatase 119 U/L (38-126); Blood Urea Nitrogen 27 mg/dl (9-20); Calcium 9.1 mg/dl (8.4-10.2); Carbon Dioxide 27 mmol/L (22-30); Chloride 95 mmol/L (98-107); Glucose 365 mg/dl (70-99); Potassium 4.1 mmol/L (3.5-5.1); Sodium 138 mmol/L (135-145); Total Bilirubin 0.3 mg/dl (0.2-1.3); Total Protein 10.3 g/dl (6.3-8.2); eGFR > 60.00
[2024-09-13 14:04] LABS: % Basophils 0.6 % (0-2); % Eosinophils 2.4 % (0-6); % Immature Granulocytes 0.6 % (0-0.5); % Lymphocytes 25.9 % (20.5-51.1); % Neutrophils 58.5 % (42.2-75.2); Absolute Eosinophils 0.1 10^3/uL (0-0.7); Absolute Lymphocytes 1.3 10^3/uL (1.2-3.4); Absolute Monocytes 0.6 10^3/uL (0.1-0.6); Absolute Neutrophils 2.9 10^3/uL (1.4-6.5); Nucleated Red Blood Cells % 0 % (-)
[2024-09-13 16:27] VITALS: BP 101/66
[2024-09-13 16:28] VITALS: BMI 35.0
--- NOTE | 2024-09-13 16:54 | ED.GENMED ---
History of Present Illness
General
Chief Complaint: Abnormal Lab Value
Source: patient and care home
Exam Limitations: none
Time Seen by Provider: 09/13/24 16:15
Nursing documentation reviewed up to this point in time: agreed with
History of Present Illness
History of Present Illness:
Patient sent to ED by halfway for low Hgb. He is currently being treated for leukemia, follow with Dr. Hilliard. States he is currently receiving chemo however it has not been working. He has an appt next week with Dr. Hilliard and will be
accompanied by his daughter to discuss future treatment. He had blood work this week. Hgb 7.1. Sent to ED for evaluation. He denies any new symptoms. Brought to ED via EMS
Past History
Past History
ED Past Medical History: Cancer (Myelodysplastic Syndrome (MDS)), IDDM, Psychiatric (anxiety, Depression) and Other (TBI, Shingles)
ED Past Surgical History: Orthopedic (Right leg surgery, Left great toe and second toe amputation. Right great toe amputation, Back surgery, )
Social History
Tobacco: Former smoker
Alcohol: None
Personal:
Living: care home
Review of Systems
Review of Systems
Allergies reviewed?: Yes
All Other Systems: ROS reviewed and negative except as documented in HPI and ROS
Constitutional: Reports no symptoms
EENT: Reports no symptoms
Respiratory: Reports no symptoms
Cardiac: Reports no symptoms
ABD/GI: Reports no symptoms
: Reports no symptoms
Musculoskeletal: Reports no symptoms
Skin: Reports no symptoms
Neurological: Reports no symptoms
Hematologic/Lymphatic: Reports other (Low Hgb on outpatient labs.)
Psychiatric: Reports no symptoms
Phy Exam
General Physical Exam
General Presentation: well appearing and no apparent distress
General age: appears stated age
General Skin: warm and dry
General Habitus: normal
General Mental: alert
Pulmonary Exam
Pulmonary Exam: lungs clear and no respiratory distress
Gastrointestinal Exam
Gastrointestinal Exam: non tender and soft
Musculoskeletal Exam
Musculoskeletal Exam: full ROM and neuro vasc intact
Skin Exam
Skin Exam: normal color, warm/dry and no rash
Psychiatric Exam
Psychiatric Exam: normal mood/affect
Course
Orders/Labs/Results
Orders:
Orders
09/13/24 12:54
Type+Screen Urgent
Complete Blood Count/With Diff Urgent
Comprehensive Metabolic Panel Urgent
Abnormal Lab Results
09/13/24
12:54
RBC 2.49 L 10^6/uL
(4.70-6.10)
Hgb 7.4 L g/dL
(13.0-18.0)
Hct 23.7 L %
(39.0-52.0)
MCV 95.2 H fL
(80.0-94.0)
MCHC 31.2 L g/dL
(33.0-37.0)
RDW 19.4 H %
(11.5-14.5)
Plt Count 129 L 10^3/uL
(130-400)
MPV 11.8 H fL
(7.4-10.4)
Immature Gran % 0.6 H %
(0-0.5)
Monocytes % 12.0 H %
(1.7-9.3)
Chloride 95 L mmol/L
(98-107)
BUN 27 H mg/dl
(9-20)
Glucose 365 H mg/dl
(70-99)
Total Protein 10.3 H g/dl
(6.3-8.2)
09/13/24 12:54
09/13/24 12:54
Vital Signs
Initial and Last Documented VS:
Initial Vital Signs
Temp Pulse Resp BP Pulse Ox
98.0 F 97 16 123/69 97
09/13/24 12:46 09/13/24 12:46 09/13/24 12:46 09/13/24 12:46 09/13/24 12:46
Last Documented Vital Signs
Temp Pulse Resp BP Pulse Ox
98.0 F 95 13 123/69 97
09/13/24 12:46 09/13/24 16:27 09/13/24 16:27 09/13/24 12:46 09/13/24 16:31
*Critical Care Note
Total Time (30-74mins, 75-104mins- exclusive of procedures): Not Applicable
Update Note
Update Note:
Currently receiving treatment for leukemia. Patient sent to ED by [place] for Hgb 7.1 on outpatient labwork. Today Hgb is 7.4. Reviewing prior labs it appears that this is typical for him. He has no new complaints. Discussed with Dr. Hilliard. Will
hold of on transfusion as labs are stable for him. He has an appointment next week with Dr. Hilliard
ED Attending Note
-
Portions of this chart may have been created with voice recognition software.� Occasional wrong word or��sound alike� substitutions may have occurred due to the inherent limitations of voice recognition software.
Discharge Plan
Departure
Patient Disposition: [facility]/SNF
Date of Disposition: 09/13/24
Time of Disposition: 17:06
Patient with high blood pressure during this ER visit?: No
Condition: Good
Covid-19: Not Applicable
Discharge Problem:
Anemia
Instructions: Anemia overview
Prescriptions:
No Action
atorvastatin [Lipitor] 40 mg Tablet
40 mg PO HS
acetaminophen [Tylenol] 325 mg Tablet
650 mg PO Q4HPRN PRN (Reason: mild pain/fever)
amitriptyline 50 mg Tablet
50 mg PO HS
fluticasone propionate 50 mcg/actuation [place],Suspension
2 spray INTRANASAL DAILY
polyethylene glycol 3350 [Miralax] 17 gram Powder In Packet
17 g PO DAILYPRN PRN (Reason: Constipation)
sennosides-docusate sodium [Senna Plus] 8.6-50 mg Tablet
2 tab-cap PO [id number] PRN (Reason: Constipation)
therapeutic multivitamin Tablet
1 tab PO DAILY
magnesium hydroxide 400 mg/5 mL Suspension
2,400 mg PO [id number] PRN (Reason: no bm after 3 days)
olopatadine 0.1 % Drops
1 drp BOTH EYES BID
calcium carbonate [Tums] 200 mg calcium (500 mg) Tablet,Chewable
400 mg PO Q4HPRN PRN (Reason: indigestion )
loratadine 10 mg Tablet
10 mg PO DAILY
venlafaxine 225 mg Tablet Extended Release 24hr
225 mg PO HS
metformin 500 mg Tablet
1,000 mg PO BID
acyclovir 400 mg Tablet
400 mg PO FR@0800,2000
bisacodyl 10 mg Suppository
10 mg [place] DAILYPRN PRN (Reason: if no bm after MOM)
docusate sodium [Colace] 100 mg Capsule
100 mg PO DAILY
montelukast [Singulair] 10 mg Tablet
10 mg PO THFRSA@2200
dapagliflozin propanediol [Farxiga] 10 mg Tablet
10 mg PO DAILY
Ozempic 0.25 mg or 0.5 mg (2 mg/3 mL) Pen Injector
0.5 mg SC MO
loperamide [Imodium A-D] 2 mg Tablet
2 mg PO Q6HPRN PRN (Reason: diarrhea)
aspirin 81 mg Tablet,Delayed Release (Dr/Ec)
81 mg PO DAILY
povidone-iodine 10 % Liquid In Packet
1 applic TOPICAL DAILYPRN PRN (Reason: r foot wound+2nd toe, L 3rd toe)
povidone-iodine 10 % Liquid In Packet
1 applic TOPICAL DAILY
Rx Instructions:
right 2nd toe and right foot wound
lenalidomide 25 mg Capsule
25 mg PO HS
Patient Comments:
09/02/24: to take from 08/26/24-09/09/24, per [place] paperwork
bupropion HCl [Wellbutrin SR] 150 mg Tablet Sustained-Release 12 Hr
150 mg PO DAILY
albuterol sulfate [Ventolin HFA] 90 mcg/actuation Hfa Aerosol Inhaler
2 puff INHALATION R Q4HPRN PRN (Reason: wheezing/sob)
tamsulosin 0.4 mg Capsule
0.4 mg PO DAILY Qty: 30 1RF
metoprolol succinate 25 mg Tablet Extended Release 24 Hr
12.5 mg PO DAILY Qty: 30 1RF
morphine 30 mg Tablet Extended Release
30 mg PO Q12H Qty: 3 0RF
alprazolam 0.25 mg Tablet
0.25 mg PO HS Qty: 2 0RF
pregabalin [Lyrica] 200 mg capsule
200 mg PO Q8H Qty: 5 0RF
insulin glargine 100 unit/mL Solution
20 unit SC BID
lorazepam 0.5 mg Tablet
0.5 mg PO BIDPRN PRN (Reason: anxiety)
Fleet Enema 19-7 gram/118 mL Enema
118 ml [place] DAILYPRN PRN (Reason: no bm 24 hours after bisacodyl)
povidone-iodine [Betadine] 10 % Solution
1 applic TOPICAL HS
Rx Instructions:
right 2nd toe and left 3rd toe
Fiasp U-100 Insulin 100 unit/mL Solution
1 sliding scale dose SC MEALS
Rx Instructions:
151-200=2u,201-250=4u,251-300=6u,351-400=9u,401-450=10u,451-500=12u
furosemide 80 mg tablet
80 mg PO BID
insulin aspart U-100 100 unit/mL (3 mL) insulin pen
1 sliding scale dose SC AC
Rx Instructions:
151-200=2u,201-250=4u,251-300=6u,301-350=8u,351-400=10u,401-450=12u
oxycodone 10 mg tablet
10 mg PO Q4H
Referrals:
Daisy Gordon DO [Family Provider] -
Keagan Hilliard MD [Active] - Keep scheduled appt
Interventions
Interventions:
*Risk Screen - Suicide Last Done: 09/13/24 12:46
*General Assessment Last Done: 09/13/24 16:29
*Neglect/Abuse Screening Last Done: 09/13/24 12:46
ED- Fall Risk Assessment Last Done: 09/13/24 16:31
*ED COVID-19 Vaccine History Last Done: 09/13/24 16:29
Discharge Date and Time
Print Language: ALBANIAN
[2024-09-13 17:00] VITALS: BP 97/71
== END 2024-09-13 17:53 | disposition home or self-care (01) ==
LOC: EMR 12:33
PROVIDERS: Emergency Medicine; EMERGENCY PHYSICIAN Student in an Organized Health Care Education/Training Program; FAMILY PHYSICIAN Hospitalist
DX: D64.9 Anemia, unspecified (principal); C95.90 Leukemia, unspecified not having achieved remission; E11.9 Type 2 diabetes mellitus without complications; Z87.891 Personal history of nicotine dependence; Z79.4 Long term (current) use of insulin
CPT/HCPCS: 99283; 80053; 85025; 86850; 86870; 86900; 86901